=== PATIENT | male | born 1940 | race Two or more races ===

== ENCOUNTER 2016-10-15 09:12 | Inpatient (IN) | payer OTHER ==
--- NOTE | 2016-10-15 09:26 | PDOC ---
*Physical Exam - Physical Exam Comments: 10/15/16 09:26 MIDLEVEL NOTE Pt seen by Midlevel Provider under my direct supervision. Pt interviewed and examined. Ancillary studies reviewed. I agree with plan as outlined by Midlevel Provider. 75 yo with h/o CVA with residual rt sided weakness, HTN on norvasc, GERD, bipolar and iddm who presents with s/p fall and noted to have elevated CPK (c/ w some rhabdo), and also troponin Patient states he was on the ground for about 5 hours after his most recent fall. Per report he has had multiple recent falls due to unsteady gait. today endorsing that he has been falling out of bed in his sleep. Chronic rt sided weaknesss stable. EKG Normal sinus rhythm, with severe baseline artifact-poor quality EKG Normal AV and IV conduction time Normal QT Nonspecific ST-T is Laboratory Results - last 24 hr 10/15/16 10/15/16 10/15/16 09:45 09:45 09:45 WBC 6.0 RBC 3.77 L Hgb 11.8 D Hct 35.4 D MCV 93.9 MCHC 33.3 RDW 15.3 D Plt Count 127 L MPV 8.8 Neutrophils % 64.1 Lymphocytes % 16.4 Monocytes % 17.7 H Eosinophils % 1.2 Basophils % 0.6 Sodium 142 Potassium 3.8 Chloride 108 H Carbon Dioxide 25 Anion Gap 9 BUN 20 H D Creatinine 0.9 Creat Clearance w eGFR > 60 POC Glucometer Random Glucose 146 H Calcium 8.7 Magnesium 2.0 Cancelled Total Bilirubin 0.8 AST 83 H D ALT 71 Alkaline Phosphatase 219 H D Creatine Kinase 1027 H D Creatine Kinase Index 1.0 CK-MB (CK-2) 9.902 H CK-MB (CK-2) Rel Index Troponin I 0.16 H D Total Protein 7.0 Albumin 3.2 L 10/15/16 10/15/16 09:45 10:15 WBC RBC Hgb Hct MCV MCHC RDW Plt Count MPV Neutrophils % Lymphocytes % Monocytes % Eosinophils % Basophils % Sodium Potassium Chloride Carbon Dioxide Anion Gap BUN Creatinine Creat Clearance w eGFR POC Glucometer [id number] Random Glucose Calcium Magnesium Total Bilirubin AST ALT Alkaline Phosphatase Creatine Kinase Creatine Kinase Index CK-MB (CK-2) CK-MB (CK-2) Rel Index Cancelled Troponin I Total Protein Albumin 10/15/16 11:37 Right hip and pelvis NAD Chest x-ray- NAD Patient with some evidence of rhabdo, but was on the floor for at least 5 hrs Troponin also mildly elevated Will need to recheck CK and troponin after some hydration, and trend enzymes will need admission ED Treatment Course - LABORATORY CBC & Chemistry Diagram: 10/17/16 05:40 10/17/16 05:40 *DC/Admit/Observation/Transfer Diagnosis at time of Disposition: Elevated CK-MB level, Rhabdomyolysis, Recurrent falls Fall Qualifiers: Encounter type: initial encounter Qualified Code(s): W19.XXXA - Unspecified fall, initial encounter
[2016-10-15] MEDS ORDERED: DIPHTH,PERTUSS(ACELL),TET 0.5 ML DISP.SYRIN IM ONE (09:28)
[2016-10-15] MEDS ORDERED: SODIUM CHLORIDE 1,000 ML IV STA ×2 (09:28→11:34)
--- NOTE | 2016-10-15 09:56 | PDOC ---
History of Present Illness - General Chief Complaint: Injury Stated Complaint: FALL/WEAKNESS Time Seen by Provider: 10/15/16 09:22 History Source: Patient Exam Limitations: No Limitations - History of Present Illness Initial Comments: 10/15/16 09:56 75-year-old male sent over from [facility] with complaints of more frequent falling over the past week. Patient states feels unbalanced with his cane and has fallen due to the above. Patient states has had no dizziness, nausea, visual changes, headache, or sudden onset of weakness with falls. Patient states the first time he fell and landed on his buttocks but was able to get up since there was a piece of furniture nearby and then today he was signed over to a door when he lost his balance causing him to land backwards against landing on his buttocks. Patient states was unable to get up and dragged himself on his stomach to call for help. Patient states did not strike his head on either episodes and is currently on no anticoagulation therapy. Patient denies fever, chills but does state decreased appetite over the past 2 weeks. patient is also a diabetic and unsure of last BGM. Occurred: reports: other Severity: reports: moderate Pain Location: reports: pelvis Method of Injury: Yes: fall Modifying Factors: improves with: None Loss of Consciousness: no loss of consciousness Associated Symptoms (Fall): trouble walking Past History - Past Medical History Allergies/Adverse Reactions: Allergies Allergy/AdvReac Type Severity Reaction Status Date / Time No Known Drug Allergies Allergy Verified 10/15/16 09:26 Home Medications: Ambulatory Orders Amlodipine Besylate 10 mg PO DAILY 08/19/15 Carboxymethylcellulose Sodium [Refresh Celluvisc] 1 each OP BID 08/19/15 Insulin Lispro [Humalog] 4 unit SQ BID 08/19/15 Olanzapine 15 mg PO HS 08/19/15 Zolpidem Tartrate [Ambien] 5 mg PO HS 08/19/15 Divalproex *ER* [Depakote *ER* -] 500 mg PO BID 10/15/16 Polyethylene Glycol 3350 [Miralax (For Daily Use) -] 17 gm PO DAILY 10/15/16 Sennosides [Senna] 2 tab PO BID 10/15/16 Cardiac Disorders: Yes CVA: Yes (residual rt side weakness) GI Disorders: Yes (gerd) HTN: Yes Hypercholesterolemia: Yes Psychiatric Problems: Yes (bipolar) Other medical history: right ataxis - Psycho/Social/Smoking Cessation Hx Anxiety: Yes Suicidal Ideation: No Smoking Status: No Smoking History: Never smoked Have you smoked in the past 12 months: No Number of Cigarettes Smoked Daily: 0 Information on smoking cessation initiated: No Hx Alcohol Use: No Drug/Substance Use Hx: No Substance Use Type: None Hx Substance Use Treatment: No Patient Lives Alone: No Lives with/in: assisted living Review of Systems - Review of Systems Able to Perform ROS?: Yes Constitutional: Yes: Loss of Appetite HEENTM: No: Symptoms Reported Respiratory: No: Symptoms reported Cardiac (ROS): No: Symptoms Reported ABD/GI: Yes: Poor Appetite, Poor Fluid Intake : No: Symptoms Reported Musculoskeletal: Yes: Symptoms Reported, Joint Pain (right hip). No: Joint Swelling, Muscle Weakness Integumentary: Yes: Bruising (to bilateral elbows) Neurological: No: Symptoms reported Endocrine: No: Symptoms Reported Hematologic/Lymphatic: No: Symptoms Reported *Physical Exam - Vital Signs Last Vital Signs Temp Pulse Resp BP Pulse Ox 97.9 F 83 18 140/81 95 10/15/16 09:24 10/15/16 09:24 10/15/16 09:24 10/15/16 09:24 10/15/16 09:28 - Physical Exam General Appearance: Yes: Nourished, Appropriately Dressed. No: Apparent Distress HEENT: positive: EOMI, NOAH, TMs Normal, Pharynx Normal (dry) Neck: positive: Supple. negative: Decreased range of motion Respiratory/Chest: positive: Lungs Clear, Normal Breath Sounds. negative: Respiratory Distress, Accessory Muscle Use Cardiovascular: positive: Regular Rhythm, Regular Rate. negative: Murmur Gastrointestinal/Abdominal: positive: Soft. negative: Tenderness Musculoskeletal: negative: CVA Tenderness, Vertebral Tenderness Extremity: positive: Normal Capillary Refill, Normal Inspection, Normal Range of Motion, Tender (right posterior iliac crest), Pedal Edema (3+ pitting). negative: Calf Tenderness Integumentary: positive: Ecchymosis (to bilateral elbows) Neurologic: positive: Normal Mood/Affect, Motor Strength 5/5 ED Treatment Course - LABORATORY CBC & Chemistry Diagram: 10/15/16 09:45 10/15/16 09:45 - RADIOLOGY Radiology Studies Ordered: Category Date Time Status CHEST X-RAY PORTABLE* [RAD] Stat Radiology 10/15/16 09:28 Ordered HIP & PELVIS-RIGHT [RAD] Stat Radiology 10/15/16 09:28 Ordered Medical Decision Making - Medical Decision Making 10/15/16 10:05 Patient status post mechanical fall today and has fallen once before earlier this week. Patient with complaints of right posterior hip pain along with bruising to bilateral elbows. Patient ordered for cardiac workup, x-rays of the hip chest and EKG. Patient also ordered for BGM and given IV fluids since he appears slightly dehydrated. 10/15/16 12:49 Laboratory Tests 08/19/15 10/15/16 10/15/16 13:35 09:45 09:45 WBC 6.0 Hgb 11.8 D Hct 35.4 D Plt Count 114 L 127 L Neutrophils % 64.1 Sodium 142 Potassium 3.8 Chloride 108 H Carbon Dioxide 25 Anion Gap 9 BUN 20 H D Creatinine 0.9 Creat Clearance w eGFR > 60 POC Glucometer Random Glucose 146 H Calcium 8.7 Magnesium 2.0 Total Bilirubin 0.8 AST 83 H D ALT 71 Alkaline Phosphatase 219 H D Creatine Kinase 1027 H D Creatine Kinase Index 1.0 CK-MB (CK-2) 9.902 H CK-MB (CK-2) Rel Index Troponin I 0.16 H D Total Protein 7.0 Albumin 3.2 L Urine Protein Urine Glucose (UA) Urine Ketones Urine Nitrite Ur Leukocyte Esterase 10/15/16 10/15/16 10/15/16 09:45 10:15 12:00 WBC Hgb Hct Plt Count Neutrophils % Sodium Potassium Chloride Carbon Dioxide Anion Gap BUN Creatinine Creat Clearance w eGFR POC Glucometer [phone] Random Glucose Calcium Magnesium Total Bilirubin AST ALT Alkaline Phosphatase Creatine Kinase Creatine Kinase Index CK-MB (CK-2) CK-MB (CK-2) Rel Index Cancelled Troponin I Total Protein Albumin Urine Protein Negative Urine Glucose (UA) 1+ H Urine Ketones Negative Urine Nitrite Negative Ur Leukocyte Esterase Negative Secondary to elevated CK which is likely due to patient being on the floor after his fall driving himself on the floor for an unknown amount of time. Case discussed with Dr. James patient will be admitted to telemetry. *DC/Admit/Observation/Transfer Diagnosis at time of Disposition: Elevated CK-MB level Fall Qualifiers: Encounter type: initial encounter Qualified Code(s): W19.XXXA - Unspecified fall, initial encounter - Discharge Dispostion Admit: Yes
[2016-10-15 10:05] LABS: BASOPHIL 0.6 % (0-2.0); EOSINOPHIL 1.2 % (0-4.5); MCH 31.3 pg (25.7-33.7); MCHC 33.3 g/dl (32.0-35.9); MEAN CELL VOLUME 93.9 fl (80-96); MEAN PLT VOLUME 8.8 fl (7.5-11.1); NEUTROPHILS 64.1 % (42.8-82.8); PLATELET COUNT 127 K/MM3 (134-434); RDW 15.3 % (11.9-15.9)
[2016-10-15 10:19] LABS: ALBUMIN 3.2 g/dl (3.4-5.0); ANION GAP 9 (8-16); BILIRUBIN,TOTAL 0.8 mg/dL (0.2-1.0); CALCIUM 8.7 mg/dL (8.5-10.1); CO2 25 mmol/L (21-32); CREATININE 0.9 mg/dL (0.7-1.3); GLUCOSE,RANDOM 146 mg/dL (74-106); SGOT/AST 83 U/L (15-37); SGPT/ALT 71 U/L (12-78)
[2016-10-15 10:31] LABS: ALK PHOS 219 U/L (45-117); TROPONIN I 0.16 ng/ml (0.00-0.05)
[2016-10-15 12:32] LABS: URINE APPEARANCE CLEAR; URINE BILIRUBIN NEGATIVE (NEGATIVE); URINE BLOOD NEGATIVE (NEGATIVE); URINE COLOR LTYELLOW; URINE GLUCOSE (UA) 1+ (NEGATIVE); URINE KETONE NEGATIVE (NEGATIVE); URINE LEUK ESTERASE NEGATIVE (NEGATIVE); URINE NITRITE NEGATIVE (NEGATIVE); URINE PROTEIN NEGATIVE (NEGATIVE); URINE UROBILINOGEN NEGATIVE E.U./dl (0.2-1.0)
--- NOTE | 2016-10-15 12:43 | EKG ---
Test Reason : Blood Pressure : / mmHG Vent. Rate : 089 BPM Atrial Rate : 089 BPM P-R Int : 168 ms QRS Dur : 078 ms QT Int : 342 ms P-R-T Axes : 042 029 102 degrees QTc Int : 416 ms POOR DATA QUALITY, INTERPRETATION MAY BE ADVERSELY AFFECTED UNDETERMINED RHYTHM NONSPECIFIC T WAVE ABNORMALITY ABNORMAL ECG WHEN COMPARED WITH ECG OF 19-AUG-2015 13:42, CURRENT UNDETERMINED RHYTHM PRECLUDES RHYTHM COMPARISON, NEEDS REVIEW Confirmed by BORIS ARTIS MD ([id number]) on 10/15/2016 12:43:14 PM Referred By: Confirmed By:BORIS ARTIS MD
--- NOTE | 2016-10-15 15:15 | CON.CARD ---
Cardiology Consult (text) - Consultation Consultation Note: CC: Abnormal cardiac enzymes. 75 yo with h/o CVA with residual rt sided weakness, HTN on norvasc, GERD, bipolar and iddm who presents with s/p fall and noted to have elevated cardiac enzymes. Patient states he was on the ground for about 5 hours after his most recent fall. Per report he has had multiple recent falls due to unsteady gait. However, today endorsing to me that he has been falling out of bed in his sleep. Chronic rt sided weaknesss stable. endorses increasing abdominal distension/discomfort over the past few months. Endorses hx of prior heavy etoh use and possible resulting liver disease? per patient. s/p IVF in ER. no orthopnea, pnd, le edema, cp, palps, dizziness, bleeding. + mild sob chronic. no dizziness, nausea, visual changes, headache, cough congestion, rash, f/c/s pmhx: per hpi pshx: per hpi fam hx: no cardiac history social hx: former tobacco, rior heavy etoh use and prior IVDU, heroine, cocaine , marijuana. no recent use. [facility] assisted living facility ros: per hpi Ambulatory Orders Amlodipine Besylate 10 mg PO DAILY 08/19/15 Carboxymethylcellulose Sodium [Refresh Celluvisc] 1 each OP BID 08/19/15 Insulin Lispro [Humalog] 4 unit SQ BID 08/19/15 Olanzapine 15 mg PO HS 08/19/15 Zolpidem Tartrate [Ambien] 5 mg PO HS 08/19/15 Divalproex *ER* [Depakote *ER* -] 500 mg PO BID 10/15/16 Polyethylene Glycol 3350 [Miralax (For Daily Use) -] 17 gm PO DAILY 10/15/16 Sennosides [Senna] 2 tab PO BID 10/15/16 Vital Signs - 24 hr 10/15/16 10/15/16 09:24 09:28 Temperature 97.9 F Pulse Rate 83 Respiratory 18 Rate Blood Pressure 140/81 O2 Sat by Pulse 95 95 Oximetry (%) Intake & Output 10/13/16 10/14/16 10/15/16 10/16/16 07:59 07:59 07:59 07:59 Intake Total 1000 Balance 1000 Weight 205 lb NAD, calm jvd mildly elevated?, neck supple appears dypneic. trace rales, nl effort rrr nl s1, s2 no mrg + bs soft nt nd obese ext with trace edema. no cyanosis or clubbing + dp/pt aaox3 no carotid bruits no jaundice, diaphoresis CBC, BMP 10/15/16 09:45 10/15/16 09:45 Laboratory Tests 10/15/16 09:45 Magnesium 2.0 Total Bilirubin 0.8 AST 83 H D ALT 71 Alkaline Phosphatase 219 H D Creatine Kinase 1027 H D Creatine Kinase Index 1.0 CK-MB (CK-2) 9.902 H Troponin I 0.16 H D Albumin 3.2 L CXR: clear EKG uninterpretable. No obvious ischemic changes. tele: sr. 75 yo with h/o CVA with residual rt sided weakness, HTN on norvasc, GERD, bipolar and iddm who presents with s/p fall and noted to have elevated cardiac enzymes. Elevated CE's. - intermediate troponin elevation with high CK. Likely elevated in setting of fall/possibe rhabdo. EKG uninterpretable as above. would repeat in am. con't [place]. - echo in am. s/p fall - s/p IVF in ER. Appears dyspneic on evaluation. trace rales. ? underlying pulmonary disease vs. new development of edema. Will repeat cxr in am. Echo as above. - PT eval HTN, controlled. con't current regimen. s/p CVA - does not appear to have new neurologic sx's per report. ? home statin, ASA. - would start asa pending results of repeat head ct. consider starting statin if lft's remain stable.
[2016-10-15 15:23] LABS: TROPONIN I 0.18 ng/ml (0.00-0.05)
[2016-10-15 15:48] VITALS: BMI 33.9
--- NOTE | 2016-10-15 20:14 | HP ---
Admitting History and Physical - Admission Chief Complaint: Recurrent falls History of Present Illness: Pt is a75 y/o male w/ PMH significant for HTN, GERD, diabetes, CVA w/ residual rt sided weakness and bipolar dz. Pt was sent from an assisted living facility due to recurrent falls especially over the past 1-2 weeks. His gait has been unstable and has been using a cane more. Pt come to ER now bc he fell and hit a piece of furniture but was unable to get up. In the ER pt found to have elevated cpk/troponin. Pt denies any LOC and no CADET. Ct scan head was done wc did not show any acute pathology. 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) Cardiovascular: Yes: HTN, Hyperlipdemia Endocrine: Yes: Diabetes Mellitus - Smoking History Smoking history: Never smoked Have you smoked in the past 12 months: No Aproximately how many cigarettes per day: 0 - Alcohol/Substance Use Hx Alcohol Use: No Home Medications - Allergies Allergies/Adverse Reactions: Allergies Allergy/AdvReac Type Severity Reaction Status Date / Time No Known Drug Allergies Allergy Verified 10/15/16 09:26 - Home Medications Home Medications: Ambulatory Orders Amlodipine Besylate 10 mg PO DAILY 08/19/15 Insulin Lispro [Humalog] 3 unit SQ TIDCM 08/19/15 Olanzapine 15 mg PO HS 08/19/15 Zolpidem Tartrate [Ambien] 5 mg PO HS 08/19/15 Cyclobenzaprine HCl [Flexeril 10 mg] 5 mg PO TID 10/15/16 Divalproex *ER* [Depakote *ER* -] 500 mg PO Q12H 10/15/16 Naproxen [Naprosyn -] 500 mg PO TID 10/15/16 Polyethylene Glycol 3350 [Miralax (For Daily Use) -] 17 gm PO DAILY 10/15/16 Sennosides [Senna] 2 tab PO BID 10/15/16 Family Disease History - Family Disease History Family History: Unable to Obtain Review of Systems - Review of Systems Constitutional: reports: Weakness Eyes: reports: No Symptoms HENT: reports: No Symptoms Neck: reports: No Symptoms Cardiovascular: reports: No Symptoms Respiratory: reports: No Symptoms Gastrointestinal: reports: No Symptoms Musculoskeletal: reports: Decreased ROM, Muscle Weakness Neurological: reports: Unsteady Gait, Weakness Physical Examination Vital Signs: Vital Signs Temperature 97.9 F 10/15/16 17:00 Pulse Rate 91 H 10/15/16 17:00 Respiratory Rate 18 10/15/16 17:28 Blood Pressure 151/99 10/15/16 17:00 O2 Sat by Pulse Oximetry (%) 96 10/15/16 17:28 Constitutional: Yes: Well Nourished Eyes: Yes: WNL HENT: Yes: WNL Neck: Yes: Supple Cardiovascular: Yes: WNL, Regular Rate and Rhythm Respiratory: Yes: WNL, Regular, CTA Bilaterally Gastrointestinal: Yes: WNL, Normal Bowel Sounds, Soft Musculoskeletal: Yes: WNL Extremities: Yes: WNL Edema: No Neurological: Yes: WNL, Alert, Oriented, Other (Rt sided hemiparesis) Problem List - Problems (1) Elevated troponin Assessment/Plan: Monitor on tele Serial cpk/troponin to r/o ACS Check echo Cardio consult Code(s): R74.8 - ABNORMAL LEVELS OF OTHER SERUM ENZYMES (2) Rhabdomyolysis Assessment/Plan: Cont IV hydration Due to recurrent falls Trend cpk Renal consult Code(s): M62.82 - RHABDOMYOLYSIS (3) Recurrent falls Assessment/Plan: Unsteady gait Will check carotid doppler Neuro consult Will need STR PT eval Code(s): R29.6 - REPEATED FALLS (4) HTN (hypertension) Assessment/Plan: BP stable Cont norvasc Code(s): I10 - ESSENTIAL (PRIMARY) HYPERTENSION (5) Diabetes Assessment/Plan: Cont insulin Cont sliding scale w/ coverage Code(s): E11.9 - TYPE 2 DIABETES MELLITUS WITHOUT COMPLICATIONS (6) Bipolar 1 disorder Assessment/Plan: Cont depakote/zyprexa Code(s): F31.9 - BIPOLAR DISORDER, UNSPECIFIED (7) CVA (cerebral vascular accident) Code(s): I63.9 - CEREBRAL INFARCTION, UNSPECIFIED
[2016-10-15 20:55] LABS: TROPONIN I 0.15 ng/ml (0.00-0.05)
[2016-10-15] MEDS: DIVALPROEX NA *ER* EXTEND REL 500 MG TABLET.SA (FP) PO SCH (22:33)
[2016-10-15] MEDS: OLANZapine 5 MG TABLET PO SCH (22:33)
[2016-10-15] MEDS: SENNOSIDES 8.6MG TABLET (FP) PO SCH (22:33)
[2016-10-15] MEDS: DEXTROSE 5%-0.45% SALINE 1,000 ML IV SCH (22:36)
[2016-10-15] MEDS: HEPARIN NA (PORCINE) 5,000 UNITS/ML 1ML VIAL SQ SCH (22:36)
[2016-10-15] MEDS: INSULIN SLIDING SCALE (NOVOLOG) 1 VIAL SQ SCH (22:38)
[2016-10-16] MEDS: INSULIN SLIDING SCALE (NOVOLOG) 1 VIAL SQ SCH ×4 (06:22→21:44)
[2016-10-16 07:45] LABS: EOSINOPHIL 4.3 % (0-4.5); MCH 31.1 pg (25.7-33.7); MEAN CELL VOLUME 94.2 fl (80-96); MEAN PLT VOLUME 9.2 fl (7.5-11.1); NEUTROPHILS 56.4 % (42.8-82.8); PLATELET COUNT 122 K/MM3 (134-434); RDW 15.3 % (11.9-15.9); WHITE BLOOD COUNT 4.1 K/mm3 (4.0-10.0)
[2016-10-16 08:20] LABS: ALBUMIN 2.7 g/dl (3.4-5.0); ANION GAP 7 (8-16); BILIRUBIN,TOTAL 0.8 mg/dL (0.2-1.0); CALCIUM 8.3 mg/dL (8.5-10.1); CO2 27 mmol/L (21-32); CREATININE 0.9 mg/dL (0.7-1.3); GLUCOSE,RANDOM 164 mg/dL (74-106); SGOT/AST 91 U/L (15-37); SGPT/ALT 66 U/L (12-78); TOT PROT 6.3 g/dl (6.4-8.2)
[2016-10-16 08:29] LABS: ALK PHOS 180 U/L (45-117); THYROID STIMULATING HORMONE 9.37 uIU/ml (0.358-3.74)
[2016-10-16] MEDS ORDERED: PT OWN MED DRAWER 7, Y5N ONE (09:32)
[2016-10-16] MEDS: SENNOSIDES 8.6MG TABLET (FP) PO SCH ×2 (10:40→21:45)
[2016-10-16] MEDS: DIVALPROEX NA *ER* EXTEND REL 500 MG TABLET.SA (FP) PO SCH ×2 (10:40→22:08)
[2016-10-16] MEDS: amLODIPine BESYLATE 10 MG TABLET (FP) PO SCH (10:40)
[2016-10-16] MEDS: HEPARIN NA (PORCINE) 5,000 UNITS/ML 1ML VIAL SQ SCH ×2 (10:40→21:45)
[2016-10-16] MEDS: POLYETHYLENE GLYCOL 3350 119 GM BTL PO SCH (10:41)
--- NOTE | 2016-10-16 10:43 | PN ---
Progress Note (short form) - Note Progress Note: s: no cp sob palps dizzy o: Vital Signs Period Temp Pulse Resp BP Sys/[place] Pulse Ox Last 24 Hr 97.4 F-98.5 F 70-91 18-20 126-156/60-99 96-98 NAD, no jvd cta bl nl eff rrr nl s1, s2 no mrg + bs soft nt nd obese ext with trace edema. no cyanosis or clubbing aaox3 no jaundice, diaphoresis Current Medications Generic Name Dose Route Start Last Admin Trade Name Freq PRN Reason Stop Dose Admin Amlodipine Besylate 10 mg 10/16/16 10:00 Norvasc - PO DAILY VENITA Divalproex Sodium 500 mg 10/15/16 22:00 10/15/16 22:33 Depakote *Er* - PO 500 mg BID VENITA Administration Heparin Sodium (Porcine) 5,000 unit 10/15/16 22:00 10/15/16 22:36 Heparin - SQ 5,000 unit BID VENITA Administration Dextrose/Sodium Chloride 1,000 mls @ 75 mls/hr 10/15/16 19:15 10/15/16 22:36 D5-1/2ns - IV 75 mls/hr ASDIR VENITA Administration Insulin Aspart 3 units 10/16/16 07:00 Novolog Vial SQ TIDAC VENITA Insulin Aspart 1 vial 10/15/16 22:00 10/16/16 06:22 Novolog Vial Sliding Scale - SQ 3 units ACHS VENITA Administration Protocol Olanzapine 15 mg 10/15/16 22:00 10/15/16 22:33 Zyprexa - PO 15 mg HS VENITA Administration Polyethylene Glycol 17 gm 10/16/16 10:00 Miralax (For Daily Use) - PO DAILY VENITA Senna 2 tab 10/15/16 22:00 10/15/16 22:33 Senna - PO 2 tab BID VENITA Administration Zolpidem Tartrate 5 mg 10/15/16 22:00 Ambien - PO HS PRN INSOMNIA CBC, BMP 10/16/16 05:40 10/16/16 05:40 CXR: clear ecg 10/16/16: sr, nl intervals, no ischemic changes tele: sr, occ pvcs a/p: 75 yo with h/o CVA with residual rt sided weakness, HTN on norvasc, GERD, bipolar and iddm who presents with s/p fall and noted to have elevated cardiac enzymes. Elevated CE's. - intermediate troponin elevation with flat trend and normal ckmb index, not consistent with acs. Likely elevated in setting of fall/possibe rhabdo. -EKG today unremarkable. -echo pending s/p fall -on ivfs for possible rhabdo -PT eval HTN: -con't current regimen. s/p CVA - does not appear to have new neurologic sx's. - consider starting asa and statin
--- NOTE | 2016-10-16 10:58 | EKG ---
Test Reason : Blood Pressure : / mmHG Vent. Rate : 069 BPM Atrial Rate : 069 BPM P-R Int : 168 ms QRS Dur : 084 ms QT Int : 420 ms P-R-T Axes : 057 044 066 degrees QTc Int : 450 ms NORMAL SINUS RHYTHM NONSPECIFIC T WAVE ABNORMALITY ABNORMAL ECG WHEN COMPARED WITH ECG OF 15-OCT-2016 09:23, PREVIOUS ECG HAS UNDETERMINED RHYTHM, NEEDS REVIEW Confirmed by LYNN ALFORD, JUAN ([id number]) on 10/16/2016 10:57:57 AM Referred By: KELSY Confirmed By:JUAN BAILEY MD
[2016-10-16] MEDS ORDERED: ACETAMINOPHEN 325 MG TABLET (FP) ONE (11:08)
[2016-10-16] MEDS: INSULIN (NOVOLOG) ASPART 100 UNITS/ML 10ML VIAL SQ SCH ×2 (11:59→17:32)
[2016-10-16] MEDS: DEXTROSE 5%-0.45% SALINE 1,000 ML IV SCH (19:00)
--- NOTE | 2016-10-16 20:04 | CON.NEURO ---
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) Cardio/Vascular: Yes: HTN, Hyperlipdemia Endocrine: Yes: Diabetes Mellitus - Alcohol/Substance Use Hx Alcohol Use: No - Smoking History Smoking history: Never smoked Have you smoked in the past 12 months: No Aproximately how many cigarettes per day: 0 Home Medications - Allergies Allergies/Adverse Reactions: Allergies Allergy/AdvReac Type Severity Reaction Status Date / Time No Known Drug Allergies Allergy Verified 10/15/16 09:26 - Home Medications Home Medications: Ambulatory Orders Amlodipine Besylate 10 mg PO DAILY 08/19/15 Insulin Lispro [Humalog] 3 unit SQ TIDCM 08/19/15 Olanzapine 15 mg PO HS 08/19/15 Zolpidem Tartrate [Ambien] 5 mg PO HS 08/19/15 Cyclobenzaprine HCl [Flexeril 10 mg] 5 mg PO TID 10/15/16 Divalproex *ER* [Depakote *ER* -] 500 mg PO Q12H 10/15/16 Naproxen [Naprosyn -] 500 mg PO TID 10/15/16 Polyethylene Glycol 3350 [Miralax (For Daily Use) -] 17 gm PO DAILY 10/15/16 Sennosides [Senna] 2 tab PO BID 10/15/16 Physical Exam-Neuro Vital Signs: Vital Signs Temperature 98.5 F 10/16/16 18:00 Pulse Rate 74 10/16/16 18:00 Respiratory Rate 20 10/16/16 18:00 Blood Pressure 129/79 10/16/16 18:00 O2 Sat by Pulse Oximetry (%) 99 10/16/16 09:00 Labs: CBC, BMP 10/16/16 05:40 10/16/16 05:40 NIH Stroke Scale - Total Score NIH Stroke Scale Score: 0 Assessment/Plan 75 yea everardod male , alf rsident , He has history of Residual right sided hemiparesis and bipolar disease, HTN , Gerd, and diabetes. He has been complaining of fall, mostly during when he is sleeping and in bed. He walks with cane and denie any fall during day Patient denies any new focal neurological symptoms, including tremor , rigidity or bowel or bladder incontinence PMH, FH, MEDS AND ROS were reviewed in chart Neurological Examination Patient is alert and follow command, laying bed comfortable CN all intact There is mild right sided hemiparesis, and ftn is normal bilaterally reflex are symmetrical and planter is mute sensation is normal ct head is normal Assessment-- Patient has two episode of fall , while he was in bed. At this time it is unlikely that he is having stroke, no extrapyramidal syndrome, no vertigo, no evidence of cord compression or neuropathy identified. He fell when he was in bed. Plan-- Physical therapy and b12,folate tsh can be obtained. supportive treatment - no need for brain or spine imaging at this time thanks for consult kalli reynaga MD Cell [phone]
[2016-10-16 20:32] LABS: TROPONIN I 0.04 ng/ml (0.00-0.05)
--- NOTE | 2016-10-16 21:13 | PN ---
Progress Note, Physician History of Present Illness: No new complaints - Current Medication List Current Medications: Active Medications Acetaminophen (Tylenol -) 650 mg PO Q6H PRN PRN Reason: FEVER OR PAIN Amlodipine Besylate (Norvasc -) 10 mg PO DAILY [facility] Last Admin: 10/16/16 10:40 Dose: 10 mg Divalproex Sodium (Depakote *Er* -) 500 mg PO BID [facility] Last Admin: 10/16/16 10:40 Dose: 500 mg Heparin Sodium (Porcine) (Heparin -) 5,000 unit SQ BID [facility] Last Admin: 10/16/16 10:40 Dose: 5,000 unit Dextrose/Sodium Chloride (D5-1/2ns -) 1,000 mls @ 75 mls/hr IV ASDIR [facility] Last Admin: 10/15/16 22:36 Dose: 75 mls/hr Insulin Aspart (Novolog Vial) 3 units SQ TIDAC [facility] Last Admin: 10/16/16 17:32 Dose: 3 units Insulin Aspart (Novolog Vial Sliding Scale -) 1 vial SQ ACHS [facility] PRN Reason: Protocol Last Admin: 10/16/16 17:32 Dose: 2 units Olanzapine (Zyprexa -) 15 mg PO HS [facility] Last Admin: 10/15/16 22:33 Dose: 15 mg Polyethylene Glycol (Miralax (For Daily Use) -) 17 gm PO DAILY [facility] Last Admin: 10/16/16 10:41 Dose: 17 grams Senna (Senna -) 2 tab PO BID [facility] Last Admin: 10/16/16 10:40 Dose: 2 tab Zolpidem Tartrate (Ambien -) 5 mg PO HS PRN PRN Reason: INSOMNIA - Objective Vital Signs: Vital Signs Temperature 98.5 F 10/16/16 18:00 Pulse Rate 74 10/16/16 18:00 Respiratory Rate 20 10/16/16 18:00 Blood Pressure 129/79 10/16/16 18:00 O2 Sat by Pulse Oximetry (%) 99 10/16/16 09:00 Constitutional: Yes: Well Nourished Eyes: Yes: WNL HENT: Yes: WNL Neck: Yes: Supple Cardiovascular: Yes: WNL, Regular Rate and Rhythm Respiratory: Yes: WNL, Regular, CTA Bilaterally Gastrointestinal: Yes: WNL, Normal Bowel Sounds, Soft Labs: CBC, BMP 10/16/16 05:40 10/16/16 05:40 Problem List - Problems (1) Elevated troponin Assessment/Plan: Monitor on tele CPK/troponin related to rhabdo Code(s): R74.8 - ABNORMAL LEVELS OF OTHER SERUM ENZYMES (2) Rhabdomyolysis Assessment/Plan: Cont IV hydration Due to recurrent falls Trend cpk Code(s): M62.82 - RHABDOMYOLYSIS (3) Recurrent falls Assessment/Plan: Unsteady gait PT eval Code(s): R29.6 - REPEATED FALLS (4) HTN (hypertension) Assessment/Plan: BP stable Cont norvasc Code(s): I10 - ESSENTIAL (PRIMARY) HYPERTENSION (5) Diabetes Assessment/Plan: Cont insulin Cont sliding scale w/ coverage Code(s): E11.9 - TYPE 2 DIABETES MELLITUS WITHOUT COMPLICATIONS (6) Bipolar 1 disorder Assessment/Plan: Cont depakote/zyprexa Code(s): F31.9 - BIPOLAR DISORDER, UNSPECIFIED (7) CVA (cerebral vascular accident) Code(s): I63.9 - CEREBRAL INFARCTION, UNSPECIFIED
[2016-10-16] MEDS: ZOLPIDEM TARTRATE 5 MG TABLET PO PRN (21:45)
[2016-10-16] MEDS: OLANZapine 5 MG TABLET PO SCH (21:45)
[2016-10-16] MEDS: ACETAMINOPHEN 325 MG TABLET (FP) PO PRN (22:07)
[2016-10-17] MEDS: DEXTROSE 5%-0.45% SALINE 1,000 ML IV SCH ×2 (06:15→22:16)
[2016-10-17] MEDS: INSULIN (NOVOLOG) ASPART 100 UNITS/ML 10ML VIAL SQ SCH ×4 (06:17→17:42)
[2016-10-17] MEDS: INSULIN SLIDING SCALE (NOVOLOG) 1 VIAL SQ SCH ×4 (06:20→22:12)
[2016-10-17 08:28] LABS: EOSINOPHIL 5.4 % (0-4.5); MCH 30.8 pg (25.7-33.7); MCHC 32.8 g/dl (32.0-35.9); MEAN PLT VOLUME 8.4 fl (7.5-11.1); PLATELET COUNT 128 K/MM3 (134-434); RDW 15.3 % (11.9-15.9)
[2016-10-17 09:01] LABS: ALBUMIN 2.6 g/dl (3.4-5.0); ALK PHOS 185 U/L (45-117); ANION GAP 9 (8-16); BILIRUBIN,TOTAL 0.7 mg/dL (0.2-1.0); CALCIUM 8.4 mg/dL (8.5-10.1); CO2 25 mmol/L (21-32); COCKROFT - GAULT 83.34; GLUCOSE,RANDOM 141 mg/dL (74-106); SGOT/AST 96 U/L (15-37); SGPT/ALT 66 U/L (12-78); TOT PROT 6.5 g/dl (6.4-8.2)
[2016-10-17] MEDS ORDERED: PT OWN MED DRAWER 7, Y5N ONE (09:48)
[2016-10-17] MEDS: POLYETHYLENE GLYCOL 3350 119 GM BTL PO SCH (10:00)
[2016-10-17] MEDS: HEPARIN NA (PORCINE) 5,000 UNITS/ML 1ML VIAL SQ SCH ×2 (10:00→22:17)
[2016-10-17] MEDS: DIVALPROEX NA *ER* EXTEND REL 500 MG TABLET.SA (FP) PO SCH ×2 (10:00→22:17)
[2016-10-17] MEDS: amLODIPine BESYLATE 10 MG TABLET (FP) PO SCH (10:00)
[2016-10-17] MEDS: SENNOSIDES 8.6MG TABLET (FP) PO SCH ×2 (10:00→22:17)
--- NOTE | 2016-10-17 10:48 | PN ---
Progress Note (short form) - Note Progress Note: s: no cp sob palps dizzy o: Vital Signs Period Temp Pulse Resp BP Sys/Fulton Pulse Ox Last 24 Hr 98.2 F-98.7 F 74-82 20-20 122-141/74-81 99 NAD, no jvd cta bl nl eff rrr nl s1, s2 no mrg + bs soft nt nd obese ext with trace edema. no cyanosis or clubbing aaox3 no jaundice, diaphoresis Current Medications Generic Name Dose Route Start Last Admin Trade Name Freq PRN Reason Stop Dose Admin Acetaminophen 650 mg 10/16/16 11:13 10/16/16 22:07 Tylenol - PO 650 mg Q6H PRN Administration FEVER OR PAIN Amlodipine Besylate 10 mg 10/16/16 10:00 10/16/16 10:40 Norvasc - PO 10 mg DAILY [facility] Administration Divalproex Sodium 500 mg 10/15/16 22:00 10/16/16 22:08 Depakote *Er* - PO 500 mg BID [facility] Administration Heparin Sodium (Porcine) 5,000 unit 10/15/16 22:00 10/16/16 21:45 Heparin - SQ 5,000 unit BID [facility] Administration Dextrose/Sodium Chloride 1,000 mls @ 75 mls/hr 10/15/16 19:15 10/17/16 06:15 D5-1/2ns - IV 75 mls/hr ASDIR [facility] Administration Insulin Aspart 3 units 10/16/16 07:00 10/17/16 06:17 Novolog Vial SQ 3 units TIDAC [facility] Administration Insulin Aspart 1 vial 10/15/16 22:00 10/17/16 06:20 Novolog Vial Sliding Scale - SQ 3 units ACHS [facility] Administration Protocol Olanzapine 15 mg 10/15/16 22:00 10/16/16 21:45 Zyprexa - PO 15 mg HS [facility] Administration Polyethylene Glycol 17 gm 10/16/16 10:00 10/16/16 10:41 Miralax (For Daily Use) - PO 17 grams DAILY [facility] Administration Senna 2 tab 10/15/16 22:00 10/16/16 21:45 Senna - PO 2 tab BID [facility] Administration Zolpidem Tartrate 5 mg 10/15/16 22:00 10/16/16 21:45 Ambien - PO 5 mg HS PRN Administration INSOMNIA CBC, BMP 10/17/16 05:40 10/17/16 05:40 CXR: clear ecg 10/16/16: sr, nl intervals, no ischemic changes tele: sr echo 10/2016: nl lv/rv, mild tr, nl rvsp a/p: 75 yo with h/o CVA with residual rt sided weakness, HTN on norvasc, GERD, bipolar and iddm who presents with s/p fall and noted to have elevated cardiac enzymes. Elevated CE's. -intermediate troponin elevation with flat trend and normal ckmb index, not consistent with acs. Likely elevated in setting of fall/possible rhabdo. -EKG and echo unremarkable here s/p fall -on ivfs for possible rhabdo -PT eval HTN: -con't current regimen. s/p CVA - neuro following - consider starting asa and statin can dc tele
--- NOTE | 2016-10-17 15:09 | PN ---
Progress Note, Physician History of Present Illness: No new complaints - Current Medication List Current Medications: Active Medications Acetaminophen (Tylenol -) 650 mg PO Q6H PRN PRN Reason: FEVER OR PAIN Last Admin: 10/16/16 22:07 Dose: 650 mg Amlodipine Besylate (Norvasc -) 10 mg PO DAILY [facility] Last Admin: 10/17/16 10:00 Dose: 10 mg Divalproex Sodium (Depakote *Er* -) 500 mg PO BID [facility] Last Admin: 10/17/16 10:00 Dose: 500 mg Heparin Sodium (Porcine) (Heparin -) 5,000 unit SQ BID [facility] Last Admin: 10/17/16 10:00 Dose: 5,000 unit Dextrose/Sodium Chloride (D5-1/2ns -) 1,000 mls @ 75 mls/hr IV ASDIR [facility] Last Admin: 10/17/16 06:15 Dose: 75 mls/hr Insulin Aspart (Novolog Vial) 3 units SQ TIDAC [facility] Last Admin: 10/17/16 12:02 Dose: 3 units Insulin Aspart (Novolog Vial Sliding Scale -) 1 vial SQ ACHS [facility] PRN Reason: Protocol Last Admin: 10/17/16 12:01 Dose: 2 units Olanzapine (Zyprexa -) 15 mg PO HS [facility] Last Admin: 10/16/16 21:45 Dose: 15 mg Polyethylene Glycol (Miralax (For Daily Use) -) 17 gm PO DAILY [facility] Last Admin: 10/17/16 10:00 Dose: 17 grams Senna (Senna -) 2 tab PO BID [facility] Last Admin: 10/17/16 10:00 Dose: 2 tab Zolpidem Tartrate (Ambien -) 5 mg PO HS PRN PRN Reason: INSOMNIA Last Admin: 10/16/16 21:45 Dose: 5 mg - Objective Vital Signs: Vital Signs Temperature 98 F 10/17/16 14:55 Pulse Rate 72 10/17/16 14:55 Respiratory Rate 20 10/17/16 14:55 Blood Pressure 118/55 10/17/16 14:55 O2 Sat by Pulse Oximetry (%) 99 10/16/16 21:00 Constitutional: Yes: Well Nourished Eyes: Yes: WNL HENT: Yes: WNL Neck: Yes: Supple Respiratory: Yes: WNL, Regular, CTA Bilaterally Gastrointestinal: Yes: WNL, Normal Bowel Sounds, Soft Labs: CBC, BMP 10/17/16 05:40 10/17/16 05:40 Problem List - Problems (1) Elevated troponin Code(s): R74.8 - ABNORMAL LEVELS OF OTHER SERUM ENZYMES (2) Rhabdomyolysis Code(s): M62.82 - RHABDOMYOLYSIS (3) Recurrent falls Code(s): R29.6 - REPEATED FALLS (4) HTN (hypertension) Code(s): I10 - ESSENTIAL (PRIMARY) HYPERTENSION (5) Diabetes Code(s): E11.9 - TYPE 2 DIABETES MELLITUS WITHOUT COMPLICATIONS (6) Bipolar 1 disorder Code(s): F31.9 - BIPOLAR DISORDER, UNSPECIFIED (7) CVA (cerebral vascular accident) Code(s): I63.9 - CEREBRAL INFARCTION, UNSPECIFIED
[2016-10-17 20:09] LABS: TROPONIN I 0.02 ng/ml (0.00-0.05)
[2016-10-17] MEDS: OLANZapine 5 MG TABLET PO SCH (22:17)
[2016-10-17] MEDS: ZOLPIDEM TARTRATE 5 MG TABLET PO PRN (22:17)
[2016-10-18] MEDS: INSULIN SLIDING SCALE (NOVOLOG) 1 VIAL SQ SCH ×3 (06:15→21:20)
[2016-10-18] MEDS: INSULIN (NOVOLOG) ASPART 100 UNITS/ML 10ML VIAL SQ SCH ×2 (06:17→12:08)
[2016-10-18] MEDS ORDERED: PT OWN MED DRAWER 7, Y5N ONE ×2 (09:59→21:07)
[2016-10-18] MEDS: HEPARIN NA (PORCINE) 5,000 UNITS/ML 1ML VIAL SQ SCH ×2 (10:07→21:20)
[2016-10-18] MEDS: amLODIPine BESYLATE 10 MG TABLET (FP) PO SCH (10:07)
[2016-10-18] MEDS: SENNOSIDES 8.6MG TABLET (FP) PO SCH ×2 (10:08→21:20)
[2016-10-18] MEDS: DIVALPROEX NA *ER* EXTEND REL 500 MG TABLET.SA (FP) PO SCH ×2 (10:08→21:20)
[2016-10-18] MEDS: POLYETHYLENE GLYCOL 3350 119 GM BTL PO SCH (10:08)
--- NOTE | 2016-10-18 11:17 | PN ---
Progress Note (short form) - Note Progress Note: s: no cp sob palps dizzy o: Vital Signs Period Temp Pulse Resp BP Sys/[place]ulton Pulse Ox Last 24 Hr 97.5 F-98.4 F 71-76 19-20 118-136/55-85 95 NAD, no jvd cta bl nl eff rrr nl s1, s2 no mrg + bs soft nt nd obese ext with trace edema. no cyanosis or clubbing aaox3 no jaundice, diaphoresis Current Medications Generic Name Dose Route Start Last Admin Trade Name Freq PRN Reason Stop Dose Admin Acetaminophen 650 mg 10/16/16 11:13 10/16/16 22:07 Tylenol - PO 650 mg Q6H PRN Administration FEVER OR PAIN Amlodipine Besylate 10 mg 10/16/16 10:00 10/18/16 10:07 Norvasc - PO 10 mg DAILY [facility] Administration Divalproex Sodium 500 mg 10/15/16 22:00 10/18/16 10:08 Depakote *Er* - PO 500 mg BID [facility] Administration Heparin Sodium (Porcine) 5,000 unit 10/15/16 22:00 10/18/16 10:07 Heparin - SQ 5,000 unit BID [facility] Administration Dextrose/Sodium Chloride 1,000 mls @ 75 mls/hr 10/15/16 19:15 10/17/16 22:16 D5-1/2ns - IV 75 mls/hr ASDIR [facility] Administration Insulin Aspart 3 units 10/16/16 07:00 10/18/16 06:17 Novolog Vial SQ 3 units TIDAC [facility] Administration Insulin Aspart 1 vial 10/15/16 22:00 10/18/16 06:15 Novolog Vial Sliding Scale - SQ Not Given ACHS [facility] Protocol Olanzapine 15 mg 10/15/16 22:00 10/17/16 22:17 Zyprexa - PO 15 mg HS [facility] Administration Polyethylene Glycol 17 gm 10/16/16 10:00 10/18/16 10:08 Miralax (For Daily Use) - PO 17 grams DAILY [facility] Administration Senna 2 tab 10/15/16 22:00 10/18/16 10:08 Senna - PO 2 tab BID [facility] Administration Zolpidem Tartrate 5 mg 10/15/16 22:00 10/17/16 22:17 Ambien - PO 5 mg HS PRN Administration INSOMNIA CBC, BMP 10/17/16 05:40 10/17/16 05:40 CXR: clear ecg 10/16/16: sr, nl intervals, no ischemic changes tele: sr echo 10/2016: nl lv/rv, mild tr, nl rvsp a/p: 75 yo with h/o CVA with residual rt sided weakness, HTN on norvasc, GERD, bipolar and iddm who presents with s/p fall and noted to have elevated cardiac enzymes. Elevated CE's. -intermediate troponin elevation with flat trend and normal ckmb index, not consistent with acs. Likely elevated in setting of fall with rhabdo. -EKG and echo unremarkable here s/p fall -on ivfs for rhabdo, ck improving -PT eval HTN: -con't current regimen. s/p CVA - neuro following - consider starting asa and statin (when ck improved) can dc tele
--- NOTE | 2016-10-18 20:10 | PN ---
Progress Note, Physician History of Present Illness: No new complaints - Current Medication List Current Medications: Active Medications Acetaminophen (Tylenol -) 650 mg PO Q6H PRN PRN Reason: FEVER OR PAIN Last Admin: 10/16/16 22:07 Dose: 650 mg Amlodipine Besylate (Norvasc -) 10 mg PO DAILY [facility] Last Admin: 10/18/16 10:07 Dose: 10 mg Divalproex Sodium (Depakote *Er* -) 500 mg PO BID [facility] Last Admin: 10/18/16 10:08 Dose: 500 mg Heparin Sodium (Porcine) (Heparin -) 5,000 unit SQ BID [facility] Last Admin: 10/18/16 10:07 Dose: 5,000 unit Dextrose/Sodium Chloride (D5-1/2ns -) 1,000 mls @ 75 mls/hr IV ASDIR [facility] Last Admin: 10/17/16 22:16 Dose: 75 mls/hr Insulin Aspart (Novolog Vial) 3 units SQ TIDAC [facility] Last Admin: 10/18/16 12:08 Dose: 3 units Insulin Aspart (Novolog Vial Sliding Scale -) 1 vial SQ ACHS [facility] PRN Reason: Protocol Last Admin: 10/18/16 12:08 Dose: 2 units Olanzapine (Zyprexa -) 15 mg PO HS [facility] Last Admin: 10/17/16 22:17 Dose: 15 mg Polyethylene Glycol (Miralax (For Daily Use) -) 17 gm PO DAILY [facility] Last Admin: 10/18/16 10:08 Dose: 17 grams Senna (Senna -) 2 tab PO BID [facility] Last Admin: 10/18/16 10:08 Dose: 2 tab Zolpidem Tartrate (Ambien -) 5 mg PO HS PRN PRN Reason: INSOMNIA Last Admin: 10/17/16 22:17 Dose: 5 mg - Objective Vital Signs: Vital Signs Temperature 97.9 F 10/18/16 17:00 Pulse Rate 76 10/18/16 17:00 Respiratory Rate 20 10/18/16 17:00 Blood Pressure 126/58 10/18/16 17:00 O2 Sat by Pulse Oximetry (%) 95 10/18/16 09:00 Constitutional: Yes: Well Nourished Eyes: Yes: WNL HENT: Yes: WNL Neck: Yes: Supple Cardiovascular: Yes: WNL, Regular Rate and Rhythm Respiratory: Yes: WNL, Regular, CTA Bilaterally Gastrointestinal: Yes: WNL, Normal Bowel Sounds, Soft Labs: CBC, BMP 10/17/16 05:40 10/17/16 05:40 Problem List - Problems (1) Rhabdomyolysis Assessment/Plan: Cont IV hydration Due to recurrent falls CPK trending down Will get PT eval Probably would benefit from STR placement Code(s): M62.82 - RHABDOMYOLYSIS (2) Elevated troponin Assessment/Plan: Troponin has returned to nrmal No ACS Code(s): R74.8 - ABNORMAL LEVELS OF OTHER SERUM ENZYMES (3) Recurrent falls Code(s): R29.6 - REPEATED FALLS (4) HTN (hypertension) Assessment/Plan: BP stable Cont norvasc Code(s): I10 - ESSENTIAL (PRIMARY) HYPERTENSION (5) Diabetes Assessment/Plan: Cont insulin Cont sliding scale w/ coverage Code(s): E11.9 - TYPE 2 DIABETES MELLITUS WITHOUT COMPLICATIONS (6) Bipolar 1 disorder Assessment/Plan: Cont depakote/zyprexa Code(s): F31.9 - BIPOLAR DISORDER, UNSPECIFIED (7) CVA (cerebral vascular accident) Code(s): I63.9 - CEREBRAL INFARCTION, UNSPECIFIED (8) Hypothyroidism Assessment/Plan: Start pt on levothyroxine Repeat TSH in 6 weeks and monitor Code(s): E03.9 - HYPOTHYROIDISM, UNSPECIFIED
[2016-10-18] MEDS ORDERED: INSULIN (NOVOLOG) ASPART 100 UNITS/ML 10ML VIAL ONE (21:06)
[2016-10-18] MEDS: ACETAMINOPHEN 325 MG TABLET (FP) PO PRN (21:19)
[2016-10-18] MEDS: OLANZapine 5 MG TABLET PO SCH (21:20)
[2016-10-18] MEDS: ZOLPIDEM TARTRATE 5 MG TABLET PO PRN (21:20)
[2016-10-18] MEDS: DEXTROSE 5%-0.45% SALINE 1,000 ML IV SCH (21:26)
[2016-10-19] MEDS: LEVOTHYROXINE NA 25 MCG TABLET (FP) PO SCH (06:21)
[2016-10-19] MEDS: INSULIN (NOVOLOG) ASPART 100 UNITS/ML 10ML VIAL SQ SCH ×3 (06:22→17:48)
[2016-10-19] MEDS: INSULIN SLIDING SCALE (NOVOLOG) 1 VIAL SQ SCH ×4 (06:59→22:38)
[2016-10-19 07:04] LABS: BASOPHIL 0.9 % (0-2.0); EOSINOPHIL 5.4 % (0-4.5); MEAN CELL VOLUME 93.9 fl (80-96); MEAN PLT VOLUME 8.5 fl (7.5-11.1); NEUTROPHILS 49.5 % (42.8-82.8); PLATELET COUNT 140 K/MM3 (134-434)
[2016-10-19 07:25] LABS: ALBUMIN 2.6 g/dl (3.4-5.0); ALK PHOS 193 U/L (45-117); ANION GAP 13 (8-16); BILIRUBIN,TOTAL 0.8 mg/dL (0.2-1.0); CALCIUM 8.4 mg/dL (8.5-10.1); CO2 26 mmol/L (21-32); CREATININE 0.9 mg/dL (0.7-1.3); GLUCOSE,RANDOM 144 mg/dL (74-106); SGOT/AST 95 U/L (15-37); SGPT/ALT 69 U/L (12-78); TOT PROT 6.6 g/dl (6.4-8.2)
--- NOTE | 2016-10-19 09:15 | PN ---
Progress Note, Physician Chief Complaint: s/p fall History of Present Illness: denies cp, orthopnea, leg swelling, palpitations - Current Medication List Current Medications: Active Medications Acetaminophen (Tylenol -) 650 mg PO Q6H PRN PRN Reason: FEVER OR PAIN Last Admin: 10/18/16 21:19 Dose: 650 mg Amlodipine Besylate (Norvasc -) 10 mg PO DAILY [facility] Last Admin: 10/18/16 10:07 Dose: 10 mg Divalproex Sodium (Depakote *Er* -) 500 mg PO BID [facility] Last Admin: 10/18/16 21:20 Dose: 500 mg Heparin Sodium (Porcine) (Heparin -) 5,000 unit SQ BID [facility] Last Admin: 10/18/16 21:20 Dose: 5,000 unit Dextrose/Sodium Chloride (D5-1/2ns -) 1,000 mls @ 75 mls/hr IV ASDIR [facility] Last Admin: 10/18/16 21:26 Dose: 75 mls/hr Insulin Aspart (Novolog Vial) 3 units SQ TIDAC [facility] Last Admin: 10/19/16 06:22 Dose: 3 units Insulin Aspart (Novolog Vial Sliding Scale -) 1 vial SQ ACHS [facility] PRN Reason: Protocol Last Admin: 10/19/16 06:59 Dose: Not Given Levothyroxine Sodium (Synthroid -) 25 mcg PO DAILY@0700 [facility] Last Admin: 10/19/16 06:21 Dose: 25 mcg Olanzapine (Zyprexa -) 15 mg PO HS [facility] Last Admin: 10/18/16 21:20 Dose: 15 mg Polyethylene Glycol (Miralax (For Daily Use) -) 17 gm PO DAILY [facility] Last Admin: 10/18/16 10:08 Dose: 17 grams Senna (Senna -) 2 tab PO BID [facility] Last Admin: 10/18/16 21:20 Dose: 2 tab - Objective Vital Signs: Vital Signs Temperature 98.0 F 10/19/16 06:00 Pulse Rate 75 10/19/16 06:00 Respiratory Rate 16 10/19/16 06:00 Blood Pressure 147/81 10/19/16 06:00 O2 Sat by Pulse Oximetry (%) 96 10/18/16 21:00 Constitutional: Yes: Well Nourished, No Distress, Calm Cardiovascular: Yes: Regular Rate and Rhythm, S1, S2. No: Gallop, Murmur Respiratory: Yes: Regular, CTA Bilaterally. No: Accessory Muscle Use, Rales, Wheezes Extremities: No: Cold Edema: No Neurological: Yes: Alert. No: Seizure Psychiatric: No: Agitated Labs: CBC, BMP 10/19/16 05:35 10/19/16 05:35 - ....Imaging EKG: Other (tele: NSR) Assessment/Plan CXR: clear ecg 10/16/16: sr, nl intervals, no ischemic changes echo 10/2016: nl lv/rv, mild tr, nl rvsp a/p: 75 yo with h/o CVA with residual rt sided weakness, HTN on norvasc, GERD, bipolar and iddm who presents with s/p fall and noted to have elevated cardiac enzymes. Elevated CE's. -intermediate troponin elevation with flat trend and normal ckmb index, not consistent with acs. Likely elevated in setting of fall with rhabdo. -EKG and echo unremarkable here s/p fall -on ivfs for rhabdo, ck improving -PT eval HTN: -con't current regimen. h/o CVA - ? outpt sec prevention med regimen--defer to outpt provider, neuro d/c telemetry
[2016-10-19] MEDS ORDERED: PT OWN MED DRAWER 7, Y5N ONE (09:37)
[2016-10-19] MEDS: SENNOSIDES 8.6MG TABLET (FP) PO SCH ×2 (09:38→21:19)
[2016-10-19] MEDS: amLODIPine BESYLATE 10 MG TABLET (FP) PO SCH (09:38)
[2016-10-19] MEDS: POLYETHYLENE GLYCOL 3350 119 GM BTL PO SCH (09:39)
[2016-10-19] MEDS: DIVALPROEX NA *ER* EXTEND REL 500 MG TABLET.SA (FP) PO SCH ×2 (09:40→21:19)
[2016-10-19] MEDS: HEPARIN NA (PORCINE) 5,000 UNITS/ML 1ML VIAL SQ SCH ×2 (09:40→21:19)
[2016-10-19] MEDS: ACETAMINOPHEN 325 MG TABLET (FP) PO PRN ×2 (09:42→21:20)
[2016-10-19] MEDS: DEXTROSE 5%-0.45% SALINE 1,000 ML IV SCH (19:15)
--- NOTE | 2016-10-19 20:58 | PN ---
Progress Note, Physician History of Present Illness: No new complaints - Current Medication List Current Medications: Active Medications Acetaminophen (Tylenol -) 650 mg PO Q6H PRN PRN Reason: FEVER OR PAIN Last Admin: 10/19/16 09:42 Dose: 650 mg Amlodipine Besylate (Norvasc -) 10 mg PO DAILY [facility] Last Admin: 10/19/16 09:38 Dose: 10 mg Divalproex Sodium (Depakote *Er* -) 500 mg PO BID [facility] Last Admin: 10/19/16 09:40 Dose: 500 mg Heparin Sodium (Porcine) (Heparin -) 5,000 unit SQ BID [facility] Last Admin: 10/19/16 09:40 Dose: 5,000 unit Dextrose/Sodium Chloride (D5-1/2ns -) 1,000 mls @ 75 mls/hr IV ASDIR [facility] Last Admin: 10/18/16 21:26 Dose: 75 mls/hr Insulin Aspart (Novolog Vial) 3 units SQ TIDAC [facility] Last Admin: 10/19/16 17:48 Dose: Not Given Insulin Aspart (Novolog Vial Sliding Scale -) 1 vial SQ ACHS [facility] PRN Reason: Protocol Last Admin: 10/19/16 16:50 Dose: Not Given Levothyroxine Sodium (Synthroid -) 25 mcg PO DAILY@0700 [facility] Last Admin: 10/19/16 06:21 Dose: 25 mcg Olanzapine (Zyprexa -) 15 mg PO HS [facility] Last Admin: 10/18/16 21:20 Dose: 15 mg Polyethylene Glycol (Miralax (For Daily Use) -) 17 gm PO DAILY [facility] Last Admin: 10/19/16 09:39 Dose: 17 grams Senna (Senna -) 2 tab PO BID [facility] Last Admin: 10/19/16 09:38 Dose: 2 tab - Objective Vital Signs: Vital Signs Temperature 98.0 F 10/19/16 18:00 Pulse Rate 86 10/19/16 18:00 Respiratory Rate 19 10/19/16 18:00 Blood Pressure 134/95 10/19/16 18:00 O2 Sat by Pulse Oximetry (%) 96 10/19/16 09:00 Constitutional: Yes: Well Nourished Eyes: Yes: WNL HENT: Yes: WNL Neck: Yes: Supple Cardiovascular: Yes: WNL, Regular Rate and Rhythm Respiratory: Yes: WNL, Regular, CTA Bilaterally Labs: CBC, BMP 10/19/16 05:35 10/19/16 05:35 Problem List - Problems (1) Rhabdomyolysis Assessment/Plan: Cont IV hydration Due to recurrent falls CPK decreased DC planning for am Code(s): M62.82 - RHABDOMYOLYSIS (2) Elevated troponin Assessment/Plan: Troponin has returned to nrmal No ACS Code(s): R74.8 - ABNORMAL LEVELS OF OTHER SERUM ENZYMES (3) Recurrent falls Assessment/Plan: Unsteady gait PT eval Code(s): R29.6 - REPEATED FALLS (4) HTN (hypertension) Assessment/Plan: BP stable Cont norvasc Code(s): I10 - ESSENTIAL (PRIMARY) HYPERTENSION (5) Diabetes Assessment/Plan: Cont insulin Cont sliding scale w/ coverage Code(s): E11.9 - TYPE 2 DIABETES MELLITUS WITHOUT COMPLICATIONS (6) Bipolar 1 disorder Assessment/Plan: Cont depakote/zyprexa Code(s): F31.9 - BIPOLAR DISORDER, UNSPECIFIED (7) CVA (cerebral vascular accident) Code(s): I63.9 - CEREBRAL INFARCTION, UNSPECIFIED (8) Hypothyroidism Assessment/Plan: Started pt on levothyroxine Repeat TSH in 6 weeks and monitor Code(s): E03.9 - HYPOTHYROIDISM, UNSPECIFIED
[2016-10-19] MEDS: OLANZapine 5 MG TABLET PO SCH (21:19)
[2016-10-20 05:53] VITALS: TEMP 98
[2016-10-20] MEDS: LEVOTHYROXINE NA 25 MCG TABLET (FP) PO SCH (06:35)
[2016-10-20] MEDS: INSULIN SLIDING SCALE (NOVOLOG) 1 VIAL SQ SCH (06:36)
[2016-10-20 08:07] LABS: HEMATOCRIT 36.6 % (37.5-51.0)
[2016-10-20 09:54] VITALS: BP 150/93; PULSE 84
[2016-10-20] MEDS ORDERED: PT OWN MED DRAWER 7, Y5N ONE (10:03)
[2016-10-20] MEDS: DIVALPROEX NA *ER* EXTEND REL 500 MG TABLET.SA (FP) PO SCH (10:05)
[2016-10-20] MEDS: HEPARIN NA (PORCINE) 5,000 UNITS/ML 1ML VIAL SQ SCH (10:05)
[2016-10-20] MEDS: SENNOSIDES 8.6MG TABLET (FP) PO SCH (10:05)
[2016-10-20] MEDS: amLODIPine BESYLATE 10 MG TABLET (FP) PO SCH (10:05)
[2016-10-20] MEDS: ACETAMINOPHEN 325 MG TABLET (FP) PO PRN (10:05)
[2016-10-20] MEDS: POLYETHYLENE GLYCOL 3350 119 GM BTL PO SCH (10:07)
== END 2016-10-20 11:49 | disposition home or self-care (01) | DRG 558 ==
LOC: JER 09:12 → JERBED 12:52 → J4W 15:18
PROVIDERS: ADMIT Internal Medicine; ATTEND Internal Medicine
DX: M62.82 Rhabdomyolysis (principal); I69.351 Hemiplegia and hemiparesis following cerebral infarction affecting right dominant side; I10 Essential (primary) hypertension; E11.9 Type 2 diabetes mellitus without complications; F31.9 Bipolar disorder, unspecified; E03.9 Hypothyroidism, unspecified; K21.9 Gastro-esophageal reflux disease without esophagitis; R29.6 Repeated falls; R26.81 Unsteadiness on feet
CPT/HCPCS: 36415; 70450-TC; 71010-TC; 71020-TC; 73523-TC; 80053; 81003; 82550; 82553; 82607; 82747; 83735; 84443; 84484; 85014; 85025; 90715; 93005; 93010; 93306-TC; 93880-TC; 97116-GP; 97161-GP; 99283-25; J1644

== ENCOUNTER 2016-11-26 19:01 | Emergency (ER) | payer OTHER ==
[2016-11-26 20:17] VITALS: BP 126/78; PULSE 73; TEMP 97.9; BMI 32.1
--- NOTE | 2016-11-26 20:44 | PDOC ---
History of Present Illness - General History Source: Patient, Care Provider Exam Limitations: No Limitations - History of Present Illness Initial Comments: CHIEF COMPLAINT: 75 y/o afebrile male with PMH HTN, seizures, IDDM sent in from [facility] for fall with head trauma. HISTORY OF PRESENT ILLNESS: Spoke with Ibis at [facility] who states he fell last night and was sent to [facility] for evaluation. He was discharged and return to the facility with a walker. She states while using the walker he fell again and hit his head pretty hard on the side of the elevator. She denies head trauma, seizures, n/v/d, abnormal behavior. She also admits he scraped his left elbow. He states he feels ok. Vital signs on arrival are within normal limits. REVIEW OF SYSTEMS: (Provided by staff and patient) GENERAL/CONSTITUTIONAL: No fever/chills. No weakness. No weight change. HEAD, EYES, EARS, NOSE AND THROAT: No change in vision. No ear pain or discharge. No sore throat. CARDIOVASCULAR: No chest pain or shortness of breath. RESPIRATORY: No cough, wheezing, or hemoptysis. GASTROINTESTINAL: No abd pain, nausea, vomiting, diarrhea. GENITOURINARY: No dysuria, frequency, or change in urination. MUSCULOSKELETAL: No joint or muscle swelling or pain. No neck or back pain. SKIN: No rash or easy bruising. NEUROLOGIC: No headache, vertigo, loss of consciousness, or loss of sensation. PHYSICAL EXAM: GENERAL: The patient is awake, alert, and fully oriented, in no acute distress. HEAD: Normal with no signs of trauma. No hematomas. No lacerations. NECK: No midline C-spine TTP, step offs or crepitus ENT: Pupils equal, round and reactive to light, extraocular movements intact, sclera anicteric, conjunctiva clear. No hemotympanum b/l. No raccoon eyes. LUNGS: Clear to auscultation bilaterally. Normal excursion. No respiratory distress or use of accessory muscles. CV: RRR, S1/S2, no MRG. Cap refill < 2 sec. ABDOMEN: Soft, non-distended, non-tender even to deep palpation, no hepatomegaly or splenomegaly, no masses. EXTREMITIES: Normal range of motion, no edema. NEUROLOGICAL: Normal speech, normal gait. CN II-XII grossly intact. PSYCH: Normal mood, normal affect. SKIN: Abrasion to left elbow without active bleeding. <Sivan Watters - Last Filed: 11/26/16 22:58> <Gamaliel Garcia - Last Filed: 11/30/16 07:54> - General Chief Complaint: Injury Stated Complaint: FALL Time Seen by Provider: 11/26/16 20:29 Past History - Past Medical History Cardiac Disorders: Yes CVA: Yes (residual rt side weakness) GI Disorders: Yes (gerd) HTN: Yes Hypercholesterolemia: Yes Psychiatric Problems: Yes (bipolar) - Psycho/Social/Smoking Cessation Hx Anxiety: Yes Suicidal Ideation: No Smoking Status: No Smoking History: Never smoked Have you smoked in the past 12 months: No Number of Cigarettes Smoked Daily: 0 Information on smoking cessation initiated: No Hx Alcohol Use: No Drug/Substance Use Hx: No Substance Use Type: None Hx Substance Use Treatment: No <Sivan Watters - Last Filed: 11/26/16 22:58> <Gamaliel Garcia - Last Filed: 11/30/16 07:54> - Past Medical History Allergies/Adverse Reactions: Allergies Allergy/AdvReac Type Severity Reaction Status Date / Time No Known Drug Allergies Allergy Verified 11/26/16 20:14 Home Medications: Ambulatory Orders Amlodipine Besylate 10 mg PO DAILY 08/19/15 Insulin Lispro [Humalog] 3 unit SQ TIDCM 08/19/15 Olanzapine 15 mg PO HS 08/19/15 Divalproex *ER* [Depakote *ER* -] 500 mg PO Q12H 10/15/16 Polyethylene Glycol 3350 [Miralax 119 gm Btl -] 17 gm PO DAILY 10/15/16 Sennosides [Senna] 2 tab PO BID 10/15/16 Levothyroxine [Synthroid -] 25 mcg PO DAILY@0700 #30 tablet 10/19/16 *Physical Exam - Vital Signs Last Vital Signs Temp Pulse Resp BP Pulse Ox 97.9 F 73 19 126/78 96 11/26/16 20:14 11/26/16 20:14 11/26/16 20:14 11/26/16 20:14 11/26/16 20:14 <Sivan Watters - Last Filed: 11/26/16 22:58> - Vital Signs Last Vital Signs Temp Pulse Resp BP Pulse Ox 97.9 F 73 19 126/78 96 11/26/16 20:14 11/26/16 20:14 11/26/16 20:14 11/26/16 20:14 11/26/16 20:14 <Gamaliel Garcia - Last Filed: 11/30/16 07:54> Medical Decision Making - Medical Decision Making A/P: 75 y/o male who fell today with head trauma. He is not on a blood thinner. Plan is as follows: 1. Head CT 2. left elbow xray Head CT IMPRESSION: No evidence of acute intracranial pathology. Xray left elbow IMPRESSION: (wet read) No acute fracture. The patient has been sleeping in the ER. Will discharge back to [facility]. Suggested Neuro follow up <Sivan Watters - Last Filed: 11/26/16 22:58> - Medical Decision Making 11/30/16 07:54 The patient was seen and evaluated in conjunction with LILIL Watters under my direct supervision, ancillary studies were reviewed. I agree with the plan as outlined by LILLI Watters . <Gamaliel Garcia - Last Filed: 11/30/16 07:54> *DC/Admit/Observation/Transfer <Sivan Watters - Last Filed: 11/26/16 22:58> <Gamaliel Garcia - Last Filed: 11/30/16 07:54> Diagnosis at time of Disposition: Recurrent falls Head trauma Qualifiers: Encounter type: initial encounter Qualified Code(s): S09.90XA - Unspecified injury of head, initial encounter Accidental fall Qualifiers: Encounter type: initial encounter Qualified Code(s): W19.XXXA - Unspecified fall, initial encounter - Discharge Dispostion Disposition: HOME Condition at time of disposition: Good - Referrals Referrals: Dayday Deluca MD [Staff Physician] - 1 week - Patient Instructions Printed Discharge Instructions: DI for Closed Head Injury, How to Prevent Falls Additional Instructions: Discharge Instructions: -The scan of your head and xray of your elbow were normal. -Please follow up with Dr. Deluca within 1 week for work up on recurrent falls -Return to the ER with any worsening or concerning symptoms Print Language: LITHUANIAN
== END 2016-11-27 00:33 | disposition home or self-care (01) ==
LOC: JER 19:01
DX: S09.90XA Unspecified injury of head, initial encounter (principal); W18.39XA Other fall on same level, initial encounter; Y93.89 Activity, other specified; Y92.129 Unspecified place in nursing home as the place of occurrence of the external cause; E11.9 Type 2 diabetes mellitus without complications; I10 Essential (primary) hypertension; R56.9 Unspecified convulsions; E78.00 Pure hypercholesterolemia, unspecified; F31.9 Bipolar disorder, unspecified
CPT/HCPCS: 70450-TC; 73070-TC-LT; 99281-25

== ENCOUNTER 2017-05-17 08:08 | Inpatient (IN) | payer OTHER ==
[2017-05-17 08:37] VITALS: BMI 32.3
--- NOTE | 2017-05-17 08:48 | PDOC ---
History of Present Illness - General Chief Complaint: Weakness Stated Complaint: WEAKNESS Time Seen by Provider: 05/17/17 08:47 - History of Present Illness Initial Comments: 76 year old male with PMH of HTN, GERD, diabetes, CVA (residual right sided weakness), and bipolar disease presenting via EMS from [facility] for progressive weakness over the past few days, intermittent nose bleeds, and two falls on the day of admission. Per verbal report over the phone the patient has been experience and complaining of leg weakness since and had a few nose bleeds on Wednesday and Wednesday that were controlled with pressure. He then had two very low mechanism falls on the morning of presentation where he did not syncopize experience any prodrome or hit his head/ suffer any significant MSK trauma. PCP: Jaxon Tieno 05/17/17 09:09 Past History - Past Medical History Allergies/Adverse Reactions: Allergies Allergy/AdvReac Type Severity Reaction Status Date / Time No Known Drug Allergies Allergy Verified 05/17/17 08:22 Home Medications: Ambulatory Orders Amlodipine Besylate 10 mg PO DAILY 08/19/15 Sennosides [Senna] 2 tab PO 199910/15/16 Aspirin [ASA -] 81 mg PO DAILY 05/17/17 Atorvastatin Ca [Lipitor] 10 mg PO DAILY 05/17/17 Dextran 70/Hypromellose [Genteal Tears 0.1%-0.3% Drop] 1 drop OU DAILY 05/17/17 Docusate Sodium [Colace -] 200 mg PO DAILY 05/17/17 Gabapentin 100 mg PO TID 05/17/17 Levothyroxine [Synthroid -] 25 mcg PO DAILY 05/17/17 Magnesium Hydrox 2400MG/30Ml [Milk of Magnesia -] 60 ml PO DAILY 05/17/17 Cardiac Disorders: Yes CVA: Yes (residual rt side weakness) COPD: No GI Disorders: Yes (gerd) HTN: Yes Hypercholesterolemia: Yes Psychiatric Problems: Yes (bipolar) - Suicide/Smoking/Psychosocial Hx Smoking Status: No Smoking History: Never smoked Have you smoked in the past 12 months: No Number of Cigarettes Smoked Daily: 0 Information on smoking cessation initiated: No Hx Alcohol Use: No Drug/Substance Use Hx: No Substance Use Type: None Hx Substance Use Treatment: No Review of Systems - Review of Systems Constitutional: No: Chills, Diaphoresis, Fever HEENTM: No: Blurred Vision, Double Vision Respiratory: No: Cough, Shortness of Breath Cardiac (ROS): No: Chest Pain, Lightheadedness ABD/GI: No: Diarrhea, Nausea, Vomiting : No: Dysuria, Discharge, Hematuria Musculoskeletal: Yes: Muscle Weakness Integumentary: No: Bruising, Change in Color *Physical Exam - Vital Signs Last Vital Signs Temp Pulse Resp BP Pulse Ox 98.3 F 84 20 130/68 98 05/17/17 08:27 05/17/17 08:27 05/17/17 08:27 05/17/17 08:27 05/17/17 08:27 - Physical Exam General Appearance: Yes: Nourished, Appropriately Dressed, Other (somnolent but arrousable) HEENT: positive: EOMI, NOAH. negative: Normal Voice (weak voice) Neck: positive: Supple. negative: Tender, Rigid Respiratory/Chest: positive: Lungs Clear, Normal Breath Sounds. negative: Chest Tender, Respiratory Distress, Accessory Muscle Use Cardiovascular: positive: Regular Rhythm, Regular Rate Gastrointestinal/Abdominal: positive: Normal Bowel Sounds, Flat, Soft. negative : Tender Musculoskeletal: negative: Normal Inspection (weakness of bilateral lower extremities with 3/5 strenght in LLE and 2/5 strength in RLE. 4/5 LUE upper extremity strength with 3/5 RLE strength) Extremity: positive: Normal Inspection. negative: Tender Integumentary: positive: Normal Color, Dry, Warm Neurologic: positive: Fully Oriented, Alert, Normal Mood/Affect. negative: Motor Strength 5/5 (Per above) ED Treatment Course - LABORATORY CBC & Chemistry Diagram: 05/18/17 06:00 05/18/17 06:00 Medical Decision Making - Medical Decision Making 76 year old male with gradually worsening ambulatory dysfunction in the setting of a few nose bleeds and a few falls on the day of presentation to the hospital. Unclear etiology of falls but head CT is unrevealing and patient does not appear apparently infected. Alk phos slightly elevated, possibly indicating cholestatic process vs. possibly underlying bony pathology. Electrolytes WNL, cardiac panel negative, and EKG without new changes. *DC/Admit/Observation/Transfer Diagnosis at time of Disposition: Weakness, Elevated alkaline phosphatase level - Discharge Dispostion [facility] Condition at time of disposition: Stable Admit: Yes - Referrals - Patient Instructions - Post Discharge Activity
[2017-05-17 09:57] LABS: MCH 28.7 pg (25.7-33.7); MCHC 32.2 g/dl (32.0-35.9); MEAN CELL VOLUME 89.1 fl (80-96); MEAN PLT VOLUME 7.8 fl (7.5-11.1); PLATELET COUNT 158 K/MM3 (134-434); RDW 16.6 % (11.9-15.9); WHITE BLOOD COUNT 2.9 K/mm3 (4.0-10.0)
--- NOTE | 2017-05-17 09:59 | PDOC ---
Attending Attestation - HPI HPI: 05/17/17 12:59 Patient is a 76 year old male, from [facility], with a significant past medical history of HTN, GERD, diabetes, CVA w/ residual rt sided weakness and bipolar dz, Diabetes Mellitus who presents to the ED with complaints of progressive general weakness that began 4 days ago. Patient reports experiencing 2 falls earlier today secondary to bilateral leg weakness. He reports experiencing nose bleeds today but is not sure if it is related to his weakness. Patient was admitted for multiple falls in October 2016. Patient reports experiencing constipation for 5 days. Denies nausea, vomiting. Denies loss of consciousness, lightheadedness, dizziness. Denies fever, chills. Denies trauma. Denies out of state travel, contact with sick individuals. Denies any other symptoms. Allergies: None Social history: No smoking. No alcohol. No illicit drugs. Surgical history: None PMD: Dr. Jaxon Tineo - Physicial Exam PE: 05/17/17 12:59 Vitals: Triage Vital signs reviewed General Appearance: +generalized weakness. no acute distress, well nourished well developed Head: Atraumatic Neck: Supple; No Nucal rigidity Chest Wall: Nontender Cardiac: Regular rate and rhythm, no murmurs, no rubs, no gallops Lungs: Clear to auscultation bilateral, good air movement bilaterally Abdomen: Soft, non distended, normal bowel sounds, non tender to palpation Extremities: Full range of motion to all extremities, no cyanosis, clubbing, or edema Skin: Warm and dry, no rashes or lesions, no rash, no petechiae Neuro: AOX3; Cranial Nerves 2-12 grossly intact, Strength intact to all extremities, Sensation intact to all extremities, gait normal Psych: Normal mood, normal affect - Medical Decision Making 05/17/17 12:59 Documentation prepared by Mick Howard, acting as medical sales for Benedict Quezada MD, /DO. <Mick Howard - Last Filed: 05/17/17 12:59> - Resident Resident Name: ReggieJose Danielangie - ED Attending Attestation I have performed the following: I have examined & evaluated the patient, The case was reviewed & discussed with the resident, I agree w/resident's findings & plan, Exceptions are as noted - Medical Decision Making 05/17/17 12:57 Multiple medical problems generalized weakness. Slightly low H&H compared to baseline. Also with hypokalemia elevated alkaline phosphatase. We'll observe on medicine guaiac stool, replete electrolytes <Benedict Quezada - Last Filed: 05/17/17 16:23>
[2017-05-17 10:05] LABS: ALBUMIN 2.4 g/dl (3.4-5.0); ANION GAP 6 (8-16); BILIRUBIN,TOTAL 0.9 mg/dL (0.2-1.0); CALCIUM 8.3 mg/dL (8.5-10.1); CO2 26 mmol/L (21-32); GLUCOSE,RANDOM 127 mg/dL (74-106); MAGNESIUM 2.1 mg/dL (1.8-2.4); SGOT/AST 59 U/L (15-37); SGPT/ALT 30 U/L (12-78)
[2017-05-17 10:07] LABS: ALK PHOS 278 U/L (45-117)
[2017-05-17 10:11] LABS: CPK 126 IU/L (39-308); TROPONIN I < 0.02 ng/ml (0.00-0.05)
[2017-05-17] MEDS ORDERED: BACITRACIN 0.9 GM PACKET ONE (10:43)
[2017-05-17 10:55] LABS: URINE APPEARANCE CLEAR; URINE BILIRUBIN NEGATIVE (NEGATIVE); URINE BLOOD 2+ (NEGATIVE); URINE COLOR YELLOW; URINE GLUCOSE (UA) NEGATIVE (NEGATIVE); URINE KETONE NEGATIVE (NEGATIVE); URINE LEUK ESTERASE NEGATIVE (NEGATIVE); URINE NITRITE NEGATIVE (NEGATIVE); URINE PROTEIN NEGATIVE (NEGATIVE)
[2017-05-17 11:08] LABS: URINE RBC 10 /hpf (0-3); URINE WBC 1 /hpf (3-5)
[2017-05-17 11:15] LABS: THYROID STIMULATING HORMONE 3.69 uIU/ml (0.358-3.74)
[2017-05-17 11:19] LABS: INR 1.36 (0.82-1.09); PROTHROMBIN TIME (PATIENT) 15.4 SEC (9.98-11.88)
[2017-05-17] MEDS ORDERED: POTASSIUM CHLORIDE TABS 20 MEQ TABLET.ER (FP) PO ONE (11:22)
[2017-05-17] MEDS ORDERED: POTASSIUM CHLORIDE ORAL LIQUID 20 MEQ/15 ML ONE (11:58)
[2017-05-17] MEDS ORDERED: CEFTRIAXONE 1,000 MG in DEXTROSE 5%-WATER - 50 ML IVPB ONE (13:00)
[2017-05-17] MEDS ORDERED: CEFTRIAXONE 1 GM/50 ML BAG ONE (13:23)
[2017-05-17 14:09] LABS: ACANTHOCYTES 0; ANISOCYTOSIS 0; BURR CELLS 0; CABBOT RINGS 0; HELMET CELLS 0; HOWELL-JOLLY BODIES 0; HYPOCHROMIA 0; MACROCYTOSIS 0; METAMYELOCYTE 0 % (0-2); MICROCYTOSIS 0; MYELOCYTE 0 % (0-2); OVALOCYTE 0; PLATELET ESTIMATE NORMAL; POIKILOCYTOSIS 0; POLYCHROMASIA 0; REACTIVE LYMPHOCYTES 0 % (0-80); SCHISTOCYTES 0; SPHEROCYTE 0; STOMATOCYTE 0; TARGET CELLS 0; TEAR DROP CELLS 0; TOXIC GRANULATION 0
[2017-05-17 14:29] LABS: NUCLEATED RED BLOOD CELL 2 % (0-0)
--- NOTE | 2017-05-17 14:53 | EKG ---
Test Reason : Blood Pressure : / mmHG Vent. Rate : 080 BPM Atrial Rate : 080 BPM P-R Int : 184 ms QRS Dur : 086 ms QT Int : 408 ms P-R-T Axes : 034 010 046 degrees QTc Int : 470 ms NORMAL SINUS RHYTHM NONSPECIFIC T WAVE ABNORMALITY ABNORMAL ECG WHEN COMPARED WITH ECG OF 16-OCT-2016 10:34, T WAVE VARIATION Confirmed by LEONOR EUCEDA MD ([id number]) on 05/17/2017 2:52:31 PM Referred By: Confirmed By:LEONOR EUCEDA MD
[2017-05-17 15:42] LABS: URINE LEUK ESTERASE NEGATIVE (NEGATIVE)
--- NOTE | 2017-05-17 16:24 | HP ---
Admitting History and Physical - Primary Care Physician PCP: Sofia Hugo - Admission History of Present Illness: 76 year old male with PMH of HTN, GERD, diabetes, CVA (residual rt sided weakness), and bipolar disease [facility] for progressive weakness over the past few days, intermittent nose bleeds, and two falls on the day of admission. Per verbal report over the phone the patient has been experience and complainign of leg weakness since and had a few nose bleeds on Wednesday and Wednesday that were controlled with pressure. He then had two very low mechanism falls on the morning of presentation where he did not syncopize experience any prodrome or heit his head/ suffer any significant MSK trauma. 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) Cardiovascular: Yes: HTN, Hyperlipdemia Endocrine: Yes: Diabetes Mellitus - Smoking History Smoking history: Never smoked Have you smoked in the past 12 months: No Aproximately how many cigarettes per day: 0 - Alcohol/Substance Use Hx Alcohol Use: No Home Medications - Allergies Allergies/Adverse Reactions: Allergies Allergy/AdvReac Type Severity Reaction Status Date / Time No Known Drug Allergies Allergy Verified 05/17/17 08:22 - Home Medications Home Medications: Ambulatory Orders Amlodipine Besylate 10 mg PO DAILY 08/19/15 Sennosides [Senna] 2 tab PO 2000 10/15/16 Aspirin [ASA -] 81 mg PO DAILY 05/17/17 Atorvastatin Ca [Lipitor] 10 mg PO DAILY 05/17/17 Dextran 70/Hypromellose [Genteal Tears 0.1%-0.3% Drop] 1 drop OU DAILY 05/17/17 Docusate Sodium [Colace -] 200 mg PO DAILY 05/17/17 Gabapentin 100 mg PO TID 05/17/17 Levothyroxine [Synthroid -] 25 mcg PO DAILY 05/17/17 Magnesium Hydrox 2400MG/30Ml [Milk of Magnesia -] 60 ml PO DAILY 05/17/17 Physical Examination Vital Signs: Vital Signs Temperature 97.3 F L 05/17/17 15:07 Pulse Rate 73 05/17/17 15:07 Respiratory Rate 20 05/17/17 15:07 Blood Pressure 134/77 05/17/17 15:07 O2 Sat by Pulse Oximetry (%) 96 05/17/17 15:17 Constitutional: Yes: No Distress HENT: Yes: Atraumatic Neck: Yes: Supple Cardiovascular: Yes: Regular Rate and Rhythm Respiratory: Yes: CTA Bilaterally Gastrointestinal: Yes: Normal Bowel Sounds Extremities: Yes: WNL Edema: No Peripheral Pulses WNL: Yes Neurological: Yes: Alert, Oriented Labs: CBC, BMP 05/17/17 09:30 05/17/17 09:30 Problem List - Problems (1) Accidental fall Assessment/Plan: PT/OT Code(s): W19.XXXA - UNSPECIFIED FALL, INITIAL ENCOUNTER (2) CVA (cerebral vascular accident) Assessment/Plan: NEURO ON CASE NEURO CHECKS MRI PENDING Code(s): I63.9 - CEREBRAL INFARCTION, UNSPECIFIED (3) HTN (hypertension) Assessment/Plan: ON MEDS STABLE Code(s): I10 - ESSENTIAL (PRIMARY) HYPERTENSION Assessment/Plan Laboratory Tests 05/17/17 05/17/17 05/17/17 09:30 09:30 09:30 WBC 2.9 L RBC 3.76 L Hgb 10.8 L D Hct 33.5 L MCV 89.1 MCH 28.7 MCHC 32.2 RDW 16.6 H D Plt Count 158 MPV 7.8 Neutrophils % No Result Required. Neutrophils % (Manual) 43.9 Band Neutrophils % 1.0 Lymphocytes % No Result Required. Lymphocytes % (Manual) 20.4 Monocytes % (Manual) 28 H* Eosinophils % (Manual) 7.1 H Basophils % (Manual) 0.0 Myelocytes % (Man) 0 Nucleated RBC % 2 H Metamyelocytes 0 Hypochromia 0 Toxic Granulation 0 Dohle Bodies 0 Platelet Estimate Normal Polychromasia 0 Poikilocytosis 0 Basophilic Stippling 0 Anisocytosis 0 Microcytosis 0 Macrocytosis 0 Spherocytes 0 Sickle Cells 0 Target Cells 0 Tear Drop Cells 0 Ovalocytes 0 Stomatocytes 0 Helmet Cells 0 [place] Bodies 0 [place] Rings 0 Zee Cells 0 Acanthocytes (Spur) 0 Fragmented RBCs 0 Schistocytes 0 PT with INR INR Sodium 141 Potassium 3.3 L Chloride 109 H Carbon Dioxide 26 Anion Gap 6 L BUN 12 Creatinine 1.0 Creat Clearance w eGFR > 60 Random Glucose 127 H Calcium 8.3 L Magnesium 2.1 Total Bilirubin 0.9 AST 59 H D ALT 30 D Alkaline Phosphatase 278 H D Creatine Kinase Troponin I Total Protein 7.0 Albumin 2.4 L Vitamin B12 Serum Folate TSH Urine Color Urine Appearance Urine pH Ur Specific [place] Urine Protein Urine Glucose (UA) Urine Ketones Urine Blood Urine Nitrite Urine Bilirubin Urine Urobilinogen Ur Leukocyte Esterase Urine WBC (Auto) Urine RBC (Auto) Ur Epithelial Cells Stool Occult Blood Valproic Acid 74.874 05/17/17 05/17/17 05/17/17 09:30 10:36 10:36 WBC RBC Hgb Hct MCV MCH MCHC RDW Plt Count MPV Neutrophils % Neutrophils % (Manual) Band Neutrophils % Lymphocytes % Lymphocytes % (Manual) Monocytes % (Manual) Eosinophils % (Manual) Basophils % (Manual) Myelocytes % (Man) Nucleated RBC % Metamyelocytes Hypochromia Toxic Granulation Dohle Bodies Platelet Estimate Polychromasia Poikilocytosis Basophilic Stippling Anisocytosis Microcytosis Macrocytosis Spherocytes Sickle Cells Target Cells Tear Drop Cells Ovalocytes Stomatocytes Helmet Cells [place] Bodies [place] Rings Zee Cells Acanthocytes (Spur) Fragmented RBCs Schistocytes PT with INR 15.40 H INR 1.36 H Sodium Potassium Chloride Carbon Dioxide Anion Gap BUN Creatinine Creat Clearance w eGFR Random Glucose Calcium Magnesium Total Bilirubin AST ALT Alkaline Phosphatase Creatine Kinase 126 Troponin I < 0.02 Total Protein Albumin Vitamin B12 418 D Serum Folate 10 TSH 3.69 D Urine Color Yellow Urine Appearance Clear Urine pH 7.0 Ur Specific [place] 1.008 Urine Protein Negative Urine Glucose (UA) Negative Urine Ketones Negative Urine Blood 2+ H Urine Nitrite Negative Urine Bilirubin Negative Urine Urobilinogen 2.0 Ur Leukocyte Esterase Negative Urine WBC (Auto) 1 Urine RBC (Auto) 10 Ur Epithelial Cells Rare Stool Occult Blood Valproic Acid 05/17/17 13:02 WBC RBC Hgb Hct MCV MCH MCHC RDW Plt Count MPV Neutrophils % Neutrophils % (Manual) Band Neutrophils % Lymphocytes % Lymphocytes % (Manual) Monocytes % (Manual) Eosinophils % (Manual) Basophils % (Manual) Myelocytes % (Man) Nucleated RBC % Metamyelocytes Hypochromia Toxic Granulation Dohle Bodies Platelet Estimate Polychromasia Poikilocytosis Basophilic Stippling Anisocytosis Microcytosis Macrocytosis Spherocytes Sickle Cells Target Cells Tear Drop Cells Ovalocytes Stomatocytes Helmet Cells [place] Bodies [place] Rings Zee Cells Acanthocytes (Spur) Fragmented RBCs Schistocytes PT with INR INR Sodium Potassium Chloride Carbon Dioxide Anion Gap BUN Creatinine Creat Clearance w eGFR Random Glucose Calcium Magnesium Total Bilirubin AST ALT Alkaline Phosphatase Creatine Kinase Troponin I Total Protein Albumin Vitamin B12 Serum Folate TSH Urine Color Urine Appearance Urine pH Ur Specific [place] Urine Protein Urine Glucose (UA) Urine Ketones Urine Blood Urine Nitrite Urine Bilirubin Urine Urobilinogen Ur Leukocyte Esterase Urine WBC (Auto) Urine RBC (Auto) Ur Epithelial Cells Stool Occult Blood Negative Valproic Acid Active Medications Generic Name Dose Route Start Last Admin Trade Name Freq PRN Reason Stop Dose Admin Amlodipine Besylate 10 mg 05/18/17 10:00 Norvasc - PO DAILY [facility] Aspirin 81 mg 05/18/17 10:00 Asa - PO DAILY [facility] Atorvastatin Calcium 10 mg 05/18/17 10:00 Lipitor - PO DAILY [facility] Gabapentin 100 mg 05/17/17 22:00 Neurontin - PO TID [facility] Heparin Sodium (Porcine) 5,000 unit 05/17/17 22:00 Heparin - SQ BID [facility] Levothyroxine Sodium 25 mcg 05/18/17 10:00 Synthroid - PO DAILY [facility]
--- NOTE | 2017-05-17 16:45 | CON.NEURO ---
Consult - History of Present Illness History of Present Illness: 76 year old male with PMH of HTN, GERD, diabetes, CVA (residual rt sided weakness), and bipolar disease [facility] progressive weakness over the past few days, intermittent nose bleeds, and two falls on the day of admission. Per verbal report over the phone the patient has been experience and complaining of leg weakness since and had a few nose bleeds on Wednesday and Wednesday that were controlled with pressure. denies CADET , focal motor sensory Sx. During exam when attempted to walk states this is not his baseline. Denies tremor. Denies low back pain. CT HD : Impression: Moderate atrophy and chronic microvascular ischemic changes. No gross acute intracranial pathology is identified. 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) Cardio/Vascular: Yes: HTN, Hyperlipdemia Endocrine: Yes: Diabetes Mellitus - Alcohol/Substance Use Hx Alcohol Use: No - Smoking History Smoking history: Never smoked Have you smoked in the past 12 months: No Aproximately how many cigarettes per day: 0 Home Medications - Allergies Allergies/Adverse Reactions: Allergies Allergy/AdvReac Type Severity Reaction Status Date / Time No Known Drug Allergies Allergy Verified 05/17/17 08:22 - Home Medications Home Medications: Ambulatory Orders Amlodipine Besylate 10 mg PO DAILY 08/19/15 Olanzapine 15 mg PO HS 08/19/15 Divalproex *ER* [Depakote *ER* -] 500 mg PO Q12H 10/15/16 Sennosides [Senna] 2 tab PO 199910/15/16 Aspirin [ASA -] 81 mg PO DAILY 05/17/17 Atorvastatin Ca [Lipitor] 10 mg PO DAILY 05/17/17 Cyclobenzaprine HCl [Flexeril -] 5 mg PO TID 05/17/17 Dextran 70/Hypromellose [Genteal Tears 0.1%-0.3% Drop] 1 drop OU DAILY 05/17/17 Docusate Sodium [Colace -] 200 mg PO DAILY 05/17/17 Gabapentin 100 mg PO TID 05/17/17 Levothyroxine [Synthroid -] 25 mcg PO DAILY 05/17/17 Magnesium Hydrox 2400MG/30Ml [Milk of Magnesia -] 60 ml PO DAILY 05/17/17 Physical Exam-Neuro Vital Signs: Vital Signs Temperature 97.3 F L 05/17/17 15:07 Pulse Rate 73 05/17/17 15:07 Respiratory Rate 20 05/17/17 15:07 Blood Pressure 134/77 05/17/17 15:07 O2 Sat by Pulse Oximetry (%) 96 05/17/17 15:17 Constitutional: Yes: Well Nourished, No Distress Neck: Yes: WNL Cardiovascular: Yes: Regular Rate and Rhythm Respiratory: Yes: Regular Labs: CBC, BMP 05/17/17 09:30 05/17/17 09:30 INR, PTT INR 1.36 (0.82-1.09) H 05/17/17 10:36 - Neuro Exam Level Of Consciousness: Yes: Alert (Awake , oriented x 3, EOMI, VFF, no facial, poor dentition, motor -minor cogwheeling , no tremor, inc tone in LE, slight LE swelling L >R, no focal weakness in exe, reflexes TR 2+, BI and BR 1=, Pateallr 1+ , achilles 1+, gait: unstaedy, hesitant, short stepped--needs assistance, ) Imaging - Results Cat Scan: Report Reviewed, Image Reviewed Problem List - Problems (1) Gait abnormality Code(s): R26.9 - UNSPECIFIED ABNORMALITIES OF GAIT AND MOBILITY (2) CVA (cerebral vascular accident) Code(s): I63.9 - CEREBRAL INFARCTION, UNSPECIFIED (3) Diabetes Code(s): E11.9 - TYPE 2 DIABETES MELLITUS WITHOUT COMPLICATIONS (4) Fall Code(s): W19.XXXA - UNSPECIFIED FALL, INITIAL ENCOUNTER Qualifiers: Encounter type: initial encounter Qualified Code(s): W19.XXXA - Unspecified fall, initial encounter (5) HTN (hypertension) Code(s): I10 - ESSENTIAL (PRIMARY) HYPERTENSION Assessment/Plan 76 year old male with PMH of HTN, GERD, diabetes, CVA (residual rt sided weakness), and bipolar disease presenting via EMS from [facility] for progressive weakness over the past few days, intermittent nose bleeds, and two falls on the day of admission. Per verbal report over the phone the patient has been experience and complaining of leg weakness since and had a few nose bleeds on Wednesday and Philip that were controlled with pressure. denies CADET , focal motor sensory Sx. During exam when attempted to walk states this is not his baseline. Denies tremor. Denies low back pain. CT HD : Impression: Moderate atrophy and chronic microvascular ischemic changes. No gross acute intracranial pathology is identified. Correlate clinically to determine further evaluation and follow-up AP : progressive gait impairment -unclear of baseline, short stepped , magnetic r/o NPH vs new cerebellar event vs atypical parkinsonism ( RX induced ?) vs metabolic (B12, low K etc) vs ?statin related vs DM neuropathy also r/o DVT check MRI BRAIN replete lytes check B12, CPK, A1c check LE doppler PT consult Dr Eason
--- NOTE | 2017-05-17 17:57 | CON.ID ---
Consult - History of Present Illness History of Present Illness: Asked to evaluate this pt with PMH of CVA, HTN, GERD, [place] the [place] with reported generalized weakness, episodes of epistaxis, and recent mechanical falls x 2. Pt states he was experience weakness in LEs b/l. He normally walks with a walker but hasnt been able to stand up. States his legs gave way and denies syncope, H/A, or head trauma. In ER he was afebrile, with normal BP. He denies fever/chills, CP, shortness of breath/productive cough, dysuria, headache. 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) Cardio/Vascular: Yes: HTN, Hyperlipdemia Endocrine: Yes: Diabetes Mellitus - Alcohol/Substance Use Hx Alcohol Use: No - Smoking History Smoking history: Never smoked Have you smoked in the past 12 months: No Aproximately how many cigarettes per day: 0 - Social History History of Recent Travel: No Home Medications - Allergies Allergies/Adverse Reactions: Allergies Allergy/AdvReac Type Severity Reaction Status Date / Time No Known Drug Allergies Allergy Verified 05/17/17 08:22 - Home Medications Home Medications: Ambulatory Orders Amlodipine Besylate 10 mg PO DAILY 08/19/15 Olanzapine 15 mg PO HS 08/19/15 Divalproex *ER* [Depakote *ER* -] 500 mg PO Q12H 10/15/16 Sennosides [Senna] 2 tab PO 199910/15/16 Aspirin [ASA -] 81 mg PO DAILY 05/17/17 Atorvastatin Ca [Lipitor] 10 mg PO DAILY 05/17/17 Cyclobenzaprine HCl [Flexeril -] 5 mg PO TID 05/17/17 Dextran 70/Hypromellose [Genteal Tears 0.1%-0.3% Drop] 1 drop OU DAILY 05/17/17 Docusate Sodium [Colace -] 200 mg PO DAILY 05/17/17 Gabapentin 100 mg PO TID 05/17/17 Levothyroxine [Synthroid -] 25 mcg PO DAILY 05/17/17 Magnesium Hydrox 2400MG/30Ml [Milk of Magnesia -] 60 ml PO DAILY 05/17/17 Review of Systems - Review of Systems Constitutional: reports: Weakness Eyes: reports: No Symptoms HENT: reports: Epistaxis (x2 episodes over the weekend which resolved with pressure) Neck: reports: No Symptoms Cardiovascular: reports: No Symptoms Respiratory: reports: No Symptoms Gastrointestinal: reports: No Symptoms Genitourinary: reports: No Symptoms Musculoskeletal: reports: No Symptoms Integumentary: reports: No Symptoms Neurological: reports: Weakness Endocrine: reports: Increased Thirst Physical Exam Vital Signs: Vital Signs Temperature 97.3 F L 05/17/17 15:07 Pulse Rate 73 05/17/17 15:07 Respiratory Rate 20 05/17/17 15:07 Blood Pressure 134/77 05/17/17 15:07 O2 Sat by Pulse Oximetry (%) 96 05/17/17 15:17 Constitutional: Yes: No Distress, Calm HENT: Yes: Atraumatic Neck: Yes: Supple Cardiovascular: Yes: Regular Rate and Rhythm Respiratory: Yes: CTA Bilaterally Gastrointestinal: Yes: Normal Bowel Sounds, Soft Renal/: Yes: WNL Musculoskeletal: Yes: WNL Extremities: Yes: WNL Integumentary: Yes: WNL Neurological: Yes: Alert Labs: CBC, BMP 05/17/17 09:30 05/17/17 09:30 Microbiology 05/17/17 10:36 Urine - Urine Clean Catch Urine Culture - Final Microbiology 05/17/17 10:36 Urine Culture - Final Urine - Urine Clean Catch blood cultures - pending Imaging - Results Chest X-ray: Report Reviewed (questionable retrocardiac atelectasis/infiltrate) Problem List - Problems (1) Gait abnormality Code(s): R26.9 - UNSPECIFIED ABNORMALITIES OF GAIT AND MOBILITY (2) Bipolar 1 disorder Code(s): F31.9 - BIPOLAR DISORDER, UNSPECIFIED (3) CVA (cerebral vascular accident) Code(s): I63.9 - CEREBRAL INFARCTION, UNSPECIFIED (4) Diabetes Code(s): E11.9 - TYPE 2 DIABETES MELLITUS WITHOUT COMPLICATIONS (5) HTN (hypertension) Code(s): I10 - ESSENTIAL (PRIMARY) HYPERTENSION (6) Recurrent falls Code(s): R29.6 - REPEATED FALLS Assessment/Plan 76 y.o. male with DM, s/p CVA, HTN, GERD presenting s/p falls with weakness. CXR with questionable atelectasis/infiltrate. Pt without fever/chills/shortness of breath/cough or leukocytosis --suggest monitor off antibiotics for now -- f/u blood cultures - monitor vitals -- neurolgy following
[2017-05-17] MEDS: GABAPENTIN 100 MG CAPSULE (FP) PO SCH (21:51)
[2017-05-17] MEDS: HEPARIN NA (PORCINE) 5,000 UNITS/ML 1ML VIAL SQ SCH (21:51)
[2017-05-18] MEDS: LEVOTHYROXINE NA 25 MCG TABLET (FP) PO SCH (06:16)
[2017-05-18] MEDS: GABAPENTIN 100 MG CAPSULE (FP) PO SCH ×3 (06:16→21:40)
[2017-05-18 07:50] LABS: MCH 28.3 pg (25.7-33.7); MCHC 31.6 g/dl (32.0-35.9); MEAN CELL VOLUME 89.4 fl (80-96); MEAN PLT VOLUME 7.9 fl (7.5-11.1); PLATELET COUNT 182 K/MM3 (134-434); RDW 16.3 % (11.9-15.9); WHITE BLOOD COUNT 2.3 K/mm3 (4.0-10.0)
[2017-05-18 08:32] LABS: ALBUMIN 2.5 g/dl (3.4-5.0); ANION GAP 9 (8-16); CALCIUM 8.7 mg/dL (8.5-10.1); CO2 25 mmol/L (21-32); GLUCOSE,RANDOM 82 mg/dL (74-106)
[2017-05-18 08:38] LABS: ALK PHOS 292 U/L (45-117); BILIRUBIN,TOTAL 1.2 mg/dL (0.2-1.0); CREATININE 0.8 mg/dL (0.7-1.3); SGOT/AST 68 U/L (15-37); SGPT/ALT 33 U/L (12-78); TOT PROT 7.8 g/dl (6.4-8.2)
[2017-05-18] MEDS: ASPIRIN 81 MG CHEWABLE TABLETS PO SCH (09:55)
[2017-05-18] MEDS: HEPARIN NA (PORCINE) 5,000 UNITS/ML 1ML VIAL SQ SCH ×2 (09:55→21:40)
[2017-05-18] MEDS: amLODIPine BESYLATE 10 MG TABLET (FP) PO SCH (09:55)
[2017-05-18 10:48] LABS: ACANTHOCYTES 0; ANISOCYTOSIS 0; BASOPHIL %. 1.1 % (0-2.0); BURR CELLS 0; CABBOT RINGS 0; HELMET CELLS 0; HOWELL-JOLLY BODIES 0; HYPOCHROMIA 0; MACROCYTOSIS 0; METAMYELOCYTE 0 % (0-2); MICROCYTOSIS 0; MYELOCYTE 0 % (0-2); OVALOCYTE 0; PLATELET ESTIMATE NORMAL; POIKILOCYTOSIS 0; POLYCHROMASIA 0; REACTIVE LYMPHOCYTES 0 % (0-80); SCHISTOCYTES 0; SPHEROCYTE 0; STOMATOCYTE 0; TARGET CELLS 0; TEAR DROP CELLS 0; TOXIC GRANULATION 0
[2017-05-18 15:29] LABS: NUCLEATED RED BLOOD CELL 3 % (0-0)
--- NOTE | 2017-05-18 15:57 | PN ---
Progress Note (short form) - Note Progress Note: Pts. condition unchanged. He denies neck pain. O/E-Alert (Awake , oriented x 3, EOMI, VFF, no facial, poor dentition, motor - minor cogwheeling, tone in legs is increased more in legs than arms/wrists. , no tremor, inc tone in LE, slight LE swelling L >R, no focal weakness in exe, reflexes TR 2+, BI and BR 1=, Pateallr 1+ , achilles 1+, gait: unstaedy, hesitant, short stepped--needs assistance, ) - LE Doppler-reported normal -MRI Brain-not done yet. A&P: Differential for gait disorder remains as Dr. Eason has listed. 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 Will follow, Thank you. Radha Mclean MD.
--- NOTE | 2017-05-18 16:46 | PN ---
Progress Note, Physician History of Present Illness: Pt is alert and responsive. No acute distress. No new events noted. - Current Medication List Current Medications: Active Medications Amlodipine Besylate (Norvasc -) 10 mg PO DAILY [facility] Last Admin: 05/18/17 09:55 Dose: 10 mg Aspirin (Asa -) 81 mg PO DAILY [facility] Last Admin: 05/18/17 09:55 Dose: 81 mg Atorvastatin Calcium (Lipitor -) 10 mg PO HS [facility] Gabapentin (Neurontin -) 100 mg PO TID [facility] Last Admin: 05/18/17 15:13 Dose: 100 mg Heparin Sodium (Porcine) (Heparin -) 5,000 unit SQ BID [facility] Last Admin: 05/18/17 09:55 Dose: 5,000 unit Levothyroxine Sodium (Synthroid -) 25 mcg PO DAILY@0700 [facility] Last Admin: 05/18/17 06:16 Dose: 25 mcg - Objective Vital Signs: Vital Signs Temperature 98.1 F 05/18/17 13:30 Pulse Rate 75 05/18/17 13:30 Respiratory Rate 18 05/18/17 13:30 Blood Pressure 140/73 05/18/17 13:30 O2 Sat by Pulse Oximetry (%) 98 05/18/17 10:00 Constitutional: Yes: No Distress Neck: Yes: Supple Cardiovascular: Yes: Regular Rate and Rhythm Respiratory: Yes: CTA Bilaterally Gastrointestinal: Yes: Normal Bowel Sounds, Soft Genitourinary: Yes: WNL Extremities: Yes: WNL Neurological: Yes: Alert Labs: CBC, BMP 05/18/17 06:00 05/18/17 06:00 INR, PTT INR 1.36 (0.82-1.09) H 05/17/17 10:36 Microbiology 05/17/17 12:52 Blood - Peripheral Venous Blood Culture - Preliminary NO GROWTH OBTAINED AFTER 24 HOURS, INCUBATION TO CONTINUE FOR 4 DAYS. 05/17/17 12:52 Blood - Peripheral Venous Blood Culture - Preliminary NO GROWTH OBTAINED AFTER 24 HOURS, INCUBATION TO CONTINUE FOR 4 DAYS. 05/17/17 10:36 Urine - Urine Clean Catch Urine Culture - Final Problem List - Problems (1) Gait abnormality Code(s): R26.9 - UNSPECIFIED ABNORMALITIES OF GAIT AND MOBILITY (2) Bipolar 1 disorder Code(s): F31.9 - BIPOLAR DISORDER, UNSPECIFIED (3) CVA (cerebral vascular accident) Code(s): I63.9 - CEREBRAL INFARCTION, UNSPECIFIED (4) Diabetes Code(s): E11.9 - TYPE 2 DIABETES MELLITUS WITHOUT COMPLICATIONS (5) HTN (hypertension) Code(s): I10 - ESSENTIAL (PRIMARY) HYPERTENSION (6) Recurrent falls Code(s): R29.6 - REPEATED FALLS Assessment/Plan 76 y.o. male with DM, s/p CVA, HTN, GERD presenting s/p falls with weakness. CXR with questionable atelectasis/infiltrate. Pt without fever/chills/shortness of breath/cough or leukocytosis - pt appears stable, cont monitor off antibiotics - blood and urine cultures without growth -- neurolgy following
[2017-05-18] MEDS: ATORVASTATIN CA 10 MG TABLET (FP) PO SCH (21:40)
--- NOTE | 2017-05-18 22:34 | PN ---
Progress Note, Physician History of Present Illness: STABLE - Current Medication List Current Medications: Active Medications Amlodipine Besylate (Norvasc -) 10 mg PO DAILY [facility] Last Admin: 05/18/17 09:55 Dose: 10 mg Aspirin (Asa -) 81 mg PO DAILY [facility] Last Admin: 05/18/17 09:55 Dose: 81 mg Atorvastatin Calcium (Lipitor -) 10 mg PO HS [facility] Last Admin: 05/18/17 21:40 Dose: 10 mg Gabapentin (Neurontin -) 100 mg PO TID [facility] Last Admin: 05/18/17 21:40 Dose: 100 mg Heparin Sodium (Porcine) (Heparin -) 5,000 unit SQ BID [facility] Last Admin: 05/18/17 21:40 Dose: 5,000 unit Levothyroxine Sodium (Synthroid -) 25 mcg PO DAILY@0700 [facility] Last Admin: 05/18/17 06:16 Dose: 25 mcg - Objective Vital Signs: Vital Signs Temperature 98.1 F 05/18/17 13:30 Pulse Rate 75 05/18/17 13:30 Respiratory Rate 18 05/18/17 13:30 Blood Pressure 140/73 05/18/17 13:30 O2 Sat by Pulse Oximetry (%) 98 05/18/17 10:00 Constitutional: Yes: No Distress HENT: Yes: Atraumatic Neck: Yes: Supple Cardiovascular: Yes: Regular Rate and Rhythm Respiratory: Yes: CTA Bilaterally Labs: CBC, BMP 05/18/17 06:00 05/18/17 06:00 INR, PTT INR 1.36 (0.82-1.09) H 05/17/17 10:36 Problem List - Problems (1) Accidental fall Assessment/Plan: PT/OT Code(s): W19.XXXA - UNSPECIFIED FALL, INITIAL ENCOUNTER (2) CVA (cerebral vascular accident) Assessment/Plan: NEURO ON CASE MRI NO ACUTE PATHOLOGY Code(s): I63.9 - CEREBRAL INFARCTION, UNSPECIFIED (3) HTN (hypertension) Assessment/Plan: ON MEDS STABLE Code(s): I10 - ESSENTIAL (PRIMARY) HYPERTENSION
[2017-05-19] MEDS: LEVOTHYROXINE NA 25 MCG TABLET (FP) PO SCH (06:23)
[2017-05-19] MEDS: GABAPENTIN 100 MG CAPSULE (FP) PO SCH ×3 (06:23→23:06)
[2017-05-19] MEDS: HEPARIN NA (PORCINE) 5,000 UNITS/ML 1ML VIAL SQ SCH ×2 (09:41→23:06)
[2017-05-19] MEDS: amLODIPine BESYLATE 10 MG TABLET (FP) PO SCH (09:41)
[2017-05-19] MEDS: ASPIRIN 81 MG CHEWABLE TABLETS PO SCH (09:41)
--- NOTE | 2017-05-19 11:13 | PN ---
Progress Note (short form) - Note Progress Note: HPI: 76 year old male with PMH of HTN, GERD, diabetes, CVA (residual rt sided weakness), and bipolar disease presenting via EMS from [facility] for progressive weakness over the past few days, intermittent nose bleeds, and two falls on the day of admission. Per verbal report over the phone the patient has been experience and complaining of leg weakness since and had a few nose bleeds on Wednesday and Wednesday that were controlled with pressure. denies CADET , focal motor sensory Sx. During exam when attempted to walk states this is not his baseline. Denies tremor. Denies low back pain. CT HD : Impression: Moderate atrophy and chronic microvascular ischemic changes. No gross acute intracranial pathology is identified. Correlate clinically to determine further evaluation and follow-up MRI BRAIN EXAM#: TYPE/EXAM: RESULT: [id number] MRI/BRAIN MRI W/O CONTRAST New onset of gait impairment. MRI of the brain without intravenous contrast A noncontrast MRI of the brain was performed with multiplanar T1 and T2-weighted images obtained. Compared to prior CT scan of the head dated 05/17/2017. There is moderate atrophy, ventricular dilatation and moderate to marked periventricular chronic microvascular stomach changes. No mass lesion, focal acute infarct or intracranial hemorrhage are identified. There is no shift of the midline structures. The craniocervical junction appears unremarkable. Normal size pituitary gland. Flow voids are present within the central intracranial arterial circulation. Minimal mucosal thickening in the ethmoid air cells. Moderate mucosal thickening is partially opacifying the right maxillary antrum. No suspicious bone marrow abnormal signal is identified IMPRESSION: Moderate atrophy and moderate to marked chronic microvascular ischemic changes. No acute intracranial pathology is identified. 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) Cardio/Vascular: Yes: HTN, Hyperlipdemia Endocrine: Yes: Diabetes Mellitus - Alcohol/Substance Use Hx Alcohol Use: No - Smoking History Smoking history: Never smoked Have you smoked in the past 12 months: No Aproximately how many cigarettes per day: 0 Home Medications - Allergies Allergies/Adverse Reactions: Allergies Allergy/AdvReac Type Severity Reaction Status Date / Time No Known Drug Allergies Allergy Verified 05/17/17 08:22 - Home Medications Home Medications: Ambulatory Orders Amlodipine Besylate 10 mg PO DAILY 08/19/15 Olanzapine 15 mg PO HS 08/19/15 Divalproex *ER* [Depakote *ER* -] 500 mg PO Q12H 10/15/16 Sennosides [Senna] 2 tab PO 2000 10/15/16 Aspirin [ASA -] 81 mg PO DAILY 05/17/17 Atorvastatin Ca [Lipitor] 10 mg PO DAILY 05/17/17 Cyclobenzaprine HCl [Flexeril -] 5 mg PO TID 05/17/17 Dextran 70/Hypromellose [Genteal Tears 0.1%-0.3% Drop] 1 drop OU DAILY 05/17/17 Docusate Sodium [Colace -] 200 mg PO DAILY 05/17/17 Gabapentin 100 mg PO TID 05/17/17 Levothyroxine [Synthroid -] 25 mcg PO DAILY 05/17/17 Magnesium Hydrox 2400MG/30Ml [Milk of Magnesia -] 60 ml PO DAILY 05/17/17 Physical Exam-Neuro Vital Signs: Vital Signs Temperature 99.0 F 05/19/17 10:00 Pulse Rate 88 05/19/17 10:00 Respiratory Rate 18 05/19/17 10:00 Blood Pressure 129/67 05/19/17 10:00 O2 Sat by Pulse Oximetry (%) 98 05/19/17 10:00 Constitutional: Yes: Well Nourished, No Distress Neck: Yes: WNL Cardiovascular: Yes: Regular Rate and Rhythm Respiratory: Yes: Regular Labs: CBCD WBC 2.3 K/mm3 (4.0-10.0) L 05/18/17 06:00 RBC 4.18 M/mm3 (4.00-5.60) 05/18/17 06:00 Hgb 11.8 GM/dL (11.7-16.9) 05/18/17 06:00 Hct 37.4 % (35.4-49) 05/18/17 06:00 MCV 89.4 fl (80-96) 05/18/17 06:00 MCHC 31.6 g/dl (32.0-35.9) L 05/18/17 06:00 RDW 16.3 % (11.9-15.9) H 05/18/17 06:00 Plt Count 182 K/MM3 (134-434) 05/18/17 06:00 MPV 7.9 fl (7.5-11.1) 05/18/17 06:00 CMP Sodium 141 mmol/L (136-145) 05/18/17 06:00 Potassium 3.6 mmol/L (3.5-5.1) 05/18/17 06:00 Chloride 107 mmol/L (98-107) 05/18/17 06:00 Carbon Dioxide 25 mmol/L (21-32) 05/18/17 06:00 Anion Gap 9 (8-16) 05/18/17 06:00 BUN 9 mg/dL (7-18) D 05/18/17 06:00 Creatinine 0.8 mg/dL (0.7-1.3) 05/18/17 06:00 Creat Clearance w eGFR > 60 (>60) 05/18/17 06:00 Calcium 8.7 mg/dL (8.5-10.1) 05/18/17 06:00 Total Bilirubin 1.2 mg/dL (0.2-1.0) H D 05/18/17 06:00 AST 68 U/L (15-37) H 05/18/17 06:00 ALT 33 U/L (12-78) 05/18/17 06:00 Alkaline Phosphatase 292 U/L (45-117) H 05/18/17 06:00 Total Protein 7.8 g/dl (6.4-8.2) 05/18/17 06:00 Albumin 2.5 g/dl (3.4-5.0) L 05/18/17 06:00 - Neuro Exam Level Of Consciousness: Yes: Alert (Awake , oriented x 3, EOMI, VFF, no facial, poor dentition, motor -minor cogwheeling , no tremor, inc tone in LE, slight LE swelling L >R, no focal weakness in exe, reflexes TR 2+, BI and BR 1=, Pateallr 1+ , achilles 1+, gait: unstaedy, hesitant, short stepped--needs assistance, ) Imaging - Results Cat Scan: Report Reviewed, Image Reviewed Problem List - Problems (1) Gait abnormality Code(s): R26.9 - UNSPECIFIED ABNORMALITIES OF GAIT AND MOBILITY (2) CVA (cerebral vascular accident) Code(s): I63.9 - CEREBRAL INFARCTION, UNSPECIFIED (3) Diabetes Code(s): E11.9 - TYPE 2 DIABETES MELLITUS WITHOUT COMPLICATIONS (4) Fall Code(s): W19.XXXA - UNSPECIFIED FALL, INITIAL ENCOUNTER Qualifiers: Encounter type: initial encounter Qualified Code(s): W19.XXXA - Unspecified fall, initial encounter (5) HTN (hypertension) Code(s): I10 - ESSENTIAL (PRIMARY) HYPERTENSION Assessment/Plan 76 year old male with PMH of HTN, GERD, diabetes, CVA (residual rt sided weakness), and bipolar disease presenting via EMS from [facility]] for progressive weakness over the past few days, intermittent nose bleeds, and two falls on the day of admission. Per verbal report over the phone the patient has been experience and complaining of leg weakness since and had a few nose bleeds on Wednesday and Wednesday that were controlled with pressure. denies CADET , focal motor sensory Sx. During exam when attempted to walk states this is not his baseline. Denies tremor. Denies low back pain. CT HD : Impression: Moderate atrophy and chronic microvascular ischemic changes. No gross acute intracranial pathology is identified. Correlate clinically to determine further evaluation and follow-up AP : progressive gait impairment -Binswangers gait with chronic decompensation likely short stepped , magnetic no new stroke, though severe white matter changes and atrophy which likely contribute to gait and cognitive state--dementia no clear evidence of NPH TSH , B12 and A1c NL SUGGEST TO DC depakote as may cause parkinsonism and worsen LFTS ; (olanzipine may do the same) low WBC , elevated LFTS -- ? underling systemic disease -cirrhosis ? --PMD vs GI FU , can check ammonia agree with likely need rehab placement Dr Eason Problem List - Problems (1) Gait abnormality Code(s): R26.9 - UNSPECIFIED ABNORMALITIES OF GAIT AND MOBILITY (2) CVA (cerebral vascular accident) Code(s): I63.9 - CEREBRAL INFARCTION, UNSPECIFIED (3) Diabetes Code(s): E11.9 - TYPE 2 DIABETES MELLITUS WITHOUT COMPLICATIONS (4) Fall Code(s): W19.XXXA - UNSPECIFIED FALL, INITIAL ENCOUNTER Qualifiers: Encounter type: initial encounter Qualified Code(s): W19.XXXA - Unspecified fall, initial encounter (5) HTN (hypertension) Code(s): I10 - ESSENTIAL (PRIMARY) HYPERTENSION
--- NOTE | 2017-05-19 13:49 | PN ---
Progress Note, Physician History of Present Illness: Pt is alert. Denies having any new complaints. Remains without shortness of breath/cough. Tmax 99F - Current Medication List Current Medications: Active Medications Amlodipine Besylate (Norvasc -) 10 mg PO DAILY [facility] Last Admin: 05/19/17 09:41 Dose: 10 mg Aspirin (Asa -) 81 mg PO DAILY [facility] Last Admin: 05/19/17 09:41 Dose: 81 mg Atorvastatin Calcium (Lipitor -) 10 mg PO HS [facility] Last Admin: 05/18/17 21:40 Dose: 10 mg Gabapentin (Neurontin -) 100 mg PO TID [facility] Last Admin: 05/19/17 13:37 Dose: 100 mg Heparin Sodium (Porcine) (Heparin -) 5,000 unit SQ BID [facility] Last Admin: 05/19/17 09:41 Dose: 5,000 unit Levothyroxine Sodium (Synthroid -) 25 mcg PO DAILY@0700 [facility] Last Admin: 05/19/17 06:23 Dose: 25 mcg - Objective Vital Signs: Vital Signs Temperature 99.0 F 05/19/17 10:00 Pulse Rate 88 05/19/17 10:00 Respiratory Rate 18 05/19/17 10:00 Blood Pressure 129/67 05/19/17 10:00 O2 Sat by Pulse Oximetry (%) 98 05/19/17 10:00 Constitutional: Yes: No Distress Cardiovascular: Yes: Regular Rate and Rhythm Respiratory: Yes: CTA Bilaterally Gastrointestinal: Yes: Normal Bowel Sounds, Soft Neurological: Yes: Alert Labs: CBC, BMP 05/18/17 06:00 05/18/17 06:00 INR, PTT INR 1.36 (0.82-1.09) H 05/17/17 10:36 Problem List - Problems (1) Gait abnormality Code(s): R26.9 - UNSPECIFIED ABNORMALITIES OF GAIT AND MOBILITY (2) Bipolar 1 disorder Code(s): F31.9 - BIPOLAR DISORDER, UNSPECIFIED (3) CVA (cerebral vascular accident) Code(s): I63.9 - CEREBRAL INFARCTION, UNSPECIFIED (4) Diabetes Code(s): E11.9 - TYPE 2 DIABETES MELLITUS WITHOUT COMPLICATIONS (5) HTN (hypertension) Code(s): I10 - ESSENTIAL (PRIMARY) HYPERTENSION (6) Recurrent falls Code(s): R29.6 - REPEATED FALLS Assessment/Plan 76 y.o. male with DM, s/p CVA, HTN, GERD presenting s/p falls with weakness. CXR with questionable atelectasis/infiltrate. Pt without fever/chills/shortness of breath/cough or leukocytosis - cont monitor off antibiotics for now - blood and urine cultures no growth -- neurology following vitals stable at this time
--- NOTE | 2017-05-19 19:06 | PN ---
Progress Note, Physician History of Present Illness: STABLE - Current Medication List Current Medications: Active Medications Amlodipine Besylate (Norvasc -) 10 mg PO DAILY [facility] Last Admin: 05/19/17 09:41 Dose: 10 mg Aspirin (Asa -) 81 mg PO DAILY [facility] Last Admin: 05/19/17 09:41 Dose: 81 mg Atorvastatin Calcium (Lipitor -) 10 mg PO HS [facility] Last Admin: 05/18/17 21:40 Dose: 10 mg Gabapentin (Neurontin -) 100 mg PO TID [facility] Last Admin: 05/19/17 13:37 Dose: 100 mg Heparin Sodium (Porcine) (Heparin -) 5,000 unit SQ BID [facility] Last Admin: 05/19/17 09:41 Dose: 5,000 unit Levothyroxine Sodium (Synthroid -) 25 mcg PO DAILY@0700 [facility] Last Admin: 05/19/17 06:23 Dose: 25 mcg - Objective Vital Signs: Vital Signs Temperature 98.2 F 05/19/17 18:30 Pulse Rate 81 05/19/17 18:30 Respiratory Rate 18 05/19/17 18:30 Blood Pressure 139/65 05/19/17 18:30 O2 Sat by Pulse Oximetry (%) 98 05/19/17 10:00 Constitutional: Yes: No Distress HENT: Yes: Atraumatic Neck: Yes: Supple Cardiovascular: Yes: Regular Rate and Rhythm Respiratory: Yes: CTA Bilaterally Gastrointestinal: Yes: Normal Bowel Sounds Extremities: Yes: WNL Neurological: Yes: Alert, Oriented Labs: CBC, BMP 05/18/17 06:00 05/18/17 06:00 INR, PTT INR 1.36 (0.82-1.09) H 05/17/17 10:36 Problem List - Problems (1) Accidental fall Assessment/Plan: PT/OT Code(s): W19.XXXA - UNSPECIFIED FALL, INITIAL ENCOUNTER (2) CVA (cerebral vascular accident) Assessment/Plan: NEURO ON CASE MRI NO ACUTE PATHOLOGY Code(s): I63.9 - CEREBRAL INFARCTION, UNSPECIFIED (3) HTN (hypertension) Assessment/Plan: ON MEDS STABLE Code(s): I10 - ESSENTIAL (PRIMARY) HYPERTENSION
[2017-05-19] MEDS: ATORVASTATIN CA 10 MG TABLET (FP) PO SCH (23:06)
[2017-05-20] MEDS: LEVOTHYROXINE NA 25 MCG TABLET (FP) PO SCH (06:45)
[2017-05-20] MEDS: GABAPENTIN 100 MG CAPSULE (FP) PO SCH ×2 (06:45→15:32)
[2017-05-20] MEDS: ASPIRIN 81 MG CHEWABLE TABLETS PO SCH (11:27)
[2017-05-20] MEDS: HEPARIN NA (PORCINE) 5,000 UNITS/ML 1ML VIAL SQ SCH (11:27)
[2017-05-20] MEDS: amLODIPine BESYLATE 10 MG TABLET (FP) PO SCH (11:27)
--- NOTE | 2017-05-20 14:11 | PN ---
Progress Note, Physician History of Present Illness: No new events. Pt is responsive, without distress. No new complaints. Afebrile. - Current Medication List Current Medications: Active Medications Amlodipine Besylate (Norvasc -) 10 mg PO DAILY [facility] Last Admin: 05/20/17 11:27 Dose: 10 mg Aspirin (Asa -) 81 mg PO DAILY [facility] Last Admin: 05/20/17 11:27 Dose: 81 mg Atorvastatin Calcium (Lipitor -) 10 mg PO HS [facility] Last Admin: 05/19/17 23:06 Dose: 10 mg Gabapentin (Neurontin -) 100 mg PO TID [facility] Last Admin: 05/20/17 06:45 Dose: 100 mg Heparin Sodium (Porcine) (Heparin -) 5,000 unit SQ BID [facility] Last Admin: 05/20/17 11:27 Dose: 5,000 unit Levothyroxine Sodium (Synthroid -) 25 mcg PO DAILY@0700 [facility] Last Admin: 05/20/17 06:45 Dose: 25 mcg - Objective Vital Signs: Vital Signs Temperature 98.2 F 05/20/17 14:04 Pulse Rate 80 05/20/17 14:04 Respiratory Rate 18 05/20/17 14:04 Blood Pressure 112/63 05/20/17 14:04 O2 Sat by Pulse Oximetry (%) 96 05/20/17 10:00 Constitutional: Yes: No Distress, Calm Neck: Yes: Supple Cardiovascular: Yes: Regular Rate and Rhythm Respiratory: Yes: CTA Bilaterally Gastrointestinal: Yes: Normal Bowel Sounds, Soft Neurological: Yes: Alert Labs: CBC, BMP 05/18/17 06:00 05/18/17 06:00 INR, PTT INR 1.36 (0.82-1.09) H 05/17/17 10:36 Blood/Urine cultures - no growth Problem List - Problems (1) Gait abnormality Code(s): R26.9 - UNSPECIFIED ABNORMALITIES OF GAIT AND MOBILITY (2) Bipolar 1 disorder Code(s): F31.9 - BIPOLAR DISORDER, UNSPECIFIED (3) CVA (cerebral vascular accident) Code(s): I63.9 - CEREBRAL INFARCTION, UNSPECIFIED (4) Diabetes Code(s): E11.9 - TYPE 2 DIABETES MELLITUS WITHOUT COMPLICATIONS (5) HTN (hypertension) Code(s): I10 - ESSENTIAL (PRIMARY) HYPERTENSION (6) Recurrent falls Code(s): R29.6 - REPEATED FALLS Assessment/Plan 76 y.o. male with DM, s/p CVA, HTN, GERD presenting s/p falls with weakness. CXR with questionable atelectasis/infiltrate. Pt without fever/chills/shortness of breath/cough or leukocytosis - cont monitor off antibiotics for now - no clinical symptoms of PNA vitals stable
--- NOTE | 2017-05-20 14:35 | CON.GI ---
Consult Consult Specialty:: GI Reason for Consultation:: elevated liver enzymes - History of Present Illness History of Present Illness: A 76 yom with hx of CVA, HTN, GERD, sent to ED from the [place] with reported generalized weakness, episodes of epistaxis, and recent mechanical falls x 2. Noted to have elevated liver enzymes, cholestatic pattern with mildly elevated AST. The patient offers no complaints. Not in distress, or in pain. Cannot provide history. As per prior admissions records, the liver enzymes and ALP pattern has been present, at least, since 08/2016. - History Source History Provided By: Medical Record Limitations to Obtaining History: Clinical Condition - Past Medical History CYCLE CONSULTANT: Yes: CVA (right sided weakness) Cardio/Vascular: Yes: HTN, Hyperlipdemia Endocrine: Yes: Diabetes Mellitus - Alcohol/Substance Use Hx Alcohol Use: No - Smoking History Smoking history: Never smoked Have you smoked in the past 12 months: No Aproximately how many cigarettes per day: 0 - Social History History of Recent Travel: No Home Medications - Allergies Allergies/Adverse Reactions: Allergies Allergy/AdvReac Type Severity Reaction Status Date / Time No Known Drug Allergies Allergy Verified 05/17/17 08:22 - Home Medications Home Medications: Ambulatory Orders Amlodipine Besylate 10 mg PO DAILY 08/19/15 Sennosides [Senna] 2 tab PO 2000 10/15/16 Aspirin [ASA -] 81 mg PO DAILY 05/17/17 Atorvastatin Ca [Lipitor] 10 mg PO DAILY 05/17/17 Dextran 70/Hypromellose [Genteal Tears 0.1%-0.3% Drop] 1 drop OU DAILY 05/17/17 Docusate Sodium [Colace -] 200 mg PO DAILY 05/17/17 Gabapentin 100 mg PO TID 05/17/17 Levothyroxine [Synthroid -] 25 mcg PO DAILY 05/17/17 Magnesium Hydrox 2400MG/30Ml [Milk of Magnesia -] 60 ml PO DAILY 05/17/17 Family Disease History - Family Disease History Family History: Unremarkable (non-contributory) Review of Systems Findings/Remarks: please refer to H&P Physical Exam-GI Vital Signs: Vital Signs Temperature 98.2 F 05/20/17 14:04 Pulse Rate 80 05/20/17 14:04 Respiratory Rate 18 05/20/17 14:04 Blood Pressure 112/63 05/20/17 14:04 O2 Sat by Pulse Oximetry (%) 96 05/20/17 10:00 Constitutional: Yes: No Distress, Calm Eyes: Yes: Conjunctiva Clear HENT: Yes: Atraumatic Neck: Yes: Supple Cardiovascular: Yes: Regular Rate and Rhythm Respiratory: Yes: Regular Gastrointestinal Inspection: Yes: WNL. No: Ascites, Distention ...Auscultate: Yes: Normoactive Bowel Sounds ...Palpate: Yes: Soft. No: Firm/Rigid, Guarding, Hepatomegaly, Mass, Tenderness Neurological: Yes: Alert Labs: CBC, BMP 05/18/17 06:00 05/18/17 06:00 INR, PTT INR 1.36 (0.82-1.09) H 05/17/17 10:36 Laboratory Tests 05/17/17 05/17/17 05/17/17 08:36 09:30 09:30 WBC 2.9 L RBC 3.76 L Hgb 10.8 L D Hct 33.5 L MCV 89.1 MCH 28.7 MCHC 32.2 RDW 16.6 H D Plt Count 158 MPV 7.8 Neutrophils % No Result Required. Neutrophils % (Manual) 43.9 Band Neutrophils % 1.0 Lymphocytes % No Result Required. Lymphocytes % (Manual) 20.4 Monocytes % (Manual) 28 H* Eosinophils % (Manual) 7.1 H Basophils % (Manual) 0.0 Myelocytes % (Man) 0 Nucleated RBC % 2 H Metamyelocytes 0 Hypochromia 0 Toxic Granulation 0 Dohle Bodies 0 Platelet Estimate Normal Polychromasia 0 Poikilocytosis 0 Basophilic Stippling 0 Anisocytosis 0 Microcytosis 0 Macrocytosis 0 Spherocytes 0 Sickle Cells 0 Target Cells 0 Tear Drop Cells 0 Ovalocytes 0 Stomatocytes 0 Helmet Cells 0 [place] Bodies 0 [place] Rings 0 Zee Cells 0 Acanthocytes (Spur) 0 Fragmented RBCs 0 Schistocytes 0 PT with INR INR Sodium 141 Potassium 3.3 L Chloride 109 H Carbon Dioxide 26 Anion Gap 6 L BUN 12 Creatinine 1.0 Creat Clearance w eGFR > 60 POC Glucometer 149.07747 Random Glucose 127 H Hemoglobin A1c % Calcium 8.3 L Magnesium 2.1 Total Bilirubin 0.9 AST 59 H D ALT 30 D Alkaline Phosphatase 278 H D Creatine Kinase Troponin I Total Protein 7.0 Albumin 2.4 L Vitamin B12 Serum Folate TSH Urine Color Urine Appearance Urine pH Ur Specific [place] Urine Protein Urine Glucose (UA) Urine Ketones Urine Blood Urine Nitrite Urine Bilirubin Urine Urobilinogen Ur Leukocyte Esterase Urine WBC (Auto) Urine RBC (Auto) Ur Epithelial Cells Stool Occult Blood Valproic Acid 05/17/17 05/17/17 05/17/17 09:30 09:30 10:36 WBC RBC Hgb Hct MCV MCH MCHC RDW Plt Count MPV Neutrophils % Neutrophils % (Manual) Band Neutrophils % Lymphocytes % Lymphocytes % (Manual) Monocytes % (Manual) Eosinophils % (Manual) Basophils % (Manual) Myelocytes % (Man) Nucleated RBC % Metamyelocytes Hypochromia Toxic Granulation Dohle Bodies Platelet Estimate Polychromasia Poikilocytosis Basophilic Stippling Anisocytosis Microcytosis Macrocytosis Spherocytes Sickle Cells Target Cells Tear Drop Cells Ovalocytes Stomatocytes Helmet Cells [place] Bodies [place] Rings Zee Cells Acanthocytes (Spur) Fragmented RBCs Schistocytes PT with INR INR Sodium Potassium Chloride Carbon Dioxide Anion Gap BUN Creatinine Creat Clearance w eGFR POC Glucometer Random Glucose Hemoglobin A1c % Calcium Magnesium Total Bilirubin AST ALT Alkaline Phosphatase Creatine Kinase 126 Troponin I < 0.02 Total Protein Albumin Vitamin B12 418 D Serum Folate 10 TSH 3.69 D Urine Color Yellow Urine Appearance Clear Urine pH 7.0 Ur Specific [place] 1.008 Urine Protein Negative Urine Glucose (UA) Negative Urine Ketones Negative Urine Blood 2+ H Urine Nitrite Negative Urine Bilirubin Negative Urine Urobilinogen 2.0 Ur Leukocyte Esterase Negative Urine WBC (Auto) 1 Urine RBC (Auto) 10 Ur Epithelial Cells Rare Stool Occult Blood Valproic Acid 74.874 05/17/17 05/17/17 05/18/17 10:36 13:02 06:00 WBC 2.3 L RBC 4.18 Hgb 11.8 Hct 37.4 MCV 89.4 MCH 28.3 MCHC 31.6 L RDW 16.3 H Plt Count 182 MPV 7.9 Neutrophils % No Result Required. Neutrophils % (Manual) 22.9 L D Band Neutrophils % 1.0 Lymphocytes % No Result Required. Lymphocytes % (Manual) 38.6 D Monocytes % (Manual) 28 H* Eosinophils % (Manual) 8.3 H Basophils % (Manual) 1.1 D Myelocytes % (Man) 0 Nucleated RBC % 3 H Metamyelocytes 0 Hypochromia 0 Toxic Granulation 0 Dohle Bodies 0 Platelet Estimate Normal Polychromasia 0 Poikilocytosis 0 Basophilic Stippling 0 Anisocytosis 0 Microcytosis 0 Macrocytosis 0 Spherocytes 0 Sickle Cells 0 Target Cells 0 Tear Drop Cells 0 Ovalocytes 0 Stomatocytes 0 Helmet Cells 0 [place] Bodies 0 [place] Rings 0 [place] Cells 0 Acanthocytes (Spur) 0 Fragmented RBCs 0 Schistocytes 0 PT with INR 15.40 H INR 1.36 H Sodium Potassium Chloride Carbon Dioxide Anion Gap BUN Creatinine Creat Clearance w eGFR POC Glucometer Random Glucose Hemoglobin A1c % Calcium Magnesium Total Bilirubin AST ALT Alkaline Phosphatase Creatine Kinase Troponin I Total Protein Albumin Vitamin B12 Serum Folate TSH Urine Color Urine Appearance Urine pH Ur Specific [place] Urine Protein Urine Glucose (UA) Urine Ketones Urine Blood Urine Nitrite Urine Bilirubin Urine Urobilinogen Ur Leukocyte Esterase Urine WBC (Auto) Urine RBC (Auto) Ur Epithelial Cells Stool Occult Blood Negative Valproic Acid 05/18/17 05/18/17 06:00 06:00 WBC RBC Hgb Hct MCV MCH MCHC RDW Plt Count MPV Neutrophils % Neutrophils % (Manual) Band Neutrophils % Lymphocytes % Lymphocytes % (Manual) Monocytes % (Manual) Eosinophils % (Manual) Basophils % (Manual) Myelocytes % (Man) Nucleated RBC % Metamyelocytes Hypochromia Toxic Granulation Dohle Bodies Platelet Estimate Polychromasia Poikilocytosis Basophilic Stippling Anisocytosis Microcytosis Macrocytosis Spherocytes Sickle Cells Target Cells Tear Drop Cells Ovalocytes Stomatocytes Helmet Cells [place] Bodies [place] Rings [place] Cells Acanthocytes (Spur) Fragmented RBCs Schistocytes PT with INR INR Sodium 141 Potassium 3.6 Chloride 107 Carbon Dioxide 25 Anion Gap 9 BUN 9 D Creatinine 0.8 Creat Clearance w eGFR > 60 POC Glucometer Random Glucose 82 D Hemoglobin A1c % 5.5 Calcium 8.7 Magnesium Total Bilirubin 1.2 H D AST 68 H ALT 33 Alkaline Phosphatase 292 H Creatine Kinase Troponin I Total Protein 7.8 Albumin 2.5 L Vitamin B12 Serum Folate TSH Urine Color Urine Appearance Urine pH Ur Specific [place] Urine Protein Urine Glucose (UA) Urine Ketones Urine Blood Urine Nitrite Urine Bilirubin Urine Urobilinogen Ur Leukocyte Esterase Urine WBC (Auto) Urine RBC (Auto) Ur Epithelial Cells Stool Occult Blood Valproic Acid Problem List - Problems (1) Cholestasis Code(s): K83.1 - OBSTRUCTION OF BILE DUCT Assessment/Plan Mild cholestatis. Appears to be chronic and asymptomatic. Probably multifactorial. US liver CMP/direct bilirubin would not stop atorvastatin at this time would not initiate detailed, extensive liver workup as it will likely not change the management in this patient.
[2017-05-20 17:10] VITALS: BP 122/67; PULSE 81; TEMP 98.5
--- NOTE | 2017-05-20 18:39 | DS ---
Physical Examination Vital Signs: Vital Signs Temperature 98.5 F 05/20/17 17:09 Pulse Rate 81 05/20/17 17:09 Respiratory Rate 18 05/20/17 17:09 Blood Pressure 122/67 05/20/17 17:09 O2 Sat by Pulse Oximetry (%) 96 05/20/17 10:00 Constitutional: Yes: No Distress HENT: Yes: Atraumatic Neck: Yes: Supple Cardiovascular: Yes: Regular Rate and Rhythm Respiratory: Yes: CTA Bilaterally Gastrointestinal: Yes: Normal Bowel Sounds Extremities: Yes: WNL Neurological: Yes: Alert, Oriented Labs: CBC, BMP 05/18/17 06:00 05/18/17 06:00 Discharge Summary Reason For Visit: RECURRENT FALLS, WEAKNESS, PNEUMONIA Current Active Problems Cholestasis (Acute) Gait abnormality (Acute) - Instructions Referrals: Jaxon Tineo [Primary Care Provider] - Disposition: CARE HOME FACILITY - Home Medications Comprehensive Discharge Medication List: Ambulatory Orders Amlodipine Besylate 10 mg PO DAILY 08/19/15 Sennosides [Senna] 2 tab PO 199910/15/16 Aspirin [ASA -] 81 mg PO DAILY 05/17/17 Atorvastatin Ca [Lipitor] 10 mg PO DAILY 05/17/17 Dextran 70/Hypromellose [Genteal Tears 0.1%-0.3% Drop] 1 drop OU DAILY 05/17/17 Docusate Sodium [Colace -] 200 mg PO DAILY 05/17/17 Gabapentin 100 mg PO TID 05/17/17 Levothyroxine [Synthroid -] 25 mcg PO DAILY 05/17/17 Magnesium Hydrox 2400MG/30Ml [Milk of Magnesia -] 60 ml PO DAILY 05/17/17 dc snf
== END 2017-05-20 18:46 | DRG 56 ==
LOC: JER 08:08 → JERBED 13:10 → J7W 14:38
PROVIDERS: ADMIT Internal Medicine; ATTEND Internal Medicine
DX: G20 Parkinson's disease (principal); K83.1 Obstruction of bile duct; I69.351 Hemiplegia and hemiparesis following cerebral infarction affecting right dominant side; R26.9 Unspecified abnormalities of gait and mobility; I10 Essential (primary) hypertension; K21.9 Gastro-esophageal reflux disease without esophagitis; F31.9 Bipolar disorder, unspecified
CPT/HCPCS: 36415; 70450-TC; 70551-TC; 71010-TC; 80053; 80164; 81003; 81015; 82272; 82550; 82607; 82746; 83036; 83735; 84443; 84484; 85025; 85610; 87040; 87086; 93005; 93010; 93970-TC; 97116-GP; 97162-GP; 99285-25; J1644

== ENCOUNTER 2017-06-11 16:25 | Inpatient (IN) | payer OTHER ==
[2017-06-11] MEDS ORDERED: PANTOPRAZOLE SODIUM 80 MG in SODIUM CHLORIDE 100 ML IVPB ONE (16:40)
[2017-06-11] MEDS ORDERED: SODIUM CHLORIDE 1,000 ML IV ONE (16:40)
--- NOTE | 2017-06-11 16:41 | PDOC ---
History of Present Illness - General History Source: Patient, EMS Exam Limitations: Clinical Condition - History of Present Illness Initial Comments: 06/11/17 17:27 The patient is a 76 year old male, from [facility], with a significant past medical history of DM, hypertension, GERD, CVA, bipolar disorder and schizophrenia, who presents to the emergency department via EMS with one episode of hematemesis prior to arrival. EMS provided a picture of the hematemesis and there appears to be a large blood clot present. The patient is not providing additional information. He denies recent abdominal pain. He denies recent diarrhea. He denies history of ETOH abuse. Unclear of pts baseline mental status - limited hx, possibly due to psych vs. organic process Allergies: NKA PCP: Dr. Fariba Sanchez <Robinson Clifford - Last Filed: 06/11/17 17:27> <Gamaliel Garcia - Last Filed: 06/11/17 20:07> - General Chief Complaint: Vomiting Blood Stated Complaint: VOMITING BLOOD, BLOOD PRESSURE Time Seen by Provider: 06/11/17 16:37 Past History <Robinson Clifford - Last Filed: 06/11/17 17:27> - Past Medical History Cardiac Disorders: Yes CVA: Yes (residual rt side weakness) COPD: No GI Disorders: Yes (gerd) HTN: Yes Hypercholesterolemia: Yes Psychiatric Problems: Yes (bipolar) - Suicide/Smoking/Psychosocial Hx Smoking Status: No Smoking History: Never smoked Have you smoked in the past 12 months: No Number of Cigarettes Smoked Daily: 0 Hx Alcohol Use: No Drug/Substance Use Hx: No Substance Use Type: None Hx Substance Use Treatment: No <Gamaliel Garcia - Last Filed: 06/11/17 20:07> - Past Medical History Allergies/Adverse Reactions: Allergies Allergy/AdvReac Type Severity Reaction Status Date / Time No Known Drug Allergies Allergy Verified 05/17/17 08:22 Home Medications: Ambulatory Orders Amlodipine Besylate 10 mg PO DAILY 08/19/15 Sennosides [Senna] 2 tab PO 2000 10/15/16 Aspirin [ASA -] 81 mg PO DAILY 05/17/17 Atorvastatin Ca [Lipitor] 10 mg PO DAILY 05/17/17 Dextran 70/Hypromellose [Genteal Tears 0.1%-0.3% Drop] 1 drop OU DAILY 05/17/17 Docusate Sodium [Colace -] 200 mg PO DAILY 05/17/17 Gabapentin 100 mg PO TID 05/17/17 Levothyroxine [Synthroid -] 25 mcg PO DAILY 05/17/17 Magnesium Hydrox 2400MG/30Ml [Milk of Magnesia -] 60 ml PO DAILY 05/17/17 Review of Systems - Review of Systems Able to Perform ROS?: No (Clinical condition) <Robinson Clifford - Last Filed: 06/11/17 17:27> *Physical Exam - Vital Signs Last Vital Signs Temp Pulse Resp BP Pulse Ox 97.4 F L 102 H 22 100/58 100 06/11/17 16:30 06/11/17 16:30 06/11/17 16:30 06/11/17 16:30 06/11/17 16:30 - Physical Exam Comments: 06/11/17 17:27 GENERAL: The patient is awake, alert, and oriented x 2 Nontoxic - in no acute distress. HEAD: Normocephalic, atraumatic. EYES: extraocular movements intact, sclera anicteric, conjunctiva clear. ENT: Normal voice, Moist mucous membranes, blood visible in perioral region NECK: Normal range of motion, supple LUNGS: Breath sounds equal, clear to auscultation bilaterally. No wheezes, no rhonchi, no rales. HEART: Regular rate and rhythm, normal S1 and S2 without murmur, rub or gallop. ABDOMEN: soft, nontender, slightly distended abdomen RECTAL: yellow stool, non melantotic EXTREMITIES: +1 edema on RLE, neg homans, no calf tenderness or cords NEUROLOGICAL: mild R sided weakness PSYCH: unable to assess SKIN: Warm, Dry, normal turgor, <Robinson Clifford - Last Filed: 06/11/17 17:27> Heart Score/ECG Review - ECG Impressions Comment:: 06/11/17 17:32 Twelve-lead EKG was performed and reviewed by me. There is normal sinus rhythm with rate of 100 [place] is normal QTc interval 466 <Gamaliel Garcia - Last Filed: 06/11/17 20:07> ED Treatment Course - ADDITIONAL ORDERS Additional order review: Laboratory Results 06/11/17 16:26 Stool Occult Blood Negative <Robinson Clifford - Last Filed: 06/11/17 17:27> - LABORATORY CBC & Chemistry Diagram: 06/11/17 17:17 06/11/17 16:26 - RADIOLOGY Radiology Studies Ordered: Category Date Time Status CHEST X-RAY PORTABLE* [RAD] Stat Radiology 06/11/17 16:40 Ordered <Gamaliel Garcia - Last Filed: 06/11/17 20:07> Medical Decision Making - Critical Care Time Total Critical Care Time (minutes): 45 Critical Care Statement: The care of this patient involved high complexity decision making to prevent further life threatening deterioration of the patient 's condition and/or to evaluate & treat vital organ system(s) failure or risk of failure. - Medical Decision Making 06/11/17 16:43 76y M hx of htn, gerd, dm, cva w/ residual R sided weakness, bipolar disorder, presents with complaint of GIB. The pt had a hemetemsis where he seemed to cough up a large blood clot. Pt states he is 'fine' - he is ao x2 but not fully there - repeating 'im fine' to various questions inappropriately. denies any rectal bleeding but states it does lookdarkish - denies any history of ETOH abuse. per [place] records, not on any type of a/c. UGIB - will start protonix awaiting rectal guaiac labs, anticpate admission vitals stable currently (borderline tachy) A portion of this note was documented by scribe services under my direction. I have reviewed the details of the note, within reason, and agree with the documentation with the following case summary and management plan written by me 06/11/17 17:38 pt had another epsiode of vomiting. pt has a significant amount of maroon cooagulated blood with reddish fluid. hemodynamicly stable, HR 100, sbp 130 denies any complaints beside saying 'i did it again!' no respiraotory compromise 06/11/17 18:08 pts guaiac is neg for blood pt cbc note for hgb of 7.5, a 4 pt drop fromhis previous hospitalization in may. his blood clots from his vomit is atypical - consider possible epistaxis - but no signs of bleeding from nares or oropharnx 06/11/17 18:[address] sanchez, requests admission to hospitalist service 06/11/17 19:19 consider ICU admission will dw hospitalist as pt is otherwise stble vitals 06/11/17 19:40 dw TIME MOTION ANALYST Olaf agree with admsision and ICU under dr. Syed 1 06/11/17 20:06 case dw TIME MOTION ANALYST struthers in ICU he will evaluate th pt for need for ICU as he is otherwise hemodynamically stable - but my concern is taht he has a episode of vomting here in the ED. his vitals are otherwise fine <Gamaliel Garcia - Last Filed: 06/11/17 20:07> *DC/Admit/Observation/Transfer - Attestations Scribe Attestion: 06/11/17 17:28 Documentation prepared by Robinson Clifford, acting as medical claims manager for Gamaliel Garcia MD. <Robinson Clifford - Last Filed: 06/11/17 17:27> - Discharge Dispostion Admit: Yes <Gamaliel Garcia - Last Filed: 06/11/17 20:07> Diagnosis at time of Disposition: GIB (gastrointestinal bleeding) Qualifiers: GI bleed type/associated pathology: unspecified gastrointestinal hemorrhage type Qualified Code(s): K92.2 - Gastrointestinal hemorrhage, unspecified - Discharge Dispostion Condition at time of disposition: Guarded
[2017-06-11] MEDS ORDERED: PANTOPRAZOLE SODIUM 80 MG in SODIUM CHLORIDE 100 ML IVPB SCH (16:45)
[2017-06-11] MEDS ORDERED: SODIUM CHLORIDE IVPB SCH (17:30)
[2017-06-11] MEDS ORDERED: PANTOPRAZOLE SODIUM IVPB SCH (17:30)
[2017-06-11 17:37] LABS: HEMATOCRIT 23.1 % (35.4-49); HEMOGLOBIN 7.5 GM/dL (11.7-16.9); MCH 28.2 pg (25.7-33.7); MCHC 32.4 g/dl (32.0-35.9); MEAN CELL VOLUME 87.1 fl (80-96); MEAN PLT VOLUME 8.7 fl (7.5-11.1); PLATELET COUNT 225 K/MM3 (134-434); RBC 2.65 M/mm3 (4.00-5.60); RDW 16.2 % (11.9-15.9); WHITE BLOOD COUNT 2.8 K/mm3 (4.0-10.0)
[2017-06-11] MEDS ORDERED: PANTOPRAZOLE SODIUM 40 MG VIAL ONE (17:38)
[2017-06-11 17:52] LABS: INR 1.25 (0.82-1.09); PROTHROMBIN TIME (PATIENT) 14.1 SEC (9.98-11.88)
[2017-06-11 18:03] LABS: ALBUMIN 1.9 g/dl (3.4-5.0); ANION GAP 9 (8-16); BILIRUBIN,TOTAL 0.9 mg/dL (0.2-1.0); BLOOD UREA NITROGEN 27 mg/dL (7-18); CALCIUM 7.8 mg/dL (8.5-10.1); CHLORIDE 111 mmol/L (98-107); CO2 23 mmol/L (21-32); GLUCOSE,RANDOM 149 mg/dL (74-106); POTASSIUM 4.3 mmol/L (3.5-5.1); SGOT/AST 72 U/L (15-37); SGPT/ALT 43 U/L (12-78); SODIUM 143 mmol/L (136-145); TOT PROT 6.1 g/dl (6.4-8.2)
[2017-06-11 18:05] LABS: ALK PHOS 296 U/L (45-117)
[2017-06-11] MEDS: PANTOPRAZOLE SODIUM 160 MG in SODIUM CHLORIDE 290 ML IVPB SCH (18:49)
[2017-06-11 18:59] LABS: SMUDGE CELLS FEW
[2017-06-11 19:00] LABS: ANISOCYTOSIS 1+; PLATELET ESTIMATE ADEQUATE
[2017-06-11] MEDS ORDERED: SUCRALFATE 1 GM TABLET (FP) ONE (20:05)
--- NOTE | 2017-06-11 20:10 | HP ---
Admitting History and Physical - Primary Care Physician PCP: Fariba Sanchez - Admission Chief Complaint: Vomiting Blood History of Present Illness: This is a 76 y/o man with a past medical history of DM, HTN, CVA, Bipolar, Schizophrenia. Who presents to the ED from [facility] with hematemesis with large clots. Patient has Bipolar/Schizophrenia unable to obtain HPI. Per ED records: EMS provided a picture of the hematemesis and there appears to be a large blood clot present. Patient had an episode of hematemesis while in the ED. The patient was started on a Protonix Drip, PRBCs pending. GI was consulted, and will be coming in tonight for an endoscopy. Patient is admitted to ICU for Acute Upper GI Bleed, Anemia. 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: CVA (right sided weakness) Cardiovascular: Yes: HTN, Hyperlipdemia Psych: Yes: Bipolar, Schizophrenia Endocrine: Yes: Diabetes Mellitus - Smoking History Smoking history: Never smoked Have you smoked in the past 12 months: No Aproximately how many cigarettes per day: 0 - Alcohol/Substance Use Hx Alcohol Use: No - Social History Usual Living Arrangement: Yes: Senior Care ADL: Support Services History of Recent Travel: No Home Medications - Allergies Allergies/Adverse Reactions: Allergies Allergy/AdvReac Type Severity Reaction Status Date / Time No Known Drug Allergies Allergy Verified 05/17/17 08:22 - Home Medications Home Medications: Ambulatory Orders Amlodipine Besylate 10 mg PO DAILY 08/19/15 Sennosides [Senna] 2 tab PO 199910/15/16 Aspirin [ASA -] 81 mg PO DAILY 05/17/17 Atorvastatin Ca [Lipitor] 10 mg PO DAILY 05/17/17 Dextran 70/Hypromellose [Genteal Tears 0.1%-0.3% Drop] 1 drop OU DAILY 05/17/17 Docusate Sodium [Colace -] 200 mg PO DAILY 05/17/17 Gabapentin 100 mg PO TID 05/17/17 Levothyroxine [Synthroid -] 25 mcg PO DAILY 05/17/17 Magnesium Hydrox 2400MG/30Ml [Milk of Magnesia -] 60 ml PO DAILY 05/17/17 Family Disease History - Family Disease History Family History: Unable to Obtain Review of Systems Unable to obtain ROS, reason: Bipolar/Schizophrenia Physical Examination Vital Signs: Vital Signs Temperature 97.4 F L 06/11/17 16:30 Pulse Rate 95 H 06/11/17 19:29 Respiratory Rate 20 06/11/17 19:29 Blood Pressure 107/50 06/11/17 19:29 O2 Sat by Pulse Oximetry (%) 96 06/11/17 19:29 Constitutional: Yes: Anxious, Obese Eyes: Yes: Conjunctiva Clear, PERRL HENT: Yes: WNL, Atraumatic, Normocephalic Neck: Yes: WNL, Supple, Trachea Midline Cardiovascular: Yes: WNL, Regular Rate and Rhythm Respiratory: Yes: WNL, Regular, CTA Bilaterally Gastrointestinal: Yes: Abdomen, Obese, Hypoactive Bowel Sounds ...Rectal Exam: Yes: Guaiac Negative Breast(s): Yes: WNL Musculoskeletal: Yes: WNL Extremities: Yes: WNL Edema: No Peripheral Pulses WNL: Yes Neurological: Yes: Alert (name only), Confusion, Cran Nerves II-XII Intact ...Motor Strength: WNL Psychiatric: Yes: Alert (name only) Labs: CBC, BMP 06/11/17 17:17 06/11/17 16:26 Laboratory Results - last 24 hr 06/11/17 06/11/17 06/11/17 16:26 16:26 16:26 WBC RBC Hgb Hct MCV MCH MCHC RDW Plt Count MPV Neutrophils % Neutrophils % (Manual) Band Neutrophils % Lymphocytes % Lymphocytes % (Manual) Monocytes % (Manual) Eosinophils % (Manual) Smudge Cells Hypochromia Platelet Estimate Platelet Comment Polychromasia Anisocytosis PT with INR 14.10 H INR 1.25 H Sodium 143 Potassium 4.3 Chloride 111 H Carbon Dioxide 23 Anion Gap 9 BUN 27 H D Creatinine 1.0 D Creat Clearance w eGFR > 60 Random Glucose 149 H D Calcium 7.8 L Total Bilirubin 0.9 D AST 72 H ALT 43 D Alkaline Phosphatase 296 H Ammonia Creatine Kinase 42 Troponin I < 0.02 Total Protein 6.1 L D Albumin 1.9 L D Stool Occult Blood Blood Type O POSITIVE Antibody Screen Negative Crossmatch See Detail 06/11/17 06/11/17 06/11/17 16:26 17:17 17:17 WBC 2.8 L RBC 2.65 L D Hgb 7.5 L D Hct 23.1 L D MCV 87.1 MCH 28.2 MCHC 32.4 RDW 16.2 H Plt Count 225 D MPV 8.7 D Neutrophils % No Result Required. Neutrophils % (Manual) 45.0 D Band Neutrophils % 4.0 Lymphocytes % No Result Required. Lymphocytes % (Manual) 32.0 Monocytes % (Manual) 13 H Eosinophils % (Manual) 1.0 D Smudge Cells Few Hypochromia 2+ Platelet Estimate Adequate Platelet Comment Rare giant plts Polychromasia 1+ Anisocytosis 1+ PT with INR INR Sodium Potassium Chloride Carbon Dioxide Anion Gap BUN Creatinine Creat Clearance w eGFR Random Glucose Calcium Total Bilirubin AST ALT Alkaline Phosphatase Ammonia Cancelled Creatine Kinase Troponin I Total Protein Albumin Stool Occult Blood Negative Blood Type Antibody Screen Crossmatch 06/11/17 20:40 WBC RBC Hgb Hct MCV MCH MCHC RDW Plt Count MPV Neutrophils % Neutrophils % (Manual) Band Neutrophils % Lymphocytes % Lymphocytes % (Manual) Monocytes % (Manual) Eosinophils % (Manual) Smudge Cells Hypochromia Platelet Estimate Platelet Comment Polychromasia Anisocytosis PT with INR INR Sodium Potassium Chloride Carbon Dioxide Anion Gap BUN Creatinine Creat Clearance w eGFR Random Glucose Calcium Total Bilirubin AST ALT Alkaline Phosphatase Ammonia Creatine Kinase Troponin I Total Protein Albumin Stool Occult Blood Blood Type O POSITIVE Antibody Screen Crossmatch Intake & Output 06/09/17 06/10/17 06/11/17 06/12/17 23:59 23:59 23:59 23:59 Intake Total 300 350 Balance 300 350 Weight 83.915 kg 83.007 kg Current Medications Generic Name Dose Route Start Last Admin Trade Name Freq PRN Reason Stop Dose Admin Pantoprazole Sodium 160 mg/ 290 mls @ 14.5 mls/hr 06/11/17 17:30 06/12/17 03: 35 Sodium Chloride IVPB 14.5 mls/hr Q20H VENITA Administration 8 MG/HR Pantoprazole Sodium 80 mg/ 250 mls @ 14.5 mls/hr 06/11/17 17:30 06/11/17 18: 49 Sodium Chloride IVPB 14.5 mls/hr Q10H VENITA Administration Octreotide Acetate 1,200 mcg/ 500 mls @ 20.83 mls/hr 06/12/17 00:30 06/12/17 03:35 Dextrose IVPB 20.83 mls/hr Q24H VENITA Administration 50 MCG/HR Sucralfate 1 gm 06/12/17 10:00 Carafate - PO QID VENITA Imaging - Results Chest X-ray: Report Reviewed, Image Reviewed EKG: Image Reviewed Problem List - Problems (1) Hematemesis Code(s): K92.0 - HEMATEMESIS (2) GIB (gastrointestinal bleeding) Code(s): K92.2 - GASTROINTESTINAL HEMORRHAGE, UNSPECIFIED Qualifiers: GI bleed type/associated pathology: unspecified gastrointestinal hemorrhage type Qualified Code(s): K92.2 - Gastrointestinal hemorrhage, unspecified (3) Anemia Code(s): D64.9 - ANEMIA, UNSPECIFIED (4) Bipolar 1 disorder Code(s): F31.9 - BIPOLAR DISORDER, UNSPECIFIED (5) CVA (cerebral vascular accident) Code(s): I63.9 - CEREBRAL INFARCTION, UNSPECIFIED (6) Diabetes Code(s): E11.9 - TYPE 2 DIABETES MELLITUS WITHOUT COMPLICATIONS (7) HTN (hypertension) Code(s): I10 - ESSENTIAL (PRIMARY) HYPERTENSION (8) Hypothyroidism Code(s): E03.9 - HYPOTHYROIDISM, UNSPECIFIED (9) DVT prophylaxis Code(s): [id number] - Assessment/Plan This is a 76 y/o man with a PMHx of: DM, HTN, CVA, Bipolar/Schizophrenia. Admitted to ICU for Hematemesis, Upper GI Bleed, Anemia. Plan: 1. Acute GI Bleed- Likely secondary to varices. 2 Large bore peripheral IVs, PRBCs x3-pending, Protonix Drip started in ED, GI consulted and following will take to OR tonight for Endoscopy. Cardiac Monitoring, NGT, gentle IVFs, Monitor CBC, BMP, Stool Occult- negative 2. Hematemesis- See above 3. Acute Anemia- Likely secondary to acute blood loss from UGIB. Last Hgb 11.5 in May now 7.5. will transfuse PRBCs x3 per GI recommendation. Monitor CBC/ PTT. Stool occult- negative 4. Hypertension- Will hold home meds secondary to Acute blood loss- hypotensive. Continue IVFs, PRBCs-pending 5. Diabetes Mellitus- Monitor BGMs, Will hold ISS for now- patient is NPO 6. Bipolar/Schizophrenia- Will hold po meds secondary to Upper GI Bleed. Consider Ativan or Haldol prn for agitation 7. CVA- Fall Precautions, continue to monitor and treat with interventions accordingly 8. FEN - D51/2NS@42cc/hr, Replete lytes prn, NPO 9. DVT Prophylaxis- SCDs, No ACs secondary to Acute UGI Bleed/Anemia Code Status: Full Code Dispo: Requires Inpatient Care Visit type - Emergency Visit Emergency Visit: Yes ED Registration Date: 06/11/17 Care time: The patient presented to the Emergency Department on the above date and was hospitalized for further evaluation of their emergent condition. - New Patient This patient is new to me today: Yes Date on this admission: 06/11/17 - Critical Care Critical Care patient: Yes Total Critical Care Time (in minutes): 40 Critical Care Statement: The care of this patient involved high complexity decision making to prevent further life threatening deterioration of the patient 's condition and/or to evaluate & treat vital organ system(s) failure or risk of failure.
--- NOTE | 2017-06-11 21:40 | CON.GI ---
Consult Consult Specialty:: GI Reason for Consultation:: Upper bleeding - History of Present Illness History of Present Illness: Chart reviewed. The patient is awake, alert however non-communicative. Not in distress, or pain. a 76 year old male, from [facility], with a significant past medical history of DM, hypertension, GERD, CVA, bipolar disorder and schizophrenia, who presents to the emergency department via EMS with one episode of hematemesis prior to arrival. EMS provided a picture of the hematemesis and there appears to be a large blood clot present. The patient is not providing additional information. Had an episode of "large hematemesis while in ED. No new episodes since 7 pm. No BMs thus far, hemoccult negative stools in ED. Hr 101, normal BP , saturation. No orthostatics done thus far. Hgb 11 g/dl about 20 days ago. Was on small dose ASA daily while in [place]. No history of the same in the past, no history of alcohol abuse or stigmata of liver disease, no history of excessive bleeding. 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 (right sided weakness) Cardio/Vascular: Yes: HTN, Hyperlipdemia Psych: Yes: Bipolar, Schizophrenia Endocrine: Yes: Diabetes Mellitus - Alcohol/Substance Use Hx Alcohol Use: No - Smoking History Smoking history: Never smoked Have you smoked in the past 12 months: No Aproximately how many cigarettes per day: 0 - Social History ADL: Support Services History of Recent Travel: No Home Medications - Allergies Allergies/Adverse Reactions: Allergies Allergy/AdvReac Type Severity Reaction Status Date / Time No Known Drug Allergies Allergy Verified 05/17/17 08:22 - Home Medications Home Medications: Ambulatory Orders Amlodipine Besylate 10 mg PO DAILY 08/19/15 Sennosides [Senna] 2 tab PO 199910/15/16 Aspirin [ASA -] 81 mg PO DAILY 05/17/17 Atorvastatin Ca [Lipitor] 10 mg PO DAILY 05/17/17 Dextran 70/Hypromellose [Genteal Tears 0.1%-0.3% Drop] 1 drop OU DAILY 05/17/17 Docusate Sodium [Colace -] 200 mg PO DAILY 05/17/17 Gabapentin 100 mg PO TID 05/17/17 Levothyroxine [Synthroid -] 25 mcg PO DAILY 05/17/17 Magnesium Hydrox 2400MG/30Ml [Milk of Magnesia -] 60 ml PO DAILY 05/17/17 Family Disease History - Family Disease History Family History: Unremarkable (non-contributory) Review of Systems Findings/Remarks: As per H&P, HPI Physical Exam-GI Vital Signs: Vital Signs Temperature 97.4 F L 06/11/17 16:30 Pulse Rate 101 H 06/11/17 21:12 Respiratory Rate 20 06/11/17 21:12 Blood Pressure 130/70 06/11/17 21:12 O2 Sat by Pulse Oximetry (%) 96 06/11/17 21:12 Constitutional: Yes: No Distress, Calm Eyes: Yes: Conjunctiva Clear HENT: Yes: Atraumatic Neck: Yes: Supple Cardiovascular: Yes: Tachycardia Respiratory: Yes: Regular Gastrointestinal Inspection: No: Ascites, Distention ...Palpate: Yes: Soft. No: Firm/Rigid, Guarding, Mass, Pulsatile Mass, Tenderness, Tenderness, Epigastium, Tenderness, Rebound ...Percussion: No: Dullness, Fluid Wave Neurological: Yes: Alert Labs: CBC, BMP 06/11/17 17:17 06/11/17 16:26 INR, PTT INR 1.25 (0.82-1.09) H 06/11/17 16:26 Laboratory Tests 06/11/17 06/11/17 06/11/17 16:26 16:26 16:26 WBC RBC Hgb Hct MCV MCH MCHC RDW Plt Count MPV Neutrophils % Neutrophils % (Manual) Band Neutrophils % Lymphocytes % Lymphocytes % (Manual) Monocytes % (Manual) Eosinophils % (Manual) Smudge Cells Hypochromia Platelet Estimate Platelet Comment Polychromasia Anisocytosis PT with INR 14.10 H INR 1.25 H Sodium 143 Potassium 4.3 Chloride 111 H Carbon Dioxide 23 Anion Gap 9 BUN 27 H D Creatinine 1.0 D Creat Clearance w eGFR > 60 Random Glucose 149 H D Calcium 7.8 L Total Bilirubin 0.9 D AST 72 H ALT 43 D Alkaline Phosphatase 296 H Ammonia Creatine Kinase 42 Troponin I < 0.02 Total Protein 6.1 L D Albumin 1.9 L D Stool Occult Blood Blood Type O POSITIVE Antibody Screen Negative Crossmatch See Detail 06/11/17 06/11/17 06/11/17 16:26 17:17 17:17 WBC 2.8 L RBC 2.65 L D Hgb 7.5 L D Hct 23.1 L D MCV 87.1 MCH 28.2 MCHC 32.4 RDW 16.2 H Plt Count 225 D MPV 8.7 D Neutrophils % No Result Required. Neutrophils % (Manual) 45.0 D Band Neutrophils % 4.0 Lymphocytes % No Result Required. Lymphocytes % (Manual) 32.0 Monocytes % (Manual) 13 H Eosinophils % (Manual) 1.0 D Smudge Cells Few Hypochromia 2+ Platelet Estimate Adequate Platelet Comment Rare giant plts Polychromasia 1+ Anisocytosis 1+ PT with INR INR Sodium Potassium Chloride Carbon Dioxide Anion Gap BUN Creatinine Creat Clearance w eGFR Random Glucose Calcium Total Bilirubin AST ALT Alkaline Phosphatase Ammonia Cancelled Creatine Kinase Troponin I Total Protein Albumin Stool Occult Blood Negative Blood Type Antibody Screen Crossmatch 06/11/17 20:40 WBC RBC Hgb Hct MCV MCH MCHC RDW Plt Count MPV Neutrophils % Neutrophils % (Manual) Band Neutrophils % Lymphocytes % Lymphocytes % (Manual) Monocytes % (Manual) Eosinophils % (Manual) Smudge Cells Hypochromia Platelet Estimate Platelet Comment Polychromasia Anisocytosis PT with INR INR Sodium Potassium Chloride Carbon Dioxide Anion Gap BUN Creatinine Creat Clearance w eGFR Random Glucose Calcium Total Bilirubin AST ALT Alkaline Phosphatase Ammonia Creatine Kinase Troponin I Total Protein Albumin Stool Occult Blood Blood Type O POSITIVE Antibody Screen Crossmatch Problem List - Problems (1) Hematochezia Code(s): K92.1 - MELENA (2) GIB (gastrointestinal bleeding) Code(s): K92.2 - GASTROINTESTINAL HEMORRHAGE, UNSPECIFIED Qualifiers: GI bleed type/associated pathology: unspecified gastrointestinal hemorrhage type Qualified Code(s): K92.2 - Gastrointestinal hemorrhage, unspecified Assessment/Plan Upper GI bleeding, acute blood loss anemia, hemodynamic changes. Transfuse 2-3 u nits PRBC PPI IV drip NGT Erythromycin 250 mg IVBP x 1 IVF/NPO EGD now stop/do not give carafate prior to EGD Stop ASA Called pt's son at the [phone] number in the chart and left voice mail with my cell phone number to call me back
[2017-06-11] MEDS ORDERED: SUCRALFATE 1 GM TABLET (FP) PO SCH (22:00)
[2017-06-11] MEDS ORDERED: ERYTHROMYCIN *INJECTION* 500 MG VIAL IVPB ONE (22:15)
[2017-06-11] MEDS ORDERED: METOCLOPRAMIDE HCL INJECTION 10 MG/2 ML VIAL IVPUSH ONE (22:30)
[2017-06-11] MEDS ORDERED: PROPOFOL 20 ML ONE (23:12)
[2017-06-11] MEDS ORDERED: SUCCINYLCHOLINE CHLORIDE 200 MG/10 ML VIAL ONE (23:12)
[2017-06-11] MEDS ORDERED: EPINEPHrine 1:10,000 (P-F SYR) 1 MG/10 ML DISP.SYRIN ONE (23:30)
--- NOTE | 2017-06-12 00:19 | PROC ---
Endoscopy Procedure Endoscopy procedure completed. Please see scanned procedure report. 3 columns, grade IV esophageal varices with stigmata of recent/impending bleeding. Banded x5 small antral gastric ulcer, biopsied. Octreotide carafate ppi nadolol transfuse as ordered npo tonight ICU
--- NOTE | 2017-06-12 00:31 | CONSULT ---
Consult - text type - Consultation Consultation Note: Pulm/CCM PT seen and examined in ICU CC: GIB HPI: Briefly Mr Brito is 76 y/o man with a past medical history notable for DM , HTN, CVA, Bipolar, Schizophrenia, current resident of [place]. Today had large hematemesis with clots at [facility]. Interval HPI limited due to Bipolar/Schizophrenia. Per ED records: EMS provided a picture of the hematemesis and there appears to be a large blood clot present. The patient is not providing additional information. In ED pt was alert, not oriented, intermittently able to follow simple commands. He was normotensive, mildly tachycardic, afebrile. Labs notable for Hgb of 7, down from baseline of 11. No significant NSAID use, not anticoagulated. No hx of melena. No trauma. Pt unclear but denied LOC, Chest pain, ABD pain, dizziness. Started on PPI and octreotide gtt. GI consulted and came in. EGD was performed, notable for Grade IV varices, 5 bands were placed with good decompression. Small antrum ulcer was noted which was biopsied. Pt was extubated in PACU and come to ICU with PRBC hanging, VS Wnl. 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) Cardio/Vascular HTN,Hyperlipdemia Psych Bipolar,Schizophrenia Endocrine Diabetes Mellitus Smoking History Smoking history Never smoked Aproximately how many 0 cigarettes per day Alcohol/Substance Use Hx Alcohol Use No Social History ADL Support Services History of Recent Travel No Family hx, non contrib ROS unable due baseline psych disorder CBCD WBC 2.8 K/mm3 (4.0-10.0) L 06/11/17 17:17 RBC 2.65 M/mm3 (4.00-5.60) L D 06/11/17 17:17 Hgb 7.5 GM/dL (11.7-16.9) L D 06/11/17 17:17 Hct 23.1 % (35.4-49) L D 06/11/17 17:17 MCV 87.1 fl (80-96) 06/11/17 17:17 MCHC 32.4 g/dl (32.0-35.9) 06/11/17 17:17 RDW 16.2 % (11.9-15.9) H 06/11/17 17:17 Plt Count 225 K/MM3 (134-434) D 06/11/17 17:17 MPV 8.7 fl (7.5-11.1) D 06/11/17 17:17 CMP Sodium 143 mmol/L (136-145) 06/11/17 16:26 Potassium 4.3 mmol/L (3.5-5.1) 06/11/17 16:26 Chloride 111 mmol/L (98-107) H 06/11/17 16:26 Carbon Dioxide 23 mmol/L (21-32) 06/11/17 16:26 Anion Gap 9 (8-16) 06/11/17 16:26 BUN 27 mg/dL (7-18) H D 06/11/17 16:26 Creatinine 1.0 mg/dL (0.7-1.3) D 06/11/17 16:26 Creat Clearance w eGFR > 60 (>60) 06/11/17 16:26 Random Glucose 149 mg/dL (74-106) H D 06/11/17 16:26 Calcium 7.8 mg/dL (8.5-10.1) L 06/11/17 16:26 Total Bilirubin 0.9 mg/dL (0.2-1.0) D 06/11/17 16:26 AST 72 U/L (15-37) H 06/11/17 16:26 ALT 43 U/L (12-78) D 06/11/17 16:26 Alkaline Phosphatase 296 U/L (45-117) H 06/11/17 16:26 Total Protein 6.1 g/dl (6.4-8.2) L D 06/11/17 16:26 Albumin 1.9 g/dl (3.4-5.0) L D 06/11/17 16:26 CARDIAC ENZYMES Creatine Kinase 42 IU/L (39-308) 06/11/17 16:26 Troponin I < 0.02 ng/ml (0.00-0.05) 06/11/17 16:26 Hepatic Panel Total Bilirubin 0.9 mg/dL (0.2-1.0) D 06/11/17 16:26 AST 72 U/L (15-37) H 06/11/17 16:26 ALT 43 U/L (12-78) D 06/11/17 16:26 Alkaline Phosphatase 296 U/L (45-117) H 06/11/17 16:26 Albumin 1.9 g/dl (3.4-5.0) L D 06/11/17 16:26 Hepatitis Profile WBC 2.8 K/mm3 (4.0-10.0) L 06/11/17 17:17 RBC 2.65 M/mm3 (4.00-5.60) L D 06/11/17 17:17 Hgb 7.5 GM/dL (11.7-16.9) L D 06/11/17 17:17 Hct 23.1 % (35.4-49) L D 06/11/17 17:17 MCV 87.1 fl (80-96) 06/11/17 17:17 Neutrophils % No Result Required. 06/11/17 17:17 Lymphocytes % No Result Required. 06/11/17 17:17 Vital Signs Temp 97.4 F L 06/11/17 16:30 Pulse 101 H 06/11/17 21:12 Resp 20 06/11/17 21:12 BP 130/70 06/11/17 21:12 Pulse Ox 96 06/11/17 21:12 Intake & Output 06/11/17 06/11/17 06/12/17 11:59 23:59 11:59 Intake Total 300 Balance 300 Weight 83.915 kg Intake: IV 300 Other: Voiding Method Toilet Height 5 ft 6 in Body Mass Index (BMI) 29.8 Weight Measurement Method Estimated by Staff Ambulatory Orders Amlodipine Besylate 10 mg PO DAILY 08/19/15 Sennosides [Senna] 2 tab PO 2000 10/15/16 Aspirin [ASA -] 81 mg PO DAILY 05/17/17 Atorvastatin Ca [Lipitor] 10 mg PO DAILY 05/17/17 Dextran 70/Hypromellose [Genteal Tears 0.1%-0.3% Drop] 1 drop OU DAILY 05/17/17 Docusate Sodium [Colace -] 200 mg PO DAILY 05/17/17 Gabapentin 100 mg PO TID 05/17/17 Levothyroxine [Synthroid -] 25 mcg PO DAILY 05/17/17 Magnesium Hydrox 2400MG/30Ml [Milk of Magnesia -] 60 ml PO DAILY 05/17/17 Active Medications Pantoprazole Sodium 160 mg/ (Sodium Chloride) 290 mls @ 14.5 mls/hr IVPB Q20H VENITA PRN Reason: 8 MG/HR Last Admin: 06/11/17 18:49 Dose: Not Given Pantoprazole Sodium 80 mg/ (Sodium Chloride) 250 mls @ 14.5 mls/hr IVPB Q10H VENITA Last Admin: 06/11/17 18:49 Dose: 14.5 mls/hr Octreotide Acetate 1,200 mcg/ (Dextrose) 500 mls @ 20.83 mls/hr IVPB Q24H VENITA PRN Reason: 50 MCG/HR Sucralfate (Carafate -) 1 gm PO QID [facility] PE: Constitutional: Yes: lightly sedated, INAD Eyes: Yes: Conjunctiva Clear, PERRL, anicteric HENT: Yes: WNL, Atraumatic, Normocephalic Neck: Yes: WNL, Supple, Trachea Midline Cardiovascular: Yes: WNL, Regular Rate and Rhythm Respiratory: Yes: WNL, Regular, CTA Bilaterally, no wheezes Gastrointestinal: Yes: Abdomen, Obese, Hypoactive Bowel Sounds, no spider, no fluid wave ...Rectal Exam: Yes: Guaiac Negative Breast(s): Yes: WNL Musculoskeletal: Yes: WNL Extremities: Yes: WNL, no edema Peripheral Pulses WNL: Yes A/ Esophageal varices Acute anemia elevated Alk phos s/p EGD with banding P/ -normal transfusion thresholds, Hgb<7, Plts < 50, INR >1.8 -PPI and octreotide gtt -serial CBC -maintain adequate access -hepatitis w/u -ABD MRI with contrast, access for elevated portal pressure -nonselective BB -SCD -NPO for now Frank Larios [facility] [id number]
[2017-06-12] MEDS ORDERED: HALOPERIDOL LACTATE 5 MG/ML IM ONE (00:48)
[2017-06-12 03:30] VITALS: BMI 29.5
[2017-06-12] MEDS: PANTOPRAZOLE SODIUM 160 MG in SODIUM CHLORIDE 290 ML IVPB SCH ×3 (03:35→18:01)
[2017-06-12] MEDS: OCTREOTIDE ACETATE 1,200 MCG in DEXTROSE 5%-WATER - 488 ML IVPB SCH (03:35)
[2017-06-12 06:52] LABS: HEMATOCRIT 24.7 % (35.4-49); HEMOGLOBIN 8.2 GM/dL (11.7-16.9); MCH 28.9 pg (25.7-33.7); MEAN CELL VOLUME 87.4 fl (80-96); MEAN PLT VOLUME 9.1 fl (7.5-11.1); PLATELET COUNT 248 K/MM3 (134-434); RBC 2.83 M/mm3 (4.00-5.60); RDW 15.9 % (11.9-15.9); WHITE BLOOD COUNT 3.3 K/mm3 (4.0-10.0)
[2017-06-12 07:17] LABS: ALBUMIN 2.2 g/dl (3.4-5.0); ANION GAP 13 (8-16); BLOOD UREA NITROGEN 29 mg/dL (7-18); CALCIUM 8.5 mg/dL (8.5-10.1); CHLORIDE 111 mmol/L (98-107); CO2 21 mmol/L (21-32); GLUCOSE,RANDOM 140 mg/dL (74-106); POTASSIUM 4.5 mmol/L (3.5-5.1); SGOT/AST 94 U/L (15-37); SGPT/ALT 49 U/L (12-78); SODIUM 145 mmol/L (136-145)
[2017-06-12 07:18] LABS: ALK PHOS 304 U/L (45-117); BILIRUBIN,TOTAL 1.6 mg/dL (0.2-1.0); TOT PROT 6.5 g/dl (6.4-8.2)
[2017-06-12 07:19] LABS: INR 1.22 (0.82-1.09); PROTHROMBIN TIME (PATIENT) 13.8 SEC (9.98-11.88)
--- NOTE | 2017-06-12 09:09 | PN ---
Progress Note (short form) - Note Progress Note: POD #1 - s/p EGD with banding under GETA. VSS. H/H stable. Awake/alert. No apparent anesthetic complications noted. Continue current care.
[2017-06-12] MEDS ORDERED: SUCRALFATE 1 GM TABLET (FP) PO SCH (10:00)
--- NOTE | 2017-06-12 13:21 | PN ---
Progress Note, Physician History of Present Illness: Pt seen/ examined in icu chart reviewed Events noted Pt is 76 y/o man with a past medical history of DM, HTN, CVA, Bipolar, Schizophrenia and alcohol abuse-- was heavy drinker in his life. Who presents to the ED from [facility] with hematemesis with large clots. . EMS provided a picture of the hematemesis and there appears to be a large blood clot present. Patient had an episode of hematemesis while in the ED. The patient was started on a Protonix Drip, transfused Emergently taken for egd-- eosohageal varicies - banding x 5 admitted to icu. pt seen / examined in icu awake/ confused. . - Current Medication List Current Medications: Active Medications Pantoprazole Sodium 160 mg/ (Sodium Chloride) 290 mls @ 14.5 mls/hr IVPB Q20H VENITA PRN Reason: 8 MG/HR Last Admin: 06/12/17 03:35 Dose: 14.5 mls/hr Octreotide Acetate 1,200 mcg/ (Dextrose) 500 mls @ 20.83 mls/hr IVPB Q24H VENITA PRN Reason: 50 MCG/HR Last Admin: 06/12/17 03:35 Dose: 20.83 mls/hr Sucralfate (Carafate -) 1 gm PO ACHS VENITA - Objective Vital Signs: Vital Signs Temperature 98.2 F 06/12/17 11:01 Pulse Rate 92 H 06/12/17 11:01 Respiratory Rate 22 06/12/17 08:00 Blood Pressure 140/65 06/12/17 11:01 O2 Sat by Pulse Oximetry (%) 98 06/12/17 08:18 Constitutional: Yes: Other (awake/ confused) Eyes: Yes: Conjunctiva Clear Neck: Yes: Supple Cardiovascular: Yes: Regular Rate and Rhythm Respiratory: Yes: Diminished Gastrointestinal: Yes: Soft Edema: No Neurological: Yes: Other (moves all extremities/ confused) Psychiatric: Yes: Other Labs: CBC, BMP 06/12/17 05:10 06/12/17 05:10 INR, PTT INR 1.22 (0.82-1.09) H 06/12/17 05:10 - ....Imaging Chest X-ray: Report Reviewed EKG: Report Reviewed Problem List - Problems (1) Esophageal varices determined by endoscopy Code(s): I85.00 - ESOPHAGEAL VARICES WITHOUT BLEEDING (2) CVA (cerebral vascular accident) Code(s): I63.9 - CEREBRAL INFARCTION, UNSPECIFIED (3) Diabetes Code(s): E11.9 - TYPE 2 DIABETES MELLITUS WITHOUT COMPLICATIONS (4) Alcohol abuse Code(s): F10.10 - ALCOHOL ABUSE, UNCOMPLICATED (5) Schizophrenia Code(s): F20.9 - SCHIZOPHRENIA, UNSPECIFIED Assessment/Plan Monitor closely in ICU. Meds reviewed Continue present care f/u labs transfuse prn. GI efforts appreciated discussed with icu attending also. cc time 35 min in examining/ documenting / coordating care
--- NOTE | 2017-06-12 13:29 | EKG ---
Test Reason : Blood Pressure : / mmHG Vent. Rate : 100 BPM Atrial Rate : 100 BPM P-R Int : 166 ms QRS Dur : 068 ms QT Int : 362 ms P-R-T Axes : 037 030 060 degrees QTc Int : 466 ms NORMAL SINUS RHYTHM NONSPECIFIC T WAVE ABNORMALITY PROLONGED QT ABNORMAL ECG WHEN COMPARED WITH ECG OF 17-MAY-2017 09:08, NO SIGNIFICANT CHANGE WAS FOUND Confirmed by JUAN BAILEY MD ([id number]) on 06/12/2017 1:28:59 PM Referred By: Confirmed By:JUAN BAILEY MD
--- NOTE | 2017-06-12 15:34 | PN ---
Progress Note, Physician History of Present Illness: No events. Lethargic. Alcohol abuse since teens until 6 y ago, per pt's son. - Current Medication List Current Medications: Active Medications Pantoprazole Sodium 160 mg/ (Sodium Chloride) 290 mls @ 14.5 mls/hr IVPB Q20H VENITA PRN Reason: 8 MG/HR Last Admin: 06/12/17 03:35 Dose: 14.5 mls/hr Octreotide Acetate 1,200 mcg/ (Dextrose) 500 mls @ 20.83 mls/hr IVPB Q24H VENITA PRN Reason: 50 MCG/HR Last Admin: 06/12/17 03:35 Dose: 20.83 mls/hr Sucralfate (Carafate -) 1 gm PO ACHS [facility] - Objective Vital Signs: Vital Signs Temperature 98.2 F 06/12/17 11:01 Pulse Rate 92 H 06/12/17 11:01 Respiratory Rate 22 06/12/17 08:00 Blood Pressure 140/65 06/12/17 11:01 O2 Sat by Pulse Oximetry (%) 98 06/12/17 08:18 Constitutional: Yes: No Distress, Calm Respiratory: Yes: Regular Gastrointestinal: Yes: Soft. No: Tenderness Neurological: Yes: Alert, Lethargy Labs: CBC, BMP 06/12/17 05:10 06/12/17 05:10 INR, PTT INR 1.22 (0.82-1.09) H 06/12/17 05:10 Abnormal Lab Results 06/11/17 06/11/17 06/11/17 16:26 16:26 16:26 WBC RBC Hgb Hct RDW Monocytes % (Manual) PT with INR 14.10 H INR 1.25 H Chloride 111 H BUN 27 H D Random Glucose 149 H D Calcium 7.8 L Total Bilirubin Direct Bilirubin AST 72 H Alkaline Phosphatase 296 H Total Protein 6.1 L D Albumin 1.9 L D Crossmatch See Detail 06/11/17 06/12/17 06/12/17 17:17 05:10 05:10 WBC 2.8 L 3.3 L RBC 2.65 L D 2.83 L Hgb 7.5 L D 8.2 L Hct 23.1 L D 24.7 L RDW 16.2 H Monocytes % (Manual) 13 H PT with INR 13.80 H INR 1.22 H Chloride BUN Random Glucose Calcium Total Bilirubin Direct Bilirubin AST Alkaline Phosphatase Total Protein Albumin Crossmatch 06/12/17 05:10 WBC RBC Hgb Hct RDW Monocytes % (Manual) PT with INR INR Chloride 111 H BUN 29 H Random Glucose 140 H Calcium Total Bilirubin 1.6 H D Direct Bilirubin 1.0 H AST 94 H D Alkaline Phosphatase 304 H Total Protein Albumin 2.2 L Crossmatch - ....Imaging MRI: Pending Problem List - Problems (1) Hematochezia Code(s): K92.1 - MELENA (2) GIB (gastrointestinal bleeding) Code(s): K92.2 - GASTROINTESTINAL HEMORRHAGE, UNSPECIFIED Qualifiers: GI bleed type/associated pathology: unspecified gastrointestinal hemorrhage type Qualified Code(s): K92.2 - Gastrointestinal hemorrhage, unspecified (3) Esophageal varix bleeding Code(s): I85.01 - ESOPHAGEAL VARICES WITH BLEEDING (4) Esophageal varices Code(s): I85.00 - ESOPHAGEAL VARICES WITHOUT BLEEDING (5) Alcohol abuse Code(s): F10.10 - ALCOHOL ABUSE, UNCOMPLICATED Assessment/Plan Upper GI bleeding, acute blood loss anemia, s/p esophageal varices banding. Stable. ? hepatic encephalopathy ?ascites PPI IV drip Carafate lactulose Cipro 500 po qd x 10 days (?ascites) Nadalol MRI abdomen b12, folate, iron Hep profile close monitoring for bleeding
[2017-06-12] MEDS ORDERED: CIPROFLOXACIN 500 MG TABLET (RESTRICTED TO ID) PO ONE (16:00)
[2017-06-12] MEDS: SUCRALFATE 1 GM TABLET (FP) PO SCH ×2 (17:46→22:18)
[2017-06-12 18:22] LABS: HEMATOCRIT 24.1 % (35.4-49); HEMOGLOBIN 7.8 GM/dL (11.7-16.9); MCH 28.3 pg (25.7-33.7); MCHC 32.3 g/dl (32.0-35.9); MEAN CELL VOLUME 87.7 fl (80-96); MEAN PLT VOLUME 8.4 fl (7.5-11.1); PLATELET COUNT 252 K/MM3 (134-434); RBC 2.75 M/mm3 (4.00-5.60); WHITE BLOOD COUNT 4.8 K/mm3 (4.0-10.0)
[2017-06-12] MEDS: LACTULOSE 20 GM/30 ML UDC (FOR RECTAL USE ONLY) PR SCH (18:57)
[2017-06-12] MEDS ORDERED: PT OWN MED DRAWER 7, Y5N ONE ×2 (19:00→22:17)
[2017-06-12] MEDS: NADOLOL 20 MG TABLET (FP) PO SCH (20:36)
[2017-06-13] MEDS: OCTREOTIDE ACETATE 1,200 MCG in DEXTROSE 5%-WATER - 488 ML IVPB SCH (01:24)
[2017-06-13] MEDS ORDERED: PT OWN MED DRAWER 7, Y5N ONE ×6 (01:27→21:29)
[2017-06-13] MEDS: LACTULOSE 20 GM/30 ML UDC (FOR RECTAL USE ONLY) PR SCH ×3 (02:00→17:30)
[2017-06-13] MEDS: SUCRALFATE 1 GM TABLET (FP) PO SCH ×4 (06:48→21:46)
--- NOTE | 2017-06-13 07:27 | PN ---
Progress Note (short form) - Note Progress Note: PULM/CCM Pt Seen & Examined in the ICU. Lethargic & encephalopathic, NH4 > 105, Hgb stable (7.5 --> 7.8 --> 7.6), no transfusions O/N, remains on PPI & Octreo gtt. Active Medications Pantoprazole Sodium 160 mg/ (Sodium Chloride) 290 mls @ 14.5 mls/hr IVPB Q20H VENITA PRN Reason: 8 MG/HR Last Admin: 06/12/17 18:01 Dose: 14.5 mls/hr Octreotide Acetate 1,200 mcg/ (Dextrose) 500 mls @ 20.83 mls/hr IVPB Q24H VENITA PRN Reason: 50 MCG/HR Last Admin: 06/13/17 01:24 Dose: 20.83 mls/hr Lactulose (Cephulac (Rectal Use)) 200 gm [place] Q8H-IV VENITA Last Admin: 06/13/17 02:00 Dose: 200 gm Nadolol (Corgard -) 20 mg PO DAILY VENITA Last Admin: 06/12/17 20:36 Dose: 20 mg Sucralfate (Carafate -) 1 gm PO ACHS VENITA Last Admin: 06/13/17 06:48 Dose: 1 gm V/S Period Temp Pulse Resp BP Sys/Fulton Pulse Ox Last 24 Hr 98.2 F-99.2 F 73-106 18-24 116-143/51-78 98 Intake & Output 06/10/17 06/11/17 06/12/17 06/13/17 23:59 23:59 23:59 23:59 Intake Total 300 966.6 238 Balance 300 966.6 238 Weight 83.915 kg 83.007 kg 83.716 kg GEN: Elderly man in bed, unkempt, odiferous, toxic, encephalopathic, sickly HEENTL: PERRL, icteric, Dry MM, horrific halitosis PULM: CTAB CV: nml S1 S2, RR, unable to appreciate any G/M/R ABD: hypo-active BS, S/S N/T, N/D X4Q, no spider, no fluid wave EXT: + Pulses, WWPX4, (-) edema SKIN: Juandice, no obvious lesions, rashes, or ulcers CBC, BMP 06/13/17 05:05 Hepatic Panel Total Bilirubin 1.6 mg/dL (0.2-1.0) H D 06/12/17 05:10 Direct Bilirubin 1.0 mg/dL (0.0-0.2) H 06/12/17 05:10 AST 94 U/L (15-37) H D 06/12/17 05:10 ALT 49 U/L (12-78) 06/12/17 05:10 Alkaline Phosphatase 304 U/L (45-117) H 06/12/17 05:10 Albumin 2.2 g/dl (3.4-5.0) L 06/12/17 05:10 Abnormal Lab Results 06/12/17 06/12/17 06/13/17 05:10 17:50 05:05 RBC 2.75 L Hgb 7.8 L Hct 24.1 L RDW 16.0 H Ammonia 105.35 H Hepatitis C Antibody >11.0 H RECENT STUDIES TO NOTE: CXR 06/11: Congested (My Read). ASSESS: EV Bleed --> Now banded elevated Alk phos PLAN: -Start PO Lactulose -Normal transfusion thresholds, Hgb<7, Plts < 50, INR >1.8 -PPI and octreotide gtt -Serial CBC -Maintain adequate access -Maintain active T & S -Hepatitis w/u -ABD MRI with contrast, access for elevated portal pressure -nonselective BB -No AC given bleeding -SCDs -Transfer to [facility] DG, [facility] PULM/CCM [id number]
[2017-06-13 08:58] LABS: HEMATOCRIT 23.4 % (35.4-49); HEMOGLOBIN 7.6 GM/dL (11.7-16.9); MCHC 32.3 g/dl (32.0-35.9); MEAN CELL VOLUME 89.6 fl (80-96); MEAN PLT VOLUME 8.9 fl (7.5-11.1); PLATELET COUNT 250 K/MM3 (134-434); RBC 2.61 M/mm3 (4.00-5.60); RDW 16.1 % (11.9-15.9); WHITE BLOOD COUNT 6.4 K/mm3 (4.0-10.0)
--- NOTE | 2017-06-13 09:48 | PN ---
Progress Note (short form) - Note Progress Note: Vital Signs Temp 99.2 F 06/13/17 02:00 Pulse 75 06/13/17 06:00 Resp 20 06/13/17 06:00 BP 140/77 06/13/17 06:00 Pulse Ox 98 06/12/17 19:50 Intake & Output 06/12/17 06/12/17 06/13/17 11:59 23:59 11:59 Intake Total 350 616.6 238 Balance 350 616.6 238 Weight 183 lb 184 lb 9 oz Intake: IV 616.6 238 protonix drip 287 98 sandostatin drip 329.6 140 Packed Cells 350 Other: Voiding Method Incontinent Incontinent # Unmeasured Voids Void 2 2 Height 5 ft 6 in Body Mass Index (BMI) 29.5 Weight Measurement Method Built in [facility] Active Medications Pantoprazole Sodium 160 mg/ (Sodium Chloride) 290 mls @ 14.5 mls/hr IVPB Q20H VENITA PRN Reason: 8 MG/HR Last Admin: 06/12/17 18:01 Dose: 14.5 mls/hr Octreotide Acetate 1,200 mcg/ (Dextrose) 500 mls @ 20.83 mls/hr IVPB Q24H VENITA PRN Reason: 50 MCG/HR Last Admin: 06/13/17 01:24 Dose: 20.83 mls/hr Lactulose (Cephulac (Rectal Use)) 200 gm GA Q8H-IV VENITA Last Admin: 06/13/17 02:00 Dose: 200 gm Nadolol (Corgard -) 20 mg PO DAILY VENITA Last Admin: 06/12/17 20:36 Dose: 20 mg Sucralfate (Carafate -) 1 gm PO ACHS VENITA Last Admin: 06/13/17 06:48 Dose: 1 gm CBC, BMP 06/13/17 05:05 Problem List - Problems (1) Esophageal varices determined by endoscopy Code(s): I85.00 - ESOPHAGEAL VARICES WITHOUT BLEEDING (2) CVA (cerebral vascular accident) Code(s): I63.9 - CEREBRAL INFARCTION, UNSPECIFIED (3) Diabetes Code(s): E11.9 - TYPE 2 DIABETES MELLITUS WITHOUT COMPLICATIONS (4) Alcohol abuse Code(s): F10.10 - ALCOHOL ABUSE, UNCOMPLICATED (5) Schizophrenia Code(s): F20.9 - SCHIZOPHRENIA, UNSPECIFIED
--- NOTE | 2017-06-13 10:04 | PN ---
Progress Note, Physician History of Present Illness: Pt seen/ examined in icu. drowsy but arousable no distress no further bleeding ammonia level high- got lactulose. - Current Medication List Current Medications: Active Medications Pantoprazole Sodium 160 mg/ (Sodium Chloride) 290 mls @ 14.5 mls/hr IVPB Q20H VENITA PRN Reason: 8 MG/HR Last Admin: 06/12/17 18:01 Dose: 14.5 mls/hr Octreotide Acetate 1,200 mcg/ (Dextrose) 500 mls @ 20.83 mls/hr IVPB Q24H VENITA PRN Reason: 50 MCG/HR Last Admin: 06/13/17 01:24 Dose: 20.83 mls/hr Lactulose (Cephulac (Rectal Use)) 200 gm [place] Q8H-IV VENITA Last Admin: 06/13/17 02:00 Dose: 200 gm Nadolol (Corgard -) 20 mg PO DAILY [facility] Last Admin: 06/12/17 20:36 Dose: 20 mg Sucralfate (Carafate -) 1 gm PO ACHS VENITA Last Admin: 06/13/17 06:48 Dose: 1 gm - Objective Vital Signs: Vital Signs Temperature 99.2 F 06/13/17 02:00 Pulse Rate 75 06/13/17 06:00 Respiratory Rate 20 06/13/17 06:00 Blood Pressure 140/77 06/13/17 06:00 O2 Sat by Pulse Oximetry (%) 98 06/12/17 19:50 Constitutional: Yes: No Distress, Calm Eyes: Yes: Sclera Icterus (mild) Neck: Yes: Supple Cardiovascular: Yes: Regular Rate and Rhythm Respiratory: Yes: CTA Bilaterally Gastrointestinal: Yes: Soft Edema: No Neurological: Yes: Lethargy Labs: CBC, BMP 06/13/17 05:05 INR, PTT INR 1.22 (0.82-1.09) H 06/12/17 05:10 Problem List - Problems (1) Esophageal varices determined by endoscopy Code(s): I85.00 - ESOPHAGEAL VARICES WITHOUT BLEEDING (2) CVA (cerebral vascular accident) Code(s): I63.9 - CEREBRAL INFARCTION, UNSPECIFIED (3) Diabetes Code(s): E11.9 - TYPE 2 DIABETES MELLITUS WITHOUT COMPLICATIONS (4) Alcohol abuse Code(s): F10.10 - ALCOHOL ABUSE, UNCOMPLICATED (5) Schizophrenia Code(s): F20.9 - SCHIZOPHRENIA, UNSPECIFIED Assessment/Plan clinically stable condition gaurded monitor closely for bleeding in icu. transfuse prn Lactulose monitor ammonia level Hep C + also continue present care. will hold MRI - Abdomen today as pt is lethargic will do tomorrow as pt more awake. Discussed with nursing staff will follow cc time 25 min.
[2017-06-13 11:35] LABS: ALBUMIN 2.2 g/dl (3.4-5.0); ALK PHOS 319 U/L (45-117); ANION GAP 8 (8-16); BILIRUBIN,TOTAL 1.6 mg/dL (0.2-1.0); BLOOD UREA NITROGEN 24 mg/dL (7-18); CHLORIDE 113 mmol/L (98-107); CO2 23 mmol/L (21-32); GLUCOSE,RANDOM 155 mg/dL (74-106); POTASSIUM 4.1 mmol/L (3.5-5.1); SGOT/AST 120 U/L (15-37); SGPT/ALT 57 U/L (12-78); SODIUM 144 mmol/L (136-145); TOT PROT 6.4 g/dl (6.4-8.2)
[2017-06-13] MEDS: NADOLOL 20 MG TABLET (FP) PO SCH (11:52)
[2017-06-13] MEDS: PANTOPRAZOLE SODIUM 160 MG in SODIUM CHLORIDE 290 ML IVPB SCH (12:46)
--- NOTE | 2017-06-13 14:40 | PN ---
Progress Note, Physician History of Present Illness: No events. Clinically the same. Lethargic. Patient's son at bedside. - Current Medication List Current Medications: Active Medications Pantoprazole Sodium 160 mg/ (Sodium Chloride) 290 mls @ 14.5 mls/hr IVPB Q20H VENITA PRN Reason: 8 MG/HR Last Admin: 06/13/17 12:46 Dose: 14.5 mls/hr Octreotide Acetate 1,200 mcg/ (Dextrose) 500 mls @ 20.83 mls/hr IVPB Q24H VENITA PRN Reason: 50 MCG/HR Last Admin: 06/13/17 01:24 Dose: 20.83 mls/hr Lactulose (Cephulac (Rectal Use)) 200 gm ID Q8H-IV VENITA Last Admin: 06/13/17 11:52 Dose: 200 gm Nadolol (Corgard -) 20 mg PO DAILY VENITA Last Admin: 06/13/17 11:52 Dose: 20 mg Sucralfate (Carafate -) 1 gm PO ACHS VENITA Last Admin: 06/13/17 11:52 Dose: 1 gm - Objective Vital Signs: Vital Signs Temperature 99.2 F 06/13/17 02:00 Pulse Rate 75 06/13/17 06:00 Respiratory Rate 20 06/13/17 06:00 Blood Pressure 140/77 06/13/17 06:00 O2 Sat by Pulse Oximetry (%) 98 06/12/17 19:50 Constitutional: Yes: No Distress, Calm Neurological: Yes: Oriented (to self) Labs: CBC, BMP 06/13/17 05:05 06/13/17 05:05 INR, PTT INR 1.22 (0.82-1.09) H 06/12/17 05:10 Laboratory Results - last 24 hr 06/12/17 06/12/17 06/12/17 05:10 05:10 17:50 WBC 4.8 D RBC 2.75 L Hgb 7.8 L Hct 24.1 L MCV 87.7 MCH 28.3 MCHC 32.3 RDW 16.0 H Plt Count 252 MPV 8.4 Sodium Potassium Chloride Carbon Dioxide Anion Gap BUN Creatinine Creat Clearance w eGFR Random Glucose Calcium Ferritin Total Bilirubin AST ALT Alkaline Phosphatase Ammonia Total Protein Albumin Vitamin B12 253 D Serum Folate 13 Hepatitis C Antibody >11.0 H 06/13/17 06/13/17 06/13/17 05:05 05:05 05:05 WBC 6.4 D RBC 2.61 L Hgb 7.6 L Hct 23.4 L MCV 89.6 MCH 29.0 MCHC 32.3 RDW 16.1 H Plt Count 250 MPV 8.9 Sodium Potassium Chloride Carbon Dioxide Anion Gap BUN Creatinine Creat Clearance w eGFR Random Glucose Calcium Ferritin 298.385 H Total Bilirubin AST ALT Alkaline Phosphatase Ammonia 105.35 H Total Protein Albumin Vitamin B12 Serum Folate Hepatitis C Antibody 06/13/17 06/13/17 05:05 11:20 WBC RBC Hgb Hct MCV MCH MCHC RDW Plt Count MPV Sodium 144 Potassium 4.1 Chloride 113 H Carbon Dioxide 23 Anion Gap 8 BUN 24 H Creatinine 1.0 Creat Clearance w eGFR > 60 Random Glucose 155 H Calcium 8.0 L Ferritin Total Bilirubin 1.6 H AST 120 H D ALT 57 Alkaline Phosphatase 319 H Ammonia 119 H Total Protein 6.4 Albumin 2.2 L Vitamin B12 Serum Folate Hepatitis C Antibody - ....Imaging MRI: Pending Problem List - Problems (1) Hematochezia Code(s): K92.1 - MELENA (2) GIB (gastrointestinal bleeding) Code(s): K92.2 - GASTROINTESTINAL HEMORRHAGE, UNSPECIFIED Qualifiers: GI bleed type/associated pathology: unspecified gastrointestinal hemorrhage type Qualified Code(s): K92.2 - Gastrointestinal hemorrhage, unspecified (3) Esophageal varix bleeding Code(s): I85.01 - ESOPHAGEAL VARICES WITH BLEEDING (4) Esophageal varices Code(s): I85.00 - ESOPHAGEAL VARICES WITHOUT BLEEDING (5) Alcohol abuse Code(s): F10.10 - ALCOHOL ABUSE, UNCOMPLICATED Assessment/Plan Upper GI bleeding, acute blood loss anemia, s/p esophageal varices banding. Stable. ? hepatic encephalopathy ?ascites ? other etiology if lethargy. PPI IV drip Carafate lactulose, rifaximine Cipro 500 po qd x 10 days (?ascites) Nadalol MRI abdomen b12, folate, iron Hep profile close monitoring for bleeding neurology consult hepatic vs other encephalopthy, ? r/o recurent stroke, etc. Patient's GI issues were discussed with pt's son and son's at bedside.
[2017-06-13] MEDS: RIFAXIMIN 550 MG TABLET (UD) PO SCH (21:46)
[2017-06-14] MEDS ORDERED: PT OWN MED DRAWER 7, Y5N ONE ×5 (00:43→17:29)
[2017-06-14] MEDS: LACTULOSE 20 GM/30 ML UDC (FOR RECTAL USE ONLY) PR SCH ×4 (00:45→18:51)
[2017-06-14] MEDS: OCTREOTIDE ACETATE 1,200 MCG in DEXTROSE 5%-WATER - 488 ML IVPB SCH (01:57)
[2017-06-14 06:06] LABS: SERUM IRON SATURATION 16 % (15-55); TOTAL IRON BINDING CAPACITY 329 ug/dL (250-450); UIBC 276 ug/dL (111-343)
[2017-06-14 07:05] LABS: HEMATOCRIT 24.6 % (35.4-49); HEMOGLOBIN 7.7 GM/dL (11.7-16.9); MCH 28.3 pg (25.7-33.7); MCHC 31.4 g/dl (32.0-35.9); MEAN PLT VOLUME 9.1 fl (7.5-11.1); PLATELET COUNT 228 K/MM3 (134-434); RBC 2.74 M/mm3 (4.00-5.60); RDW 16.4 % (11.9-15.9); WHITE BLOOD COUNT 5.4 K/mm3 (4.0-10.0)
[2017-06-14 07:13] LABS: ALK PHOS 313 U/L (45-117); ANION GAP 9 (8-16); BILIRUBIN,TOTAL 1.1 mg/dL (0.2-1.0); BLOOD UREA NITROGEN 22 mg/dL (7-18); CALCIUM 7.9 mg/dL (8.5-10.1); CHLORIDE 112 mmol/L (98-107); CO2 24 mmol/L (21-32); GLUCOSE,RANDOM 130 mg/dL (74-106); POTASSIUM 3.8 mmol/L (3.5-5.1); SGOT/AST 106 U/L (15-37); SGPT/ALT 51 U/L (12-78); SODIUM 145 mmol/L (136-145); TOT PROT 6.5 g/dl (6.4-8.2)
[2017-06-14 07:22] LABS: INR 1.19 (0.82-1.09); PROTHROMBIN TIME (PATIENT) 13.5 SEC (9.98-11.88)
[2017-06-14] MEDS: SUCRALFATE 1 GM TABLET (FP) PO SCH ×4 (07:41→21:24)
[2017-06-14] MEDS ORDERED: CALCIUM GLUCONATE 10% - 1,000 MG/10 ML VIAL IVPB ONE (08:18)
--- NOTE | 2017-06-14 08:53 | PN ---
Progress Note, Physician History of Present Illness: pt seen/ examined in icu. much more alert and awake. answers simple questions denies pain. no further bleeding feels thirsty- getting ice chips - Current Medication List Current Medications: Active Medications Calcium Chloride (Calcium Chloride 10% -) 1 gm IVPB ONCE ONE Stop: 06/14/17 09:01 Pantoprazole Sodium 160 mg/ (Sodium Chloride) 290 mls @ 14.5 mls/hr IVPB Q20H VENITA PRN Reason: 8 MG/HR Last Admin: 06/13/17 12:46 Dose: 14.5 mls/hr Octreotide Acetate 1,200 mcg/ (Dextrose) 500 mls @ 20.83 mls/hr IVPB Q24H VENITA PRN Reason: 50 MCG/HR Last Admin: 06/14/17 01:57 Dose: 20.83 mls/hr Lactulose (Cephulac (Rectal Use)) 200 gm ND Q8H-IV VENITA Last Admin: 06/14/17 01:57 Dose: 200 gm Nadolol (Corgard -) 20 mg PO DAILY [facility] Last Admin: 06/13/17 11:52 Dose: 20 mg Rifaximin (Xifaxan -) 550 mg PO BID [facility] Last Admin: 06/13/17 21:46 Dose: 550 mg Sucralfate (Carafate -) 1 gm PO ACHS [facility] Last Admin: 06/14/17 07:41 Dose: 1 gm - Objective Vital Signs: Vital Signs Temperature 98.2 F 06/14/17 06:00 Pulse Rate 61 06/14/17 06:00 Respiratory Rate 17 06/14/17 06:00 Blood Pressure 117/67 06/14/17 06:00 O2 Sat by Pulse Oximetry (%) 96 06/13/17 22:00 Constitutional: Yes: No Distress, Calm Eyes: Yes: Conjunctiva Clear, Sclera Icterus Neck: Yes: Supple Cardiovascular: Yes: Regular Rate and Rhythm Respiratory: Yes: CTA Bilaterally Gastrointestinal: Yes: Soft Edema: No Peripheral Pulses WNL: Yes Neurological: Yes: Alert, Other (much more awake) Psychiatric: Yes: Alert Labs: CBC, BMP 06/14/17 05:10 06/14/17 05:10 INR, PTT INR 1.19 (0.82-1.09) H 06/14/17 05:10 Problem List - Problems (1) Esophageal varices determined by endoscopy Code(s): I85.00 - ESOPHAGEAL VARICES WITHOUT BLEEDING (2) CVA (cerebral vascular accident) Code(s): I63.9 - CEREBRAL INFARCTION, UNSPECIFIED (3) Diabetes Code(s): E11.9 - TYPE 2 DIABETES MELLITUS WITHOUT COMPLICATIONS (4) Alcohol abuse Code(s): F10.10 - ALCOHOL ABUSE, UNCOMPLICATED (5) Schizophrenia Code(s): F20.9 - SCHIZOPHRENIA, UNSPECIFIED Assessment/Plan clinically better toxic metabolic encephalopathy resolving transfuse prn Lactulose monitor ammonia level- coming down Hep C + also continue present care. MRI - Abdomen today will follow npo till cleared by gi Discussed with nursing staff will follow
[2017-06-14] MEDS ORDERED: CALCIUM CHLORIDE 1 GM/10 ML *DISP.SYRIN IVPB ONE (09:00)
--- NOTE | 2017-06-14 09:08 | PN ---
Physical Exam: SUBJECTIVE: Patient seen and examined. Had an episode of black stool following lactulose enema. No hematemesis or other evidence of bleed. Received 1unit PRBC - H&H stable. Complaining of thirst. Has been NPO OBJECTIVE: Vital Signs Period Temp Pulse Resp BP Sys/Fulton Pulse Ox Last 24 Hr 97.6 F-100.5 F 61-70 17-20 104-137/51-68 96 GENERAL: The patient is awake, alert, and oriented to person, place and time in no acute distress. EYES: PERRL, extraocular movements intact, sclera anicteric, pale+, conjunctiva clear. ENT: NC, dry mucous membranes. LUNGS: Breath sounds equal, clear to auscultation bilaterally, no wheezes, no crackles, no accessory muscle use. HEART: Regular rate and rhythm, S1, S2 without murmur, rub or gallop. ABDOMEN: Soft, no epigastric tenderness, nondistended, normoactive bowel sounds , diaper with urine, no melena EXTREMITIES: 2+ pulses, warm, well-perfused, no edema, SCDs in place. NEUROLOGICAL: AAO x3, Normal speech, gait not observed. Lines: 2 Large bore peripheral lines, bilaterally UEs, Laboratory Results - last 24 hr 06/12/17 06/13/17 06/13/17 05:10 05:05 05:05 WBC RBC Hgb Hct MCV MCH MCHC RDW Plt Count MPV PT with INR INR Sodium Potassium Chloride Carbon Dioxide Anion Gap BUN Creatinine Creat Clearance w eGFR Random Glucose Calcium Iron 53 TIBC 329 Iron Saturation 16 Ferritin 298.385 H Total Bilirubin AST ALT Alkaline Phosphatase Ammonia Total Protein Albumin Tumor Marker AFP 101.8 H Hepatitis A Ab Total Positive Hep Bs Antigen negative Hep Bs Antibody Non reactive Hep B Core Total Ab Positive Hepatitis C Antibody >11.0 H 06/13/17 06/13/17 06/14/17 05:05 11:20 05:10 WBC RBC Hgb Hct MCV MCH MCHC RDW Plt Count MPV PT with INR INR Sodium 144 Potassium 4.1 Chloride 113 H Carbon Dioxide 23 Anion Gap 8 BUN 24 H Creatinine 1.0 Creat Clearance w eGFR > 60 Random Glucose 155 H Calcium 8.0 L Iron TIBC Iron Saturation Ferritin Total Bilirubin 1.6 H AST 120 H D ALT 57 Alkaline Phosphatase 319 H Ammonia 119 H 91.14 H Total Protein 6.4 Albumin 2.2 L Tumor Marker AFP Hepatitis A Ab Total Hep Bs Antigen Hep Bs Antibody Hep B Core Total Ab Hepatitis C Antibody 06/14/17 06/14/17 06/14/17 05:10 05:10 05:10 WBC 5.4 RBC 2.74 L Hgb 7.7 L Hct 24.6 L MCV 90.0 MCH 28.3 MCHC 31.4 L RDW 16.4 H Plt Count 228 MPV 9.1 PT with INR 13.50 H INR 1.19 H Sodium 145 Potassium 3.8 Chloride 112 H Carbon Dioxide 24 Anion Gap 9 BUN 22 H Creatinine 1.0 Creat Clearance w eGFR > 60 Random Glucose 130 H Calcium 7.9 L Iron TIBC Iron Saturation Ferritin Total Bilirubin 1.1 H D AST 106 H ALT 51 Alkaline Phosphatase 313 H Ammonia Total Protein 6.5 Albumin 2.0 L Tumor Marker AFP Hepatitis A Ab Total Hep Bs Antigen Hep Bs Antibody Hep B Core Total Ab Hepatitis C Antibody Active Medications Generic Name Dose Route Start Last Admin Trade Name Freq PRN Reason Stop Dose Admin Pantoprazole Sodium 160 mg/ 290 mls @ 14.5 mls/hr 06/11/17 17:30 06/13/17 12: 46 Sodium Chloride IVPB 14.5 mls/hr Q20H VENITA Administration 8 MG/HR Octreotide Acetate 1,200 mcg/ 500 mls @ 20.83 mls/hr 06/12/17 00:30 06/14/17 01:57 Dextrose IVPB 20.83 mls/hr Q24H VENITA Administration 50 MCG/HR Lactulose 200 gm 06/12/17 18:00 06/14/17 01:57 Cephulac (Rectal Use) [place] 200 gm Q8H-IV VENITA Administration Nadolol 20 mg 06/12/17 16:00 06/13/17 11:52 Corgard - PO 20 mg DAILY VENITA Administration Rifaximin 550 mg 06/13/17 22:00 06/13/17 21:46 Xifaxan - PO 550 mg BID VENITA Administration Sucralfate 1 gm 06/12/17 11:24 06/14/17 07:41 Carafate - PO 1 gm ACHS VENITA Administration ASSESSMENT/PLAN: 76 y/o M with PMHx of DM, HTN, CVA, Bipolar, Schizophrenia, presented from [facility] with hematemesis with large clots and admitted for UGI bleeding s/p banding grade 4 varices GI/Hemonc: Acute GI Bleed 2/2 Esophageal Varices and gastric ulcer S/P banding - Dr Smith No new bleeds noted iv protonix gtt 8mg/hr octreotide drip-50mcg/hr- to run for a total of 72 hours PO Lactulose 200g Q8H Carafate 1gm PO ACHS Nadolol 20mg PO daily transfusion thresholds, Hgb<7, Plts < 50, INR >1.8 MRI abdomen- chronic alcoholism eval b12, folate, iron soft diet Hep C positive pending PCR Cipro 500 po qd x 10 days for likely ascites Elevated Alk phos- Follow up in 1 year for repeat EGD Neuro: Unknown baseline, hx of bipolar/schizo R/O Acute hepatic encephalopathy MRI abdomen Per Dr Smith-consider neurology consult hepatic vs other encephalopthy, ? r/ o recurent stroke, etc. Alcohol use disorder Cardio/ chronic conditions HTN, CVA, DM HTN, CVA To resume home medications per primary team Prophylaxis: Hold heparin-bleeding SCDs Protonix Dispo: Med-Surg Visit type - Emergency Visit Emergency Visit: Yes ED Registration Date: 06/11/17 Care time: The patient presented to the Emergency Department on the above date and was hospitalized for further evaluation of their emergent condition. - New Patient This patient is new to me today: Yes Date on this admission: 06/14/17 - Critical Care Critical Care patient: Yes Total Critical Care Time (in minutes): 38 Critical Care Statement: The care of this patient involved high complexity decision making to prevent further life threatening deterioration of the patient 's condition and/or to evaluate & treat vital organ system(s) failure or risk of failure.
[2017-06-14] MEDS: RIFAXIMIN 550 MG TABLET (UD) PO SCH ×2 (09:14→21:24)
[2017-06-14] MEDS: NADOLOL 20 MG TABLET (FP) PO SCH (09:14)
--- NOTE | 2017-06-14 12:18 | PN ---
Progress Note, Physician History of Present Illness: No events. Clinically the same. More awake. Asks for water. - Current Medication List Current Medications: Active Medications Pantoprazole Sodium 160 mg/ (Sodium Chloride) 290 mls @ 14.5 mls/hr IVPB Q20H VENITA PRN Reason: 8 MG/HR Last Admin: 06/13/17 12:46 Dose: 14.5 mls/hr Octreotide Acetate 1,200 mcg/ (Dextrose) 500 mls @ 20.83 mls/hr IVPB Q24H VENITA PRN Reason: 50 MCG/HR Last Admin: 06/14/17 01:57 Dose: 20.83 mls/hr Lactulose (Cephulac (Rectal Use)) 200 gm [place] Q8H-IV VENITA Last Admin: 06/14/17 11:04 Dose: 200 gm Nadolol (Corgard -) 20 mg PO DAILY [facility] Last Admin: 06/14/17 09:14 Dose: 20 mg Rifaximin (Xifaxan -) 550 mg PO BID [facility] Last Admin: 06/14/17 09:14 Dose: 550 mg Sucralfate (Carafate -) 1 gm PO ACHS [facility] Last Admin: 06/14/17 11:04 Dose: 1 gm - Objective Vital Signs: Vital Signs Temperature 98.8 F 06/14/17 10:00 Pulse Rate 66 06/14/17 10:00 Respiratory Rate 18 06/14/17 10:00 Blood Pressure 106/53 06/14/17 10:00 O2 Sat by Pulse Oximetry (%) 92 L 06/14/17 09:41 Constitutional: Yes: No Distress, Calm Eyes: Yes: Conjunctiva Clear HENT: Yes: Atraumatic Neck: Yes: Supple Cardiovascular: Yes: Regular Rate and Rhythm Respiratory: Yes: Regular Gastrointestinal: Yes: Soft, Distention. No: Rectal Bleeding, Tenderness, Tenderness, Epigastrium, Tenderness, Rebound, Vomiting Neurological: Yes: Alert Labs: CBC, BMP 06/14/17 05:10 06/14/17 05:10 INR, PTT INR 1.19 (0.82-1.09) H 06/14/17 05:10 Laboratory Results - last 24 hr 06/12/17 06/13/17 06/13/17 05:10 05:05 05:05 WBC RBC Hgb Hct MCV MCH MCHC RDW Plt Count MPV PT with INR INR Sodium Potassium Chloride Carbon Dioxide Anion Gap BUN Creatinine Creat Clearance w eGFR Random Glucose Calcium Iron 53 TIBC 329 Iron Saturation 16 Ferritin 298.385 H Total Bilirubin AST ALT Alkaline Phosphatase Ammonia Total Protein Albumin Tumor Marker AFP 101.8 H Hepatitis A Ab Total Positive Hep Bs Antigen negative Hep Bs Antibody Non reactive Hep B Core Total Ab Positive Hepatitis C Antibody >11.0 H 06/14/17 06/14/17 06/14/17 05:10 05:10 05:10 WBC 5.4 RBC 2.74 L Hgb 7.7 L Hct 24.6 L MCV 90.0 MCH 28.3 MCHC 31.4 L RDW 16.4 H Plt Count 228 MPV 9.1 PT with INR 13.50 H INR 1.19 H Sodium Potassium Chloride Carbon Dioxide Anion Gap BUN Creatinine Creat Clearance w eGFR Random Glucose Calcium Iron TIBC Iron Saturation Ferritin Total Bilirubin AST ALT Alkaline Phosphatase Ammonia 91.14 H Total Protein Albumin Tumor Marker AFP Hepatitis A Ab Total Hep Bs Antigen Hep Bs Antibody Hep B Core Total Ab Hepatitis C Antibody 06/14/17 05:10 WBC RBC Hgb Hct MCV MCH MCHC RDW Plt Count MPV PT with INR INR Sodium 145 Potassium 3.8 Chloride 112 H Carbon Dioxide 24 Anion Gap 9 BUN 22 H Creatinine 1.0 Creat Clearance w eGFR > 60 Random Glucose 130 H Calcium 7.9 L Iron TIBC Iron Saturation Ferritin Total Bilirubin 1.1 H D AST 106 H ALT 51 Alkaline Phosphatase 313 H Ammonia Total Protein 6.5 Albumin 2.0 L Tumor Marker AFP Hepatitis A Ab Total Hep Bs Antigen Hep Bs Antibody Hep B Core Total Ab Hepatitis C Antibody - ....Imaging MRI: Pending Problem List - Problems (1) Hematochezia Code(s): K92.1 - MELENA (2) GIB (gastrointestinal bleeding) Code(s): K92.2 - GASTROINTESTINAL HEMORRHAGE, UNSPECIFIED Qualifiers: Qualified Code(s): K92.2 - Gastrointestinal hemorrhage, unspecified (3) Esophageal varix bleeding Code(s): I85.01 - ESOPHAGEAL VARICES WITH BLEEDING (4) Esophageal varices Code(s): I85.00 - ESOPHAGEAL VARICES WITHOUT BLEEDING (5) Alcohol abuse Code(s): F10.10 - ALCOHOL ABUSE, UNCOMPLICATED Assessment/Plan Upper GI bleeding, acute blood loss anemia, s/p esophageal varices banding. Stable. ? hepatic encephalopathy ?ascites ? other etiology if lethargy. PPI IV drip Carafate lactulose, rifaximine Cipro 500 po qd x 10 days (?ascites) Nadalol Octreotide x 72 hrs total MRI abdomen b12, folate, iron HVC+, PCR pending Soft diet consider neurology consult hepatic vs other encephalopthy, ? r/o recurent stroke , etc.
--- NOTE | 2017-06-14 12:20 | PN ---
Teaching Attending Note Name of Resident: Gisel Ellis ATTENDING PHYSICIAN STATEMENT I saw and evaluated the patient. I reviewed the resident's note and discussed the case with the resident. I agree with the resident's findings and plan as documented. SUBJECTIVE: Patient seen and examined in the ICU. More awake and responsive. Denies CP or SOB. Denies abdominal pain. No occult bleeding noted. Remains on Octreotide drip. Intake & Output 06/11/17 06/12/17 06/13/17 06/14/17 23:59 23:59 23:59 23:59 Intake Total 300 966.6 659.2 436 Balance 300 966.6 659.2 436 Weight 185 lb 183 lb 184 lb 9 oz 181 lb 6 oz Last Vital Signs Temp Pulse Resp BP Pulse Ox 98.8 F 66 18 106/53 92 L 06/14/17 10:00 06/14/17 10:00 06/14/17 10:00 06/14/17 10:00 06/14/17 09:41 Active Medications Pantoprazole Sodium 160 mg/ (Sodium Chloride) 290 mls @ 14.5 mls/hr IVPB Q20H VENITA PRN Reason: 8 MG/HR Last Admin: 06/13/17 12:46 Dose: 14.5 mls/hr Octreotide Acetate 1,200 mcg/ (Dextrose) 500 mls @ 20.83 mls/hr IVPB Q24H VENITA PRN Reason: 50 MCG/HR Last Admin: 06/14/17 01:57 Dose: 20.83 mls/hr Lactulose (Cephulac (Rectal Use)) 200 gm [place] Q8H-IV VENITA Last Admin: 06/14/17 11:04 Dose: 200 gm Nadolol (Corgard -) 20 mg PO DAILY [facility] Last Admin: 06/14/17 09:14 Dose: 20 mg Rifaximin (Xifaxan -) 550 mg PO BID [facility] Last Admin: 06/14/17 09:14 Dose: 550 mg Sucralfate (Carafate -) 1 gm PO ACHS [facility] Last Admin: 06/14/17 11:04 Dose: 1 gm GEN: Elderly man, unkempt, awake and responsive, NAD HEENTL: PERRL, icteric, Dry MM, horrific halitosis PULM: Clear CV: S1 S2, RR, (-) G/M/R ABD: (+) BS, N/T, (-) Ascites EXT: + Pulses, (-) edema SKIN: Juandice, no obvious lesions, rashes, or ulcers Laboratory Results - last 24 hr 06/12/17 06/13/17 06/13/17 05:10 05:05 05:05 WBC RBC Hgb Hct MCV MCH MCHC RDW Plt Count MPV PT with INR INR Sodium Potassium Chloride Carbon Dioxide Anion Gap BUN Creatinine Creat Clearance w eGFR Random Glucose Calcium Iron 53 TIBC 329 Iron Saturation 16 Ferritin 298.385 H Total Bilirubin AST ALT Alkaline Phosphatase Ammonia Total Protein Albumin Tumor Marker AFP 101.8 H Hepatitis A Ab Total Positive Hep Bs Antigen negative Hep Bs Antibody Non reactive Hep B Core Total Ab Positive Hepatitis C Antibody >11.0 H 06/14/17 06/14/17 06/14/17 05:10 05:10 05:10 WBC 5.4 RBC 2.74 L Hgb 7.7 L Hct 24.6 L MCV 90.0 MCH 28.3 MCHC 31.4 L RDW 16.4 H Plt Count 228 MPV 9.1 PT with INR 13.50 H INR 1.19 H Sodium Potassium Chloride Carbon Dioxide Anion Gap BUN Creatinine Creat Clearance w eGFR Random Glucose Calcium Iron TIBC Iron Saturation Ferritin Total Bilirubin AST ALT Alkaline Phosphatase Ammonia 91.14 H Total Protein Albumin Tumor Marker AFP Hepatitis A Ab Total Hep Bs Antigen Hep Bs Antibody Hep B Core Total Ab Hepatitis C Antibody 06/14/17 05:10 WBC RBC Hgb Hct MCV MCH MCHC RDW Plt Count MPV PT with INR INR Sodium 145 Potassium 3.8 Chloride 112 H Carbon Dioxide 24 Anion Gap 9 BUN 22 H Creatinine 1.0 Creat Clearance w eGFR > 60 Random Glucose 130 H Calcium 7.9 L Iron TIBC Iron Saturation Ferritin Total Bilirubin 1.1 H D AST 106 H ALT 51 Alkaline Phosphatase 313 H Ammonia Total Protein 6.5 Albumin 2.0 L Tumor Marker AFP Hepatitis A Ab Total Hep Bs Antigen Hep Bs Antibody Hep B Core Total Ab Hepatitis C Antibody IMP: Acute GI Bleed due to Esophageal Varices S/P banding Elevated Alk phos Acute hepatic encephalopathy PLAN: PO Lactulose Normal transfusion thresholds, Hgb<7, Plts < 50, INR >1.8 PPI and octreotide drips Serial CBC Maintain adequate access Nonselective BB No AC given bleeding SCDs Floor PO when OK with GI Dr Ying Critical care time spent in reviewing chart, evaluating patient and formulating plan - 40 minutes.
[2017-06-14 12:43] LABS: HBSAG SCREEN Negative (Negative); HEP A AB, IGM Negative (Negative); HEP B CORE AB, TOT Positive (Negative)
[2017-06-14] MEDS: PANTOPRAZOLE SODIUM 160 MG in SODIUM CHLORIDE 290 ML IVPB SCH (13:29)
[2017-06-14] MEDS ORDERED: ERYTHROMYCIN *INJECTION* 500 MG VIAL IVPB ONE (17:39)
[2017-06-15] MEDS ORDERED: OCTREOTIDE ACETATE 1,200 MCG in DEXTROSE 5%-WATER - 488 ML IVPB SCH (00:30)
[2017-06-15] MEDS ORDERED: PT OWN MED DRAWER 7, Y5N ONE ×3 (02:37→09:14)
[2017-06-15] MEDS: LACTULOSE 20 GM/30 ML UDC (FOR RECTAL USE ONLY) PR SCH (05:00)
[2017-06-15] MEDS: PANTOPRAZOLE SODIUM 160 MG in SODIUM CHLORIDE 290 ML IVPB SCH ×2 (05:31→10:59)
[2017-06-15] MEDS: SUCRALFATE 1 GM TABLET (FP) PO SCH ×4 (06:04→22:29)
--- NOTE | 2017-06-15 08:27 | PN ---
Progress Note (short form) - Note Progress Note: patient seen and examined Much more awake Taking only liquids now Denies pain Comfortable Vital Signs Temp 99.0 F 06/15/17 06:00 Pulse 65 06/15/17 06:00 Resp 20 06/15/17 06:00 BP 118/68 06/15/17 06:00 Pulse Ox 94 L 06/14/17 21:00 Intake & Output 06/14/17 06/14/17 06/15/17 11:59 23:59 11:59 Intake Total 436 957.7 1423.6 Balance 436 957.7 1423.6 Weight 181 lb 6 oz 178 lb 2 oz Intake: IV 386 317.7 423.6 protonix drip 164 130.5 174 sandostatin drip 222 187.2 249.6 Oral 50 640 1000 Other: Voiding Method Diaper Incontinent # Unmeasured Voids Void 2 2 Bowel Movement Yes Yes Yes # Bowel Movements 2 2 2 Weight Measurement Method [facility] Active Medications Pantoprazole Sodium 160 mg/ (Sodium Chloride) 290 mls @ 14.5 mls/hr IVPB Q20H VENITA PRN Reason: 8 MG/HR Last Admin: 06/15/17 05:31 Dose: 14.5 mls/hr Octreotide Acetate 1,200 mcg/ (Dextrose) 500 mls @ 20.83 mls/hr IVPB Q24H VENITA PRN Reason: 50 MCG/HR Last Admin: 06/15/17 05:31 Dose: 20.83 mls/hr Lactulose (Cephulac (Rectal Use)) 200 gm [place] Q8H-IV VENITA Last Admin: 06/15/17 05:00 Dose: 200 gm Nadolol (Corgard -) 20 mg PO DAILY [facility] Rifaximin (Xifaxan -) 550 mg PO BID [facility] Last Admin: 06/14/17 21:24 Dose: 550 mg Sucralfate (Carafate -) 1 gm PO ACHS [facility] Last Admin: 06/15/17 06:04 Dose: 1 gm CBC, BMP 06/14/17 05:10 06/14/17 05:10 today labs - ordered physical exam Constitutional: Yes: No Distress, Calm Eyes: Yes: Conjunctiva Clear, Sclera Icterus Neck: Yes: Supple Cardiovascular: Yes: Regular Rate and Rhythm Respiratory: Yes: CTA Bilaterally Gastrointestinal: Yes: Soft/ slightly distended--- and nontender Edema: No Peripheral Pulses WNL: Yes Neurological: Yes: Alert, Other (much more awake) Psychiatric: Yes: Alert Assessment/Plan clinically better toxic metabolic encephalopathy =-resolving transfuse prn Lactulose monitor ammonia level- coming down Hep C + also continue present care. MRI - Abdomen pending Will request neurology consult will follow Discussed with nursing staff also Problem List - Problems (1) Esophageal varices determined by endoscopy Code(s): I85.00 - ESOPHAGEAL VARICES WITHOUT BLEEDING (2) CVA (cerebral vascular accident) Code(s): I63.9 - CEREBRAL INFARCTION, UNSPECIFIED (3) Diabetes Code(s): E11.9 - TYPE 2 DIABETES MELLITUS WITHOUT COMPLICATIONS (4) Alcohol abuse Code(s): F10.10 - ALCOHOL ABUSE, UNCOMPLICATED (5) Schizophrenia Code(s): F20.9 - SCHIZOPHRENIA, UNSPECIFIED
[2017-06-15 08:40] LABS: HEMATOCRIT 23.2 % (35.4-49); HEMOGLOBIN 7.2 GM/dL (11.7-16.9); MCH 28.3 pg (25.7-33.7); MCHC 31.2 g/dl (32.0-35.9); MEAN CELL VOLUME 90.6 fl (80-96); MEAN PLT VOLUME 8.4 fl (7.5-11.1); PLATELET COUNT 210 K/MM3 (134-434); RBC 2.56 M/mm3 (4.00-5.60); RDW 17.1 % (11.9-15.9); WHITE BLOOD COUNT 5.4 K/mm3 (4.0-10.0)
[2017-06-15 09:05] LABS: ALBUMIN 1.8 g/dl (3.4-5.0); ANION GAP 7 (8-16); BLOOD UREA NITROGEN 20 mg/dL (7-18); CALCIUM 7.7 mg/dL (8.5-10.1); CHLORIDE 108 mmol/L (98-107); CO2 25 mmol/L (21-32); GLUCOSE,RANDOM 142 mg/dL (74-106); MAGNESIUM 2.2 mg/dL (1.8-2.4); PHOSPHOROUS 2.5 mg/dL (2.5-4.9); POTASSIUM 3.7 mmol/L (3.5-5.1); SGOT/AST 104 U/L (15-37); SGPT/ALT 51 U/L (12-78); SODIUM 140 mmol/L (136-145); TOT PROT 5.8 g/dl (6.4-8.2)
[2017-06-15 09:06] LABS: ALK PHOS 302 U/L (45-117)
[2017-06-15 09:12] LABS: INR 1.29 (0.82-1.09); PROTHROMBIN TIME (PATIENT) 14.6 SEC (9.98-11.88)
[2017-06-15] MEDS: NADOLOL 20 MG TABLET (FP) PO SCH (09:21)
[2017-06-15] MEDS: RIFAXIMIN 550 MG TABLET (UD) PO SCH ×2 (09:21→22:29)
[2017-06-15 09:24] LABS: BASO % 0.7 % (0-2.0); EOS % 2.8 % (0-4.5); LYMPH % 24.3 % (8-40); MONO % 15.9 % (3.8-10.2); NEUT % 56.3 % (42.8-82.8)
--- NOTE | 2017-06-15 11:33 | PN ---
Progress Note, Physician History of Present Illness: No events. More awake and alert - Current Medication List Current Medications: Active Medications Pantoprazole Sodium 160 mg/ (Sodium Chloride) 290 mls @ 14.5 mls/hr IVPB Q20H VENITA PRN Reason: 8 MG/HR Last Admin: 06/15/17 10:59 Dose: 14.5 mls/hr Octreotide Acetate 1,200 mcg/ (Dextrose) 500 mls @ 20.83 mls/hr IVPB Q24H VENITA PRN Reason: 50 MCG/HR Last Admin: 06/15/17 05:31 Dose: 20.83 mls/hr Lactulose (Cephulac (Oral Use)) 20 gm PO TID PRN PRN Reason: CONSTIPATION Nadolol (Corgard -) 20 mg PO DAILY [facility] Last Admin: 06/15/17 09:21 Dose: 20 mg Rifaximin (Xifaxan -) 550 mg PO BID [facility] Last Admin: 06/15/17 09:21 Dose: 550 mg Sucralfate (Carafate -) 1 gm PO ACHS [facility] Last Admin: 06/15/17 11:15 Dose: 1 gm - Objective Vital Signs: Vital Signs Temperature 99.0 F 06/15/17 06:00 Pulse Rate 65 06/15/17 06:00 Respiratory Rate 20 06/15/17 06:00 Blood Pressure 118/68 06/15/17 06:00 O2 Sat by Pulse Oximetry (%) 94 L 06/14/17 21:00 Constitutional: Yes: No Distress, Calm Gastrointestinal: Yes: Soft. No: Tenderness Neurological: Yes: Alert Labs: CBC, BMP 06/15/17 07:45 06/15/17 07:45 INR, PTT INR 1.29 (0.82-1.09) H 06/15/17 07:45 Laboratory Results - last 24 hr 06/11/17 06/12/17 06/15/17 16:26 05:10 07:45 WBC Corrected WBC (auto) RBC Hgb Hct MCV MCH MCHC RDW Plt Count MPV Neutrophils % Lymphocytes % Monocytes % Eosinophils % Basophils % Nucleated RBC % Platelet Estimate Platelet Comment PT with INR 14.60 H INR 1.29 H Sodium Potassium Chloride Carbon Dioxide Anion Gap BUN Creatinine Creat Clearance w eGFR Random Glucose Calcium Phosphorus Magnesium Total Bilirubin AST ALT Alkaline Phosphatase Ammonia Total Protein Albumin Hep A IgM Ab Confirm Negative Hepatitis A Ab Total Positive H Hep Bs Antigen Negative Hep Bs Antibody Non reactive Hep B Core Total Ab Positive H Blood Type O POSITIVE Antibody Screen Negative Crossmatch See Detail 06/15/17 06/15/17 06/15/17 07:45 07:45 07:45 WBC 5.4 Cancelled Corrected WBC (auto) Cancelled RBC 2.56 L Cancelled Hgb 7.2 L Cancelled Hct 23.2 L Cancelled MCV 90.6 Cancelled MCH 28.3 Cancelled MCHC 31.2 L Cancelled RDW 17.1 H Cancelled Plt Count 210 Cancelled MPV 8.4 Cancelled Neutrophils % 56.3 Cancelled Lymphocytes % 24.3 Cancelled Monocytes % 15.9 H Cancelled Eosinophils % 2.8 Cancelled Basophils % 0.7 Cancelled Nucleated RBC % Cancelled Platelet Estimate Cancelled Platelet Comment Cancelled PT with INR INR Sodium 140 Potassium 3.7 Chloride 108 H Carbon Dioxide 25 Anion Gap 7 L BUN 20 H Creatinine 1.0 Creat Clearance w eGFR > 60 Random Glucose 142 H Calcium 7.7 L Phosphorus 2.5 Magnesium 2.2 Total Bilirubin 1.0 AST 104 H ALT 51 Alkaline Phosphatase 302 H Ammonia Total Protein 5.8 L Albumin 1.8 L Hep A IgM Ab Confirm Hepatitis A Ab Total Hep Bs Antigen Hep Bs Antibody Hep B Core Total Ab Blood Type Antibody Screen Crossmatch 06/15/17 09:10 WBC Corrected WBC (auto) RBC Hgb Hct MCV MCH MCHC RDW Plt Count MPV Neutrophils % Lymphocytes % Monocytes % Eosinophils % Basophils % Nucleated RBC % Platelet Estimate Platelet Comment PT with INR INR Sodium Potassium Chloride Carbon Dioxide Anion Gap BUN Creatinine Creat Clearance w eGFR Random Glucose Calcium Phosphorus Magnesium Total Bilirubin AST ALT Alkaline Phosphatase Ammonia 71.69 H Total Protein Albumin Hep A IgM Ab Confirm Hepatitis A Ab Total Hep Bs Antigen Hep Bs Antibody Hep B Core Total Ab Blood Type Antibody Screen Crossmatch Problem List - Problems (1) Hematochezia Code(s): K92.1 - MELENA (2) GIB (gastrointestinal bleeding) Code(s): K92.2 - GASTROINTESTINAL HEMORRHAGE, UNSPECIFIED Qualifiers: GI bleed type/associated pathology: unspecified gastrointestinal hemorrhage type Qualified Code(s): K92.2 - Gastrointestinal hemorrhage, unspecified (3) Esophageal varix bleeding Code(s): I85.01 - ESOPHAGEAL VARICES WITH BLEEDING (4) Esophageal varices Code(s): I85.00 - ESOPHAGEAL VARICES WITHOUT BLEEDING (5) Alcohol abuse Code(s): F10.10 - ALCOHOL ABUSE, UNCOMPLICATED Assessment/Plan Upper GI bleeding, acute blood loss anemia, s/p esophageal varices banding. Stable. ? hepatic encephalopathy ?ascites ? other etiology if lethargy. PPI PO bid Carafate lactulose PO, rifaximine Cipro 500 po qd x 10 days (?ascites) Nadalol MRI abdomen b12, folate, iron HVC+, PCR pending Soft diet consider neurology consult hepatic vs other encephalopthy, ? r/o recurent stroke , etc.
--- NOTE | 2017-06-15 12:08 | PATH ---
Surgical Pathology Report Patient Name: BRODIE REGALADO [facility]. Rec. #: [id number] /Age/Gender: 1940 (Age: 76) / M Account: [id number] Location: [address] [place] [address] Taken: 06/11/2017 Received: 06/14/2017 Reported: 06/15/2017 Physicians: Rob Smith M.D. Specimen(s) Received BX ANTRAL ULCER Clinical History Preoperative diagnosis: Upper GI bleed Postoperative diagnosis: Antral ulcer, grade 4 esophageal varices Final Diagnosis STOMACH, ANTRUM, BIOPSY: MILD CHRONIC GASTRITIS WITH REACTIVE GASTROPATHY. IMMUNOSTAIN FOR H. PYLORI IS NEGATIVE. Electronically Signed Koby Mcclain M.D. Gross Description Received in formalin, labeled "antral ulcer biopsy" are 2 rai, irregular portions of soft tissue measuring 0.5 and 0.6 cm. in greatest dimension. The specimens are submitted in toto in one cassette. 06/14/201706/14/2017
[2017-06-15] MEDS ORDERED: LACTULOSE 20 GM/30 ML UDC (FOR ORAL USE ONLY) PO PRN (12:25)
[2017-06-15] MEDS: FERROUS SO4 325 MG TABLET (FP) PO SCH ×2 (12:58→17:11)
[2017-06-15] MEDS: PANTOPRAZOLE 40 MG TABLET (FP) PO SCH ×2 (12:58→22:29)
--- NOTE | 2017-06-15 17:44 | CON.NEURO ---
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) Cardio/Vascular: Yes: HTN, Hyperlipdemia Psych: Yes: Bipolar, Schizophrenia Endocrine: Yes: Diabetes Mellitus - Alcohol/Substance Use Hx Alcohol Use: No - Smoking History Smoking history: Never smoked Have you smoked in the past 12 months: No Aproximately how many cigarettes per day: 0 - Social History ADL: Support Services History of Recent Travel: No Home Medications - Allergies Allergies/Adverse Reactions: Allergies Allergy/AdvReac Type Severity Reaction Status Date / Time No Known Drug Allergies Allergy Verified 05/17/17 08:22 - Home Medications Home Medications: Ambulatory Orders Amlodipine Besylate 10 mg PO DAILY 08/19/15 Sennosides [Senna] 2 tab PO 199910/15/16 Aspirin [ASA -] 81 mg PO DAILY 05/17/17 Atorvastatin Ca [Lipitor] 10 mg PO DAILY 05/17/17 Dextran 70/Hypromellose [Genteal Tears 0.1%-0.3% Drop] 1 drop OU DAILY 05/17/17 Docusate Sodium [Colace -] 200 mg PO DAILY 05/17/17 Gabapentin 100 mg PO TID 05/17/17 Levothyroxine [Synthroid -] 25 mcg PO DAILY 05/17/17 Magnesium Hydrox 2400MG/30Ml [Milk of Magnesia -] 60 ml PO DAILY 05/17/17 Physical Exam-Neuro Vital Signs: Vital Signs Temperature 99.8 F H 06/15/17 14:00 Pulse Rate 68 06/15/17 14:00 Respiratory Rate 18 06/15/17 14:00 Blood Pressure 112/58 06/15/17 14:00 O2 Sat by Pulse Oximetry (%) 94 L 06/14/17 21:00 Labs: CBC, BMP 06/15/17 07:45 06/15/17 07:45 INR, PTT INR 1.29 (0.82-1.09) H 06/15/17 07:45 Imaging - Results Cat Scan: Report Reviewed, Image Reviewed Assessment/Plan cc Episode of Confusion HPI 76 year old male history of Hypertension, stroke, bipolar , schhizophrenia, DM. He admitted to hospital for Upper GI bleed and Patient got confused yesterday. I spoke to nurse and his son was visiting him today. I tried to call him but no reponse. It appears he lives in alf and was confused as baseline but able to communicate and follow command. He is being transfused blood. His Blood pressure is maintained and not spiking fever. Medical Hisotyr as above NKDA, Lives in Nursint home ROS,FH, SH reviewed in chart Home Medications: Ambulatory Orders Amlodipine Besylate 10 mg PO DAILY 08/19/15 Sennosides [Senna] 2 tab PO 199910/15/16 Aspirin [ASA -] 81 mg PO DAILY 05/17/17 Atorvastatin Ca [Lipitor] 10 mg PO DAILY 05/17/17 Dextran 70/Hypromellose [Genteal Tears 0.1%-0.3% Drop] 1 drop OU DAILY 05/17/17 Docusate Sodium [Colace -] 200 mg PO DAILY 05/17/17 Gabapentin 100 mg PO TID 05/17/17 Levothyroxine [Synthroid -] 25 mcg PO DAILY 05/17/17 Magnesium Hydrox 2400MG/30Ml [Milk of Magnesia -] 60 ml PO DAILY 05/17/17 Neurological Examination Alert follow command, able to swallow at bed side, speech is normal no neck stiffness, afebrile CN eomi,no face asymemtry moving all extremity reflex are dimnished generalized ct head unremarkable Assessment- Suspect metabolic encphalopathy and now improved to baseline. CT of head unremarkable, no evidence of acute stroke or hemorrhage identified Unlikey to be STROKE, Meningitis or Status epilepticus Plan- no further work up from Neuro point of view Thanks you so much Dayday
[2017-06-15 22:00] LABS: BASO % 0.6 % (0-2.0); EOS % 3.6 % (0-4.5); HEMATOCRIT 24.9 % (35.4-49); LYMPH % 24.9 % (8-40); MCH 28.9 pg (25.7-33.7); MCHC 32.3 g/dl (32.0-35.9); MEAN CELL VOLUME 89.3 fl (80-96); MEAN PLT VOLUME 8.9 fl (7.5-11.1); MONO % 13.9 % (3.8-10.2); PLATELET COUNT 231 K/MM3 (134-434); RBC 2.79 M/mm3 (4.00-5.60); RDW 16.9 % (11.9-15.9); WHITE BLOOD COUNT 5.7 K/mm3 (4.0-10.0)
[2017-06-16] MEDS: SUCRALFATE 1 GM TABLET (FP) PO SCH ×4 (06:36→22:25)
[2017-06-16 08:30] LABS: HEMATOCRIT 25.9 % (35.4-49); HEMOGLOBIN 8.2 GM/dL (11.7-16.9); MCH 28.3 pg (25.7-33.7); MCHC 31.7 g/dl (32.0-35.9); MEAN CELL VOLUME 89.3 fl (80-96); MEAN PLT VOLUME 8.7 fl (7.5-11.1); PLATELET COUNT 218 K/MM3 (134-434); RBC 2.91 M/mm3 (4.00-5.60); RDW 16.5 % (11.9-15.9); WHITE BLOOD COUNT 5.8 K/mm3 (4.0-10.0)
[2017-06-16 08:46] LABS: INR 1.27 (0.82-1.09); PROTHROMBIN TIME (PATIENT) 14.3 SEC (9.98-11.88)
[2017-06-16 09:09] LABS: CHLORIDE 107 mmol/L (98-107); POTASSIUM 3.7 mmol/L (3.5-5.1); SODIUM 140 mmol/L (136-145)
[2017-06-16 09:17] LABS: ALBUMIN 1.8 g/dl (3.4-5.0); ALK PHOS 320 U/L (45-117); ANION GAP 9 (8-16); BLOOD UREA NITROGEN 18 mg/dL (7-18); CALCIUM 7.8 mg/dL (8.5-10.1); CO2 24 mmol/L (21-32); CREATININE 0.9 mg/dL (0.7-1.3); GLUCOSE,RANDOM 129 mg/dL (74-106); SGOT/AST 115 U/L (15-37); SGPT/ALT 56 U/L (12-78)
--- NOTE | 2017-06-16 09:18 | PN ---
Progress Note (short form) - Note Progress Note: patient seen and examined Much more alert and awake Got 1 unit of packed RBC yesterday Nursing staff reports--- did not get any lactulose--yesterday as it was when necessary Low-grade temp Denies pain Vital Signs Temp 99.4 F 06/16/17 06:00 Pulse 62 06/16/17 06:00 Resp 20 06/16/17 06:00 BP 116/64 06/16/17 06:00 Pulse Ox 95 06/15/17 21:00 Intake & Output 06/15/17 06/15/17 06/16/17 11:59 23:59 11:59 Intake Total 1423.6 2273.6 300 Balance 1423.6 2273.6 300 Weight 178 lb 2 oz 178 lb 2 oz 175 lb 9 oz Intake: IV 423.6 423.6 protonix drip 174 174 sandostatin drip 249.6 249.6 Oral 1000 1500 300 Packed Cells 350 Other: Voiding Method Diaper Incontinent # Unmeasured Voids Void 2 1 Bowel Movement Yes No No # Bowel Movements 2 2 Weight Measurement Method [facility] Built in [facility] Active Medications Ferrous Sulfate (Feosol -) 325 mg PO TIDCM [facility] Last Admin: 06/15/17 17:11 Dose: 325 mg Lactulose (Cephulac (Oral Use)) 20 gm PO TID [facility] Nadolol (Corgard -) 20 mg PO DAILY [facility] Last Admin: 06/15/17 09:21 Dose: 20 mg Pantoprazole Sodium (Protonix -) 40 mg PO BID [facility] Last Admin: 06/15/17 22:29 Dose: 40 mg Rifaximin (Xifaxan -) 550 mg PO BID [facility] Last Admin: 06/15/17 22:29 Dose: 550 mg Sucralfate (Carafate -) 1 gm PO ACHS [facility] Last Admin: 06/16/17 06:36 Dose: 1 gm CBC, BMP 06/16/17 06:30 06/16/17 06:30 physical exam Constitutional: Yes: No Distress, Calm/ Comfortable Eyes: Yes: Conjunctiva Clear, Sclera Icterus Neck: Yes: Supple Cardiovascular: Yes: Regular Rate and Rhythm Respiratory: Yes: CTA Bilaterally Gastrointestinal: Yes: Soft/ slightly distended--- and non tender Edema: No Peripheral Pulses WNL: Yes Neurological: Yes: Alert, Other (much more awake) Psychiatric: Yes: Alert Assessment/Plan clinically better toxic metabolic encephalopathy =-resolving transfuse prn Lactulose--Will change to standing--goal is 2-3 soft bowel movements daily discussed with nursing staff monitor ammonia level- Hep C + also continue present care. MRI - Abdomen pending Neurology consult also noted and appreciated CT head is negative for any acute pathology--Reviewed will follow Discussed with nursing staff also Problem List - Problems (1) Esophageal varices determined by endoscopy Code(s): I85.00 - ESOPHAGEAL VARICES WITHOUT BLEEDING (2) CVA (cerebral vascular accident) Code(s): I63.9 - CEREBRAL INFARCTION, UNSPECIFIED (3) Diabetes Code(s): E11.9 - TYPE 2 DIABETES MELLITUS WITHOUT COMPLICATIONS (4) Alcohol abuse Code(s): F10.10 - ALCOHOL ABUSE, UNCOMPLICATED (5) Schizophrenia Code(s): F20.9 - SCHIZOPHRENIA, UNSPECIFIED
[2017-06-16] MEDS ORDERED: PT OWN MED DRAWER 7, Y5N ONE (09:31)
[2017-06-16] MEDS: NADOLOL 20 MG TABLET (FP) PO SCH (09:32)
[2017-06-16] MEDS: PANTOPRAZOLE 40 MG TABLET (FP) PO SCH ×2 (09:33→22:21)
[2017-06-16] MEDS: RIFAXIMIN 550 MG TABLET (UD) PO SCH ×2 (09:33→22:21)
[2017-06-16] MEDS: FERROUS SO4 325 MG TABLET (FP) PO SCH ×3 (09:34→19:01)
--- NOTE | 2017-06-16 11:05 | PN ---
Progress Note, Physician History of Present Illness: No events. More awake and alert. S/p 1 u PRBC. No external signs of GI bleeding - Current Medication List Current Medications: Active Medications Ferrous Sulfate (Feosol -) 325 mg PO TIDCM [facility] Last Admin: 06/16/17 09:34 Dose: 325 mg Lactulose (Cephulac (Oral Use)) 20 gm PO TID [facility] Nadolol (Corgard -) 20 mg PO DAILY [facility] Last Admin: 06/16/17 09:32 Dose: 20 mg Pantoprazole Sodium (Protonix -) 40 mg PO BID [facility] Last Admin: 06/16/17 09:33 Dose: 40 mg Rifaximin (Xifaxan -) 550 mg PO BID [facility] Last Admin: 06/16/17 09:33 Dose: 550 mg Sucralfate (Carafate -) 1 gm PO ACHS [facility] Last Admin: 06/16/17 10:26 Dose: 1 gm - Objective Vital Signs: Vital Signs Temperature 99.4 F 06/16/17 06:00 Pulse Rate 62 06/16/17 06:00 Respiratory Rate 20 06/16/17 06:00 Blood Pressure 116/64 06/16/17 06:00 O2 Sat by Pulse Oximetry (%) 95 06/15/17 21:00 Constitutional: Yes: No Distress, Calm Gastrointestinal: Yes: Soft. No: Melena, Rectal Bleeding, Tenderness, Vomiting Neurological: Yes: Alert, Lethargy Labs: CBC, BMP 06/16/17 06:30 06/16/17 06:30 INR, PTT INR 1.27 (0.82-1.09) H 06/16/17 06:30 Laboratory Results - last 24 hr 06/12/17 06/15/17 06/15/17 06:00 11:55 21:20 WBC 5.7 RBC 2.79 L Hgb 8.0 L D Hct 24.9 L MCV 89.3 MCH 28.9 MCHC 32.3 RDW 16.9 H Plt Count 231 MPV 8.9 Neutrophils % 57.0 Lymphocytes % 24.9 Monocytes % 13.9 H Eosinophils % 3.6 Basophils % 0.6 PT with INR INR Sodium Potassium Chloride Carbon Dioxide Anion Gap BUN Creatinine Creat Clearance w eGFR Random Glucose Calcium Total Bilirubin AST ALT Alkaline Phosphatase Total Protein Albumin HCV Quantitation [id number] HCV RNA PCR log mass spectroscopist/ml 6.051 Blood Type O POSITIVE Antibody Screen Negative Crossmatch See Detail 06/16/17 06/16/17 06/16/17 06:30 06:30 06:30 WBC 5.8 RBC 2.91 L Hgb 8.2 L Hct 25.9 L MCV 89.3 MCH 28.3 MCHC 31.7 L RDW 16.5 H Plt Count 218 MPV 8.7 Neutrophils % Lymphocytes % Monocytes % Eosinophils % Basophils % PT with INR 14.30 H INR 1.27 H Sodium 140 Potassium 3.7 Chloride 107 Carbon Dioxide 24 Anion Gap 9 BUN 18 Creatinine 0.9 Creat Clearance w eGFR > 60 Random Glucose 129 H Calcium 7.8 L Total Bilirubin 1.0 AST 115 H ALT 56 Alkaline Phosphatase 320 H Total Protein 6.0 L Albumin 1.8 L HCV Quantitation HCV RNA PCR log mass spectroscopist/ml Blood Type Antibody Screen Crossmatch Problem List - Problems (1) Hematochezia Code(s): K92.1 - MELENA (2) GIB (gastrointestinal bleeding) Code(s): K92.2 - GASTROINTESTINAL HEMORRHAGE, UNSPECIFIED Qualifiers: GI bleed type/associated pathology: unspecified gastrointestinal hemorrhage type Qualified Code(s): K92.2 - Gastrointestinal hemorrhage, unspecified (3) Esophageal varix bleeding Code(s): I85.01 - ESOPHAGEAL VARICES WITH BLEEDING (4) Esophageal varices Code(s): I85.00 - ESOPHAGEAL VARICES WITHOUT BLEEDING (5) Alcohol abuse Code(s): F10.10 - ALCOHOL ABUSE, UNCOMPLICATED Assessment/Plan Upper GI bleeding, acute blood loss anemia, s/p esophageal varices banding. Stable. ? hepatic encephalopathy ?ascites ? other etiology if lethargy. Contiue current care PPI PO bid Carafate lactulose PO, rifaximine Cipro 500 po qd x 10 days (?ascites) Nadalol MRI abdomen Low salt diet
[2017-06-16] MEDS: LACTULOSE 20 GM/30 ML UDC (FOR ORAL USE ONLY) PO SCH ×2 (15:00→22:21)
[2017-06-17] MEDS: SUCRALFATE 1 GM TABLET (FP) PO SCH ×4 (06:01→21:51)
[2017-06-17] MEDS: LACTULOSE 20 GM/30 ML UDC (FOR ORAL USE ONLY) PO SCH ×3 (06:01→21:50)
--- NOTE | 2017-06-17 07:55 | PN ---
Progress Note, Physician History of Present Illness: No events. Clinically the same. No external signs of GI bleeding - Current Medication List Current Medications: Active Medications Ferrous Sulfate (Feosol -) 325 mg PO TIDCM [facility] Last Admin: 06/16/17 19:01 Dose: 325 mg Lactulose (Cephulac (Oral Use)) 20 gm PO TID [facility] Last Admin: 06/17/17 06:01 Dose: 20 gm Nadolol (Corgard -) 20 mg PO DAILY [facility] Last Admin: 06/16/17 09:32 Dose: 20 mg Pantoprazole Sodium (Protonix -) 40 mg PO BID [facility] Last Admin: 06/16/17 22:21 Dose: 40 mg Rifaximin (Xifaxan -) 550 mg PO BID [facility] Last Admin: 06/16/17 22:21 Dose: 550 mg Sucralfate (Carafate -) 1 gm PO ACHS [facility] Last Admin: 06/17/17 06:01 Dose: 1 gm - Objective Vital Signs: Vital Signs Temperature 98.3 F 06/17/17 05:45 Pulse Rate 67 06/17/17 05:45 Respiratory Rate 20 06/17/17 05:45 Blood Pressure 128/77 06/17/17 05:45 O2 Sat by Pulse Oximetry (%) 95 06/16/17 20:31 Constitutional: Yes: No Distress, Calm Gastrointestinal: Yes: Soft, Distention. No: Melena, Rectal Bleeding, Tenderness, Vomiting Neurological: Yes: Alert Labs: CBC, BMP 06/16/17 06:30 06/16/17 06:30 INR, PTT INR 1.27 (0.82-1.09) H 06/16/17 06:30 Laboratory Results - last 24 hr 06/12/17 06/16/17 06/16/17 06:00 06:30 06:30 WBC 5.8 RBC 2.91 L Hgb 8.2 L Hct 25.9 L MCV 89.3 MCH 28.3 MCHC 31.7 L RDW 16.5 H Plt Count 218 MPV 8.7 PT with INR 14.30 H INR 1.27 H Sodium Potassium Chloride Carbon Dioxide Anion Gap BUN Creatinine Creat Clearance w eGFR Random Glucose Calcium Total Bilirubin AST ALT Alkaline Phosphatase Total Protein Albumin HCV Quantitation [id number] HCV RNA PCR log gyroscopic engineering technician/ml 6.051 06/16/17 06:30 WBC RBC Hgb Hct MCV MCH MCHC RDW Plt Count MPV PT with INR INR Sodium 140 Potassium 3.7 Chloride 107 Carbon Dioxide 24 Anion Gap 9 BUN 18 Creatinine 0.9 Creat Clearance w eGFR > 60 Random Glucose 129 H Calcium 7.8 L Total Bilirubin 1.0 AST 115 H ALT 56 Alkaline Phosphatase 320 H Total Protein 6.0 L Albumin 1.8 L HCV Quantitation HCV RNA PCR log gyroscopic engineering technician/ml Problem List - Problems (1) Hematochezia Code(s): K92.1 - MELENA (2) GIB (gastrointestinal bleeding) Code(s): K92.2 - GASTROINTESTINAL HEMORRHAGE, UNSPECIFIED Qualifiers: GI bleed type/associated pathology: unspecified gastrointestinal hemorrhage type Qualified Code(s): K92.2 - Gastrointestinal hemorrhage, unspecified (3) Esophageal varix bleeding Code(s): I85.01 - ESOPHAGEAL VARICES WITH BLEEDING (4) Esophageal varices Code(s): I85.00 - ESOPHAGEAL VARICES WITHOUT BLEEDING (5) Alcohol abuse Code(s): F10.10 - ALCOHOL ABUSE, UNCOMPLICATED Assessment/Plan Contiue current care PPI PO bid Carafate lactulose PO, rifaximine Cipro 500 po qd x 10 days (?ascites) Nadalol MRI abdomen Low salt diet
[2017-06-17] MEDS: FERROUS SO4 325 MG TABLET (FP) PO SCH ×3 (07:59→17:27)
[2017-06-17 08:14] LABS: BASO % 0.8 % (0-2.0); HEMATOCRIT 26.7 % (35.4-49); HEMOGLOBIN 8.4 GM/dL (11.7-16.9); LYMPH % 24.1 % (8-40); MCH 27.9 pg (25.7-33.7); MCHC 31.4 g/dl (32.0-35.9); MONO % 13.6 % (3.8-10.2); NEUT % 59.5 % (42.8-82.8); PLATELET COUNT 214 K/MM3 (134-434); RDW 16.7 % (11.9-15.9)
[2017-06-17 08:44] LABS: CHLORIDE 107 mmol/L (98-107); POTASSIUM 3.9 mmol/L (3.5-5.1); SODIUM 138 mmol/L (136-145)
[2017-06-17 08:53] LABS: ALBUMIN 1.9 g/dl (3.4-5.0); ALK PHOS 348 U/L (45-117); ANION GAP 10 (8-16); BLOOD UREA NITROGEN 15 mg/dL (7-18); CALCIUM 7.3 mg/dL (8.5-10.1); CO2 21 mmol/L (21-32); CREATININE 0.8 mg/dL (0.7-1.3); GLUCOSE,RANDOM 118 mg/dL (74-106); SGOT/AST 97 U/L (15-37); SGPT/ALT 54 U/L (12-78); TOT PROT 6.1 g/dl (6.4-8.2)
[2017-06-17 09:04] LABS: INR 1.28 (0.82-1.09); PROTHROMBIN TIME (PATIENT) 14.5 SEC (9.98-11.88)
--- NOTE | 2017-06-17 09:21 | PN ---
Progress Note (short form) - Note Progress Note: Pt seen/ examined comfortable no new issues no further bleeding denies pain. Alert and awake. Vital Signs Temp 98.3 F 06/17/17 05:45 Pulse 67 06/17/17 05:45 Resp 20 06/17/17 05:45 BP 128/77 06/17/17 05:45 Pulse Ox 95 06/16/17 20:31 Intake & Output 06/16/17 06/16/17 06/17/17 11:59 23:59 11:59 Intake Total 300 950 Balance 300 950 Weight 175 lb 9 oz 177 lb 4 oz Intake: Oral 300 950 Other: Voiding Method Incontinent # Unmeasured Voids Void 1 3 Bowel Movement No No Weight Measurement Method Built in Bedscale Built in Bedscale Active Medications Ferrous Sulfate (Feosol -) 325 mg PO TIDCM [facility] Last Admin: 06/17/17 07:59 Dose: 325 mg Lactulose (Cephulac (Oral Use)) 20 gm PO TID [facility] Last Admin: 06/17/17 06:01 Dose: 20 gm Nadolol (Corgard -) 20 mg PO DAILY [facility] Last Admin: 06/16/17 09:32 Dose: 20 mg Pantoprazole Sodium (Protonix -) 40 mg PO BID [facility] Last Admin: 06/16/17 22:21 Dose: 40 mg Rifaximin (Xifaxan -) 550 mg PO BID [facility] Last Admin: 06/16/17 22:21 Dose: 550 mg Sucralfate (Carafate -) 1 gm PO ACHS [facility] Last Admin: 06/17/17 06:01 Dose: 1 gm CBC, BMP 06/17/17 05:22 06/17/17 05:22 CMP Sodium 138 mmol/L (136-145) 06/17/17 05:22 Potassium 3.9 mmol/L (3.5-5.1) 06/17/17 05:22 Chloride 107 mmol/L (98-107) 06/17/17 05:22 Carbon Dioxide 21 mmol/L (21-32) 06/17/17 05:22 Anion Gap 10 (8-16) 06/17/17 05:22 BUN 15 mg/dL (7-18) 06/17/17 05:22 Creatinine 0.8 mg/dL (0.7-1.3) 06/17/17 05:22 Creat Clearance w eGFR > 60 (>60) 06/17/17 05:22 Random Glucose 118 mg/dL (74-106) H 06/17/17 05:22 Calcium 7.3 mg/dL (8.5-10.1) L 06/17/17 05:22 Phosphorus 2.5 mg/dL (2.5-4.9) 06/15/17 07:45 Magnesium 2.2 mg/dL (1.8-2.4) 06/15/17 07:45 Iron 53 ug/dL (38-169) 06/13/17 05:05 TIBC 329 ug/dL (250-450) 06/13/17 05:05 Iron Saturation 16 % (15-55) 06/13/17 05:05 Ferritin 298.385 ng/ml (16.4-293.9) H 06/13/17 05:05 Total Bilirubin 1.0 mg/dL (0.2-1.0) 06/17/17 05:22 Direct Bilirubin 1.0 mg/dL (0.0-0.2) H 06/12/17 05:10 AST 97 U/L (15-37) H 06/17/17 05:22 ALT 54 U/L (12-78) 06/17/17 05:22 Alkaline Phosphatase 348 U/L (45-117) H 06/17/17 05:22 Ammonia 91.98 umol/L (11-32) H 06/17/17 05:22 Creatine Kinase 42 IU/L (39-308) 06/11/17 16:26 Troponin I < 0.02 ng/ml (0.00-0.05) 06/11/17 16:26 Total Protein 6.1 g/dl (6.4-8.2) L 06/17/17 05:22 Albumin 1.9 g/dl (3.4-5.0) L 06/17/17 05:22 Tumor Marker AFP 101.8 ng/ml (0.0-8.3) H 06/12/17 05:10 Vitamin B12 253 pg/ml (180-914) D 06/12/17 05:10 Serum Folate 13 ng/ml (3.1-17.5) 06/12/17 05:10 physical exam Constitutional: Yes: No Distress, Calm/ Comfortable Eyes: Yes: Conjunctiva Clear, Sclera Icterus Neck: Yes: Supple Cardiovascular: Yes: Regular Rate and Rhythm Respiratory: Yes: CTA Bilaterally Gastrointestinal: Yes: Soft/ slightly distended--- and non tender Edema: No Peripheral Pulses WNL: Yes Neurological: Yes: Alert, Other (much more awake) Psychiatric: Yes: Alert Assessment/Plan clinically better toxic metabolic encephalopathy =-resolving transfuse prn Lactulose----goal is 2-3 soft bowel movements daily discussed with nursing staff monitor ammonia level- Hep C + also continue present care. MRI - Abdomen pending--discussed with nursing staff Will follow Daily out of bed to chair. Problem List - Problems (1) Esophageal varices determined by endoscopy Code(s): I85.00 - ESOPHAGEAL VARICES WITHOUT BLEEDING (2) CVA (cerebral vascular accident) Code(s): I63.9 - CEREBRAL INFARCTION, UNSPECIFIED (3) Diabetes Code(s): E11.9 - TYPE 2 DIABETES MELLITUS WITHOUT COMPLICATIONS (4) Alcohol abuse Code(s): F10.10 - ALCOHOL ABUSE, UNCOMPLICATED (5) Schizophrenia Code(s): F20.9 - SCHIZOPHRENIA, UNSPECIFIED
[2017-06-17] MEDS: PANTOPRAZOLE 40 MG TABLET (FP) PO SCH ×2 (10:16→21:51)
[2017-06-17] MEDS: RIFAXIMIN 550 MG TABLET (UD) PO SCH ×2 (10:16→21:51)
[2017-06-17] MEDS: NADOLOL 20 MG TABLET (FP) PO SCH (10:16)
[2017-06-17] MEDS ORDERED: FLU VACCINE QUAD 60 MCG/0.5 ML (MDV 17-18) IM ONE (11:00)
[2017-06-18] MEDS: LACTULOSE 20 GM/30 ML UDC (FOR ORAL USE ONLY) PO SCH ×3 (06:10→22:26)
[2017-06-18] MEDS: SUCRALFATE 1 GM TABLET (FP) PO SCH ×4 (06:12→22:27)
[2017-06-18 07:18] LABS: BASO % 0.5 % (0-2.0); EOS % 1.9 % (0-4.5); HEMATOCRIT 26.8 % (35.4-49); HEMOGLOBIN 8.5 GM/dL (11.7-16.9); LYMPH % 20.6 % (8-40); MCH 28.1 pg (25.7-33.7); MCHC 31.7 g/dl (32.0-35.9); MEAN CELL VOLUME 88.5 fl (80-96); MEAN PLT VOLUME 8.7 fl (7.5-11.1); MONO % 14.4 % (3.8-10.2); NEUT % 62.6 % (42.8-82.8); PLATELET COUNT 198 K/MM3 (134-434); RBC 3.03 M/mm3 (4.00-5.60); RDW 16.5 % (11.9-15.9); WHITE BLOOD COUNT 5.6 K/mm3 (4.0-10.0)
[2017-06-18 07:50] LABS: ALK PHOS 359 U/L (45-117); ANION GAP 10 (8-16); BILIRUBIN,TOTAL 0.8 mg/dL (0.2-1.0); BLOOD UREA NITROGEN 13 mg/dL (7-18); CHLORIDE 105 mmol/L (98-107); CO2 23 mmol/L (21-32); CREATININE 0.8 mg/dL (0.7-1.3); GLUCOSE,RANDOM 129 mg/dL (74-106); POTASSIUM 3.8 mmol/L (3.5-5.1); SGOT/AST 94 U/L (15-37); SGPT/ALT 52 U/L (12-78); SODIUM 138 mmol/L (136-145); TOT PROT 6.5 g/dl (6.4-8.2)
[2017-06-18 07:52] LABS: INR 1.27 (0.82-1.09); PROTHROMBIN TIME (PATIENT) 14.4 SEC (9.98-11.88)
[2017-06-18] MEDS: NADOLOL 20 MG TABLET (FP) PO SCH (09:59)
[2017-06-18] MEDS: FERROUS SO4 325 MG TABLET (FP) PO SCH ×3 (09:59→17:17)
[2017-06-18] MEDS: PANTOPRAZOLE 40 MG TABLET (FP) PO SCH ×2 (09:59→22:26)
[2017-06-18] MEDS: RIFAXIMIN 550 MG TABLET (UD) PO SCH ×2 (09:59→22:26)
--- NOTE | 2017-06-18 10:28 | PN ---
Progress Note (short form) - Note Progress Note: comfortable sitting in chair nurse reports sometimes refuses meds alert and awake denies pain Vital Signs Temp 99 F 06/18/17 06:00 Pulse 62 06/18/17 06:00 Resp 22 06/18/17 06:00 BP 106/58 06/18/17 06:00 Pulse Ox 95 06/17/17 20:14 Intake & Output 06/17/17 06/17/17 06/18/17 11:59 23:59 11:59 Intake Total 510 Balance 510 Weight 177 lb 4 oz 176 lb Intake: Oral 510 Other: Voiding Method Incontinent Incontinent # Unmeasured Voids Void 3 3 Bowel Movement No No # Bowel Movements 2 Weight Measurement Method Built in Bedscale Built in Bedscale Active Medications Ferrous Sulfate (Feosol -) 325 mg PO TIDCM [facility] Last Admin: 06/18/17 09:59 Dose: 325 mg Lactulose (Cephulac (Oral Use)) 20 gm PO TID [facility] Last Admin: 06/18/17 06:10 Dose: 20 gm Nadolol (Corgard -) 20 mg PO DAILY [facility] Last Admin: 06/18/17 09:59 Dose: 20 mg Pantoprazole Sodium (Protonix -) 40 mg PO BID [facility] Last Admin: 06/18/17 09:59 Dose: 40 mg Rifaximin (Xifaxan -) 550 mg PO BID [facility] Last Admin: 06/18/17 09:59 Dose: 550 mg Sucralfate (Carafate -) 1 gm PO ACHS [facility] Last Admin: 06/18/17 06:12 Dose: 1 gm CBC, BMP 06/18/17 07:00 06/18/17 07:00 Physical exam Constitutional: Yes: No Distress, Calm/ Comfortable Eyes: Yes: Conjunctiva Clear, Sclera Icterus Neck: Yes: Supple Cardiovascular: Yes: Regular Rate and Rhythm Respiratory: Yes: CTA Bilaterally Gastrointestinal: Yes: Soft/ slightly distended--- and non tender Edema: No Peripheral Pulses WNL: Yes Neurological: Yes: Alert, Other (much more awake) Psychiatric: Yes: Alert Assessment/Plan clinically stable toxic metabolic encephalopathy =-resolving transfuse prn Lactulose----goal is 2-3 soft bowel movements daily discussed with nursing staff monitor ammonia level- Hep C + also continue present care. MRI - Abdomen --done - report pending will review Will follow Problem List - Problems (1) Esophageal varices determined by endoscopy Code(s): I85.00 - ESOPHAGEAL VARICES WITHOUT BLEEDING (2) CVA (cerebral vascular accident) Code(s): I63.9 - CEREBRAL INFARCTION, UNSPECIFIED (3) Diabetes Code(s): E11.9 - TYPE 2 DIABETES MELLITUS WITHOUT COMPLICATIONS (4) Alcohol abuse Code(s): F10.10 - ALCOHOL ABUSE, UNCOMPLICATED (5) Schizophrenia Code(s): F20.9 - SCHIZOPHRENIA, UNSPECIFIED
--- NOTE | 2017-06-18 11:17 | PN ---
Progress Note, Physician History of Present Illness: No events. Clinically the same. No external signs of GI bleeding. Seating in chair. Able to hold simple conversation. MR report pending - Current Medication List Current Medications: Active Medications Ferrous Sulfate (Feosol -) 325 mg PO TIDCM [facility] Last Admin: 06/18/17 09:59 Dose: 325 mg Lactulose (Cephulac (Oral Use)) 20 gm PO TID [facility] Last Admin: 06/18/17 06:10 Dose: 20 gm Nadolol (Corgard -) 20 mg PO DAILY [facility] Last Admin: 06/18/17 09:59 Dose: 20 mg Pantoprazole Sodium (Protonix -) 40 mg PO BID [facility] Last Admin: 06/18/17 09:59 Dose: 40 mg Rifaximin (Xifaxan -) 550 mg PO BID [facility] Last Admin: 06/18/17 09:59 Dose: 550 mg Sucralfate (Carafate -) 1 gm PO ACHS [facility] Last Admin: 06/18/17 06:12 Dose: 1 gm - Objective Vital Signs: Vital Signs Temperature 99 F 06/18/17 06:00 Pulse Rate 62 06/18/17 06:00 Respiratory Rate 22 06/18/17 06:00 Blood Pressure 106/58 06/18/17 06:00 O2 Sat by Pulse Oximetry (%) 95 06/17/17 20:14 Constitutional: Yes: No Distress, Calm Gastrointestinal: Yes: Normal Bowel Sounds, Soft. No: Melena, Rectal Bleeding, Tenderness, Tenderness, Epigastrium, Tenderness, Rebound, Vomiting Neurological: Yes: Alert Labs: CBC, BMP 06/18/17 07:00 06/18/17 07:00 INR, PTT INR 1.27 (0.82-1.09) H 06/18/17 07:00 Abnormal Lab Results 06/18/17 06/18/17 06/18/17 07:00 07:00 07:00 RBC 3.03 L Hgb 8.5 L Hct 26.8 L MCHC 31.7 L RDW 16.5 H Monocytes % 14.4 H PT with INR 14.40 H INR 1.27 H Random Glucose 129 H Calcium 8.0 L AST 94 H Alkaline Phosphatase 359 H Ammonia Albumin 2.0 L 06/18/17 07:00 RBC Hgb Hct MCHC RDW Monocytes % PT with INR INR Random Glucose Calcium AST Alkaline Phosphatase Ammonia 51.18 H Albumin Problem List - Problems (1) Hematochezia Code(s): K92.1 - MELENA (2) GIB (gastrointestinal bleeding) Code(s): K92.2 - GASTROINTESTINAL HEMORRHAGE, UNSPECIFIED Qualifiers: GI bleed type/associated pathology: unspecified gastrointestinal hemorrhage type Qualified Code(s): K92.2 - Gastrointestinal hemorrhage, unspecified (3) Esophageal varix bleeding Code(s): I85.01 - ESOPHAGEAL VARICES WITH BLEEDING (4) Esophageal varices Code(s): I85.00 - ESOPHAGEAL VARICES WITHOUT BLEEDING (5) Alcohol abuse Code(s): F10.10 - ALCOHOL ABUSE, UNCOMPLICATED Assessment/Plan Continue current care MRI abdomen formal report Low salt diet
[2017-06-19] MEDS: LACTULOSE 20 GM/30 ML UDC (FOR ORAL USE ONLY) PO SCH ×3 (06:47→22:15)
[2017-06-19] MEDS: SUCRALFATE 1 GM TABLET (FP) PO SCH ×4 (06:47→22:16)
[2017-06-19 08:22] LABS: HEMATOCRIT 27.5 % (35.4-49); HEMOGLOBIN 8.7 GM/dL (11.7-16.9); MCHC 31.5 g/dl (32.0-35.9); MEAN CELL VOLUME 88.9 fl (80-96); MEAN PLT VOLUME 9.1 fl (7.5-11.1); PLATELET COUNT 214 K/MM3 (134-434); RDW 16.4 % (11.9-15.9); WHITE BLOOD COUNT 5.1 K/mm3 (4.0-10.0)
[2017-06-19 08:23] LABS: INR 1.26 (0.82-1.09); PROTHROMBIN TIME (PATIENT) 14.2 SEC (9.98-11.88)
[2017-06-19 08:28] LABS: ANION GAP 7 (8-16); BILIRUBIN,TOTAL 0.8 mg/dL (0.2-1.0); BLOOD UREA NITROGEN 11 mg/dL (7-18); CALCIUM 7.9 mg/dL (8.5-10.1); CHLORIDE 105 mmol/L (98-107); CO2 23 mmol/L (21-32); CREATININE 0.9 mg/dL (0.7-1.3); GLUCOSE,RANDOM 149 mg/dL (74-106); SGOT/AST 113 U/L (15-37); SGPT/ALT 66 U/L (12-78); SODIUM 135 mmol/L (136-145); TOT PROT 6.8 g/dl (6.4-8.2)
[2017-06-19 08:29] LABS: ALK PHOS 403 U/L (45-117)
[2017-06-19] MEDS ORDERED: PT OWN MED DRAWER 7, Y5N ONE (09:24)
[2017-06-19] MEDS: PANTOPRAZOLE 40 MG TABLET (FP) PO SCH ×2 (09:27→22:15)
[2017-06-19] MEDS: RIFAXIMIN 550 MG TABLET (UD) PO SCH ×2 (09:27→22:15)
[2017-06-19] MEDS: FERROUS SO4 325 MG TABLET (FP) PO SCH ×3 (09:27→17:57)
[2017-06-19] MEDS: NADOLOL 20 MG TABLET (FP) PO SCH (09:27)
--- NOTE | 2017-06-19 14:09 | PN ---
Progress Note (short form) - Note Progress Note: comfortable no new issues denies pain alert / awake Vital Signs Temp 98.8 F 06/19/17 06:00 Pulse 74 06/19/17 06:00 Resp 18 06/19/17 06:00 BP 108/60 06/19/17 06:00 Pulse Ox 95 06/17/17 20:14 Intake & Output 06/18/17 06/19/17 06/19/17 23:59 11:59 23:59 Intake Total 560 675 Balance 560 675 Weight 177 lb 1 oz Intake: Oral 210 675 Packed Cells 350 Other: Voiding Method Diaper Incontinent # Unmeasured Voids Void 3 2 1 Bowel Movement No Weight Measurement Method Built in [facility] Active Medications Ferrous Sulfate (Feosol -) 325 mg PO TIDCM [facility] Last Admin: 06/19/17 11:05 Dose: Not Given Lactulose (Cephulac (Oral Use)) 20 gm PO TID [facility] Last Admin: 06/19/17 06:47 Dose: 20 gm Nadolol (Corgard -) 20 mg PO DAILY [facility] Last Admin: 06/19/17 09:27 Dose: 20 mg Pantoprazole Sodium (Protonix -) 40 mg PO BID [facility] Last Admin: 06/19/17 09:27 Dose: 40 mg Rifaximin (Xifaxan -) 550 mg PO BID [facility] Last Admin: 06/19/17 09:27 Dose: 550 mg Sucralfate (Carafate -) 1 gm PO ACHS [facility] Last Admin: 06/19/17 06:47 Dose: 1 gm CBC, BMP 06/19/17 07:00 06/19/17 07:00 mri - noted-- hcc/ cirrosis/ thrombosis Physical exam Constitutional: Yes: No Distress, Calm/ Comfortable Eyes: Yes: Conjunctiva Clear, Sclera Icterus Neck: Yes: Supple Cardiovascular: Yes: Regular Rate and Rhythm Respiratory: Yes: CTA Bilaterally Gastrointestinal: Yes: Soft/ slightly distended--- and non tender Edema: No Peripheral Pulses WNL: Yes Neurological: Yes: Alert, Other (much more awake) Psychiatric: Yes: Alert Assessment/Plan clinically stable toxic metabolic encephalopathy =-resolved transfuse prn Lactulose----goal is 2-3 soft bowel movements daily monitor ammonia level- Hep C + also continue present care. MRI - Abdomen --noted will discuss with gi Will follow daily oob - chair. Problem List - Problems (1) Esophageal varices determined by endoscopy Code(s): I85.00 - ESOPHAGEAL VARICES WITHOUT BLEEDING (2) CVA (cerebral vascular accident) Code(s): I63.9 - CEREBRAL INFARCTION, UNSPECIFIED (3) Diabetes Code(s): E11.9 - TYPE 2 DIABETES MELLITUS WITHOUT COMPLICATIONS (4) Alcohol abuse Code(s): F10.10 - ALCOHOL ABUSE, UNCOMPLICATED (5) Schizophrenia Code(s): F20.9 - SCHIZOPHRENIA, UNSPECIFIED
[2017-06-20] MEDS: LACTULOSE 20 GM/30 ML UDC (FOR ORAL USE ONLY) PO SCH ×3 (06:35→21:54)
[2017-06-20] MEDS: SUCRALFATE 1 GM TABLET (FP) PO SCH ×4 (06:36→21:54)
[2017-06-20] MEDS ORDERED: INSULIN (NOVOLOG) ASPART 100 UNITS/ML 10ML VIAL ONE (06:44)
[2017-06-20] MEDS ORDERED: PT OWN MED DRAWER 7, Y5N ONE (09:47)
[2017-06-20] MEDS: RIFAXIMIN 550 MG TABLET (UD) PO SCH ×2 (10:19→21:54)
[2017-06-20] MEDS: PANTOPRAZOLE 40 MG TABLET (FP) PO SCH ×2 (10:19→21:54)
[2017-06-20] MEDS: NADOLOL 20 MG TABLET (FP) PO SCH (10:19)
[2017-06-20] MEDS: FERROUS SO4 325 MG TABLET (FP) PO SCH ×3 (10:19→17:13)
--- NOTE | 2017-06-20 12:29 | PN ---
Progress Note (short form) - Note Progress Note: Pt comfortable no new issues denies pain alert / awake. Vital Signs Temp 99.1 F 06/20/17 06:00 Pulse 73 06/20/17 06:00 Resp 18 06/20/17 06:00 BP 111/50 06/20/17 06:00 Pulse Ox 96 06/19/17 20:45 Intake & Output 06/19/17 06/20/17 06/20/17 23:59 11:59 23:59 Intake Total 975 240 Balance 975 240 Weight 175 lb 2 oz Intake: Oral 975 240 Other: Voiding Method Incontinent # Unmeasured Voids Void 3 2 Weight Measurement Method Built in [facility] Active Medications Ferrous Sulfate (Feosol -) 325 mg PO TIDCM [facility] Last Admin: 06/19/17 11:05 Dose: Not Given Lactulose (Cephulac (Oral Use)) 20 gm PO TID [facility] Last Admin: 06/19/17 06:47 Dose: 20 gm Nadolol (Corgard -) 20 mg PO DAILY [facility] Last Admin: 06/19/17 09:27 Dose: 20 mg Pantoprazole Sodium (Protonix -) 40 mg PO BID [facility] Last Admin: 06/19/17 09:27 Dose: 40 mg Rifaximin (Xifaxan -) 550 mg PO BID [facility] Last Admin: 06/19/17 09:27 Dose: 550 mg Sucralfate (Carafate -) 1 gm PO ACHS [facility] Last Admin: 06/19/17 06:47 Dose: 1 gm CBC, BMP 06/19/17 07:00 06/19/17 07:00 mri - -- hcc/ cirrosis/ thrombosis Physical exam Constitutional: Yes: No Distress, Calm/ Comfortable Eyes: Yes: Conjunctiva Clear, Sclera Icterus Neck: Yes: Supple Cardiovascular: Yes: Regular Rate and Rhythm Respiratory: Yes: CTA Bilaterally Gastrointestinal: Yes: Soft/ slightly distended--- and non tender Edema: No Peripheral Pulses WNL: Yes Neurological: Yes: Alert, Other (much more awake) Psychiatric: Yes: Alert Assessment/Plan clinically stable toxic metabolic encephalopathy =-resolved transfuse prn Lactulose----goal is 2-3 soft bowel movements daily monitor ammonia level- Hep C + also continue present care. MRI - Abdomen --noted will discuss with gi Will follow daily oob - chair. discharge planning. if stable- anticipate d/c in am. Problem List - Problems (1) Esophageal varices determined by endoscopy Code(s): I85.00 - ESOPHAGEAL VARICES WITHOUT BLEEDING (2) CVA (cerebral vascular accident) Code(s): I63.9 - CEREBRAL INFARCTION, UNSPECIFIED (3) Diabetes Code(s): E11.9 - TYPE 2 DIABETES MELLITUS WITHOUT COMPLICATIONS (4) Alcohol abuse Code(s): F10.10 - ALCOHOL ABUSE, UNCOMPLICATED (5) Schizophrenia Code(s): F20.9 - SCHIZOPHRENIA, UNSPECIFIED
[2017-06-21] MEDS: SUCRALFATE 1 GM/10 ML UNIT DOSE CUPS PO SCH ×4 (06:02→21:04)
[2017-06-21] MEDS: LACTULOSE 20 GM/30 ML UDC (FOR ORAL USE ONLY) PO SCH ×3 (06:02→21:04)
[2017-06-21] MEDS ORDERED: PT OWN MED DRAWER 7, Y5N ONE (09:47)
[2017-06-21] MEDS: NADOLOL 20 MG TABLET (FP) PO SCH (09:52)
[2017-06-21] MEDS: RIFAXIMIN 550 MG TABLET (UD) PO SCH ×2 (09:52→21:04)
[2017-06-21] MEDS: FERROUS SO4 325 MG TABLET (FP) PO SCH ×3 (09:53→16:43)
[2017-06-21] MEDS: PANTOPRAZOLE 40 MG TABLET (FP) PO SCH ×2 (09:53→21:04)
--- NOTE | 2017-06-21 10:31 | PN ---
Progress Note (short form) - Note Progress Note: pt comfortable. no complains. feels well. Vital Signs Temp 98.8 F 06/21/17 08:57 Pulse 77 06/21/17 08:57 Resp 18 06/21/17 08:57 BP 140/74 06/21/17 08:57 Pulse Ox 95 06/20/17 21:00 Intake & Output 06/20/17 06/20/17 06/21/17 11:59 23:59 11:59 Intake Total 240 1000 750 Balance 240 1000 750 Weight 175 lb 2 oz 177 lb 2 oz Intake: Oral 240 1000 750 Other: Voiding Method Incontinent Incontinent Toilet # Unmeasured Voids Void 2 2 2 Weight Measurement Method Built in Bedscale Built in Bedscale Active Medications Ferrous Sulfate (Feosol -) 325 mg PO TIDCM [facility] Last Admin: 06/21/17 09:53 Dose: 325 mg Lactulose (Cephulac (Oral Use)) 20 gm PO TID [facility] Last Admin: 06/21/17 06:02 Dose: 20 gm Nadolol (Corgard -) 20 mg PO DAILY [facility] Last Admin: 06/21/17 09:52 Dose: 20 mg Pantoprazole Sodium (Protonix -) 40 mg PO BID [facility] Last Admin: 06/21/17 09:53 Dose: 40 mg Rifaximin (Xifaxan -) 550 mg PO BID [facility] Last Admin: 06/21/17 09:52 Dose: 550 mg Sucralfate (Carafate Oral Suspension -) 1 gm PO ACHS [facility] Last Admin: 06/21/17 06:02 Dose: 1 gm CBC, BMP 06/19/17 07:00 06/19/17 07:00 Physical exam. Constitutional: Yes: No Distress, Calm/ Comfortable. Eyes: Yes: Conjunctiva Clear, Sclera Icterus. Neck: Yes: Supple Cardiovascular: Yes: Regular Rate and Rhythm Respiratory: Yes: CTA Bilaterally Gastrointestinal: Yes: Soft/ slightly distended--- and non tender Edema: No Peripheral Pulses WNL: Yes Neurological: Yes: Alert, Other (much more awake) Psychiatric: Yes: Alert Assessment/Plan clinically stable toxic metabolic encephalopathy =-resolved. transfuse prn Lactulose----goal is 2-3 soft bowel movements daily monitor ammonia level- Hep C + also continue present care. MRI - Abdomen --noted will discuss with gi will consult oncology for concern of hcc . discussed with Dr. Ruggiero-- she will see pt later today.. will discuss with family also will follow. Problem List - Problems (1) Esophageal varices determined by endoscopy Code(s): I85.00 - ESOPHAGEAL VARICES WITHOUT BLEEDING (2) CVA (cerebral vascular accident) Code(s): I63.9 - CEREBRAL INFARCTION, UNSPECIFIED (3) Diabetes Code(s): E11.9 - TYPE 2 DIABETES MELLITUS WITHOUT COMPLICATIONS (4) Alcohol abuse Code(s): F10.10 - ALCOHOL ABUSE, UNCOMPLICATED (5) Schizophrenia Code(s): F20.9 - SCHIZOPHRENIA, UNSPECIFIED
--- NOTE | 2017-06-21 12:51 | CONSULT ---
Consult Consult Specialty:: Oncology Referred by:: Dr. Sanchez Reason for Consultation:: Liver Masses on MRI compatible with HCC. - History of Present Illness Chief Complaint: 76 year old presented 06/12 with hematemesis. Found to have varices on upper endoscopy. 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: CVA (right sided weakness) Cardio/Vascular: Yes: HTN, Hyperlipdemia Psych: Yes: Bipolar, Schizophrenia Endocrine: Yes: Diabetes Mellitus - Alcohol/Substance Use Hx Alcohol Use: No - Smoking History Smoking history: Former smoker Have you smoked in the past 12 months: No Aproximately how many cigarettes per day: 0 If you are a former smoker, when did you quit?: patient does not remember - Social History Usual Living Arrangement: Senior Care ADL: Support Services 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 History of Recent Travel: No Home Medications - Allergies Allergies/Adverse Reactions: Allergies Allergy/AdvReac Type Severity Reaction Status Date / Time No Known Drug Allergies Allergy Verified 05/17/17 08:22 - Home Medications Home Medications: Ambulatory Orders Amlodipine Besylate 10 mg PO DAILY 08/19/15 Sennosides [Senna] 2 tab PO 199910/15/16 Dextran 70/Hypromellose [Genteal Tears 0.1%-0.3% Drop] 1 drop OU DAILY 05/17/17 Docusate Sodium [Colace -] 200 mg PO DAILY 05/17/17 Levothyroxine [Synthroid -] 25 mcg PO DAILY 05/17/17 Ferrous Sulfate [Feosol] 325 mg PO TIDCM ud 06/21/17 Lactulose (Oral Use) [Cephulac -] 20 gm PO TID udc 06/21/17 Magnesium Hydrox 2400MG/30Ml [Milk of Magnesia -] 30 ml PO DAILY PRN #0 5ml Nadolol [Corgard -] 20 mg PO DAILY tablet 06/21/17 Pantoprazole Sodium [Protonix -] 40 mg PO BID tablet.ec 06/21/17 Rifaximin [Xifaxan -] 550 mg PO BID tablet 06/21/17 Sucralfate Oral Suspension [Carafate Oral Suspension -] 1 gm PO ACHS ml Family Disease History - Family Disease History Other Family History: unsure if family history of malignancy Review of Systems - Review of Systems Constitutional: denies: Loss of Appetite, Night Sweats, Weakness Eyes: denies: Blurred Vision, Double Vision HENT: denies: Ear Pain Neck: denies: Pain on Movement, Stiffness Cardiovascular: denies: Shortness of Breath Respiratory: denies: Exercise Intolerance, Hemoptysis, SOB on Exertion Gastrointestinal: reports: Vomiting Blood Genitourinary: denies: Dysuria, Frequency, Hematuria Musculoskeletal: denies: Back Pain, Muscle Weakness Integumentary: denies: Erythema Neurological: denies: Numbness, Weakness Endocrine: reports: No Symptoms Hematology/Lymphatic: reports: No Symptoms Psychiatric: reports: Other (history of schizophrenia and bipolar disorder) Physical Exam Vital Signs: Vital Signs Temperature 98.8 F 06/21/17 08:57 Pulse Rate 77 06/21/17 08:57 Respiratory Rate 18 06/21/17 08:57 Blood Pressure 140/74 06/21/17 08:57 O2 Sat by Pulse Oximetry (%) 95 06/21/17 09:00 Constitutional: Yes: No Distress Eyes: Yes: PERRL. No: Ptosis, Sclera Icterus HENT: Yes: Atraumatic, Normocephalic. No: Hoarseness, Tonsillar Exudate Neck: Yes: Supple, Trachea Midline Cardiovascular: Yes: Regular Rate and Rhythm Gastrointestinal: Yes: Normal Bowel Sounds, Soft, Splenomegaly, Other (either enlarged left lobe of liver or splenomegaly; ? fluid wave). No: Tenderness, Tenderness, Epigastrium Renal/: No: Anuria, CVA Tenderness - Left Musculoskeletal: No: Back Pain Extremities: No: Cyanosis Edema: No Neurological: Yes: Alert ...Motor Strength: WNL Psychiatric: Yes: Other (schizophrenia and bipolar by history) Labs: CBC, BMP 06/19/17 07:00 06/19/17 07:00 Imaging - Results MRI: Report Reviewed Problem List - Problems (1) Esophageal varix bleeding Assessment/Plan: Patient presented with hematemesis. Found to have esophageal varices which were banded. Required transfusion of packed cells. Code(s): I85.01 - ESOPHAGEAL VARICES WITH BLEEDING (2) Liver masses Assessment/Plan: Patient presented with hematemesis. Found to have esophageal varices which were banded. Underwent MRI of abdomen. Liver compatible with cirrhosis. Multiple enhancing masses both lobes of liver , largest measuring 8.7 x 8.1. Filling defect right portal vein, and filling defect left portal vein to bifurcation felt to be compatible with tumor embolus. Splenomegaly measuring 13.4 x 9.0 x 18.4 with gallbladder thickening and with perihepatic and perisplenic ascites. Picture felt to be most consistent with HCC. Plan : Alpha protein hepatitis profile. Problems in chart suggest alcohol abuse, but patient denies history of any alcohol. Discuss with family further investigation and history. Consider liver biopsy under CT guidance pending family/patient agreement. Question will be degree of intervention in face of underlying psychosocial history if HCC diagnosis is established. Code(s): R16.0 - HEPATOMEGALY, NOT ELSEWHERE CLASSIFIED (3) Hematemesis Code(s): K92.0 - HEMATEMESIS (4) Schizophrenia Code(s): F20.9 - SCHIZOPHRENIA, UNSPECIFIED
--- NOTE | 2017-06-21 13:23 | CONSULT ---
Consult Consult Specialty:: Oncology Referred by:: Reason for Consultation:: Liver masseson MRI - History of Present Illness Chief Complaint: Hematemesis secondary to esophageal varices. 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: CVA (right sided weakness) Cardio/Vascular: Yes: HTN, Hyperlipdemia Psych: Yes: Bipolar, Schizophrenia Endocrine: Yes: Diabetes Mellitus - Alcohol/Substance Use Hx Alcohol Use: No - Smoking History Smoking history: Former smoker Have you smoked in the past 12 months: No Aproximately how many cigarettes per day: 0 If you are a former smoker, when did you quit?: patient does not remember - Social History Usual Living Arrangement: [facility] ADL: Support Services 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 History of Recent Travel: No Home Medications - Allergies Allergies/Adverse Reactions: Allergies Allergy/AdvReac Type Severity Reaction Status Date / Time No Known Drug Allergies Allergy Verified 05/17/17 08:22 - Home Medications Home Medications: Ambulatory Orders Amlodipine Besylate 10 mg PO DAILY 08/19/15 Sennosides [Senna] 2 tab PO 199910/15/16 Dextran 70/Hypromellose [Genteal Tears 0.1%-0.3% Drop] 1 drop OU DAILY 05/17/17 Docusate Sodium [Colace -] 200 mg PO DAILY 05/17/17 Levothyroxine [Synthroid -] 25 mcg PO DAILY 05/17/17 Ferrous Sulfate [Feosol] 325 mg PO TIDCM ud 06/21/17 Lactulose (Oral Use) [Cephulac -] 20 gm PO TID udc 06/21/17 Magnesium Hydrox 2400MG/30Ml [Milk of Magnesia -] 30 ml PO DAILY PRN #0 5ml Nadolol [Corgard -] 20 mg PO DAILY tablet 06/21/17 Pantoprazole Sodium [Protonix -] 40 mg PO BID tablet.ec 06/21/17 Rifaximin [Xifaxan -] 550 mg PO BID tablet 06/21/17 Sucralfate Oral Suspension [Carafate Oral Suspension -] 1 gm PO ACHS ml Family Disease History - Family Disease History Other Family History: unsure if family history of malignancy Review of Systems - Review of Systems Constitutional: denies: Fever, Loss of Appetite, Night Sweats, Unintentional Wgt. Loss, Weakness Eyes: denies: Blurred Vision, Double Vision HENT: denies: Epistaxis, Throat Pain Neck: denies: Pain on Movement, Stiffness Respiratory: denies: Hemoptysis, SOB on Exertion Gastrointestinal: reports: Vomiting Blood Genitourinary: denies: Flank Pain, Frequency, Hematuria Musculoskeletal: denies: Back Pain Integumentary: denies: Eczema, Erythema Neurological: reports: No Symptoms Endocrine: reports: No Symptoms Hematology/Lymphatic: denies: Excessive Bleeding, Swollen Glands Psychiatric: reports: Other (By history- schizophrenia and bipolar) Physical Exam Vital Signs: Vital Signs Temperature 98.8 F 06/21/17 08:57 Pulse Rate 77 06/21/17 08:57 Respiratory Rate 18 06/21/17 08:57 Blood Pressure 140/74 06/21/17 08:57 O2 Sat by Pulse Oximetry (%) 95 06/21/17 09:00 Constitutional: Yes: No Distress Eyes: Yes: PERRL. No: Diplopia, Ptosis, Sclera Icterus HENT: Yes: Atraumatic, Normocephalic. No: Epistaxis, Hoarseness, Tonsillar Exudate Neck: Yes: Supple, Trachea Midline. No: Lymphadenopathy, Tenderness, Thyromegaly Cardiovascular: Yes: Regular Rate and Rhythm Respiratory: Yes: Regular Gastrointestinal: Yes: Soft, Splenomegaly, Other (enlarged spleen or left lobe of liver) Renal/: No: CVA Tenderness - Left, CVA Tenderness - Right Musculoskeletal: No: Muscle Pain, Muscle Weakness Extremities: No: Cold, Cyanosis, Deformity Edema: No Integumentary: No: Bruising Neurological: Yes: Alert ...Motor Strength: WNL Psychiatric: Yes: Other (reported schizophrenia) Labs: CBC, BMP 06/19/17 07:00 06/19/17 07:00 Imaging - Results MRI: Report Reviewed Problem List - Problems (1) Esophageal varix bleeding Assessment/Plan: Presented with hematemesis. Had varices which were banded. Required transfusion therapy Code(s): I85.01 - ESOPHAGEAL VARICES WITH BLEEDING (2) Liver masses Assessment/Plan: Found on liver MRI- multiple masses- largest 8.7 x 8.1 . Had splenomegaly 13.4 x 9.0 x 18.4. Gall bladder thickening Perihepatic and perisplenic ascites. Would consider discussion with family and patient to decide re intervention. Would consider I.R. Guided liver biopsy. (Check coags and platelets) Will obtain marker studies. Based upon results will need to decide level of intervention in light of psychosocial status. Code(s): R16.0 - HEPATOMEGALY, NOT ELSEWHERE CLASSIFIED (3) Hematemesis Code(s): K92.0 - HEMATEMESIS (4) Schizophrenia Code(s): F20.9 - SCHIZOPHRENIA, UNSPECIFIED (5) Thrombosis, portal vein Assessment/Plan: MRI with filling defect right portal vein and tumor thrombus left portal vein to bifurcation. In view of varices, bleeding would not anticoagulate . Code(s): I81 - PORTAL VEIN THROMBOSIS
--- NOTE | 2017-06-21 13:33 | PN ---
Progress Note, Physician History of Present Illness: No events. Appears comfortable. MRI findings noted. AFP 100. Much more awake and alert. - Current Medication List Current Medications: Active Medications Ferrous Sulfate (Feosol -) 325 mg PO TIDCM [facility] Last Admin: 06/21/17 12:06 Dose: 325 mg Lactulose (Cephulac (Oral Use)) 20 gm PO TID [facility] Last Admin: 06/21/17 06:02 Dose: 20 gm Nadolol (Corgard -) 20 mg PO DAILY [facility] Last Admin: 06/21/17 09:52 Dose: 20 mg Pantoprazole Sodium (Protonix -) 40 mg PO BID [facility] Last Admin: 06/21/17 09:53 Dose: 40 mg Rifaximin (Xifaxan -) 550 mg PO BID [facility] Last Admin: 06/21/17 09:52 Dose: 550 mg Sucralfate (Carafate Oral Suspension -) 1 gm PO ACHS [facility] Last Admin: 06/21/17 12:06 Dose: 1 gm - Objective Vital Signs: Vital Signs Temperature 98.8 F 06/21/17 08:57 Pulse Rate 77 06/21/17 08:57 Respiratory Rate 18 06/21/17 08:57 Blood Pressure 140/74 06/21/17 08:57 O2 Sat by Pulse Oximetry (%) 95 06/21/17 09:00 Constitutional: Yes: No Distress, Calm Gastrointestinal: Yes: Soft, Distention. No: Melena, Rectal Bleeding, Tenderness, Vomiting Neurological: Yes: Alert Labs: CBC, BMP 06/19/17 07:00 06/19/17 07:00 INR, PTT INR 1.26 (0.82-1.09) H 06/19/17 07:00 Problem List - Problems (1) Hematochezia Code(s): K92.1 - MELENA (2) GIB (gastrointestinal bleeding) Code(s): K92.2 - GASTROINTESTINAL HEMORRHAGE, UNSPECIFIED Qualifiers: Qualified Code(s): K92.2 - Gastrointestinal hemorrhage, unspecified (3) Esophageal varix bleeding Code(s): I85.01 - ESOPHAGEAL VARICES WITH BLEEDING (4) Esophageal varices Code(s): I85.00 - ESOPHAGEAL VARICES WITHOUT BLEEDING (5) Alcohol abuse Code(s): F10.10 - ALCOHOL ABUSE, UNCOMPLICATED Assessment/Plan Continue current care MRI abdomen suggestive of HCC. with AFP >100 HCC is likely. wuestion of underlying liver cirrhosis. Heavy alcohol use as reported by Mr Daryl Ware (Pt's son). Portal vein tumor thrombosis (in any case, may not be a great candidate for anticoagulation given the recent banding of esophageal varices) Oncology on the case Will follow
[2017-06-22] MEDS: LACTULOSE 20 GM/30 ML UDC (FOR ORAL USE ONLY) PO SCH ×3 (06:51→22:12)
[2017-06-22] MEDS: SUCRALFATE 1 GM/10 ML UNIT DOSE CUPS PO SCH ×4 (06:51→22:12)
--- NOTE | 2017-06-22 08:47 | PN ---
Progress Note (short form) - Note Progress Note: Comfortable no issues . no bleeding no pain Vital Signs Temp 99.3 F 06/22/17 05:59 Pulse 71 06/22/17 05:59 Resp 21 06/22/17 05:59 BP 128/77 06/22/17 05:59 Pulse Ox 96 06/21/17 20:52 Intake & Output 06/21/17 06/21/17 06/22/17 11:59 23:59 11:59 Intake Total 750 850 Balance 750 850 Weight 177 lb 2 oz 188 lb 5 oz Intake: Oral 750 850 Other: Voiding Method Toilet Toilet # Unmeasured Voids Void 2 2 1 Bowel Movement Yes # Bowel Movements 1 Weight Measurement Method Built in Bedscale Chair Scale Active Medications Ferrous Sulfate (Feosol -) 325 mg PO TIDCM [facility] Last Admin: 06/21/17 16:43 Dose: 325 mg Lactulose (Cephulac (Oral Use)) 20 gm PO TID [facility] Last Admin: 06/22/17 06:51 Dose: 20 gm Nadolol (Corgard -) 20 mg PO DAILY [facility] Last Admin: 06/21/17 09:52 Dose: 20 mg Pantoprazole Sodium (Protonix -) 40 mg PO BID [facility] Last Admin: 06/21/17 21:04 Dose: 40 mg Rifaximin (Xifaxan -) 550 mg PO BID [facility] Sucralfate (Carafate Oral Suspension -) 1 gm PO ACHS [facility] Last Admin: 06/22/17 06:51 Dose: 1 gm CBC, BMP 06/19/17 07:00 06/19/17 07:00 Physical exam. Constitutional: Yes: No Distress, Calm/ Comfortable. Eyes: Yes: Conjunctiva Clear, Sclera Icterus. Neck: Yes: Supple Cardiovascular: Yes: Regular Rate and Rhythm Respiratory: Yes: CTA Bilaterally Gastrointestinal: Yes: Soft/ slightly distended--- and non tender Edema: No Peripheral Pulses WNL: Yes Neurological: Yes: Alert, Other (much more awake) Psychiatric: Yes: Alert Assessment/Plan clinically stable toxic metabolic encephalopathy =-resolved. transfuse prn Lactulose----goal is 2-3 soft bowel movements daily monitor ammonia level- Hep C + also continue present care. MRI - Abdomen --noted oncology consult noted / appreciated. will discuss. will follow. Problem List - Problems (1) Esophageal varices determined by endoscopy Code(s): I85.00 - ESOPHAGEAL VARICES WITHOUT BLEEDING (2) CVA (cerebral vascular accident) Code(s): I63.9 - CEREBRAL INFARCTION, UNSPECIFIED (3) Diabetes Code(s): E11.9 - TYPE 2 DIABETES MELLITUS WITHOUT COMPLICATIONS (4) Alcohol abuse Code(s): F10.10 - ALCOHOL ABUSE, UNCOMPLICATED (5) Schizophrenia Code(s): F20.9 - SCHIZOPHRENIA, UNSPECIFIED
--- NOTE | 2017-06-22 09:05 | PN ---
Progress Note, Physician History of Present Illness: No events. Comfortable. Much more awake and alert. - Current Medication List Current Medications: Active Medications Ferrous Sulfate (Feosol -) 325 mg PO TIDCM [facility] Last Admin: 06/21/17 16:43 Dose: 325 mg Lactulose (Cephulac (Oral Use)) 20 gm PO TID [facility] Last Admin: 06/22/17 06:51 Dose: 20 gm Nadolol (Corgard -) 20 mg PO DAILY [facility] Last Admin: 06/21/17 09:52 Dose: 20 mg Pantoprazole Sodium (Protonix -) 40 mg PO BID [facility] Last Admin: 06/21/17 21:04 Dose: 40 mg Rifaximin (Xifaxan -) 550 mg PO BID [facility] Sucralfate (Carafate Oral Suspension -) 1 gm PO ACHS [facility] Last Admin: 06/22/17 06:51 Dose: 1 gm - Objective Vital Signs: Vital Signs Temperature 99.3 F 06/22/17 05:59 Pulse Rate 71 06/22/17 05:59 Respiratory Rate 21 06/22/17 05:59 Blood Pressure 128/77 06/22/17 05:59 O2 Sat by Pulse Oximetry (%) 96 06/21/17 20:52 Constitutional: Yes: No Distress Gastrointestinal: Yes: Soft, Distention. No: Tenderness Neurological: Yes: Alert Labs: CBC, BMP 06/19/17 07:00 06/19/17 07:00 INR, PTT INR 1.26 (0.82-1.09) H 06/19/17 07:00 Problem List - Problems (1) Hematochezia Code(s): K92.1 - MELENA (2) GIB (gastrointestinal bleeding) Code(s): K92.2 - GASTROINTESTINAL HEMORRHAGE, UNSPECIFIED Qualifiers: GI bleed type/associated pathology: unspecified gastrointestinal hemorrhage type Qualified Code(s): K92.2 - Gastrointestinal hemorrhage, unspecified (3) Esophageal varix bleeding Code(s): I85.01 - ESOPHAGEAL VARICES WITH BLEEDING (4) Esophageal varices Code(s): I85.00 - ESOPHAGEAL VARICES WITHOUT BLEEDING (5) Alcohol abuse Code(s): F10.10 - ALCOHOL ABUSE, UNCOMPLICATED (6) HCC (hepatocellular carcinoma) Code(s): C22.0 - LIVER CELL CARCINOMA Assessment/Plan MRI abdomen suggestive of HCC. with AFP >100 HCC is likely. question of underlying liver cirrhosis. Heavy alcohol use as reported by Mr Daryl Ware (Pt's son). Portal vein tumor/clot thrombosis (in any case, may not be a great candidate for anticoagulation given the recent banding of esophageal varices) Oncology work up
[2017-06-22] MEDS ORDERED: PT OWN MED DRAWER 7, Y5N ONE (09:17)
[2017-06-22] MEDS: RIFAXIMIN 550 MG TABLET (UD) PO SCH ×2 (09:19→22:12)
[2017-06-22] MEDS: FERROUS SO4 325 MG TABLET (FP) PO SCH ×3 (09:19→16:32)
[2017-06-22] MEDS: PANTOPRAZOLE 40 MG TABLET (FP) PO SCH ×2 (09:19→22:12)
[2017-06-22] MEDS: NADOLOL 20 MG TABLET (FP) PO SCH (09:19)
--- NOTE | 2017-06-22 14:41 | PN ---
Progress Note (short form) - Note Progress Note: seen and examined Constitutional: Yes: No Distress, Calm/ Comfortable Eyes: Yes: Conjunctiva Clear, Sclera Icterus Neck: Yes: Supple Cardiovascular: Yes: Regular Rate and Rhythm Respiratory: Yes: CTA Bilaterally Gastrointestinal: Yes: Soft/ slightly distended--- and non tender Edema: No Peripheral Pulses WNL: Yes Neurological: Yes: Alert, Other (much more awake) Psychiatric: Yes: Alert Last Vital Signs Temp Pulse Resp BP Pulse Ox 98.0 F 69 20 139/78 96 06/22/17 08:00 06/22/17 08:00 06/22/17 08:00 06/22/17 08:00 06/22/17 08:00 CBC, BMP 06/19/17 07:00 06/19/17 07:00 Current Medications Generic Name Dose Route Start Last Admin Trade Name Freq PRN Reason Stop Dose Admin Ferrous Sulfate 325 mg 06/15/17 12:00 06/22/17 11:38 Feosol - PO 325 mg TIDCM [facility]ENITA Administration Lactulose 20 gm 06/16/17 14:00 06/22/17 06:51 Cephulac (Oral Use) PO 20 gm TID [facility]ENITA Administration Nadolol 20 mg 06/15/17 10:00 06/22/17 09:19 Corgard - PO 20 mg DAILY [facility]ENITA Administration Pantoprazole Sodium 40 mg 06/15/17 11:45 06/22/17 09:19 Protonix - PO 40 mg BID [facility]ENITA Administration Rifaximin 550 mg 06/22/17 10:00 06/22/17 09:19 Xifaxan - PO 550 mg BID [facility]ENITA Administration Sucralfate 1 gm 06/21/17 07:00 06/22/17 10:31 Carafate Oral Suspension - PO 1 gm ACHS [facility] Administration likely multifocal HCC ( hepC/Alcohol ) will need to d/w family for invasive tests Problem List - Problems (1) Anemia Code(s): D64.9 - ANEMIA, UNSPECIFIED Qualifiers: Anemia type: unspecified type Qualified Code(s): D64.9 - Anemia, unspecified (2) Alcohol abuse Code(s): F10.10 - ALCOHOL ABUSE, UNCOMPLICATED (3) HCC (hepatocellular carcinoma) Code(s): C22.0 - LIVER CELL CARCINOMA (4) Esophageal varix bleeding Code(s): I85.01 - ESOPHAGEAL VARICES WITH BLEEDING (5) Thrombosis, portal vein Code(s): I81 - PORTAL VEIN THROMBOSIS
[2017-06-23] MEDS: SUCRALFATE 1 GM/10 ML UNIT DOSE CUPS PO SCH ×4 (06:04→22:01)
[2017-06-23] MEDS: LACTULOSE 20 GM/30 ML UDC (FOR ORAL USE ONLY) PO SCH ×3 (06:04→22:01)
[2017-06-23 06:06] LABS: CARCINOEMBRYONIC ANTIGEN 2.5 ng/mL (0.0-4.7)
[2017-06-23 08:55] LABS: INR 1.21 (0.82-1.09); PROTHROMBIN TIME (PATIENT) 13.7 SEC (9.98-11.88)
[2017-06-23 08:58] LABS: ACTIVATED PTT 31.1 SECONDS (26.9-34.4)
[2017-06-23] MEDS: PANTOPRAZOLE 40 MG TABLET (FP) PO SCH ×2 (09:04→22:01)
[2017-06-23] MEDS: FERROUS SO4 325 MG TABLET (FP) PO SCH ×3 (09:05→17:28)
[2017-06-23] MEDS: NADOLOL 20 MG TABLET (FP) PO SCH (09:06)
[2017-06-23] MEDS: RIFAXIMIN 550 MG TABLET (UD) PO SCH ×2 (09:07→22:00)
--- NOTE | 2017-06-23 09:45 | PN ---
Progress Note (short form) - Note Progress Note: pt seen/examined comfortable denies pain Vital Signs Temp 98.4 F 06/23/17 06:09 Pulse 76 06/23/17 06:09 Resp 20 06/23/17 06:09 BP 145/61 06/23/17 06:09 Pulse Ox 95 06/22/17 21:00 Intake & Output 06/22/17 06/22/17 06/23/17 11:59 23:59 11:59 Intake Total 450 675 200 Balance 450 675 200 Weight 188 lb 5 oz 182 lb Intake: Oral 450 675 200 Other: Voiding Method Urinal Toilet # Unmeasured Voids Void 3 2 1 Bowel Movement Yes Yes # Bowel Movements 1 1 Weight Measurement Method Chair Scale Built in [facility] Active Medications Ferrous Sulfate (Feosol -) 325 mg PO TIDCM [facility] Last Admin: 06/23/17 09:05 Dose: 325 mg Lactulose (Cephulac (Oral Use)) 20 gm PO TID [facility] Last Admin: 06/23/17 06:04 Dose: 20 gm Nadolol (Corgard -) 20 mg PO DAILY [facility] Last Admin: 06/23/17 09:06 Dose: 20 mg Pantoprazole Sodium (Protonix -) 40 mg PO BID [facility] Last Admin: 06/23/17 09:04 Dose: 40 mg Rifaximin (Xifaxan -) 550 mg PO BID [facility] Last Admin: 06/23/17 09:07 Dose: 550 mg Sucralfate (Carafate Oral Suspension -) 1 gm PO ACHS [facility] Last Admin: 06/23/17 06:04 Dose: 1 gm CBC, BMP 06/19/17 07:00 06/19/17 07:00 Physical exam. Constitutional: Yes: No Distress, Calm/ Comfortable. Eyes: Yes: Conjunctiva Clear, Sclera Icterus. Neck: Yes: Supple Cardiovascular: Yes: Regular Rate and Rhythm. Respiratory: Yes: CTA Bilaterally Gastrointestinal: Yes: Soft/ slightly distended--- and non tender Edema: No Peripheral Pulses WNL: Yes Neurological: Yes: Alert, Other (much more awake) Psychiatric: Yes: Alert Assessment/Plan clinically stable toxic metabolic encephalopathy =-resolved. transfuse prn Lactulose----goal is 2-3 soft bowel movements daily monitor ammonia level- Hep C + also continue present care. MRI - Abdomen --[facility] oncology consult noted / appreciated. discussed with pts son in detail today. he will think and will let us know pt himself unable to make decision - i dont believe pt has capacity. Problem List - Problems (1) Esophageal varices determined by endoscopy Code(s): I85.00 - ESOPHAGEAL VARICES WITHOUT BLEEDING (2) CVA (cerebral vascular accident) Code(s): I63.9 - CEREBRAL INFARCTION, UNSPECIFIED (3) Diabetes Code(s): E11.9 - TYPE 2 DIABETES MELLITUS WITHOUT COMPLICATIONS (4) Alcohol abuse Code(s): F10.10 - ALCOHOL ABUSE, UNCOMPLICATED (5) Schizophrenia Code(s): F20.9 - SCHIZOPHRENIA, UNSPECIFIED
--- NOTE | 2017-06-23 18:03 | PN ---
Progress Note (short form) - Note Progress Note: seen and examined ROS unobtainable, he only tells that he wanted to go home. also assessed his Mental status through RN for him today, agrees that his mental status is not par/great. Constitutional: Yes: No Distress, Calm/ Comfortable Eyes: Yes: Conjunctiva Clear, Sclera Icterus Neck: Yes: Supple Cardiovascular: Yes: Regular Rate and Rhythm Respiratory: Yes: CTA Bilaterally Gastrointestinal: Yes: Soft/ slightly distended--- and non tender Edema: No Peripheral Pulses WNL: Yes Neurological: Yes: Alert, Other (much more awake) Psychiatric: Yes: Alert Last Vital Signs Temp Pulse Resp BP Pulse Ox 98.4 F 80 16 137/82 97 06/23/17 14:43 06/23/17 14:43 06/23/17 10:00 06/23/17 14:43 06/23/17 09:00 CBC, BMP 06/19/17 07:00 06/19/17 07:00 Current Medications Generic Name Dose Route Start Last Admin Trade Name Nai PRN Reason Stop Dose Admin Ferrous Sulfate 325 mg 06/15/17 12:00 06/23/17 17:28 Feosol - PO 325 mg TIDCM [facility] Administration Lactulose 20 gm 06/16/17 14:00 06/23/17 14:27 Cephulac (Oral Use) PO 20 gm TID [facility] Administration Nadolol 20 mg 06/15/17 10:00 06/23/17 09:06 Corgard - PO 20 mg DAILY [facility] Administration Pantoprazole Sodium 40 mg 06/15/17 11:45 06/23/17 09:04 Protonix - PO 40 mg BID [facility] Administration Rifaximin 550 mg 06/22/17 10:00 06/23/17 09:07 Xifaxan - PO 550 mg BID [facility] Administration Sucralfate 1 gm 06/21/17 07:00 06/23/17 17:27 Carafate Oral Suspension - PO 1 gm ACHS [facility] Administration likely multifocal HCC ( hepC/Alcohol ) in a 76 year old pt. Poor PS/Poor mentation. Portal vein tumor thrombus GIB variceal ascites child patel B for now assess for paracentesis' spoke to son, reportedly was told by his father that he prefers conservative management. He is coming in tomorrow , he will talk to his father and also to his and make an informed decision about further steps Problem List - Problems (1) Anemia Code(s): D64.9 - ANEMIA, UNSPECIFIED Qualifiers: Anemia type: unspecified type Qualified Code(s): D64.9 - Anemia, unspecified (2) Alcohol abuse Code(s): F10.10 - ALCOHOL ABUSE, UNCOMPLICATED (3) HCC (hepatocellular carcinoma) Code(s): C22.0 - LIVER CELL CARCINOMA (4) Esophageal varix bleeding Code(s): I85.01 - ESOPHAGEAL VARICES WITH BLEEDING (5) Thrombosis, portal vein Code(s): I81 - PORTAL VEIN THROMBOSIS
[2017-06-24 00:06] LABS: HBSAG SCREEN Negative (Negative); HEP A AB, IGM Negative (Negative); HEP B CORE AB, TOT Positive (Negative)
[2017-06-24] MEDS: SUCRALFATE 1 GM/10 ML UNIT DOSE CUPS PO SCH ×4 (06:03→21:08)
[2017-06-24] MEDS: LACTULOSE 20 GM/30 ML UDC (FOR ORAL USE ONLY) PO SCH ×3 (06:03→21:08)
[2017-06-24] MEDS: FERROUS SO4 325 MG TABLET (FP) PO SCH ×3 (09:03→16:53)
--- NOTE | 2017-06-24 09:44 | PN ---
Progress Note (short form) - Note Progress Note: comfortable no new issues denies pain. Vital Signs Temp 98.7 F 06/24/17 05:58 Pulse 77 06/24/17 05:58 Resp 20 06/24/17 05:58 BP 136/64 06/24/17 05:58 Pulse Ox 95 06/23/17 21:00 Intake & Output 06/23/17 06/23/17 06/24/17 11:59 23:59 11:59 Intake Total 650 925 300 Balance 650 925 300 Weight 182 lb 182 lb 8 oz Intake: Oral 650 925 300 Other: Voiding Method Toilet Toilet # Unmeasured Voids Void 2 3 2 Bowel Movement Yes Yes # Bowel Movements 1 1 Weight Measurement Method Built in Bedscale Built in Bedscale Active Medications Ferrous Sulfate (Feosol -) 325 mg PO TIDCM [facility] Last Admin: 06/24/17 09:03 Dose: Not Given Lactulose (Cephulac (Oral Use)) 20 gm PO TID [facility] Last Admin: 06/24/17 06:03 Dose: 20 gm Nadolol (Corgard -) 20 mg PO DAILY [facility] Last Admin: 06/23/17 09:06 Dose: 20 mg Pantoprazole Sodium (Protonix -) 40 mg PO BID [facility] Last Admin: 06/23/17 22:01 Dose: 40 mg Rifaximin (Xifaxan -) 550 mg PO BID [facility] Last Admin: 06/23/17 22:00 Dose: 550 mg Sucralfate (Carafate Oral Suspension -) 1 gm PO ACHS [facility] Last Admin: 06/24/17 06:03 Dose: 1 gm CBC, BMP 06/19/17 07:00 06/19/17 07:00 u/s abdomen- moderate ascitis Physical exam. Constitutional: Yes: No Distress, Calm/ Comfortable. Eyes: Yes: Conjunctiva Clear, Sclera Icterus. Neck: Yes: Supple Cardiovascular: Yes: Regular Rate and Rhythm. Respiratory: Yes: CTA Bilaterally Gastrointestinal: Yes: Soft/ slightly distended--- and non tender Edema: No Peripheral Pulses WNL: Yes Neurological: Yes: Alert, Other (much more awake) Psychiatric: Yes: Alert Assessment/Plan clinically stable toxic metabolic encephalopathy =-resolved. transfuse prn Lactulose----goal is 2-3 soft bowel movements daily monitor ammonia level- Hep C + also continue present care. MRI - Abdomen --[facility] oncology consult noted / appreciated. discussed with pts son in detail he will think and will let us know-- awaiting his decision pt himself unable to make decision - i dont believe pt has capacity. Discussed with Dr. Johnson also today. will follow discussed with case preparer and liner also. Problem List - Problems (1) Esophageal varices determined by endoscopy Code(s): I85.00 - ESOPHAGEAL VARICES WITHOUT BLEEDING (2) CVA (cerebral vascular accident) Code(s): I63.9 - CEREBRAL INFARCTION, UNSPECIFIED (3) Diabetes Code(s): E11.9 - TYPE 2 DIABETES MELLITUS WITHOUT COMPLICATIONS (4) Alcohol abuse Code(s): F10.10 - ALCOHOL ABUSE, UNCOMPLICATED (5) Schizophrenia Code(s): F20.9 - SCHIZOPHRENIA, UNSPECIFIED
[2017-06-24] MEDS ORDERED: PT OWN MED DRAWER 7, Y5N ONE (10:02)
[2017-06-24] MEDS: PANTOPRAZOLE 40 MG TABLET (FP) PO SCH ×2 (10:09→21:08)
[2017-06-24] MEDS: NADOLOL 20 MG TABLET (FP) PO SCH (10:09)
[2017-06-24] MEDS: RIFAXIMIN 550 MG TABLET (UD) PO SCH ×2 (10:09→21:08)
[2017-06-25] MEDS: LACTULOSE 20 GM/30 ML UDC (FOR ORAL USE ONLY) PO SCH ×3 (06:23→21:38)
[2017-06-25] MEDS: SUCRALFATE 1 GM/10 ML UNIT DOSE CUPS PO SCH ×4 (06:23→21:38)
--- NOTE | 2017-06-25 09:48 | PN ---
Progress Note (short form) - Note Progress Note: patient seen and examined today Complains of some abdominal discomfort today Denies nausea and vomiting No bleeding tolerating diet Afebrile Vital Signs Temp 98.4 F 06/25/17 06:00 Pulse 83 06/25/17 06:00 Resp 20 06/24/17 22:53 BP 138/61 06/25/17 06:00 Pulse Ox 96 06/24/17 20:50 Intake & Output 06/24/17 06/24/17 06/25/17 11:59 23:59 11:59 Intake Total 800 775 Balance 800 775 Weight 182 lb 8 oz 187 lb 9.6 oz Intake: Oral 800 775 Other: Voiding Method Toilet Toilet # Unmeasured Voids Void 2 3 1 Bowel Movement Yes # Bowel Movements 1 Weight Measurement Method Built in Bedscale Chair Scale Active Medications Ferrous Sulfate (Feosol -) 325 mg PO TIDCM [facility] Last Admin: 06/24/17 16:53 Dose: 325 mg Lactulose (Cephulac (Oral Use)) 20 gm PO TID [facility] Last Admin: 06/25/17 06:23 Dose: 20 gm Nadolol (Corgard -) 20 mg PO DAILY [facility] Last Admin: 06/24/17 10:09 Dose: 20 mg Pantoprazole Sodium (Protonix -) 40 mg PO BID [facility] Last Admin: 06/24/17 21:08 Dose: 40 mg Rifaximin (Xifaxan -) 550 mg PO BID [facility] Last Admin: 06/24/17 21:08 Dose: 550 mg Sucralfate (Carafate Oral Suspension -) 1 gm PO ACHS [facility] Last Admin: 06/25/17 06:23 Dose: 1 gm CBC, BMP 06/19/17 07:00 06/19/17 07:00 Physical exam. Constitutional: Yes: No Distress, Calm/ Comfortable. Eyes: Yes: Conjunctiva Clear, Sclera Icterus. Neck: Yes: Supple Cardiovascular: Yes: Regular Rate and Rhythm. Respiratory: Yes: CTA Bilaterally Gastrointestinal: Yes: Soft/ more distended--- minimal tender on deep palpation Bowel sounds present No rigidity or rebound Edema: No Peripheral Pulses WNL: Yes Neurological: Yes: Alert, Other (much more awake) Psychiatric: Yes: Alert Assessment/Plan clinically stable abdominal pain Ascites Discussed with nursing staff Should benefit from paracentesis--ordered Will follow Family to follow also --regarding further plan of care Will discuss with oncology also Problem List - Problems (1) Esophageal varices determined by endoscopy Code(s): I85.00 - ESOPHAGEAL VARICES WITHOUT BLEEDING (2) CVA (cerebral vascular accident) Code(s): I63.9 - CEREBRAL INFARCTION, UNSPECIFIED (3) Diabetes Code(s): E11.9 - TYPE 2 DIABETES MELLITUS WITHOUT COMPLICATIONS (4) Alcohol abuse Code(s): F10.10 - ALCOHOL ABUSE, UNCOMPLICATED (5) Schizophrenia Code(s): F20.9 - SCHIZOPHRENIA, UNSPECIFIED
[2017-06-25] MEDS ORDERED: PT OWN MED DRAWER 7, Y5N ONE (09:58)
[2017-06-25] MEDS: NADOLOL 20 MG TABLET (FP) PO SCH (10:02)
[2017-06-25] MEDS: FERROUS SO4 325 MG TABLET (FP) PO SCH ×3 (10:02→16:43)
[2017-06-25] MEDS: PANTOPRAZOLE 40 MG TABLET (FP) PO SCH ×2 (10:02→21:38)
[2017-06-25] MEDS: RIFAXIMIN 550 MG TABLET (UD) PO SCH ×2 (10:02→21:38)
[2017-06-25 10:45] LABS: BASO % 0.8 % (0-2.0); HEMOGLOBIN 8.2 GM/dL (11.7-16.9); LYMPH % 22.4 % (8-40); MCH 27.3 pg (25.7-33.7); MCHC 31.4 g/dl (32.0-35.9); MEAN PLT VOLUME 8.5 fl (7.5-11.1); NEUT % 57.8 % (42.8-82.8); PLATELET COUNT 211 K/MM3 (134-434); RBC 2.99 M/mm3 (4.00-5.60); WHITE BLOOD COUNT 3.1 K/mm3 (4.0-10.0)
[2017-06-25 10:59] LABS: INR 1.18 (0.82-1.09); PROTHROMBIN TIME (PATIENT) 13.3 SEC (9.98-11.88)
[2017-06-25 11:09] LABS: ALBUMIN 2.1 g/dl (3.4-5.0); ALK PHOS 474 U/L (45-117); ANION GAP 7 (8-16); BILIRUBIN,TOTAL 0.7 mg/dL (0.2-1.0); BLOOD UREA NITROGEN 13 mg/dL (7-18); CALCIUM 8.9 mg/dL (8.5-10.1); CHLORIDE 104 mmol/L (98-107); CO2 27 mmol/L (21-32); CREATININE 0.9 mg/dL (0.7-1.3); GLUCOSE,RANDOM 202 mg/dL (74-106); POTASSIUM 4.4 mmol/L (3.5-5.1); SGOT/AST 108 U/L (15-37); SGPT/ALT 71 U/L (12-78); SODIUM 138 mmol/L (136-145); TOT PROT 6.9 g/dl (6.4-8.2)
--- NOTE | 2017-06-25 20:33 | PN ---
Progress Note (short form) - Note Progress Note: Patient seen and examined' Denies any complaints Confused Last Vital Signs Temp Pulse Resp BP Pulse Ox 97.7 F 73 19 101/41 96 06/25/17 18:00 06/25/17 18:00 06/25/17 18:00 06/25/17 18:00 06/24/17 20:50 Cor: RSR, No murmurs, No gallops Lungs: Clear to P&A Abd: Soft, Normal bowel sounds, ascites+ Ext:No significant edema Abnormal Lab Results 06/25/17 06/25/17 06/25/17 10:05 10:05 10:05 WBC 3.1 L D RBC 2.99 L Hgb 8.2 L Hct 26.0 L MCHC 31.4 L RDW 17.0 H Monocytes % 18.0 H PT with INR 13.30 H INR 1.18 H Anion Gap 7 L Random Glucose 202 H D AST 108 H Alkaline Phosphatase 474 H Albumin 2.1 L Active Medications Ferrous Sulfate (Feosol -) 325 mg PO TIDCM [facility] Last Admin: 06/25/17 16:43 Dose: 325 mg Lactulose (Cephulac (Oral Use)) 20 gm PO TID [facility] Last Admin: 06/25/17 14:47 Dose: 20 gm Nadolol (Corgard -) 20 mg PO DAILY [facility] Last Admin: 06/25/17 10:02 Dose: 20 mg Pantoprazole Sodium (Protonix -) 40 mg PO BID [facility] Last Admin: 06/25/17 10:02 Dose: 40 mg Rifaximin (Xifaxan -) 550 mg PO BID [facility] Last Admin: 06/25/17 10:02 Dose: 550 mg Sucralfate (Carafate Oral Suspension -) 1 gm PO ACHS [facility] Last Admin: 06/25/17 16:43 Dose: 1 gm A/P 76 y/o patient with likely multifocal HCC ( hepC/Alcohol ) in a 76 year old pt. Poor PS/Poor mentation. 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 UPdated them about prognosis,poor hepatic function, advaanced disease, limited options. They are agreeable to paracentesis and possible peritoneal drain in future for comfort. They understand and want to discuss with social security specialist rgarding placement
[2017-06-26] MEDS: SUCRALFATE 1 GM/10 ML UNIT DOSE CUPS PO SCH ×4 (06:02→22:19)
[2017-06-26] MEDS: LACTULOSE 20 GM/30 ML UDC (FOR ORAL USE ONLY) PO SCH ×3 (06:02→22:19)
[2017-06-26] MEDS ORDERED: PT OWN MED DRAWER 7, Y5N ONE (10:22)
--- NOTE | 2017-06-26 10:27 | PN ---
Progress Note (short form) - Note Progress Note: comfortable denies pain. oncology f/u noted agree that - conservative approach is more appropriate considering his condition Vital Signs Temp 98.5 F 06/26/17 09:17 Pulse 73 06/26/17 09:17 Resp 20 06/26/17 09:17 BP 118/58 06/26/17 09:17 Pulse Ox 95 06/25/17 21:00 Intake & Output 06/25/17 06/25/17 06/26/17 11:59 23:59 11:59 Intake Total 300 600 250 Balance 300 600 250 Weight 187 lb 9.6 oz 184 lb 6 oz Intake: Oral 300 600 250 Other: Voiding Method Toilet Toilet # Unmeasured Voids Void 1 2 1 Bowel Movement Yes # Bowel Movements 1 Weight Measurement Method Chair Scale Built in [facility] Active Medications Ferrous Sulfate (Feosol -) 325 mg PO TIDCM [facility] Last Admin: 06/25/17 16:43 Dose: 325 mg Lactulose (Cephulac (Oral Use)) 20 gm PO TID [facility] Last Admin: 06/26/17 06:02 Dose: 20 gm Nadolol (Corgard -) 20 mg PO DAILY [facility] Last Admin: 06/25/17 10:02 Dose: 20 mg Pantoprazole Sodium (Protonix -) 40 mg PO BID [facility] Last Admin: 06/25/17 21:38 Dose: 40 mg Rifaximin (Xifaxan -) 550 mg PO BID [facility] Last Admin: 06/25/17 21:38 Dose: 550 mg Sucralfate (Carafate Oral Suspension -) 1 gm PO ACHS [facility] Last Admin: 06/26/17 06:02 Dose: 1 gm CBC, BMP 06/25/17 10:05 06/25/17 10:05 Physical exam. Constitutional: Yes: No Distress, Calm/ Comfortable. Eyes: Yes: Conjunctiva Clear, Sclera Icterus. Neck: Yes: Supple Cardiovascular: Yes: Regular Rate and Rhythm. Respiratory: Yes: CTA Bilaterally Gastrointestinal: Yes: Soft/ distended . non tender Bowel sounds present No rigidity or rebound Edema: No Peripheral Pulses WNL: Yes Neurological: Yes: Alert, Psychiatric: Yes: Alert Assessment/Plan clinically stable abdominal pain Ascites Discussed with nursing staff paracentesis--for palliation Will follow Problem List - Problems (1) Esophageal varices determined by endoscopy Code(s): I85.00 - ESOPHAGEAL VARICES WITHOUT BLEEDING (2) CVA (cerebral vascular accident) Code(s): I63.9 - CEREBRAL INFARCTION, UNSPECIFIED (3) Diabetes Code(s): E11.9 - TYPE 2 DIABETES MELLITUS WITHOUT COMPLICATIONS (4) Alcohol abuse Code(s): F10.10 - ALCOHOL ABUSE, UNCOMPLICATED (5) Schizophrenia Code(s): F20.9 - SCHIZOPHRENIA, UNSPECIFIED
[2017-06-26] MEDS: NADOLOL 20 MG TABLET (FP) PO SCH (10:28)
[2017-06-26] MEDS: PANTOPRAZOLE 40 MG TABLET (FP) PO SCH ×2 (10:28→22:19)
[2017-06-26] MEDS: RIFAXIMIN 550 MG TABLET (UD) PO SCH ×2 (10:28→22:19)
[2017-06-26] MEDS: FERROUS SO4 325 MG TABLET (FP) PO SCH ×3 (10:28→17:28)
[2017-06-27] MEDS: LACTULOSE 20 GM/30 ML UDC (FOR ORAL USE ONLY) PO SCH ×3 (06:18→22:07)
[2017-06-27] MEDS: SUCRALFATE 1 GM/10 ML UNIT DOSE CUPS PO SCH ×4 (06:18→22:07)
[2017-06-27] MEDS ORDERED: PT OWN MED DRAWER 7, Y5N ONE ×2 (10:23→22:06)
[2017-06-27] MEDS: FERROUS SO4 325 MG TABLET (FP) PO SCH ×3 (10:34→17:54)
[2017-06-27] MEDS: PANTOPRAZOLE 40 MG TABLET (FP) PO SCH ×2 (10:34→22:07)
[2017-06-27] MEDS: RIFAXIMIN 550 MG TABLET (UD) PO SCH ×2 (10:34→22:07)
[2017-06-27] MEDS: NADOLOL 20 MG TABLET (FP) PO SCH (10:34)
--- NOTE | 2017-06-27 13:08 | PN ---
Progress Note (short form) - Note Progress Note: comfortable no new events Vital Signs Temp 99.0 F 06/27/17 09:00 Pulse 78 06/27/17 09:00 Resp 18 06/27/17 09:00 BP 112/67 06/27/17 09:00 Pulse Ox 95 06/26/17 21:00 Intake & Output 06/26/17 06/27/17 06/27/17 23:59 11:59 23:59 Intake Total 1050 800 Balance 1050 800 Weight 192 lb Intake: Oral 1050 800 Other: Voiding Method Toilet Toilet # Unmeasured Voids Void 1 2 Bowel Movement No # Bowel Movements 2 Weight Measurement Method Chair Scale Active Medications Ferrous Sulfate (Feosol -) 325 mg PO TIDCM [facility] Last Admin: 06/27/17 10:34 Dose: 325 mg Lactulose (Cephulac (Oral Use)) 20 gm PO TID [facility] Last Admin: 06/27/17 06:18 Dose: 20 gm Nadolol (Corgard -) 20 mg PO DAILY [facility] Last Admin: 06/27/17 10:34 Dose: 20 mg Pantoprazole Sodium (Protonix -) 40 mg PO BID [facility] Last Admin: 06/27/17 10:34 Dose: 40 mg Rifaximin (Xifaxan -) 550 mg PO BID [facility] Last Admin: 06/27/17 10:34 Dose: 550 mg Sucralfate (Carafate Oral Suspension -) 1 gm PO ACHS [facility] Last Admin: 06/27/17 10:33 Dose: 1 gm CBC, BMP 06/25/17 10:05 06/25/17 10:05 Physical exam. Constitutional: Yes: No Distress, Calm/ Comfortable. Eyes: Yes: Conjunctiva Clear, Sclera Icterus. Neck: Yes: Supple Cardiovascular: Yes: Regular Rate and Rhythm. Respiratory: Yes: CTA Bilaterally Gastrointestinal: Yes: Soft/ distended . non tender Bowel sounds present No rigidity or rebound Edema: No Peripheral Pulses WNL: Yes Neurological: Yes: Alert, Psychiatric: Yes: Alert Assessment/Plan clinically stable abdominal pain Ascites Discussed with nursing staff paracentesis--for palliation-- likely tomorrow Will follow Problem List - Problems (1) Esophageal varices determined by endoscopy Code(s): I85.00 - ESOPHAGEAL VARICES WITHOUT BLEEDING (2) CVA (cerebral vascular accident) Code(s): I63.9 - CEREBRAL INFARCTION, UNSPECIFIED (3) Diabetes Code(s): E11.9 - TYPE 2 DIABETES MELLITUS WITHOUT COMPLICATIONS (4) Alcohol abuse Code(s): F10.10 - ALCOHOL ABUSE, UNCOMPLICATED (5) Schizophrenia Code(s): F20.9 - SCHIZOPHRENIA, UNSPECIFIED
[2017-06-27] MEDS ORDERED: LEVOFLOXACIN 500 MG IVPB 500 MG/100 ML BAG IVPB ONE (19:45)
[2017-06-27 22:06] LABS: ANION GAP 6 (8-16); BILIRUBIN,TOTAL 0.8 mg/dL (0.2-1.0); BLOOD UREA NITROGEN 12 mg/dL (7-18); CALCIUM 7.7 mg/dL (8.5-10.1); CHLORIDE 104 mmol/L (98-107); CO2 25 mmol/L (21-32); CREATININE 0.9 mg/dL (0.7-1.3); GLUCOSE,RANDOM 148 mg/dL (74-106); POTASSIUM 4.4 mmol/L (3.5-5.1); SGOT/AST 99 U/L (15-37); SGPT/ALT 78 U/L (12-78); SODIUM 135 mmol/L (136-145); TOT PROT 6.7 g/dl (6.4-8.2)
[2017-06-27 22:07] LABS: ALK PHOS 479 U/L (45-117)
[2017-06-27 22:09] LABS: HEMATOCRIT 26.6 % (35.4-49); HEMOGLOBIN 8.4 GM/dL (11.7-16.9); MCH 27.7 pg (25.7-33.7); MCHC 31.8 g/dl (32.0-35.9); MEAN CELL VOLUME 87.2 fl (80-96); PLATELET COUNT 193 K/MM3 (134-434); RBC 3.05 M/mm3 (4.00-5.60); RDW 17.2 % (11.9-15.9); WHITE BLOOD COUNT 2.7 K/mm3 (4.0-10.0)
[2017-06-27 23:38] LABS: ANISOCYTOSIS 2+; MACROCYTOSIS 1+; PLATELET ESTIMATE ADEQUATE
[2017-06-28] MEDS ORDERED: LEVOFLOXACIN 500 MG IVPB 500 MG/100 ML BAG IVPB ONE (03:00)
[2017-06-28] MEDS: LACTULOSE 20 GM/30 ML UDC (FOR ORAL USE ONLY) PO SCH ×3 (06:25→21:12)
[2017-06-28] MEDS: SUCRALFATE 1 GM/10 ML UNIT DOSE CUPS PO SCH ×4 (06:25→21:12)
[2017-06-28] MEDS: FERROUS SO4 325 MG TABLET (FP) PO SCH ×3 (08:01→17:26)
--- NOTE | 2017-06-28 09:03 | PN ---
Progress Note (short form) - Note Progress Note: pt seen/ examined comfortable denies pain Brad fever 101 yesterday--afebrile today denies chest pain or shortness of breath or abdominal pain Denies cough Rapid influenza screen negative Vital Signs Temp 97.9 F 06/28/17 08:00 Pulse 76 06/28/17 08:00 Resp 18 06/28/17 08:00 BP 131/76 06/28/17 08:00 Pulse Ox 95 06/27/17 22:00 Intake & Output 06/27/17 06/27/17 06/28/17 11:59 23:59 11:59 Intake Total 800 600 100 Balance 800 600 100 Weight 192 lb 190 lb 9.6 oz Intake: IVPB 100 Oral 800 600 Other: Voiding Method Toilet Toilet # Unmeasured Voids Void 2 1 1 Bowel Movement No Weight Measurement Method Chair Scale Chair Scale Active Medications Ferrous Sulfate (Feosol -) 325 mg PO TIDCM [facility] Last Admin: 06/28/17 08:01 Dose: 325 mg Lactulose (Cephulac (Oral Use)) 20 gm PO TID [facility] Last Admin: 06/28/17 06:25 Dose: 20 gm Nadolol (Corgard -) 20 mg PO DAILY [facility] Last Admin: 06/27/17 10:34 Dose: 20 mg Pantoprazole Sodium (Protonix -) 40 mg PO BID [facility] Last Admin: 06/27/17 22:07 Dose: 40 mg Rifaximin (Xifaxan -) 550 mg PO BID [facility] Last Admin: 06/27/17 22:07 Dose: 550 mg Sucralfate (Carafate Oral Suspension -) 1 gm PO ACHS [facility] Last Admin: 06/28/17 06:25 Dose: 1 gm CBC, BMP 06/27/17 20:30 06/27/17 20:35 Microbiology 06/27/17 20:30 Influenza Types A,B Antigen ([facility]) - Final Nasopharyngeal Swab - Final Physical exam. Constitutional: Yes: No Distress, Calm/ Comfortable. Eyes: Yes: Conjunctiva Clear, Sclera Icterus. Neck: Yes: Supple Cardiovascular: Yes: Regular Rate and Rhythm. Respiratory: Yes: CTA Bilaterally Gastrointestinal: Yes: Soft/ distended . non tender Bowel sounds present No rigidity or rebound Edema: No Peripheral Pulses WNL: Yes Neurological: Yes: Alert, Psychiatric: Yes: Alert Assessment/Plan clinically stable monitor for fever Cultures sent Got Levaquin yesterday Continue Levaquin empirically ID consult has been requested Patient has breakfast today Palliative paracentesis likely tomorrow Keep nothing by mouth after midnight Discussed with nursing staff/geriatric nursing assistant Overall condition remains guarded follow-up labs Will follow Problem List - Problems (1) Esophageal varices determined by endoscopy Code(s): I85.00 - ESOPHAGEAL VARICES WITHOUT BLEEDING (2) CVA (cerebral vascular accident) Code(s): I63.9 - CEREBRAL INFARCTION, UNSPECIFIED (3) Diabetes Code(s): E11.9 - TYPE 2 DIABETES MELLITUS WITHOUT COMPLICATIONS (4) Alcohol abuse Code(s): F10.10 - ALCOHOL ABUSE, UNCOMPLICATED (5) Schizophrenia Code(s): F20.9 - SCHIZOPHRENIA, UNSPECIFIED
[2017-06-28] MEDS ORDERED: PT OWN MED DRAWER 7, Y5N ONE (10:22)
[2017-06-28] MEDS: NADOLOL 20 MG TABLET (FP) PO SCH (10:24)
[2017-06-28] MEDS: PANTOPRAZOLE 40 MG TABLET (FP) PO SCH ×2 (14:46→21:12)
[2017-06-28] MEDS: RIFAXIMIN 550 MG TABLET (UD) PO SCH ×2 (14:46→21:12)
[2017-06-28 15:02] LABS: PERITONEAL RBC 37040 /mm3
[2017-06-28 15:08] LABS: TOTAL PROTEIN,PERITONEAL FLUID 1 gm/dL
[2017-06-28 16:32] LABS: PERITONEAL FLUID LYMPHOCYTE 46 %; PERITONEAL FLUID MESOTHELIAL 3 %; PERITONEAL FLUID MONOCYTE 30 %; PERITONEAL FLUID NEUTROPHIL 1 %
[2017-06-28 16:33] LABS: PERITONEAL FLUID MACROPHAGE 20 %
[2017-06-28] MEDS: LEVOFLOXACIN 500 MG IVPB 500 MG/100 ML BAG IVPB SCH (17:28)
[2017-06-29] MEDS: LACTULOSE 20 GM/30 ML UDC (FOR ORAL USE ONLY) PO SCH ×3 (06:01→21:20)
[2017-06-29] MEDS: SUCRALFATE 1 GM/10 ML UNIT DOSE CUPS PO SCH ×4 (06:01→21:20)
[2017-06-29] MEDS: FERROUS SO4 325 MG TABLET (FP) PO SCH ×3 (08:58→17:43)
[2017-06-29] MEDS ORDERED: PT OWN MED DRAWER 7, Y5N ONE (09:21)
[2017-06-29] MEDS: PANTOPRAZOLE 40 MG TABLET (FP) PO SCH ×2 (09:27→21:20)
[2017-06-29] MEDS: LEVOFLOXACIN 500 MG IVPB 500 MG/100 ML BAG IVPB SCH (09:27)
[2017-06-29] MEDS: NADOLOL 20 MG TABLET (FP) PO SCH (09:27)
[2017-06-29] MEDS: RIFAXIMIN 550 MG TABLET (UD) PO SCH ×2 (09:28→21:20)
--- NOTE | 2017-06-29 09:30 | PN ---
Progress Note (short form) - Note Progress Note: patient seen and examined Comfortable Low-grade temperature On Levaquin Denies pain About 1.5 L--fluid taken out yesterday Vital Signs Temp 100.5 F H 06/29/17 06:53 Pulse 78 06/29/17 06:53 Resp 20 06/29/17 06:53 BP 124/62 06/29/17 06:53 Pulse Ox 96 06/28/17 20:30 Intake & Output 06/28/17 06/28/17 06/29/17 11:59 23:59 11:59 Intake Total 100 800 Output Total 0 250 Balance 100 800 -250 Weight 190 lb 9.6 oz 188 lb 7 oz Intake: IVPB 100 100 Oral 700 Output: Urine 0 250 Void 0 250 Other: Voiding Method Toilet Urinal # Unmeasured Voids Void 1 3 Bowel Movement No # Bowel Movements 0 Weight Measurement Method Chair Scale [facility] Active Medications Ferrous Sulfate (Feosol -) 325 mg PO TIDCM [facility] Last Admin: 06/29/17 08:58 Dose: 325 mg Levofloxacin (Levaquin 500 Mg Premixed Ivpb -) 500 mg in 100 mls @ 100 mls/hr IVPB DAILY [facility] Last Admin: 06/29/17 09:27 Dose: 100 mls/hr Lactulose (Cephulac (Oral Use)) 20 gm PO TID [facility] Last Admin: 06/29/17 06:01 Dose: 20 gm Nadolol (Corgard -) 20 mg PO DAILY [facility] Last Admin: 06/29/17 09:27 Dose: 20 mg Pantoprazole Sodium (Protonix -) 40 mg PO BID [facility] Last Admin: 06/29/17 09:27 Dose: 40 mg Rifaximin (Xifaxan -) 550 mg PO BID [facility] Last Admin: 06/29/17 09:28 Dose: 550 mg Sucralfate (Carafate Oral Suspension -) 1 gm PO ACHS [facility] Last Admin: 06/29/17 06:01 Dose: 1 gm CBC, BMP 06/27/17 20:30 06/27/17 20:35 Microbiology 06/27/17 20:40 Blood Culture - Preliminary Blood - Peripheral Venous NO GROWTH OBTAINED AFTER 24 HOURS, INCUBATION TO CONTINUE FOR 4 DAYS. 06/27/17 20:35 Blood Culture - Preliminary Blood - Peripheral Venous NO GROWTH OBTAINED AFTER 24 HOURS, INCUBATION TO CONTINUE FOR 4 DAYS. 06/27/17 20:30 Influenza Types A,B Antigen (UMESH) - Final Nasopharyngeal Swab - Final Physical exam. Constitutional: Yes: No Distress, Calm/ Comfortable. Eyes: Yes: Conjunctiva Clear, Sclera Icterus. Neck: Yes: Supple Cardiovascular: Yes: Regular Rate and Rhythm. Respiratory: Yes: CTA Bilaterally Gastrointestinal: Yes: Soft/ decreased distention. Bowel sounds present No rigidity or rebound Edema: No Peripheral Pulses WNL: Yes Neurological: Yes: Alert, Psychiatric: Yes: Alert Assessment/Plan clinically stable continue antibiotics ID consult pending continue other meds Follow-up labs--ordered for today Will follow Follow-up cultures Problem List - Problems (1) Esophageal varices determined by endoscopy Code(s): I85.00 - ESOPHAGEAL VARICES WITHOUT BLEEDING (2) CVA (cerebral vascular accident) Code(s): I63.9 - CEREBRAL INFARCTION, UNSPECIFIED (3) Diabetes Code(s): E11.9 - TYPE 2 DIABETES MELLITUS WITHOUT COMPLICATIONS (4) Alcohol abuse Code(s): F10.10 - ALCOHOL ABUSE, UNCOMPLICATED (5) Schizophrenia Code(s): F20.9 - SCHIZOPHRENIA, UNSPECIFIED
[2017-06-29 10:58] LABS: BASO % 0.7 % (0-2.0); EOS % 0.9 % (0-4.5); HEMATOCRIT 27.7 % (35.4-49); HEMOGLOBIN 8.5 GM/dL (11.7-16.9); LYMPH % 33.8 % (8-40); MCH 26.7 pg (25.7-33.7); MCHC 30.7 g/dl (32.0-35.9); MEAN PLT VOLUME 8.8 fl (7.5-11.1); MONO % 24.4 % (3.8-10.2); NEUT % 40.2 % (42.8-82.8); PLATELET COUNT 170 K/MM3 (134-434); RBC 3.18 M/mm3 (4.00-5.60)
[2017-06-29 11:20] LABS: CHLORIDE 104 mmol/L (98-107); POTASSIUM 4.2 mmol/L (3.5-5.1); SODIUM 137 mmol/L (136-145)
[2017-06-29 11:24] LABS: ALK PHOS 493 U/L (45-117); ANION GAP 10 (8-16); BILIRUBIN,TOTAL 0.8 mg/dL (0.2-1.0); BLOOD UREA NITROGEN 13 mg/dL (7-18); CALCIUM 8.3 mg/dL (8.5-10.1); CO2 23 mmol/L (21-32); CREATININE 0.9 mg/dL (0.7-1.3); GLUCOSE,RANDOM 112 mg/dL (74-106); SGOT/AST 99 U/L (15-37); SGPT/ALT 69 U/L (12-78); TOT PROT 6.7 g/dl (6.4-8.2)
--- NOTE | 2017-06-29 14:00 | PN ---
Progress Note (short form) - Note Progress Note: seen and examined chart reviewed ROS limited Constitutional: Yes: No Distress, Calm/ Comfortable Eyes: Yes: Conjunctiva Clear, Sclera Icterus Neck: Yes: Supple Cardiovascular: Yes: Regular Rate and Rhythm Respiratory: Yes: CTA Bilaterally Gastrointestinal: Yes: Soft/ slightly distended--- and non tender Edema: No Peripheral Pulses WNL: Yes Neurological: Yes: Alert, Other (much more awake) Psychiatric: Yes: Alert Last Vital Signs Temp Pulse Resp BP Pulse Ox 100.5 F H 78 20 124/62 96 06/29/17 06:53 06/29/17 06:53 06/29/17 06:53 06/29/17 06:53 06/28/17 20:30 CBC, BMP 06/29/17 10:25 06/29/17 10:25 Current Medications Generic Name Dose Route Start Last Admin Trade Name Freq PRN Reason Stop Dose Admin Ferrous Sulfate 325 mg 06/15/17 12:00 06/29/17 11:35 Feosol - PO 325 mg TIDCM [facility] Administration Levofloxacin 500 mg in 100 mls @ 100 mls/hr 06/28/17 17:30 06/29/17 09:27 Levaquin 500 Mg Premixed Ivpb - IVPB 100 mls/hr DAILY [facility] Administration Lactulose 20 gm 06/16/17 14:00 06/29/17 06:01 Cephulac (Oral Use) PO 20 gm TID [facility] Administration Nadolol 20 mg 06/15/17 10:00 06/29/17 09:27 Corgard - PO 20 mg DAILY [facility] Administration Pantoprazole Sodium 40 mg 06/15/17 11:45 06/29/17 09:27 Protonix - PO 40 mg BID [facility] Administration Rifaximin 550 mg 06/22/17 10:00 06/29/17 09:28 Xifaxan - PO 550 mg BID [facility] Administration Sucralfate 1 gm 06/21/17 07:00 06/29/17 11:35 Carafate Oral Suspension - PO 1 gm ACHS [facility] Administration palliative care for multifocal HCC s/p paracentesis Now with fevers, ID consult pending Problem List - Problems (1) Anemia Code(s): D64.9 - ANEMIA, UNSPECIFIED Qualifiers: Anemia type: unspecified type Qualified Code(s): D64.9 - Anemia, unspecified (2) Alcohol abuse Code(s): F10.10 - ALCOHOL ABUSE, UNCOMPLICATED (3) HCC (hepatocellular carcinoma) Code(s): C22.0 - LIVER CELL CARCINOMA (4) Esophageal varix bleeding Code(s): I85.01 - ESOPHAGEAL VARICES WITH BLEEDING (5) Thrombosis, portal vein Code(s): I81 - PORTAL VEIN THROMBOSIS
[2017-06-30] MEDS: LACTULOSE 20 GM/30 ML UDC (FOR ORAL USE ONLY) PO SCH ×3 (06:25→21:38)
[2017-06-30] MEDS: SUCRALFATE 1 GM/10 ML UNIT DOSE CUPS PO SCH ×4 (06:25→21:38)
[2017-06-30] MEDS: RIFAXIMIN 550 MG TABLET (UD) PO SCH ×2 (09:35→21:38)
[2017-06-30] MEDS: FERROUS SO4 325 MG TABLET (FP) PO SCH ×3 (09:35→18:18)
[2017-06-30] MEDS: PANTOPRAZOLE 40 MG TABLET (FP) PO SCH ×2 (09:35→21:38)
[2017-06-30] MEDS: NADOLOL 20 MG TABLET (FP) PO SCH (09:35)
[2017-06-30] MEDS: LEVOFLOXACIN 500 MG IVPB 500 MG/100 ML BAG IVPB SCH (09:36)
--- NOTE | 2017-06-30 09:47 | PN ---
Progress Note (short form) - Note Progress Note: comfortable no complains denies pain. feels ok Vital Signs Temp 99.0 F 06/30/17 06:00 Pulse 70 06/30/17 06:00 Resp 19 06/30/17 06:00 BP 131/68 06/30/17 06:00 Pulse Ox 98 06/29/17 20:21 Intake & Output 06/29/17 06/29/17 06/30/17 11:59 23:59 11:59 Intake Total 800 Output Total 250 0 Balance -250 800 Weight 188 lb 7 oz 181 lb 1 oz Intake: IVPB 100 Oral 700 Output: Urine 250 0 Void 250 0 Other: Voiding Method Urinal Toilet # Unmeasured Voids Void 3 2 Bowel Movement No # Bowel Movements 0 Weight Measurement Method Built in Bedscale Built in Bedscale Active Medications Ferrous Sulfate (Feosol -) 325 mg PO TIDCM [facility] Last Admin: 06/30/17 09:35 Dose: 325 mg Levofloxacin (Levaquin 500 Mg Premixed Ivpb -) 500 mg in 100 mls @ 100 mls/hr IVPB DAILY [facility] Last Admin: 06/30/17 09:36 Dose: 100 mls/hr Lactulose (Cephulac (Oral Use)) 20 gm PO TID [facility] Last Admin: 06/30/17 06:25 Dose: 20 gm Nadolol (Corgard -) 20 mg PO DAILY [facility] Last Admin: 06/30/17 09:35 Dose: 20 mg Pantoprazole Sodium (Protonix -) 40 mg PO BID [facility] Last Admin: 06/30/17 09:35 Dose: 40 mg Rifaximin (Xifaxan -) 550 mg PO BID [facility] Last Admin: 06/30/17 09:35 Dose: 550 mg Sucralfate (Carafate Oral Suspension -) 1 gm PO ACHS [facility] Last Admin: 06/30/17 06:25 Dose: 1 gm CBC, BMP 06/29/17 10:25 06/29/17 10:25 Microbiology 06/27/17 20:40 Blood Culture - Preliminary Blood - Peripheral Venous NO GROWTH OBTAINED AFTER 48 HOURS, INCUBATION TO CONTINUE FOR 3 DAYS. 06/27/17 20:35 Blood Culture - Preliminary Blood - Peripheral Venous NO GROWTH OBTAINED AFTER 48 HOURS, INCUBATION TO CONTINUE FOR 3 DAYS. 06/28/17 12:30 TIM Preparation - Preliminary Abdomen Fungal Culture - Preliminary 06/28/17 12:30 Gram Stain - Final Abdomen Body Fluid Culture - Preliminary NO AEROBIC GROWTH, 24 HRS 06/28/17 12:30 AFB Smear Concentration - Preliminary Abdomen Mycobacterial Culture - Preliminary 06/28/17 00:30 Urine Culture - Final Urine - Urine Clean Catch NO GROWTH OBTAINED Physical exam. Constitutional: Yes: No Distress, Calm/ Comfortable. Eyes: Yes: Conjunctiva Clear, Sclera Icterus. Neck: Yes: Supple Cardiovascular: Yes: Regular Rate and Rhythm. Respiratory: Yes: CTA Bilaterally Gastrointestinal: Yes: Soft/ increased distention. Bowel sounds present No rigidity or rebound Edema: No Peripheral Pulses WNL: Yes Neurological: Yes: Alert, Psychiatric: Yes: Alert Assessment/Plan clinically stable continue antibiotics ID consult pending-- discussed with Dr. Farris - will follow continue other meds Follow-up labs--noted Follow-up cultures palliative care paracentsis prn will follow Problem List - Problems (1) Esophageal varices determined by endoscopy Code(s): I85.00 - ESOPHAGEAL VARICES WITHOUT BLEEDING (2) CVA (cerebral vascular accident) Code(s): I63.9 - CEREBRAL INFARCTION, UNSPECIFIED (3) Diabetes Code(s): E11.9 - TYPE 2 DIABETES MELLITUS WITHOUT COMPLICATIONS (4) Alcohol abuse Code(s): F10.10 - ALCOHOL ABUSE, UNCOMPLICATED (5) Schizophrenia Code(s): F20.9 - SCHIZOPHRENIA, UNSPECIFIED
--- NOTE | 2017-06-30 10:27 | CON.ID ---
Consult Consult Specialty:: infectious disease Referred by:: dr hernandez Reason for Consultation:: fever - History of Present Illness Chief Complaint: none History of Present Illness: 76 year old man admittted from [facility] on 06/11 with hemetemesis- he underwent endoscopy and was found to have grade 4 varices and underwent band ligation of the varices he had an MRI of the abdomen that showed liver masses and portal vein thrombosis he has liver cirrhosis- history of etoh use and hep c he is s/p paracentesis 06/28 he first had fever 06/27 started on levaquin on 06/28 no complaints alert knows he is at the hospital no cough no vomiting - History Source History Provided By: Patient Limitations to Obtaining History: No Limitations - Past Medical History RESOLUTION EXPERT: Yes: CVA (right sided weakness) Cardio/Vascular: Yes: HTN, Hyperlipdemia Hepatobiliary: Yes: Cirrhosis Psych: Yes: Bipolar, Schizophrenia Endocrine: Yes: Diabetes Mellitus - Alcohol/Substance Use Hx Alcohol Use: No - Smoking History Smoking history: Former smoker Have you smoked in the past 12 months: No Aproximately how many cigarettes per day: 0 If you are a former smoker, when did you quit?: patient does not remember - Social History Usual Living Arrangement: Correction ADL: Support Services 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 History of Recent Travel: No Home Medications - Allergies Allergies/Adverse Reactions: Allergies Allergy/AdvReac Type Severity Reaction Status Date / Time No Known Drug Allergies Allergy Verified 05/17/17 08:22 - Home Medications Home Medications: Ambulatory Orders Amlodipine Besylate 10 mg PO DAILY 08/19/15 Sennosides [Senna] 2 tab PO 199910/15/16 Dextran 70/Hypromellose [Genteal Tears 0.1%-0.3% Drop] 1 drop OU DAILY 05/17/17 Docusate Sodium [Colace -] 200 mg PO DAILY 05/17/17 Levothyroxine [Synthroid -] 25 mcg PO DAILY 05/17/17 Ferrous Sulfate [Feosol] 325 mg PO TIDCM ud 06/21/17 Lactulose (Oral Use) [Cephulac -] 20 gm PO TID udc 06/21/17 Magnesium Hydrox 2400MG/30Ml [Milk of Magnesia -] 30 ml PO DAILY PRN #0 5ml Nadolol [Corgard -] 20 mg PO DAILY tablet 06/21/17 Pantoprazole Sodium [Protonix -] 40 mg PO BID tablet.ec 06/21/17 Rifaximin [Xifaxan -] 550 mg PO BID tablet 06/21/17 Sucralfate Oral Suspension [Carafate Oral Suspension -] 1 gm PO ACHS ml Family Disease History - Family Disease History Family History: Unable to Obtain Other Family History: unsure if family history of malignancy Review of Systems - Review of Systems Constitutional: reports: No Symptoms. denies: Fever, Lethargy Eyes: reports: Photophobia HENT: reports: No Symptoms. denies: Difficult Swallowing Neck: reports: No Symptoms Cardiovascular: reports: No Symptoms. denies: Chest Pain Respiratory: denies: Cough, Hemoptysis, Wheezing Gastrointestinal: reports: No Symptoms Genitourinary: reports: No Symptoms Musculoskeletal: reports: No Symptoms Physical Exam Vital Signs: Vital Signs Temperature 99.0 F 06/30/17 06:00 Pulse Rate 70 06/30/17 06:00 Respiratory Rate 19 06/30/17 06:00 Blood Pressure 131/68 06/30/17 06:00 O2 Sat by Pulse Oximetry (%) 98 06/29/17 20:21 Constitutional: Yes: No Distress, Calm HENT: No: Thrush, Tonsillar Exudate Neck: Yes: Supple Cardiovascular: Yes: Regular Rate and Rhythm Respiratory: Yes: Regular, CTA Bilaterally Gastrointestinal: Yes: Normal Bowel Sounds, Soft, Ascites, Hepatomegaly, Splenomegaly ...Rectal Exam: Yes: Deferred Edema: No Psychiatric: Yes: Alert Labs: CBC, BMP 06/29/17 10:25 06/29/17 10:25 Microbiology 06/27/17 20:40 Blood - Peripheral Venous Blood Culture - Preliminary NO GROWTH OBTAINED AFTER 48 HOURS, INCUBATION TO CONTINUE FOR 3 DAYS. 06/27/17 20:35 Blood - Peripheral Venous Blood Culture - Preliminary NO GROWTH OBTAINED AFTER 48 HOURS, INCUBATION TO CONTINUE FOR 3 DAYS. 06/28/17 12:30 Abdomen TIM Preparation - Preliminary 06/28/17 12:30 Abdomen Fungal Culture - Preliminary 06/28/17 12:30 Abdomen Gram Stain - Final 06/28/17 12:30 Abdomen Body Fluid Culture - Preliminary NO AEROBIC GROWTH, 24 HRS 06/28/17 12:30 Abdomen AFB Smear Concentration - Preliminary 06/28/17 12:30 Abdomen Mycobacterial Culture - Preliminary 06/28/17 00:30 Urine - Urine Clean Catch Urine Culture - Final NO GROWTH OBTAINED 06/27/17 20:30 Nasopharyngeal Swab Influenza Types A,B Antigen (UMESH) - Final 06/27/17 20:30 Nasopharyngeal Swab - Final Imaging - Results Chest X-ray: Report Reviewed, Image Reviewed Ultrasound: Report Reviewed MRI: Report Reviewed Problem List - Problems (1) Fever Code(s): R50.9 - FEVER, UNSPECIFIED (2) HCC (hepatocellular carcinoma) Code(s): C22.0 - LIVER CELL CARCINOMA (3) Esophageal varix bleeding Code(s): I85.01 - ESOPHAGEAL VARICES WITH BLEEDING Assessment/Plan fevers appear to be resolving with negative cultures would d/c antibiotics and observe would get HIV testing for completeness if this has not been done before palliative care planning in progress for liver tumor
--- NOTE | 2017-06-30 14:59 | PN ---
Progress Note, Physician History of Present Illness: Tmax 100.5. Pain-free. Comfortable. Awake and alert. - Current Medication List Current Medications: Active Medications Ferrous Sulfate (Feosol -) 325 mg PO TIDCM [facility] Last Admin: 06/30/17 14:52 Dose: Not Given Lactulose (Cephulac (Oral Use)) 20 gm PO TID [facility] Last Admin: 06/30/17 06:25 Dose: 20 gm Nadolol (Corgard -) 20 mg PO DAILY [facility] Last Admin: 06/30/17 09:35 Dose: 20 mg Pantoprazole Sodium (Protonix -) 40 mg PO BID [facility] Last Admin: 06/30/17 09:35 Dose: 40 mg Rifaximin (Xifaxan -) 550 mg PO BID [facility] Last Admin: 06/30/17 09:35 Dose: 550 mg Sucralfate (Carafate Oral Suspension -) 1 gm PO ACHS [facility] Last Admin: 06/30/17 14:52 Dose: Not Given - Objective Vital Signs: Vital Signs Temperature 97.5 F L 06/30/17 14:00 Pulse Rate 68 06/30/17 14:00 Respiratory Rate 18 06/30/17 14:00 Blood Pressure 122/71 06/30/17 14:00 O2 Sat by Pulse Oximetry (%) 97 06/30/17 09:00 Constitutional: Yes: No Distress, Calm Gastrointestinal: Yes: Ascites. No: Tenderness, Tenderness, Epigastrium, Tenderness, Rebound, Vomiting Neurological: Yes: Alert Labs: CBC, BMP 06/29/17 10:25 06/29/17 10:25 INR, PTT INR 1.18 (0.82-1.09) H 06/25/17 10:05 CBCD WBC 3.0 K/mm3 (4.0-10.0) L 06/29/17 10:25 RBC 3.18 M/mm3 (4.00-5.60) L 06/29/17 10:25 Hgb 8.5 GM/dL (11.7-16.9) L 06/29/17 10:25 Hct 27.7 % (35.4-49) L 06/29/17 10:25 MCV 87.0 fl (80-96) 06/29/17 10:25 MCHC 30.7 g/dl (32.0-35.9) L 06/29/17 10:25 RDW 18.0 % (11.9-15.9) H 06/29/17 10:25 Plt Count 170 K/MM3 (134-434) 06/29/17 10:25 MPV 8.8 fl (7.5-11.1) 06/29/17 10:25 CMP Sodium 137 mmol/L (136-145) 06/29/17 10:25 Potassium 4.2 mmol/L (3.5-5.1) 06/29/17 10:25 Chloride 104 mmol/L (98-107) 06/29/17 10:25 Carbon Dioxide 23 mmol/L (21-32) 06/29/17 10:25 Anion Gap 10 (8-16) 06/29/17 10:25 BUN 13 mg/dL (7-18) 06/29/17 10:25 Creatinine 0.9 mg/dL (0.7-1.3) 06/29/17 10:25 Creat Clearance w eGFR > 60 (>60) 06/29/17 10:25 Calcium 8.3 mg/dL (8.5-10.1) L 06/29/17 10:25 Total Bilirubin 0.8 mg/dL (0.2-1.0) 06/29/17 10:25 AST 99 U/L (15-37) H 06/29/17 10:25 ALT 69 U/L (12-78) 06/29/17 10:25 Alkaline Phosphatase 493 U/L (45-117) H 06/29/17 10:25 Total Protein 6.7 g/dl (6.4-8.2) 06/29/17 10:25 Albumin 2.0 g/dl (3.4-5.0) L 06/29/17 10:25 Problem List - Problems (1) Hematochezia Code(s): K92.1 - MELENA (2) GIB (gastrointestinal bleeding) Code(s): K92.2 - GASTROINTESTINAL HEMORRHAGE, UNSPECIFIED Qualifiers: GI bleed type/associated pathology: unspecified gastrointestinal hemorrhage type Qualified Code(s): K92.2 - Gastrointestinal hemorrhage, unspecified (3) Esophageal varix bleeding Code(s): I85.01 - ESOPHAGEAL VARICES WITH BLEEDING (4) Esophageal varices Code(s): I85.00 - ESOPHAGEAL VARICES WITHOUT BLEEDING (5) Alcohol abuse Code(s): F10.10 - ALCOHOL ABUSE, UNCOMPLICATED (6) HCC (hepatocellular carcinoma) Code(s): C22.0 - LIVER CELL CARCINOMA Assessment/Plan Fever. Non-toxic appearance Normal BUN, Cr, WBC. No abdominal pain Risk of SBP. if Spikes again, will need diagnostic paracentesis followed by Cefotaxime 2 gm q8 hrs, or as per ID while awaiting results. Monitor closely
--- NOTE | 2017-06-30 15:44 | PATH ---
Cytology Non-Gynecological Report Patient Name: BRODIE REGALADO [facility]. Rec. #: [id number] /Age/Gender: 1940 (Age: 76) / M Account: [id number] Location: [address] [place] [address] Taken: 06/28/2017 Received: 06/28/2017 Reported: 06/30/2017 Physicians: Reggie Humphries M.D. Norman Rosen, M.D. Specimen(s) Received A: PERITONEAL FLUID B: PERITONEAL FLUID Clinical History Ascites, liver masses Final Diagnosis A & B. ABDOMINAL FLUID, PARACENTESIS: SATISFACTORY FOR EVALUATION. NO MALIGNANT CELLS IDENTIFIED. MESOTHELIAL CELLS PRESENT. Comment: Suggest clinical/radiological correlation. Electronically Signed Kateryna Pritchett M.D. Gross Description A. Approximately 50 cc of pale orange fluid received fixed in 50% alcohol. Two cytofunnels and one cellblock prepared. B. Approximately 1000 cc of bloody fluid received fresh. Two cytofunnels and one cellblock prepared.
[2017-07-01] MEDS: LACTULOSE 20 GM/30 ML UDC (FOR ORAL USE ONLY) PO SCH ×3 (06:01→21:02)
[2017-07-01] MEDS: SUCRALFATE 1 GM/10 ML UNIT DOSE CUPS PO SCH ×4 (06:01→21:02)
[2017-07-01] MEDS: FERROUS SO4 325 MG TABLET (FP) PO SCH ×3 (08:15→17:22)
--- NOTE | 2017-07-01 08:52 | PN ---
Progress Note (short form) - Note Progress Note: pt comfortable no complains denies pain. low grade temp off abx all consults/ f/u noted Vital Signs Temp 100.1 F H 07/01/17 06:00 Pulse 76 07/01/17 06:00 Resp 20 07/01/17 06:00 BP 138/80 07/01/17 06:00 Pulse Ox 97 06/30/17 20:37 Intake & Output 06/30/17 06/30/17 07/01/17 11:59 23:59 11:59 Intake Total 1050 Balance 1050 Weight 181 lb 1 oz 180 lb Intake: IVPB 100 Oral 950 Other: Voiding Method Toilet Toilet # Unmeasured Voids Void 2 3 2 Bowel Movement Yes No # Bowel Movements 1 Weight Measurement Method Built in Bedscale Built in Bedscale Active Medications Ferrous Sulfate (Feosol -) [address] [facility] Last Admin: 07/01/17 08:15 Dose: 325 mg Lactulose (Cephulac (Oral Use)) [address] [facility] Last Admin: 07/01/17 06:01 Dose: 20 gm Nadolol (Corgard -) [address] [facility] Last Admin: 06/30/17 09:35 Dose: 20 mg Pantoprazole Sodium (Protonix -) [address] [facility] Last Admin: 06/30/17 21:38 Dose: 40 mg Rifaximin (Xifaxan -) [address] [facility] Last Admin: 06/30/17 21:38 Dose: 550 mg Sucralfate (Carafate Oral Suspension -) [address] [facility] Last Admin: 07/01/17 06:01 Dose: 1 gm CBC, BMP 06/29/17 10:25 06/29/17 10:25 Physical exam. Constitutional: Yes: No Distress, Calm/ Comfortable. Eyes: Yes: Conjunctiva Clear, Sclera Icterus. Neck: Yes: Supple Cardiovascular: Yes: Regular Rate and Rhythm. Respiratory: Yes: CTA Bilaterally Gastrointestinal: Yes: Soft/ distention. Bowel sounds present No rigidity or rebound Edema: No Peripheral Pulses WNL: Yes Neurological: Yes: Alert, Psychiatric: Yes: Alert Assessment/Plan clinically stable low grade temp. belly distended again. will do u/s monitor for fever f/u labs will follow Problem List - Problems (1) Esophageal varices determined by endoscopy Code(s): I85.00 - ESOPHAGEAL VARICES WITHOUT BLEEDING (2) CVA (cerebral vascular accident) Code(s): I63.9 - CEREBRAL INFARCTION, UNSPECIFIED (3) Diabetes Code(s): E11.9 - TYPE 2 DIABETES MELLITUS WITHOUT COMPLICATIONS (4) Alcohol abuse Code(s): F10.10 - ALCOHOL ABUSE, UNCOMPLICATED (5) Schizophrenia Code(s): F20.9 - SCHIZOPHRENIA, UNSPECIFIED
[2017-07-01] MEDS: RIFAXIMIN 550 MG TABLET (UD) PO SCH ×2 (10:54→21:02)
[2017-07-01] MEDS: PANTOPRAZOLE 40 MG TABLET (FP) PO SCH ×2 (10:54→21:02)
[2017-07-01] MEDS: NADOLOL 20 MG TABLET (FP) PO SCH (10:54)
[2017-07-01] MEDS ORDERED: ACETAMINOPHEN 325 MG TABLET (FP) PO PRN (17:27)
[2017-07-01] MEDS ORDERED: IBUPROFEN 600 MG TABLET (FP) PO ONE (17:29)
[2017-07-02] MEDS: SUCRALFATE 1 GM/10 ML UNIT DOSE CUPS PO SCH (06:10)
[2017-07-02] MEDS: LACTULOSE 20 GM/30 ML UDC (FOR ORAL USE ONLY) PO SCH (06:10)
[2017-07-02 08:15] LABS: ANION GAP 9 (8-16); BLOOD UREA NITROGEN 15 mg/dL (7-18); CALCIUM 8.2 mg/dL (8.5-10.1); CHLORIDE 104 mmol/L (98-107); CO2 25 mmol/L (21-32); GLUCOSE,RANDOM 106 mg/dL (74-106); POTASSIUM 4.1 mmol/L (3.5-5.1); SODIUM 138 mmol/L (136-145)
[2017-07-02 08:18] LABS: HEMATOCRIT 27.5 % (35.4-49); HEMOGLOBIN 8.6 GM/dL (11.7-16.9); MCH 27.2 pg (25.7-33.7); MCHC 31.2 g/dl (32.0-35.9); MEAN PLT VOLUME 9.2 fl (7.5-11.1); PLATELET COUNT 189 K/MM3 (134-434); RBC 3.16 M/mm3 (4.00-5.60); RDW 17.8 % (11.9-15.9); WHITE BLOOD COUNT 2.4 K/mm3 (4.0-10.0)
[2017-07-02 08:19] LABS: ALK PHOS 476 U/L (45-117); BILIRUBIN,TOTAL 0.7 mg/dL (0.2-1.0); CREATININE 0.9 mg/dL (0.7-1.3); SGOT/AST 85 U/L (15-37); SGPT/ALT 57 U/L (12-78); TOT PROT 6.7 g/dl (6.4-8.2)
[2017-07-02] MEDS ORDERED: PT OWN MED DRAWER 7, Y5N ONE (09:11)
[2017-07-02] MEDS: FERROUS SO4 325 MG TABLET (FP) PO SCH (09:17)
[2017-07-02] MEDS: PANTOPRAZOLE 40 MG TABLET (FP) PO SCH (09:17)
[2017-07-02] MEDS: RIFAXIMIN 550 MG TABLET (UD) PO SCH (09:17)
[2017-07-02] MEDS: NADOLOL 20 MG TABLET (FP) PO SCH (09:17)
--- NOTE | 2017-07-02 10:09 | PN ---
Progress Note (short form) - Note Progress Note: Vital Signs Temp 98.0 F 07/02/17 05:52 Pulse 68 07/02/17 05:52 Resp 20 07/02/17 05:52 BP 107/69 07/02/17 05:52 Pulse Ox 97 07/01/17 09:00 Intake & Output 07/01/17 07/01/17 07/02/17 11:59 23:59 11:59 Intake Total 1140 0 Balance 1140 0 Weight 180 lb 179 lb 3 oz Intake: IVPB 0 Oral 1140 Other: Voiding Method Toilet Toilet # Unmeasured Voids Void 2 3 Bowel Movement No Yes # Bowel Movements 0 Weight Measurement Method Built in Bedscale Built in Bedscale Active Medications Ferrous Sulfate (Feosol -) 325 mg PO TIDCM [facility] Last Admin: 07/02/17 09:17 Dose: 325 mg Lactulose (Cephulac (Oral Use)) 20 gm PO TID [facility] Last Admin: 07/02/17 06:10 Dose: 20 gm Nadolol (Corgard -) 20 mg PO DAILY [facility] Last Admin: 07/02/17 09:17 Dose: 20 mg Pantoprazole Sodium (Protonix -) 40 mg PO BID [facility] Last Admin: 07/02/17 09:17 Dose: 40 mg Rifaximin (Xifaxan -) 550 mg PO BID [facility] Last Admin: 07/02/17 09:17 Dose: 550 mg Sucralfate (Carafate Oral Suspension -) 1 gm PO ACHS [facility] Last Admin: 07/02/17 06:10 Dose: 1 gm CBC, BMP 07/02/17 06:30 07/02/17 06:30 Problem List - Problems (1) Esophageal varices determined by endoscopy Code(s): I85.00 - ESOPHAGEAL VARICES WITHOUT BLEEDING (2) CVA (cerebral vascular accident) Code(s): I63.9 - CEREBRAL INFARCTION, UNSPECIFIED (3) Diabetes Code(s): E11.9 - TYPE 2 DIABETES MELLITUS WITHOUT COMPLICATIONS (4) Alcohol abuse Code(s): F10.10 - ALCOHOL ABUSE, UNCOMPLICATED (5) Schizophrenia Code(s): F20.9 - SCHIZOPHRENIA, UNSPECIFIED
--- NOTE | 2017-07-02 10:47 | DS ---
Physical Examination Vital Signs: Vital Signs Temperature 98.0 F 07/02/17 05:52 Pulse Rate 68 07/02/17 05:52 Respiratory Rate 20 07/02/17 05:52 Blood Pressure 107/69 07/02/17 05:52 O2 Sat by Pulse Oximetry (%) 97 07/01/17 09:00 Findings/Remarks: comfortable. No complaints. Wants to go back. Constitutional: Yes: No Distress, Calm Eyes: Yes: Conjunctiva Clear Neck: Yes: Supple Cardiovascular: Yes: Regular Rate and Rhythm Respiratory: Yes: Diminished (At bases) Gastrointestinal: Yes: Soft, Distention Edema: No Neurological: Yes: Alert Labs: CBC, BMP 07/02/17 06:30 07/02/17 06:30 Discharge Summary Reason For Visit: GASTROINTESTINAL HEMORRHAGE Current Active Problems Alcohol abuse (Acute) Alcohol abuse (Acute) Anemia (Acute) DVT prophylaxis (Acute) Esophageal varices (Acute) Esophageal varices determined by endoscopy (Acute) Esophageal varix bleeding (Acute) Fever (Acute) GIB (gastrointestinal bleeding) (Acute) HCC (hepatocellular carcinoma) (Acute) Hematemesis (Acute) Hematochezia (Acute) Liver masses (Acute) Schizophrenia (Acute) Thrombosis, portal vein (Acute) Hospital Course: This is a 76 y/o man with a past medical history of DM, HTN, CVA, Bipolar, Schizophrenia. Who presents to the ED from [facility] with hematemesis with large clots patient found to have grade 4 varices--- banding done Transfused Also treated with lactulose for elevated ammonia level Workup showed hepatocellular carcinoma--- MRI was done also positive for hepatitis C Had a long talk with patient's family--- palliative care only considering his overall condition No aggressive treatment Patient also developed fever--- treated medically with antibiotics ID consultation also taken Patient also underwent paracentesis due to ascites repeat ultrasound after few days--- again showed ascites As per interventional radiologist--not sufficient fluid for paracentesis tunnel catheter also considered--not sufficient fluid for paracentesis at present. patient now overall stable for discharge. cleared for discharge by GI also As well as hematology overall condition remains very guarded. Family aware Medications reconciled. discharge time--35 minutes in documenting/examining as well as coordinating care. Condition: Guarded - Instructions Referrals: Fariba Sanchez MD [Primary Care Provider] - Disposition: HALF-WAY FACILITY - Home Medications Comprehensive Discharge Medication List: Ambulatory Orders Amlodipine Besylate 10 mg PO DAILY 08/19/15 Sennosides [Senna] 2 tab PO 199910/15/16 Dextran 70/Hypromellose [Genteal Tears 0.1%-0.3% Drop] 1 drop OU DAILY 05/17/17 Docusate Sodium [Colace -] 200 mg PO DAILY 05/17/17 Levothyroxine [Synthroid -] 25 mcg PO DAILY 05/17/17 Ferrous Sulfate [Feosol] 325 mg PO TIDCM ud 06/21/17 Lactulose (Oral Use) [Cephulac -] 20 gm PO TID udc 06/21/17 Magnesium Hydrox 2400MG/30Ml [Milk of Magnesia -] 30 ml PO DAILY PRN #0 5ml Nadolol [Corgard -] 20 mg PO DAILY tablet 06/21/17 Pantoprazole Sodium [Protonix -] 40 mg PO BID tablet.ec 06/21/17 Rifaximin [Xifaxan -] 550 mg PO BID tablet 06/21/17 Sucralfate Oral Suspension [Carafate Oral Suspension -] 1 gm PO ACHS ml
[2017-07-02 14:00] LABS: ANISOCYTOSIS 2+; PLATELET ESTIMATE NORMAL; TARGET CELLS 1+
[2017-07-02 15:25] VITALS: BP 118/84; PULSE 74; TEMP 98.5
--- NOTE | 2017-07-02 17:03 | PN ---
Progress Note (short form) - Note Progress Note: Patient seen Previously discussed with Dr. Sanchez Picture on RI compatible with HCC. Family elected conservative approach. Last Vital Signs Temp Pulse Resp BP Pulse Ox 98.5 F 74 16 118/84 97 07/02/17 15:24 07/02/17 15:24 07/02/17 15:24 07/02/17 15:24 07/01/17 09:00 Lungs - decreased breath sounds Cor -RSR Abd- distended, ascites LE edema CBC, BMP 07/02/17 06:30 07/02/17 06:30 Current Medications Generic Name Dose Route Start Last Admin Trade Name Freq PRN Reason Stop Dose Admin Ferrous Sulfate 325 mg 06/15/17 12:00 07/02/17 09:17 Feosol - PO 325 mg TIDCM [facility] Administration Lactulose 20 gm 06/16/17 14:00 07/02/17 06:10 Cephulac (Oral Use) PO 20 gm TID [facility] Administration Nadolol 20 mg 06/15/17 10:00 07/02/17 09:17 Corgard - PO 20 mg DAILY [facility] Administration Pantoprazole Sodium 40 mg 06/15/17 11:45 07/02/17 09:17 Protonix - PO 40 mg BID [facility] Administration Rifaximin 550 mg 06/22/17 10:00 07/02/17 09:17 Xifaxan - PO 550 mg BID [facility] Administration Sucralfate 1 gm 06/21/17 07:00 07/02/17 06:10 Carafate Oral Suspension - PO 1 gm ACHS [facility] Administration Impression: GI bleding Varices- banded Alcohol abuse MRI compatible with HCC Anemia Leukopenia Plan: Return to [place] Conservative therapy. Problem List - Problems (1) Esophageal varix bleeding Code(s): I85.01 - ESOPHAGEAL VARICES WITH BLEEDING (2) Liver masses Code(s): R16.0 - HEPATOMEGALY, NOT ELSEWHERE CLASSIFIED (3) Hematemesis Code(s): K92.0 - HEMATEMESIS (4) Schizophrenia Code(s): F20.9 - SCHIZOPHRENIA, UNSPECIFIED (5) Thrombosis, portal vein Code(s): I81 - PORTAL VEIN THROMBOSIS
== END 2017-07-02 17:56 | DRG 368 ==
LOC: JER 16:25 → JERBED 19:23 → JICU 06-12 02:34 → J6S 06-14 18:33
PROVIDERS: ADMIT Internal Medicine; ATTEND Internal Medicine
PROC: 30233H1 Transfusion of Nonautologous Whole Blood into Peripheral Vein, Percutaneous Approach (ICD-10-PCS; 2017-06-11)
PROC: 06L38CZ Occlusion of Esophageal Vein with Extraluminal Device, Via Natural or Artificial Opening Endoscopic (ICD-10-PCS; principal; 2017-06-12)
PROC: 0DD68ZX Extraction of Stomach, Via Natural or Artificial Opening Endoscopic, Diagnostic (ICD-10-PCS; 2017-06-12)
PROC: 0W9G30Z Drainage of Peritoneal Cavity with Drainage Device, Percutaneous Approach (ICD-10-PCS; 2017-06-28)
DX: I85.01 Esophageal varices with bleeding (principal); G92 Toxic encephalopathy; K72.00 Acute and subacute hepatic failure without coma; I81 Portal vein thrombosis; I69.351 Hemiplegia and hemiparesis following cerebral infarction affecting right dominant side; D62 Acute posthemorrhagic anemia; R18.8 Other ascites; I67.4 Hypertensive encephalopathy; E11.9 Type 2 diabetes mellitus without complications; I10 Essential (primary) hypertension; K74.60 Unspecified cirrhosis of liver; K25.9 Gastric ulcer, unspecified as acute or chronic, without hemorrhage or perforation; K44.9 Diaphragmatic hernia without obstruction or gangrene; K29.70 Gastritis, unspecified, without bleeding; K21.9 Gastro-esophageal reflux disease without esophagitis; F20.9 Schizophrenia, unspecified; F10.21 Alcohol dependence, in remission; E03.9 Hypothyroidism, unspecified; F31.9 Bipolar disorder, unspecified; Z87.891 Personal history of nicotine dependence; R16.0 Hepatomegaly, not elsewhere classified
CPT/HCPCS: 36415; 36430; 70450-TC; 71045-TC; 71046-TC-FY; 74183-TC; 76700-TC; 76705-TC; 76942-TC; 80048; 80053; 80076; 82042; 82105; 82140; 82150; 82272; 82378; 82550; 82607; 82728; 82746; 82945; 83540; 83550; 83615; 83735; 84100; 84157; 84478; 84484; 85025; 85027; 85610; 85730; 86301; 86704; 86706; 86708; 86803; 86850; 86900; 86901; 86922; 87040; 87070; 87075; 87086; 87102; 87116; 87205; 87206; 87210; 87340; 87522; 87804; 88305-TC; 89051; 90688; 93005; 93010; 97116-GP; 97161-GP; 99284-25; G0008; P9038; P9058

== ENCOUNTER 2017-08-06 18:31 | Inpatient (IN) | payer OTHER ==
[2017-08-06 18:45] VITALS: BMI 35.5
[2017-08-06 19:02] LABS: BASO % 0.7 % (0-2.0); EOS % 0.4 % (0-4.5); HEMATOCRIT 20.3 % (35.4-49); LYMPH % 21.3 % (8-40); MCH 26.3 pg (25.7-33.7); MCHC 31.3 g/dl (32.0-35.9); MEAN CELL VOLUME 84.1 fl (80-96); MEAN PLT VOLUME 9.4 fl (7.5-11.1); MONO % 15.8 % (3.8-10.2); NEUT % 61.8 % (42.8-82.8); PLATELET COUNT 243 K/MM3 (134-434); RBC 2.42 M/mm3 (4.00-5.60); WHITE BLOOD COUNT 4.9 K/mm3 (4.0-10.0)
[2017-08-06 19:04] LABS: HEMOGLOBIN 6.4 GM/dL (11.7-16.9)
[2017-08-06] MEDS ORDERED: PANTOPRAZOLE SODIUM 40 MG VIAL IVPUSH ONE (19:20)
[2017-08-06] MEDS ORDERED: OCTREOTIDE ACETATE 50 MCG/1 ML - 1 ML VIAL IVPUSH ONE (19:22)
[2017-08-06 19:28] LABS: ALBUMIN 2.1 g/dl (3.4-5.0); ALK PHOS 499 U/L (45-117); ANION GAP 9 (8-16); BILIRUBIN,TOTAL 0.8 mg/dL (0.2-1.0); BLOOD UREA NITROGEN 38 mg/dL (7-18); CALCIUM 8.4 mg/dL (8.5-10.1); CHLORIDE 111 mmol/L (98-107); CO2 23 mmol/L (21-32); CREATININE 1.3 mg/dL (0.7-1.3); GLUCOSE,RANDOM 142 mg/dL (74-106); POTASSIUM 4.9 mmol/L (3.5-5.1); SGOT/AST 96 U/L (15-37); SGPT/ALT 58 U/L (12-78); SODIUM 143 mmol/L (136-145); TOT PROT 6.4 g/dl (6.4-8.2)
[2017-08-06] MEDS ORDERED: OCTREOTIDE ACETATE 1,200 MCG in DEXTROSE 5%-WATER - 488 ML IVPB SCH (19:30)
[2017-08-06] MEDS ORDERED: CEFTRIAXONE 1 GM in DEXTROSE 5%-WATER - 50 ML IVPB ONE (19:37)
[2017-08-06] MEDS ORDERED: RAPID SEQUENCE INTUBATION KIT NR ONE (19:46)
[2017-08-06 19:59] LABS: MAGNESIUM 2.1 mg/dL (1.8-2.4); PHOSPHOROUS 4.6 mg/dL (2.5-4.9)
--- NOTE | 2017-08-06 20:05 | PDOC ---
History of Present Illness - General History Source: [facility] Records, Old Records Exam Limitations: Clinical Condition - History of Present Illness Initial Comments: 08/06/17 20:25 Patient is a 76 year old male, from [facility], with a significant past medical history of DM, HTN, Hyperlipidemia, CVA, Bipolar, Schizophrenia, who was brought by EMS to the ED for complaints of bloody vomiting that began earlier today. As per [facility] staff, patient began to experience episodes of bloody vomiting that they state was bright red in color. They report patient began to experience altered mental behaviour prompting them to bring the patient into the ED for further evaluation. As per [facility] staff, Denies diarrhea, hematuria. Denies fevers, chills. Denies contact with sick individuals, out of state travelling. Denies trauma to affected area. Denies any other symptoms. Allergies: None Social history: Lives in [facility]. No smoking. No alcohol. No illicit drugs. Surgical history: None PMD: Fariba Mendoza <Mick Howard - Last Filed: 08/06/17 20:26> <Sukhdeep Coreas - Last Filed: 08/06/17 20:38> <Jamarcus Zamora - Last Filed: 08/16/17 15:38> - General Chief Complaint: Altered Mental Status Stated Complaint: AMS Time Seen by Provider: 08/06/17 19:17 Past History <Mick Howard - Last Filed: 08/06/17 20:26> <Sukhdeep Coreas - Last Filed: 08/06/17 20:38> - Past Medical History Cardiac Disorders: Yes CVA: Yes (residual rt side weakness) COPD: No GI Disorders: Yes (gerd) HTN: Yes Hypercholesterolemia: Yes Psychiatric Problems: Yes (bipolar) - Suicide/Smoking/Psychosocial Hx Smoking Status: No Smoking History: Never smoked Have you smoked in the past 12 months: No Number of Cigarettes Smoked Daily: 0 If you are a former smoker, when did you quit?: patient does not remember Information on smoking cessation initiated: No Hx Alcohol Use: No Drug/Substance Use Hx: No Substance Use Type: None Hx Substance Use Treatment: No <Jamarcus Zamora - Last Filed: 08/16/17 15:38> - Past Medical History Allergies/Adverse Reactions: Allergies Allergy/AdvReac Type Severity Reaction Status Date / Time No Known Drug Allergies Allergy Verified 08/06/17 18:41 Home Medications: Ambulatory Orders Amlodipine Besylate 10 mg PO DAILY 08/06/17 Docusate Sodium [Colace] 200 mg PO HS 08/06/17 Ferrous Sulfate 325 mg PO TID 08/06/17 Lactulose 30 ml PO TID 08/06/17 Levothyroxine [Synthroid -] 25 mcg PO DAILY 08/06/17 Magnesium Hydroxide [Milk of Magnesia] 30 mg PO DAILY 08/06/17 Metronidazole/Sodium Chloride [Metronidazole 500 mg/100 ml] 500 mg IV TID Nadolol 20 mg PO DAILY 08/06/17 Pantoprazole Sodium 40 mg PO BID 08/06/17 Rifaximin [Xifaxan] 550 mg PO BID 08/06/17 Sennosides [Senna] 2 tab PO DAILY 08/06/17 Sucralfate [Carafate -] 1 gm PO QID 08/06/17 Review of Systems - Review of Systems Able to Perform ROS?: Yes Comments:: 08/06/17 20:25 GENERAL/CONSTITUTIONAL: No fever or chills. No weakness. HEAD, EYES, EARS, NOSE AND THROAT: +Hematemesis. No change in vision. No ear pain or discharge. No sore throat. CARDIOVASCULAR: No chest pain or shortness of breath. RESPIRATORY: No cough, wheezing, or hemoptysis. GASTROINTESTINAL: No nausea, vomiting, diarrhea or constipation. GENITOURINARY: No dysuria, frequency, or change in urination. MUSCULOSKELETAL: No joint or muscle swelling or pain. No neck or back pain. SKIN: No rash NEUROLOGIC: No headache, vertigo, loss of consciousness, or change in strength/ sensation. ENDOCRINE: No increased thirst. No abnormal weight change. HEMATOLOGIC/LYMPHATIC: No anemia, easy bleeding, or history of blood clots. ALLERGIC/IMMUNOLOGIC: No hives or skin allergy. All Other Systems: Reviewed and Negative <Mick Howard - Last Filed: 08/06/17 20:26> *Physical Exam - Vital Signs Last Vital Signs Temp Pulse Resp BP Pulse Ox 98.2 F 92 H 25 H 112/63 100 08/06/17 18:35 08/06/17 18:35 08/06/17 20:18 08/06/17 18:35 08/06/17 18:45 - Physical Exam Comments: 08/06/17 20:25 GENERAL: +Ill appearing HEAD: No signs of trauma EYES: PERRLA, EOMI, sclera anicteric, conjunctiva clear ENT: +Dry blood in mouth. Auricles normal inspection, hearing grossly normal, nares patent, oropharynx without exudates. NECK: Normal ROM, supple, no lymphadenopathy, JVD, or masses LUNGS: Breath sounds equal, clear to auscultation bilaterally. No wheezes, and no crackles HEART: Regular rate and rhythm, normal S1 and S2, no murmurs, rubs or gallops ABDOMEN: +Distended abdomen. Soft, nontender, normoactive bowel sounds. No guarding, no rebound. No masses EXTREMITIES: +2+ pitting edema bilaterally. Normal range of motion, no edema. No clubbing or cyanosis. No cords, erythema , or tenderness NEUROLOGICAL: +Altered moaning to verbal and tactile stimulus. Cranial nerves II through XII grossly intact. SKIN: +Jaundiced Warm, Dry,no rashes or lesions noted. <Mick Howard - Last Filed: 08/06/17 20:26> - Vital Signs Last Vital Signs Temp Pulse Resp BP Pulse Ox 98.2 F 92 H 25 H 112/63 100 08/06/17 18:35 08/06/17 18:35 08/06/17 20:18 08/06/17 18:35 08/06/17 18:45 <Sukhdeep Coreas - Last Filed: 08/06/17 20:38> - Vital Signs Last Vital Signs Temp Pulse Resp BP Pulse Ox 98.2 F 92 H 18 112/63 100 08/06/17 18:35 08/06/17 18:35 08/06/17 18:35 08/06/17 18:35 08/06/17 18:45 <Jamarcus Zamora - Last Filed: 08/16/17 15:38> Procedures - Intubation Blade used: Glidescope Tube Size (Fr): 7.0 Medications: Etomidate, Succinylcholine Tube position confirmed by: Direct visualization, CO2 detector, Chest x-ray, Breath sounds Breath Sounds after Intubation: left greater than right Intubation Complications: oralbleed Post Intubation Xray: Yes (above isai, fluid in r lung) <Sukhdeep Coreas - Last Filed: 08/06/17 20:38> Heart Score/ECG Review #1 ECG reviewed & interpreted by me at: 19:05 08/06/17 21:26 NSR 94, no std/isha, normal axis, QTC 490 msec <Jamarcus Zamora - Last Filed: 08/16/17 15:38> ED Treatment Course - LABORATORY CBC & Chemistry Diagram: 08/06/17 18:54 08/06/17 18:55 - ADDITIONAL ORDERS Additional order review: Laboratory Results 08/06/17 08/06/17 08/06/17 19:33 19:25 19:20 Sodium Potassium Chloride Carbon Dioxide Anion Gap BUN Creatinine Creat Clearance w eGFR Random Glucose Lactic Acid 2.6 H* Calcium Phosphorus Magnesium Total Bilirubin AST ALT Alkaline Phosphatase Ammonia 133.39 H Creatine Kinase Troponin I Total Protein Albumin Crossmatch See Detail 08/06/17 08/06/17 19:20 18:55 Sodium 143 Potassium 4.9 Chloride 111 H Carbon Dioxide 23 Anion Gap 9 BUN 38 H D Creatinine 1.3 D Creat Clearance w eGFR 53.39 Random Glucose 142 H D Lactic Acid Calcium 8.4 L Phosphorus 4.6 D Magnesium 2.1 Total Bilirubin 0.8 AST 96 H ALT 58 Alkaline Phosphatase 499 H Ammonia Creatine Kinase 49 Troponin I < 0.02 Total Protein 6.4 Albumin 2.1 L Crossmatch 08/06/17 18:54 RBC 2.42 L D MCV 84.1 MCHC 31.3 L RDW 19.0 H MPV 9.4 Neutrophils % 61.8 D Lymphocytes % 21.3 D Monocytes % 15.8 H Eosinophils % 0.4 Basophils % 0.7 <Mick Howard - Last Filed: 08/06/17 20:26> - LABORATORY CBC & Chemistry Diagram: 08/06/17 18:54 08/06/17 18:55 - ADDITIONAL ORDERS Additional order review: Laboratory Results 08/06/17 08/06/17 08/06/17 19:33 19:25 19:20 Sodium Potassium Chloride Carbon Dioxide Anion Gap BUN Creatinine Creat Clearance w eGFR Random Glucose Lactic Acid 2.6 H* Calcium Phosphorus Magnesium Total Bilirubin AST ALT Alkaline Phosphatase Ammonia 133.39 H Creatine Kinase Troponin I Total Protein Albumin Crossmatch See Detail 08/06/17 08/06/17 19:20 18:55 Sodium 143 Potassium 4.9 Chloride 111 H Carbon Dioxide 23 Anion Gap 9 BUN 38 H D Creatinine 1.3 D Creat Clearance w eGFR 53.39 Random Glucose 142 H D Lactic Acid Calcium 8.4 L Phosphorus 4.6 D Magnesium 2.1 Total Bilirubin 0.8 AST 96 H ALT 58 Alkaline Phosphatase 499 H Ammonia Creatine Kinase 49 Troponin I < 0.02 Total Protein 6.4 Albumin 2.1 L Crossmatch 08/06/17 18:54 RBC 2.42 L D MCV 84.1 MCHC 31.3 L RDW 19.0 H MPV 9.4 Neutrophils % 61.8 D Lymphocytes % 21.3 D Monocytes % 15.8 H Eosinophils % 0.4 Basophils % 0.7 - RADIOLOGY Radiology Studies Ordered: Category Date Time Status CXRPORT [CHEST X-RAY PORTABLE*] [RAD] Stat Radiology 08/06/17 20:04 Ordered - Medications Given in the ED: ED Medications Discontinued Medications Generic Name Dose Route Start Last Admin Trade Name Freq PRN Reason Stop Dose Admin Fentanyl 50 mcg 08/06/17 20:04 08/06/17 20:04 Sublimaze Injection - IVPUSH 08/06/17 20:05 50 mcg ONCE ONE Administration Octreotide Acetate 50 mcg 08/06/17 19:22 08/06/17 20:29 Sandostatin - IVPUSH 08/06/17 19:23 50 mcg ONCE ONE Administration Pantoprazole Sodium 80 mg 08/06/17 19:20 08/06/17 20:28 Protonix Iv IVPUSH 08/06/17 19:21 80 mg ONCE ONE Administration <Sukhdeep Coreas - Last Filed: 08/06/17 20:38> - LABORATORY CBC & Chemistry Diagram: 08/07/17 10:57 08/07/17 10:57 - ADDITIONAL ORDERS Additional order review: Laboratory Results 08/06/17 08/06/17 08/06/17 19:20 19:20 18:55 Sodium 143 Potassium 4.9 Chloride 111 H Carbon Dioxide 23 Anion Gap 9 BUN 38 H D Creatinine 1.3 D Creat Clearance w eGFR 53.39 Random Glucose 142 H D Calcium 8.4 L Phosphorus 4.6 D Magnesium 2.1 Total Bilirubin 0.8 AST 96 H ALT 58 Alkaline Phosphatase 499 H Creatine Kinase 49 Troponin I < 0.02 Total Protein 6.4 Albumin 2.1 L Crossmatch See Detail 08/06/17 18:54 RBC 2.42 L D MCV 84.1 MCHC 31.3 L RDW 19.0 H MPV 9.4 Neutrophils % 61.8 D Lymphocytes % 21.3 D Monocytes % 15.8 H Eosinophils % 0.4 Basophils % 0.7 - RADIOLOGY Radiology Studies Ordered: Category Date Time Status ABDOMEN & PELVIS CT W/O CONTR [CT] Stat CT Scan 08/06/17 19:[address] WITHOUT CONTRAST [CT] Stat CT Scan 08/06/17 19:33 Ordered CHEST X-RAY PORTABLE* [RAD] Stat Radiology 08/06/17 19:26 Ordered <Jamarcus Zamora - Last Filed: 08/16/17 15:38> Medical Decision Making - Medical Decision Making 08/06/17 20:[address] Smith @20:03pm. Connected. Case discussed. <Mick Howard - Last Filed: 08/06/17 20:26> - Critical Care Time Total Critical Care Time (minutes): 60 Critical Care Statement: The care of this patient involved high complexity decision making to prevent further life threatening deterioration of the patient 's condition and/or to evaluate & treat vital organ system(s) failure or risk of failure. - Medical Decision Making 08/06/17 21:13 A portion of this note was documented by scribe services under my direction. I have reviewed the details of the note, within reason, and agree with the documentation with the following case summary and management plan written by me. Patient treated in the ED. Nursing notes are reviewed and incorporated into the medical decision-making. Vital signs reviewed. Peripheral IV access obtained by the nurse, laboratory studies are drawn and sent, reviewed and interpreted by myself. Vital Signs Temp Pulse Resp BP Pulse Ox 98.2 F 92 H 25 H 112/63 100 08/06/17 18:35 08/06/17 18:35 08/06/17 20:18 08/06/17 18:35 08/06/17 18:45 76 year old male with Past medical history of hypertension, diabetes, CVA, bipolar, schizophrenia, grade 4 varices, alcohol abuse, hepatocellular carcinoma presents with upper GI bleeding. I had spoken to the nursing public area supervisor Anna at [facility] and had reviewed the notes. Patient presented with upper GI bleeding and was vomiting bright red blood. Patient was also altered and the patient was brought to the ED. The patient was seen by me and had bright red blood per vomiting. I had reviewed the patient's prior notes which documented that the patient has had out of care only. However, according to the nursing notes and after speaking to nursing public area supervisor, the patient is full code. I had called patient's family, Kailyn [phone], who consents for blood transfusion and intubation. The family is aware of the patient's dire condition and will see the patient tomorrow morning given the snowstorm. Patient was ordered for 2 units RBCs. Succinylcholine and etomidate was used for rapid sequence intubation. Using the video laryngoscopy, patient had a 7.0 ET tube placed and was successful. Patient bilateral breath sounds and good color condensation changes. We'll obtain a CT head and CT abdomen and pelvis given the altered mental status. We'll admit the patient to the ICU. Protonix bolus and drip and octreotide bolus and drip were ordered. Likely antibiotics were ordered. We'll admit the patient to the ICU. 08/06/17 22:38 CBC, BMP 08/06/17 18:54 08/06/17 18:55 CMP Sodium 143 mmol/L (136-145) 08/06/17 18:55 Potassium 4.9 mmol/L (3.5-5.1) 08/06/17 18:55 Chloride 111 mmol/L (98-107) H 08/06/17 18:55 Carbon Dioxide 23 mmol/L (21-32) 08/06/17 18:55 Anion Gap 9 (8-16) 08/06/17 18:55 BUN 38 mg/dL (7-18) H D 08/06/17 18:55 Creatinine 1.3 mg/dL (0.7-1.3) D 08/06/17 18:55 Creat Clearance w eGFR 53.39 (>60) 08/06/17 18:55 Random Glucose 142 mg/dL (74-106) H D 08/06/17 18:55 Lactic Acid 2.6 mmol/L (0.0-2.0) H* 08/06/17 19:25 Calcium 8.4 mg/dL (8.5-10.1) L 08/06/17 18:55 Phosphorus 4.6 mg/dL (2.5-4.9) D 08/06/17 19:20 Magnesium 2.1 mg/dL (1.8-2.4) 08/06/17 19:20 Total Bilirubin 0.8 mg/dL (0.2-1.0) 08/06/17 18:55 AST 96 U/L (15-37) H 08/06/17 18:55 ALT 58 U/L (12-78) 08/06/17 18:55 Alkaline Phosphatase 499 U/L (45-117) H 08/06/17 18:55 Ammonia 133.39 umol/L (11-32) H 08/06/17 19:33 Creatine Kinase 49 IU/L (39-308) 08/06/17 19:20 Troponin I < 0.02 ng/ml (0.00-0.05) 08/06/17 19:20 Total Protein 6.4 g/dl (6.4-8.2) 08/06/17 18:55 Albumin 2.1 g/dl (3.4-5.0) L 08/06/17 18:55 Blood work demonstrates was 6.4. 2 units appear PCs were ordered. Post intubation radiograph reviewed by me and demonstrates proper placement of the endotracheal tube. Case was discussed with Dr. Rob Smith. Dr. Smith states he will come to the hospital and perform endoscopy overnight. Patient's blood pressure stable. Case discussed with profile stitching machine operator nurse practitioner Alexys who accepts patient to ICU. Case discussed with [facility] hospitalist who accepts patient to his service. Case discussed in detail with admitting physician including history, physical exam and ancillary studies. Admitting physician has assumed care for the patient, will follow all pending diagnostics and will complete the evaluation and treatment. <Jamarcus Zamora - Last Filed: 08/16/17 15:38> *DC/Admit/Observation/Transfer - Attestations Scribe Attestion: 08/06/17 20:25 Documentation prepared by Mick Howard, acting as pediatric medical assistant for Jamarcus Zamora MD, /DO. <Mick Howard - Last Filed: 08/06/17 20:26> <Sukhdeep Coreas - Last Filed: 08/06/17 20:38> - Discharge Dispostion Admit: Yes <Jamarcus Zamora - Last Filed: 08/16/17 15:38> Diagnosis at time of Disposition: Upper GI bleed - Discharge Dispostion Disposition: Condition at time of disposition:
[2017-08-06] MEDS ORDERED: fentaNYL CITRATE 250 MCG/5 ML VIAL ONE (20:12)
[2017-08-06] MEDS ORDERED: FENTANYL INJECTION 500 MCG in DEXTROSE 5%-WATER - 90 ML IVPB SCH (20:15)
[2017-08-06 20:26] LABS: INR 1.27 (0.82-1.09); PROTHROMBIN TIME (PATIENT) 14.3 SEC (9.98-11.88)
[2017-08-06] MEDS ORDERED: PANTOPRAZOLE SODIUM 40 MG VIAL ONE ×2 (20:28→20:30)
[2017-08-06] MEDS ORDERED: OCTREOTIDE ACETATE 100 MCG/1 ML ONE ×2 (20:28→20:31)
[2017-08-06 20:29] LABS: ACTIVATED PTT 29.8 SECONDS (26.9-34.4)
[2017-08-06] MEDS ORDERED: OCTREOTIDE ACETATE 500 MCG/1 ML - 1 ML VIAL ONE (20:31)
[2017-08-06] MEDS: PANTOPRAZOLE SODIUM 80 MG in SODIUM CHLORIDE 100 ML IVPB SCH (20:58)
[2017-08-06] MEDS ORDERED: SODIUM CHLORIDE 1,000 ML IV STA (21:18)
--- NOTE | 2017-08-06 22:50 | HP ---
Admitting History and Physical - Admission History of Present Illness: This is a 76 y/o man, from [facility], with a significant past medical history of Grade 4 Varices, Hepatocellular Carcinoma, Alcohol Abuse, Cirrhosis, DM, HTN, Hyperlipidemia, CVA, Bipolar, Schizophrenia, who was brought by EMS to the ED for complaints of bloody vomiting that began earlier today. As per ED records: As per [facility] staff, patient began to experience episodes of bloody vomiting that they state was bright red in color. They report patient began to experience altered mental behavior prompting them to bring the patient into the ED for further evaluation. As per [facility] staff, Denies diarrhea, hematuria. Denies fevers, chills. Denies contact with sick individuals, out of state travelling. Denies trauma to affected area. Denies any other symptoms. Patient had 1 more episode of hematemesis- bright red blood in the ED, patient was intubated and medicated with Octreotide, Protonix. Dr Smith was notified by the ED attending and [facility] History Source: Medical Record, Transfer Record Limitations to Obtaining History: Clinical Condition, Intubated - Past Medical History ENVIRONMENTAL SAFETY SPECIALIST: Yes: CVA (right sided weakness) Cardiovascular: Yes: HTN, Hyperlipdemia Gastrointestinal: Yes: Cancer (Hepatocellular Carcinoma), Esophageal Varices ( Grade 4) Hepatobiliary: Yes: Cirrhosis Psych: Yes: Bipolar, Schizophrenia Endocrine: Yes: Diabetes Mellitus - Smoking History Smoking history: Never smoked Have you smoked in the past 12 months: No Aproximately how many cigarettes per day: 0 If you are a former smoker, when did you quit?: patient does not remember - Alcohol/Substance Use Hx Alcohol Use: Yes (Alcohol Abuse hx) - Social History Usual Living Arrangement: Yes: [facility] ADL: Support Services 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 History of Recent Travel: No Home Medications - Allergies Allergies/Adverse Reactions: Allergies Allergy/AdvReac Type Severity Reaction Status Date / Time No Known Drug Allergies Allergy Verified 08/06/17 18:41 - Home Medications Home Medications: Ambulatory Orders Amlodipine Besylate 10 mg PO DAILY 08/06/17 Docusate Sodium [Colace] 200 mg PO HS 08/06/17 Ferrous Sulfate 325 mg PO TID 08/06/17 Lactulose 30 ml PO TID 08/06/17 Levothyroxine [Synthroid -] 25 mcg PO DAILY 08/06/17 Magnesium Hydroxide [Milk of Magnesia] 30 mg PO DAILY 08/06/17 Metronidazole/Sodium Chloride [Metronidazole 500 mg/100 ml] 500 mg IV TID Nadolol 20 mg PO DAILY 08/06/17 Pantoprazole Sodium 40 mg PO BID 08/06/17 Rifaximin [Xifaxan] 550 mg PO BID 08/06/17 Sennosides [Senna] 2 tab PO DAILY 08/06/17 Sucralfate [Carafate -] 1 gm PO QID 08/06/17 Family Disease History - Family Disease History Family History: Unable to Obtain Review of Systems Unable to obtain ROS, reason: Intubated Physical Examination Vital Signs: Vital Signs Temperature 98.8 F 08/06/17 22:00 Pulse Rate 79 08/06/17 22:00 Respiratory Rate 17 08/06/17 22:00 Blood Pressure 94/58 08/06/17 22:00 O2 Sat by Pulse Oximetry (%) 100 08/06/17 22:00 Constitutional: Yes: Obese Eyes: Yes: Sclera Icterus HENT: Yes: WNL, Atraumatic, Normocephalic Neck: Yes: Supple, Trachea Midline Cardiovascular: Yes: WNL, Regular Rate and Rhythm, S1, S2 Respiratory: Yes: Intubated Gastrointestinal: Yes: Normal Bowel Sounds, Ascites, Distention, Hepatomegaly ...Rectal Exam: Yes: Deferred Renal/: Yes: Rincon Present (orange-brown urine noted in drainage bag) Breast(s): Yes: WNL Edema: Yes Edema: LUE: 3+, RUE: 3+, LLE: 3+, RLE: 3+ Peripheral Pulses WNL: Yes Integumentary: Yes: Jaundice, Venous Stasis Changes Neurological: Yes: Unresponsive Labs: CBC, BMP 08/06/17 18:54 08/06/17 18:55 Imaging - Results Chest X-ray: Image Reviewed Cat Scan: Pending EKG: Image Reviewed Problem List - Problems (1) Upper GI bleed Assessment/Plan: - GI following - Continue Octreotide, Protonix drips - PRBCs x2- in ED - Monitor CBC - Will transfuse if Hgb < 7.0 Code(s): K92.2 - GASTROINTESTINAL HEMORRHAGE, UNSPECIFIED (2) Esophageal varices Assessment/Plan: - Pending OR tonight probable Banding - Continue Octreotide, PPI Code(s): I85.00 - ESOPHAGEAL VARICES WITHOUT BLEEDING (3) Hematemesis Assessment/Plan: -See above Code(s): K92.0 - HEMATEMESIS (4) Anemia Assessment/Plan: - See above Code(s): D64.9 - ANEMIA, UNSPECIFIED Qualifiers: Anemia type: unspecified type Qualified Code(s): D64.9 - Anemia, unspecified (5) Ascites due to alcoholic cirrhosis Assessment/Plan: - Likely secondary to advance disease process - Consider IR Code(s): K70.31 - ALCOHOLIC CIRRHOSIS OF LIVER WITH ASCITES (6) Ascites, malignant Assessment/Plan: - See above Code(s): R18.0 - MALIGNANT ASCITES (7) HCC (hepatocellular carcinoma) Code(s): C22.0 - LIVER CELL CARCINOMA (8) Alcohol abuse Code(s): F10.10 - ALCOHOL ABUSE, UNCOMPLICATED (9) CVA (cerebral vascular accident) Assessment/Plan: - Will treat with interventions accordingly - Fall precautions Code(s): I63.9 - CEREBRAL INFARCTION, UNSPECIFIED (10) Bipolar 1 disorder Assessment/Plan: - Continue to monitor - Hold meds- intubated Code(s): F31.9 - BIPOLAR DISORDER, UNSPECIFIED (11) Schizophrenia Code(s): F20.9 - SCHIZOPHRENIA, UNSPECIFIED (12) Diabetes Assessment/Plan: - BGMs - Will hold ISS secondary to NPO Code(s): E11.9 - TYPE 2 DIABETES MELLITUS WITHOUT COMPLICATIONS (13) HTN (hypertension) Assessment/Plan: - Monitor BP - Hold meds secondary to hypotension - Continue IV fluids monitor for HF, will start pressors accordingly Code(s): I10 - ESSENTIAL (PRIMARY) HYPERTENSION (14) Hypothyroidism Assessment/Plan: - Hold med secondary to intubation - TSH in am Code(s): E03.9 - HYPOTHYROIDISM, UNSPECIFIED Assessment/Plan This is a 76 y/o man with a PMHx of: Grade 4 Varices, Hepatocellular Carcinoma, Cirrhosis, Alcohol Abuse, HTN, HLD, DM, CVA (r sided deficits), Bipolar, Schizophrenia. Admitted to ICU Acute GI Bleed, Anemia, Acute Hepatic Encephalopathy. Plan 1. Admit to ICU 2. GI following- pending OR tonight for EGD 3. Continue Octreotide Drip and Protonix Drips 4. PRBCs x2 ordered and started in ED, monitor CBC, will transfuse if Hgb < 7 5. Cardiac monitoring maintain MAP > 60, with IVF or pressors 6. Vent settings: TV 400/60/14/5, ET 7.0, LL 21 7. Repeat ABG in am- adjust vent settings accordingly 8. Appreciate Lean Facilitator consult 9. Appreciate ID consult 10. Ceftriaxone, Cipro started in ED, will continue Cipro for pseudomonal coverage 11. Monitor CMP 12. Hepatic Encephalopathy- likely secondary to advance disease process, ammonia level 133, will need to discuss with GI for recommendations 13. DVT Prophylaxis- SCDs, NO ACs secondary to GI Bleed, Anemia Code Status: Full Code Dispo: Requires Inpatient Care Visit type - Emergency Visit Emergency Visit: Yes ED Registration Date: 08/06/17 Care time: The patient presented to the Emergency Department on the above date and was hospitalized for further evaluation of their emergent condition. - New Patient This patient is new to me today: Yes Date on this admission: 08/06/17 - Critical Care Critical Care patient: Yes Total Critical Care Time (in minutes): 35 Critical Care Statement: The care of this patient involved high complexity decision making to prevent further life threatening deterioration of the patient 's condition and/or to evaluate & treat vital organ system(s) failure or risk of failure. Hospitalist Screening - Colonoscopy Questionnaire Colonoscopy Questionnaire: Colonoscopy Questionnaire - Patient: 50 - 75 years old and never had a screening colonoscopy: Unknown History of colon or rectal polyps, or CA: Unknown History of IBD, Crohn's disease or UC: Unknown History of abdominal radiation therapy as a child: Unknown - Relative: 1 with colon or rectal CA, or polyps at age 60 or younger: Unknown Colon or rectal CA diagnosed at age 45 or younger: Unknown Multiple relatives with colon or rectal CA: Unknown - Outcome: Screening Result: Negative Screen
[2017-08-06 22:51] LABS: URINE APPEARANCE CLEAR; URINE BILIRUBIN NEGATIVE (NEGATIVE); URINE BLOOD NEGATIVE (NEGATIVE); URINE COLOR AMBER; URINE GLUCOSE (UA) NEGATIVE (NEGATIVE); URINE KETONE NEGATIVE (NEGATIVE); URINE LEUK ESTERASE NEGATIVE (NEGATIVE); URINE NITRITE NEGATIVE (NEGATIVE); URINE PROTEIN NEGATIVE (NEGATIVE); URINE UROBILINOGEN 4.0 E.U/dl mg/dL (0.2-1.0)
[2017-08-06] MEDS ORDERED: CEFTRIAXONE 1 GM/50 ML BAG ONE (22:51)
--- NOTE | 2017-08-06 23:06 | CON.GI ---
Consult Consult Specialty:: GI Reason for Consultation:: hematemesis - History of Present Illness History of Present Illness: Chart reviewed. Discussed with ED The pt is known to GI service from recent admission. The patient has advanced liver cirrhosis with ascites, HCC and grade 4 EV s/p banding on last admission. He was discharged to [place] with Hgb of 8 g/dl in June on PPI, Nadolol, lactulose. Today reported to have 2-3 episodes of hematemeis, worsening mental status and hgb of 6.4 g/dl. Cr 1.3, BUN 24. Normal WBC and PLT count. PT/INR mildly elevated. ALP 433, AST 93, normal bilirubin and ALT. The pt was intubated in ED, started on octreotide, PPI. Given one dose of Ceftriaxone. Receiving 1st u of PRBC. Hemodynamically stable w/o pressors. No new episodes of hematemesis while in ED. 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: CVA (right sided weakness) Cardio/Vascular: Yes: HTN, Hyperlipdemia Hepatobiliary: Yes: Cirrhosis Psych: Yes: Bipolar, Schizophrenia Endocrine: Yes: Diabetes Mellitus - Alcohol/Substance Use Hx Alcohol Use: No - Smoking History Smoking history: Never smoked Have you smoked in the past 12 months: No Aproximately how many cigarettes per day: 0 If you are a former smoker, when did you quit?: patient does not remember - Social History Usual Living Arrangement: Detention ADL: Support Services 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 History of Recent Travel: No Home Medications - Allergies Allergies/Adverse Reactions: Allergies Allergy/AdvReac Type Severity Reaction Status Date / Time No Known Drug Allergies Allergy Verified 08/06/17 18:41 - Home Medications Home Medications: Ambulatory Orders Docusate Sodium [Colace] 200 mg PO HS 08/06/17 Levothyroxine [Synthroid -] 25 mcg PO DAILY 08/06/17 Magnesium Hydroxide [Milk of Magnesia] 30 mg PO DAILY 08/06/17 Metronidazole/Sodium Chloride [Metronidazole 500 mg/100 ml] 500 mg IV TID RX: Amlodipine Besylate 10 mg PO DAILY 08/06/17 RX: Ferrous Sulfate 325 mg PO TID 08/06/17 RX: Lactulose 30 ml PO TID 08/06/17 RX: Nadolol 20 mg PO DAILY 08/06/17 RX: Pantoprazole Sodium 40 mg PO BID 08/06/17 Rifaximin [Xifaxan] 550 mg PO BID 08/06/17 Sennosides [Senna] 2 tab PO DAILY 08/06/17 Sucralfate [Carafate -] 1 gm PO QID 08/06/17 Family Disease History - Family Disease History Family History: Unremarkable Review of Systems Findings/Remarks: as per HPI, H&P Physical Exam-GI Vital Signs: Vital Signs Temperature 98.8 F 08/06/17 22:00 Pulse Rate 79 08/06/17 22:00 Respiratory Rate 17 08/06/17 22:00 Blood Pressure 94/58 08/06/17 22:00 O2 Sat by Pulse Oximetry (%) 100 08/06/17 22:00 Constitutional: Yes: Other (sedated) Respiratory: Yes: Mechanically Ventilated Gastrointestinal Inspection: Yes: Ascites, Distention, Other (NGT) ...Auscultate: Yes: Normoactive Bowel Sounds ...Palpate: No: Firm/Rigid Labs: CBC, BMP 08/06/17 18:54 08/06/17 18:55 INR, PTT INR 1.27 (0.82-1.09) H 08/06/17 19:43 Laboratory Tests 08/06/17 08/06/17 08/06/17 18:54 18:55 19:20 WBC 4.9 D RBC 2.42 L D Hgb 6.4 L* D Hct 20.3 L D MCV 84.1 MCH 26.3 MCHC 31.3 L RDW 19.0 H Plt Count 243 D MPV 9.4 Neutrophils % 61.8 D Lymphocytes % 21.3 D Monocytes % 15.8 H Eosinophils % 0.4 Basophils % 0.7 PT with INR INR PTT (Actin FS) Sodium 143 Potassium 4.9 Chloride 111 H Carbon Dioxide 23 Anion Gap 9 BUN 38 H D Creatinine 1.3 D Creat Clearance w eGFR 53.39 Random Glucose 142 H D Lactic Acid Calcium 8.4 L Phosphorus 4.6 D Magnesium 2.1 Total Bilirubin 0.8 AST 96 H ALT 58 Alkaline Phosphatase 499 H Ammonia Creatine Kinase 49 Troponin I < 0.02 Total Protein 6.4 Albumin 2.1 L Urine Color Urine Appearance Urine pH Ur Specific [place] Urine Protein Urine Glucose (UA) Urine Ketones Urine Blood Urine Nitrite Urine Bilirubin Urine Urobilinogen Ur Leukocyte Esterase Blood Type Antibody Screen Crossmatch 08/06/17 08/06/17 08/06/17 19:20 19:25 19:33 WBC RBC Hgb Hct MCV MCH MCHC RDW Plt Count MPV Neutrophils % Lymphocytes % Monocytes % Eosinophils % Basophils % PT with INR INR PTT (Actin FS) Sodium Potassium Chloride Carbon Dioxide Anion Gap BUN Creatinine Creat Clearance w eGFR Random Glucose Lactic Acid 2.6 H* Calcium Phosphorus Magnesium Total Bilirubin AST ALT Alkaline Phosphatase Ammonia 133.39 H Creatine Kinase Troponin I Total Protein Albumin Urine Color Urine Appearance Urine pH Ur Specific [place] Urine Protein Urine Glucose (UA) Urine Ketones Urine Blood Urine Nitrite Urine Bilirubin Urine Urobilinogen Ur Leukocyte Esterase Blood Type O POSITIVE Antibody Screen Negative Crossmatch See Detail 08/06/17 08/06/17 19:43 22:30 WBC RBC Hgb Hct MCV MCH MCHC RDW Plt Count MPV Neutrophils % Lymphocytes % Monocytes % Eosinophils % Basophils % PT with INR 14.30 H INR 1.27 H PTT (Actin FS) 29.8 Sodium Potassium Chloride Carbon Dioxide Anion Gap BUN Creatinine Creat Clearance w eGFR Random Glucose Lactic Acid Calcium Phosphorus Magnesium Total Bilirubin AST ALT Alkaline Phosphatase Ammonia Creatine Kinase Troponin I Total Protein Albumin Urine Color Nan Urine Appearance Clear Urine pH 5.0 D Ur Specific [place] 1.021 Urine Protein Negative Urine Glucose (UA) Negative Urine Ketones Negative Urine Blood Negative Urine Nitrite Negative Urine Bilirubin Negative Urine Urobilinogen 4.0 e.u/dl Ur Leukocyte Esterase Negative Blood Type Antibody Screen Crossmatch Problem List - Problems (1) Ascites Code(s): R18.8 - OTHER ASCITES (2) Ascites due to alcoholic cirrhosis Code(s): K70.31 - ALCOHOLIC CIRRHOSIS OF LIVER WITH ASCITES (3) Ascites, malignant Code(s): R18.0 - MALIGNANT ASCITES (4) Upper GI bleed Code(s): K92.2 - GASTROINTESTINAL HEMORRHAGE, UNSPECIFIED (5) Alcohol abuse Code(s): F10.10 - ALCOHOL ABUSE, UNCOMPLICATED (6) Elevated alkaline phosphatase level Code(s): R74.8 - ABNORMAL LEVELS OF OTHER SERUM ENZYMES (7) Esophageal varices Code(s): I85.00 - ESOPHAGEAL VARICES WITHOUT BLEEDING (8) GIB (gastrointestinal bleeding) Code(s): K92.2 - GASTROINTESTINAL HEMORRHAGE, UNSPECIFIED Qualifiers: GI bleed type/associated pathology: unspecified gastrointestinal hemorrhage type Qualified Code(s): K92.2 - Gastrointestinal hemorrhage, unspecified (9) HCC (hepatocellular carcinoma) Code(s): C22.0 - LIVER CELL CARCINOMA (10) Liver masses Code(s): R16.0 - HEPATOMEGALY, NOT ELSEWHERE CLASSIFIED Assessment/Plan EGD revealed grade 4, bleeding EV. Banded (5 bands) successfully. No immediate complications Agree with PPI IV, Octreotide, blood transfusion, ICU Start Cipro 500/400 daily for SBP prophylaxis ID consult Lactulose qid IN Flexi-seal Close monitoring for SBP, HRS. No NG/OGT Keep SBP ~ 100 Prognosis poor, ?advance directives
[2017-08-06 23:30] LABS: ALLENS TEST POSITIVE; ARTERIAL BLOOD GAS BASE EXCESS -7.4 meq/l (-2-2); ARTERIAL BLOOD GAS PCO2 30.5 mmHg (35-45); ARTERIAL BLOOD GAS pH 7.36 (7.35-7.45)
[2017-08-06] MEDS ORDERED: EPINEPHrine 1:10,000 (P-F SYR) 1 MG/10 ML DISP.SYRIN ONE (23:41)
[2017-08-07] MEDS ORDERED: ROCURONIUM BROMIDE 50 MG/5 ML VIAL ONE (00:22)
--- NOTE | 2017-08-07 01:06 | PROC ---
Endoscopy Procedure Endoscopy procedure completed. Please see scanned procedure report. Grade 4, bleeding esophageal varices, blood clots in the stomach and the proximal duodenum noted. No obvious mucosal lesion noted in the stomach, duodenal bulb, and proximal small bowel. No gastric varices noted. EV were banded with 5 bands successfully w/o immediate complications.
[2017-08-07] MEDS ORDERED: LACTATED RINGERS SOLUTION 1,000 ML IV SCH (01:30)
[2017-08-07 02:58] LABS: BASO % 0.6 % (0-2.0); EOS % 0.2 % (0-4.5); HEMOGLOBIN 7.4 GM/dL (11.7-16.9); LYMPH % 15.2 % (8-40); MCH 27.5 pg (25.7-33.7); MEAN PLT VOLUME 9.8 fl (7.5-11.1); MONO % 18.4 % (3.8-10.2); NEUT % 65.6 % (42.8-82.8); PLATELET COUNT 214 K/MM3 (134-434); RBC 2.68 M/mm3 (4.00-5.60); RDW 16.8 % (11.9-15.9); WHITE BLOOD COUNT 7.2 K/mm3 (4.0-10.0)
[2017-08-07 03:12] LABS: INR 1.42 (0.82-1.09)
[2017-08-07 03:15] LABS: ACTIVATED PTT 29.6 SECONDS (26.9-34.4)
[2017-08-07 03:24] LABS: ALBUMIN 1.8 g/dl (3.4-5.0); ALK PHOS 414 U/L (45-117); ANION GAP 12 (8-16); BILIRUBIN,TOTAL 0.8 mg/dL (0.2-1.0); BLOOD UREA NITROGEN 42 mg/dL (7-18); CALCIUM 7.4 mg/dL (8.5-10.1); CHLORIDE 115 mmol/L (98-107); CO2 19 mmol/L (21-32); CREATININE 1.7 mg/dL (0.7-1.3); GLUCOSE,RANDOM 139 mg/dL (74-106); POTASSIUM 5.1 mmol/L (3.5-5.1); SGOT/AST 126 U/L (15-37); SGPT/ALT 61 U/L (12-78); SODIUM 146 mmol/L (136-145); TOT PROT 5.3 g/dl (6.4-8.2)
--- NOTE | 2017-08-07 03:43 | CONSULT ---
Consult Consult Specialty:: PULM/CCM Referred by:: Dr. Bryant Prescott Reason for Consultation:: Heavy EV Bleeder - History of Present Illness Chief Complaint: Vomitting Bright Red Blood & AMS History of Present Illness: Mr. Brito is a 76 y/o man, from [facility], pt of Dr. Fariba Sanchez, [place] cirrhotic, HCC, c/b HE & known grade 4 EV, DM, HTN, HL, CVA, Bipolar-Schizo, BIBA today for hematemesis & AMS. In ED pt AMS & vomiting significant bright Red Blood. Of note, the pt was discharged to SNF w/ a Hgb of 8 g/dl in June on PPI, Nadolol, & lactulose. In ED Hgb = 6.4 g/dl. Pt intubated in ED for airway protection. Pt is now s/p EGD w/ EV banding X4 in the OR & PRBCs X2. Arrives to the ICU intubated & sedated Hgb = 7.4. 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: CVA (right sided weakness) Cardio/Vascular: Yes: HTN, Hyperlipdemia Gastrointestinal: Yes: Esophageal Varices, GI Bleed Hepatobiliary: Yes: Cirrhosis Psych: Yes: Bipolar, Schizophrenia Endocrine: Yes: Diabetes Mellitus - Alcohol/Substance Use Hx Alcohol Use: Yes - Smoking History Smoking history: Never smoked Have you smoked in the past 12 months: No Aproximately how many cigarettes per day: 0 If you are a former smoker, when did you quit?: patient does not remember - Social History Usual Living Arrangement: Halfway ADL: Support Services 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 History of Recent Travel: No Home Medications - Allergies Allergies/Adverse Reactions: Allergies Allergy/AdvReac Type Severity Reaction Status Date / Time No Known Drug Allergies Allergy Verified 08/06/17 18:41 - Home Medications Home Medications: Ambulatory Orders Amlodipine Besylate 10 mg PO DAILY 08/06/17 Docusate Sodium [Colace] 200 mg PO HS 08/06/17 Ferrous Sulfate 325 mg PO TID 08/06/17 Lactulose 30 ml PO TID 08/06/17 Levothyroxine [Synthroid -] 25 mcg PO DAILY 08/06/17 Magnesium Hydroxide [Milk of Magnesia] 30 mg PO DAILY 08/06/17 Metronidazole/Sodium Chloride [Metronidazole 500 mg/100 ml] 500 mg IV TID Nadolol 20 mg PO DAILY 08/06/17 Pantoprazole Sodium 40 mg PO BID 08/06/17 Rifaximin [Xifaxan] 550 mg PO BID 08/06/17 Sennosides [Senna] 2 tab PO DAILY 08/06/17 Sucralfate [Carafate -] 1 gm PO QID 08/06/17 Family Disease History - Family Disease History Family History: Unable to Obtain (Intubated & Sedated) Review of Systems Unable to obtain ROS, reason: Intubated & Sedated Physical Exam Vital Signs: Vital Signs Temperature 97.5 F L 08/07/17 02:00 Pulse Rate 75 08/07/17 03:00 Respiratory Rate 20 08/07/17 03:00 Blood Pressure 99/70 08/07/17 03:00 O2 Sat by Pulse Oximetry (%) 100 08/07/17 02:00 Intake & Output 08/04/17 08/05/17 08/06/17 08/07/17 23:59 23:59 23:59 23:59 Intake Total 1000 371.6 Output Total 150 100 Balance 850 271.6 Weight 99.79 kg 92.941 kg Constitutional: Yes: Well Nourished, No Distress, Calm Eyes: Yes: WNL, Conjunctiva Clear, EOM Intact, Sclera Icterus HENT: Yes: WNL, Atraumatic, Normocephalic Neck: Yes: WNL, Supple, Trachea Midline Cardiovascular: Yes: WNL, Regular Rate and Rhythm Respiratory: Yes: WNL, Regular, CTA Bilaterally Gastrointestinal: Yes: Abdomen, Obese, Ascites, Distention, Hyperactive Bowel Sounds, Melena, Vomiting ...Rectal Exam: Yes: Deferred Renal/: Yes: Oliguria Breast(s): Yes: WNL Musculoskeletal: Yes: WNL Extremities: Yes: WNL Edema: Yes Edema: LUE: 3+, RUE: 3+, LLE: 4+, RLE: 4+ Peripheral Pulses WNL: Yes Integumentary: Yes: WNL, Venous Stasis Changes Neurological: Yes: WNL ...Motor Strength: WNL Psychiatric: Yes: WNL Labs: CBC, BMP 08/07/17 02:40 08/07/17 02:40 INR, PTT INR 1.42 (0.82-1.09) H 08/07/17 02:40 Laboratory Results - last 24 hr 08/06/17 08/06/17 08/06/17 18:54 18:55 19:20 WBC 4.9 D RBC 2.42 L D Hgb 6.4 L* D Hct 20.3 L D MCV 84.1 MCH 26.3 MCHC 31.3 L RDW 19.0 H Plt Count 243 D MPV 9.4 Neutrophils % 61.8 D Lymphocytes % 21.3 D Monocytes % 15.8 H Eosinophils % 0.4 Basophils % 0.7 PT with INR INR PTT (Actin FS) Anticoagulation Therapy Puncture Site ABG pH ABG pCO2 at Pt Temp ABG pO2 at Pt Temp ABG HCO3 ABG O2 Sat (Measured) ABG O2 Content ABG Base Excess Deion Test O2 Delivery Device Oxygen Flow Rate Vent Mode Vent Rate Mechanical Rate PEEP Pressure Support Vent Sodium 143 Potassium 4.9 Chloride 111 H Carbon Dioxide 23 Anion Gap 9 BUN 38 H D Creatinine 1.3 D Creat Clearance w eGFR 53.39 Random Glucose 142 H D Lactic Acid Calcium 8.4 L Phosphorus 4.6 D Magnesium 2.1 Total Bilirubin 0.8 AST 96 H ALT 58 Alkaline Phosphatase 499 H Ammonia Creatine Kinase 49 Troponin I < 0.02 Total Protein 6.4 Albumin 2.1 L Urine Color Urine Appearance Urine pH Ur Specific [place] Urine Protein Urine Glucose (UA) Urine Ketones Urine Blood Urine Nitrite Urine Bilirubin Urine Urobilinogen Ur Leukocyte Esterase Blood Type Antibody Screen Crossmatch Crossmatch IS Only 08/06/17 08/06/17 08/06/17 19:20 19:25 19:33 WBC RBC Hgb Hct MCV MCH MCHC RDW Plt Count MPV Neutrophils % Lymphocytes % Monocytes % Eosinophils % Basophils % PT with INR INR PTT (Actin FS) Anticoagulation Therapy Puncture Site ABG pH ABG pCO2 at Pt Temp ABG pO2 at Pt Temp ABG HCO3 ABG O2 Sat (Measured) ABG O2 Content ABG Base Excess Deion Test O2 Delivery Device Oxygen Flow Rate Vent Mode Vent Rate Mechanical Rate PEEP Pressure Support Vent Sodium Potassium Chloride Carbon Dioxide Anion Gap BUN Creatinine Creat Clearance w eGFR Random Glucose Lactic Acid 2.6 H* Calcium Phosphorus Magnesium Total Bilirubin AST ALT Alkaline Phosphatase Ammonia 133.39 H Creatine Kinase Troponin I Total Protein Albumin Urine Color Urine Appearance Urine pH Ur Specific [place] Urine Protein Urine Glucose (UA) Urine Ketones Urine Blood Urine Nitrite Urine Bilirubin Urine Urobilinogen Ur Leukocyte Esterase Blood Type O POSITIVE Antibody Screen Negative Crossmatch See Detail Crossmatch IS Only See Detail 08/06/17 08/06/17 08/06/17 19:43 22:30 23:25 WBC RBC Hgb Hct MCV MCH MCHC RDW Plt Count MPV Neutrophils % Lymphocytes % Monocytes % Eosinophils % Basophils % PT with INR 14.30 H INR 1.27 H PTT (Actin FS) 29.8 Anticoagulation Therapy No Result Required. Puncture Site Left radial ABG pH 7.36 ABG pCO2 at Pt Temp 30.5 L ABG pO2 at Pt Temp 243.0 H* ABG HCO3 16.9 L ABG O2 Sat (Measured) 100.0 H* ABG O2 Content 7.7 L* ABG Base Excess -7.4 L Deion Test Positive O2 Delivery Device Ventilator Oxygen Flow Rate 100% Vent Mode No Result Required. Vent Rate 14 Mechanical Rate No Result Required. PEEP 5.0 Pressure Support Vent 400 Sodium Potassium Chloride Carbon Dioxide Anion Gap BUN Creatinine Creat Clearance w eGFR Random Glucose Lactic Acid Calcium Phosphorus Magnesium Total Bilirubin AST ALT Alkaline Phosphatase Ammonia Creatine Kinase Troponin I Total Protein Albumin Urine Color Nan Urine Appearance Clear Urine pH 5.0 D Ur Specific [place] 1.021 Urine Protein Negative Urine Glucose (UA) Negative Urine Ketones Negative Urine Blood Negative Urine Nitrite Negative Urine Bilirubin Negative Urine Urobilinogen 4.0 e.u/dl Ur Leukocyte Esterase Negative Blood Type Antibody Screen Crossmatch Crossmatch IS Only 08/07/17 08/07/17 08/07/17 02:40 02:40 02:40 WBC 7.2 D RBC 2.68 L Hgb 7.4 L D Hct 23.0 L MCV 86.0 MCH 27.5 MCHC 32.0 RDW 16.8 H D Plt Count 214 MPV 9.8 Neutrophils % 65.6 Lymphocytes % 15.2 D Monocytes % 18.4 H Eosinophils % 0.2 Basophils % 0.6 PT with INR INR PTT (Actin FS) Anticoagulation Therapy Puncture Site ABG pH ABG pCO2 at Pt Temp ABG pO2 at Pt Temp ABG HCO3 ABG O2 Sat (Measured) ABG O2 Content ABG Base Excess Deion Test O2 Delivery Device Oxygen Flow Rate Vent Mode Vent Rate Mechanical Rate PEEP Pressure Support Vent Sodium 146 H Potassium 5.1 Chloride 115 H Carbon Dioxide 19 L Anion Gap 12 BUN 42 H Creatinine 1.7 H D Creat Clearance w eGFR 39.18 Random Glucose 139 H Lactic Acid 4.0 H* Calcium 7.4 L Phosphorus Magnesium Total Bilirubin 0.8 AST 126 H D ALT 61 Alkaline Phosphatase 414 H Ammonia Creatine Kinase Troponin I Total Protein 5.3 L Albumin 1.8 L Urine Color Urine Appearance Urine pH Ur Specific [place] Urine Protein Urine Glucose (UA) Urine Ketones Urine Blood Urine Nitrite Urine Bilirubin Urine Urobilinogen Ur Leukocyte Esterase Blood Type Antibody Screen Crossmatch Crossmatch IS Only 08/07/17 02:40 WBC RBC Hgb Hct MCV MCH MCHC RDW Plt Count MPV Neutrophils % Lymphocytes % Monocytes % Eosinophils % Basophils % PT with INR 16.00 H INR 1.42 H PTT (Actin FS) 29.6 Anticoagulation Therapy Puncture Site ABG pH ABG pCO2 at Pt Temp ABG pO2 at Pt Temp ABG HCO3 ABG O2 Sat (Measured) ABG O2 Content ABG Base Excess Deion Test O2 Delivery Device Oxygen Flow Rate Vent Mode Vent Rate Mechanical Rate PEEP Pressure Support Vent Sodium Potassium Chloride Carbon Dioxide Anion Gap BUN Creatinine Creat Clearance w eGFR Random Glucose Lactic Acid Calcium Phosphorus Magnesium Total Bilirubin AST ALT Alkaline Phosphatase Ammonia Creatine Kinase Troponin I Total Protein Albumin Urine Color Urine Appearance Urine pH Ur Specific [place] Urine Protein Urine Glucose (UA) Urine Ketones Urine Blood Urine Nitrite Urine Bilirubin Urine Urobilinogen Ur Leukocyte Esterase Blood Type Antibody Screen Crossmatch Crossmatch IS Only Imaging - Results Chest X-ray: Pending EKG: Image Reviewed (12-Lead 08/07: NSR in the 90's w/o ectopy, normal axis, notice global T-wave flattening, QTc = 490ms, no acute process (My Read).) Problem List - Problems (1) Alcohol abuse Code(s): F10.10 - ALCOHOL ABUSE, UNCOMPLICATED (2) Cirrhosis of liver with ascites Code(s): K74.60 - UNSPECIFIED CIRRHOSIS OF LIVER (3) Ascites due to alcoholic cirrhosis Code(s): K70.31 - ALCOHOLIC CIRRHOSIS OF LIVER WITH ASCITES (4) Upper GI bleed Code(s): K92.2 - GASTROINTESTINAL HEMORRHAGE, UNSPECIFIED (5) Anemia Code(s): D64.9 - ANEMIA, UNSPECIFIED Qualifiers: Anemia type: unspecified type Qualified Code(s): D64.9 - Anemia, unspecified (6) Diabetes Code(s): E11.9 - TYPE 2 DIABETES MELLITUS WITHOUT COMPLICATIONS (7) Esophageal varices determined by endoscopy Code(s): I85.00 - ESOPHAGEAL VARICES WITHOUT BLEEDING (8) Esophageal varix bleeding Code(s): I85.01 - ESOPHAGEAL VARICES WITH BLEEDING (9) HCC (hepatocellular carcinoma) Code(s): C22.0 - LIVER CELL CARCINOMA (10) Respiratory failure Code(s): J96.90 - RESPIRATORY FAILURE, UNSP, UNSP W HYPOXIA OR HYPERCAPNIA Assessment/Plan ASSESS: This is a 76 y/o man, Et-[place] cirrhotic w/ HCC c/b HE & known Grade 4 EV ( on PPI, Nadolol, & lactulose), DM, HTN, HL, CVA, & Bipolar-Schizo, admitted heavy EV Bleeder now s/p EGD w/ EV banding X5, multiple U/o PRBCs, c/c/b resp fail (intubated for airway protection). PLAN: -Cont Vent Support -Sedate for Vent sync -Wean FiO2 as tolerated -F/u ABG -Maintain Large Bore IV access X2 -Maintain active T & S -IV PPI gtt -Octreotide gtt -No NG/OGT -CBC q4Hrs -Trend LFTs -Trend Coags -Check Fibrinogen -Normal transfusion thresholds -Cover w/ Cipro -Abd US -Consider paracentesis for comfort -Lactulose SD -Flexi-seal -strict I's & O's -Trend BUN/Cr -Monitor UOP -Replete e-lytes prn -Send U-Lytes -Renal US -Pall Care consult -Call jaciel Brito Jr. the time has come to discuss GOC. This pt has a high mortality rate. It is time to have a conversation. What is important to Mr Brito? What kind of music does he like? Is it more improtant for him to be awake or would maximum comfort be the goal? Thank you for this interesting consult. GREY, ACNP-BC [facility] ICU PULM/CCM [id number]
[2017-08-07] MEDS ORDERED: PT OWN MED DRAWER 7, Y5N ONE (03:52)
[2017-08-07] MEDS: PANTOPRAZOLE SODIUM 80 MG in SODIUM CHLORIDE 100 ML IVPB SCH ×2 (05:30→16:09)
[2017-08-07 06:08] LABS: ARTERIAL BLD GAS O2 SATURATION 99.2 % (90-98.9); ARTERIAL BLOOD GAS BASE EXCESS -9.7 meq/l (-2-2)
[2017-08-07 06:09] LABS: ALLENS TEST POSITIVE; ARTERIAL BLOOD GAS PCO2 30.8 mmHg (35-45); ARTERIAL BLOOD GAS pH 7.31 (7.35-7.45)
[2017-08-07] MEDS ORDERED: CIPROFLOXACIN 400 MG/D5W 400 MG/200 ML IVPB IVPB ONE (08:00)
--- NOTE | 2017-08-07 09:27 | HOSP ---
Physical Examination Vital Signs: Vital Signs Temperature 97.2 F L 08/07/17 05:00 Pulse Rate 76 08/07/17 06:00 Respiratory Rate 21 08/07/17 07:12 Blood Pressure 104/65 08/07/17 06:00 O2 Sat by Pulse Oximetry (%) 100 08/07/17 02:00 Labs: CBC, BMP 08/07/17 02:40 08/07/17 02:40 Hospitalist Encounter Assessment: Called for active oral bleeding s/p EGD w/ EV banding X4 Pt is hypotensive s/p 4 units prbc Will continue to transfuse packed cells, give 2 units ffp, vit k 10mg IVPB Start vaso titrate for MAP >65 D/w pt son, he is aware father is sick and wants us to do everything we can, he is aware our efforts may result in D/w Dr. Smith, he is aware, no acute interventions at this point banding is complete, continue supportive care, when stable transfer for TIPS procedure ICU team aware
[2017-08-07] MEDS ORDERED: VASOPRESSIN 20 UNITS/ML VIAL IV ONE (09:58)
[2017-08-07] MEDS ORDERED: VASOPRESSIN 50 UNITS in SODIUM CHLORIDE 97.5 ML IVPB SCH (10:00)
[2017-08-07] MEDS ORDERED: MUPIROCIN 2% TOPICAL OINTMENT FOR DECOLONIZATION NS SCH (10:00)
[2017-08-07 10:47] VITALS: TEMP 96
[2017-08-07] MEDS ORDERED: PHYTONADIONE 10 MG/1 ML AMP IVPB ONE (11:00)
--- NOTE | 2017-08-07 11:42 | EKG ---
Test Reason : Blood Pressure : / mmHG Vent. Rate : 094 BPM Atrial Rate : 094 BPM P-R Int : 160 ms QRS Dur : 066 ms QT Int : 392 ms P-R-T Axes : 050 039 043 degrees QTc Int : 490 ms NORMAL SINUS RHYTHM PROLONGED QT ABNORMAL ECG WHEN COMPARED WITH ECG OF 11-JUN-2017 17:02, NO SIGNIFICANT CHANGE WAS FOUND Confirmed by MD KIA, WILEY ([id number]) on 08/07/2017 11:41:52 AM Referred By: Confirmed By:WILEY ADAM MD
[2017-08-07 11:50] LABS: HEMATOCRIT 23.3 % (35.4-49); MCH 27.4 pg (25.7-33.7); MEAN CELL VOLUME 91.3 fl (80-96); MEAN PLT VOLUME 10.1 fl (7.5-11.1); PLATELET COUNT 172 K/MM3 (134-434); RBC 2.55 M/mm3 (4.00-5.60); RDW 16.8 % (11.9-15.9); WHITE BLOOD COUNT 18.6 K/mm3 (4.0-10.0)
--- NOTE | 2017-08-07 12:10 | PN ---
Progress Note, Physician History of Present Illness: pt well known to me from last admission. Events noted/ chart reviewed. Intubated in icu s/p banding last night - continue to bleed - Current Medication List Current Medications: Active Medications Chlorhexidine Gluconate (Hibiclens For Decolonization -) 1 applic TP HS VENITA Pantoprazole Sodium 80 mg/ (Sodium Chloride) 100 mls @ 10 mls/hr IVPB Q10H VENITA PRN Reason: 8 MG/HR Last Admin: 08/07/17 05:30 Dose: 10 mls/hr Octreotide Acetate 1,200 mcg/ (Dextrose) 500 mls @ 20.83 mls/hr IVPB ASDIR VENITA PRN Reason: 50 MCG/HR Last Admin: 08/06/17 20:58 Dose: 20.83 mls/hr Fentanyl 500 mcg/ Dextrose 100 mls @ 5 mls/hr IVPB TITR VENITA PRN Reason: 25 MCG/HR Last Admin: 08/06/17 20:20 Dose: 5 mls/hr Ciprofloxacin/Dextrose (Cipro 400 Mg Premix Ivpb (Restricted To Id)) 400 mg in 200 mls @ 200 mls/hr IVPB DAILY@0800 VENITA Lactated Ringer's (Lactated Ringers Solution) 1,000 mls @ 150 mls/hr IV ASDIR VENITA Last Admin: 08/07/17 01:30 Dose: 150 mls/hr Vasopressin 50 units/ Sodium (Chloride) 100 mls @ 4 mls/hr IVPB ASDIR VENITA; 2 UNITS/HR PRN Reason: Protocol Mupirocin (Bactroban Ointment (For Decolonization) -) 1 applic NS BID VENITA Stop: 08/12/17 09:59 - Objective Vital Signs: Vital Signs Temperature 96.0 F L 08/07/17 10:00 Pulse Rate 75 08/07/17 10:00 Respiratory Rate 14 08/07/17 10:00 Blood Pressure 91/50 08/07/17 10:00 O2 Sat by Pulse Oximetry (%) 100 08/07/17 02:00 Constitutional: Yes: Other (intubated/ unresponsive) Cardiovascular: Yes: Regular Rate and Rhythm Respiratory: Yes: Diminished Gastrointestinal: Yes: Distention Edema: LLE: 2+, RLE: 2+ Labs: CBC, BMP 08/07/17 10:57 INR, PTT INR 1.42 (0.82-1.09) H 08/07/17 02:40 Problem List - Problems (1) HCC (hepatocellular carcinoma) Code(s): C22.0 - LIVER CELL CARCINOMA (2) Cirrhosis of liver with ascites Code(s): K74.60 - UNSPECIFIED CIRRHOSIS OF LIVER (3) Esophageal varix bleeding Code(s): I85.01 - ESOPHAGEAL VARICES WITH BLEEDING Assessment/Plan Discussed indetail with pts son who is at bedside. Also discussed with icu attending Dr. Oliver. In summary This is a 76 y/o man, [place] cirrhotic w/ HCC c/b HE & known Grade 4 EV (on PPI, Nadolol, & lactulose), DM, HTN, HL, CVA, & Bipolar-Schizo, admitted heavy EV Bleeder now s/p EGD w/ EV banding X5, multiple U/o PRBCs, Doing poorly still bleeding. Prognosis grave. Son signed dnr. no further aggressive measures--will be futile comfort care. extubate passionatly. Discussed with nursing staff also..
[2017-08-07] MEDS ORDERED: morphine SULFATE 4 MG/ML VIAL IVPUSH PRN (12:36)
--- NOTE | 2017-08-07 12:36 | PN ---
Progress Note (short form) - Note Progress Note: CCM Spoke to son and daughter in law at bedside. Stated that despite the banding, pt continues to bleed with hemorrhagic shock. They understand the severity of pt 's condition and agree to comfort/palliative measures. No further transfusions, will extubate patient and stop pressors. Morphine as needed for comfort. Koby Oliver MD
[2017-08-07 12:41] LABS: ANISOCYTOSIS 1+; PLATELET ESTIMATE NORMAL; TARGET CELLS 1+; TEAR DROP CELLS 1+
[2017-08-07 12:46] LABS: ALBUMIN 1.6 g/dl (3.4-5.0); ANION GAP 16 (8-16); BLOOD UREA NITROGEN 47 mg/dL (7-18); CALCIUM 7.1 mg/dL (8.5-10.1); CHLORIDE 116 mmol/L (98-107); CO2 12 mmol/L (21-32); CREATININE 2.1 mg/dL (0.7-1.3); GLUCOSE,RANDOM 112 mg/dL (74-106); MAGNESIUM 2.2 mg/dL (1.8-2.4); PHOSPHOROUS 8.1 mg/dL (2.5-4.9); SGOT/AST 289 U/L (15-37); SGPT/ALT 113 U/L (12-78); SODIUM 144 mmol/L (136-145); TOT PROT 4.5 g/dl (6.4-8.2)
[2017-08-07 12:48] LABS: ALK PHOS 313 U/L (45-117)
[2017-08-07 12:56] LABS: POTASSIUM 6.4 mmol/L (3.5-5.1)
[2017-08-07 12:57] VITALS: BP 95/65; PULSE 73
[2017-08-07] MEDS ORDERED: CHLORHEXIDINE GLUCONATE 4% CLEANSER FOR DECOLONIZATION TP SCH (22:00)
[2017-08-08] MEDS ORDERED: CIPROFLOXACIN 400 MG/D5W 400 MG/200 ML IVPB IVPB SCH (08:00)
--- NOTE | 2017-08-08 10:49 | DS ---
Physical Examination Vital Signs: Vital Signs Temperature 96.0 F L 08/07/17 10:00 Pulse Rate 73 08/07/17 12:00 Respiratory Rate 73 H 08/07/17 12:25 Blood Pressure 95/65 08/07/17 12:00 O2 Sat by Pulse Oximetry (%) 100 08/07/17 09:00 Findings/Remarks: see progress note 08/07/17 Labs: CBC, BMP 08/07/17 10:57 08/07/17 10:57 Discharge Summary Reason For Visit: UPPER GASTROINTESTINAL HEMORRHAGE Condition: - Instructions Referrals: Fariba Sanchez MD [Primary Care Provider] - Disposition: - Home Medications Comprehensive Discharge Medication List: Ambulatory Orders Amlodipine Besylate 10 mg PO DAILY 08/06/17 Docusate Sodium [Colace] 200 mg PO HS 08/06/17 Ferrous Sulfate 325 mg PO TID 08/06/17 Lactulose 30 ml PO TID 08/06/17 Levothyroxine [Synthroid -] 25 mcg PO DAILY 08/06/17 Magnesium Hydroxide [Milk of Magnesia] 30 mg PO DAILY 08/06/17 Metronidazole/Sodium Chloride [Metronidazole 500 mg/100 ml] 500 mg IV TID Nadolol 20 mg PO DAILY 08/06/17 Pantoprazole Sodium 40 mg PO BID 08/06/17 Rifaximin [Xifaxan] 550 mg PO BID 08/06/17 Sennosides [Senna] 2 tab PO DAILY 08/06/17 Sucralfate [Carafate -] 1 gm PO QID 08/06/17
== END 2017-08-07 18:35 | disposition expired | DRG 432 ==
LOC: JER 18:31 → JERBED 22:40 → JICU 08-07 01:20
PROVIDERS: ADMIT Internal Medicine; ATTEND Internal Medicine
PROC: 5A1935Z Respiratory Ventilation, Less than 24 Consecutive Hours (ICD-10-PCS; 2017-08-06)
PROC: 30233N1 Transfusion of Nonautologous Red Blood Cells into Peripheral Vein, Percutaneous Approach (ICD-10-PCS; 2017-08-06)
PROC: 0CHY7BZ Insertion of Airway into Mouth and Throat, Via Natural or Artificial Opening (ICD-10-PCS; principal; 2017-08-06 23:17)
PROC: 06L38CZ Occlusion of Esophageal Vein with Extraluminal Device, Via Natural or Artificial Opening Endoscopic (ICD-10-PCS; 2017-08-07)
PROC: 30233K1 Transfusion of Nonautologous Frozen Plasma into Peripheral Vein, Percutaneous Approach (ICD-10-PCS; 2017-08-07)
DX: K70.31 Alcoholic cirrhosis of liver with ascites (principal); I85.11 Secondary esophageal varices with bleeding; K72.00 Acute and subacute hepatic failure without coma; F31.89 Other bipolar disorder; F20.89 Other schizophrenia; I69.951 Hemiplegia and hemiparesis following unspecified cerebrovascular disease affecting right dominant side; C22.0 Liver cell carcinoma; K92.2 Gastrointestinal hemorrhage, unspecified; K92.0 Hematemesis; E11.9 Type 2 diabetes mellitus without complications; I10 Essential (primary) hypertension; E78.5 Hyperlipidemia, unspecified; K21.9 Gastro-esophageal reflux disease without esophagitis; D64.9 Anemia, unspecified; E03.9 Hypothyroidism, unspecified; K72.90 Hepatic failure, unspecified without coma; R74.8 Abnormal levels of other serum enzymes; R57.8 Other shock
CPT/HCPCS: 36415; 36430; 36600; 71045-TC-FY; 80053; 81003; 82140; 82550; 82803; 83605; 83735; 84100; 84484; 85025; 85610; 85730; 86850; 86900; 86901; 86922; 87040; 87086; 93005; 93010; 94002; 94760; 99285-25; J7030; P9017; P9038; P9058